=== PATIENT | male | born 1950 | race African-American/Black ===

== ENCOUNTER 2016-11-10 15:39 | Inpatient (IN) | payer SELFPAY ==
[2016-11-10] MEDS ORDERED: CLONIDINE HCL 0.1 MG TABLET PO ONE (16:03)
--- NOTE | 2016-11-10 16:03 | ER Document Report ---
ED Medical Screen (RME) - General Stated Complaint: LEFT SIDE PAIN Mode of Arrival: Ambulatory Information source: Patient Notes: pt c/o upper abd pain that radiates around left lateral side and left flank area. No urinary sx, no cp. Pt was seen here on 11/01 and dx with pancreatitis. Pt has been taking blood pressure medication, but is hypertensive in triage. Pt c/o dizziness Hx: HTN, pancreatitis TRAVEL OUTSIDE OF THE [place] IN LAST 30 DAYS: No - Related Data Allergies/Adverse Reactions: No Known Drug Allergies Allergy (Unknown, Verified 11/03/16 13:05) Raspberries Allergy (Mild, Uncoded 11/03/16 13:05) Hives Past Medical History - Past Medical History Cardiac Medical History: Reports: Hx Congestive Heart Failure, Hx Hypertension Pulmonary Medical History: Denies: Hx Tuberculosis Neurological Medical History: Denies: Hx Seizures GI Medical History: Reports: Hx Gastroesophageal Reflux Disease Past Surgical History: Denies: Hx Pacemaker - Immunizations Immunizations up to date: Yes Hx Diphtheria, Pertussis, Tetanus Vaccination: Yes - unk Physical Exam - Abdominal Tenderness: Tender - left lateral side pain
[2016-11-10 17:06] LABS: ABSOLUTE BASOPHILS # (AUTO) 0.1 10^3/uL (0.0-0.2); ABSOLUTE EOSINOPHILS # (AUTO) 0.4 10^3/uL (0.0-0.6); ABSOLUTE LYMPHOCYTES (AUTO) 2.7 10^3/uL (0.5-4.7); ABSOLUTE MONOCYTES (AUTO) 0.6 10^3/uL (0.1-1.4); ABSOLUTE NEUT (AUTO) 4.3 10^3/uL (1.7-8.2); BASOPHILS % (AUTO) 0.7 % (0-2); EOSINOPHILS % (AUTO) 4.9 % (0-6); HEMOGLOBIN 13.3 g/dL (13.5-17.0); HGB HCT DIFFERENCE -0.1; LYMPHOCYTES % (AUTO) 33.7 % (13-45); MEAN CORPUSCULAR HEMOGLOBIN 30.8 pg (27.0-33.4); MEAN CORPUSCULAR HGB CONC 33.4 g/dL (32.0-36.0); MEAN CORPUSCULAR VOLUME 92 fl (80-97); MONOCYTES % (AUTO) 7.4 % (3-13); RED BLOOD COUNT 4.33 10^6/uL (4.35-5.55); RED CELL DISTRIBUTION WIDTH 14.3 % (11.5-14.0); SEGMENTED NEUTROPHILS % (AUTO) 53.3 % (42-78); WHITE BLOOD COUNT 8.1 10^3/uL (4.0-10.5)
[2016-11-10 17:09] LABS: APPEARANCE,URINE CLEAR; BILIRUBIN,URINE NEGATIVE (NEGATIVE); GLUCOSE, URINE NEGATIVE (NEGATIVE); KETONES,URINE NEGATIVE (NEGATIVE); LEUKOCYTE ESTERASE,URINE NEGATIVE (NEGATIVE); NITRITE,URINE NEGATIVE (NEGATIVE); PROTEIN,URINE 30 mg/dL (NEGATIVE); URINE SPECIFIC GRAVITY 1.021; UROBILINOGEN,URINE NEGATIVE mg/dL (<2.0)
[2016-11-10 17:32] LABS: ALANINE AMINOTRANSFERASE 35 U/L (21-72); ALBUMIN 4.1 g/dL (3.5-5.0); ALKALINE PHOSPHATASE 82 U/L (38-126); ANION GAP 13 (5-19); ASPARTATE AMINO TRANSFERASE 18 U/L (17-59); BILIRUBIN,TOTAL 0.5 mg/dL (0.2-1.3); BLOOD UREA NITROGEN 11 mg/dL (7-20); CALCIUM 10.2 mg/dL (8.4-10.2); CARBON DIOXIDE 27 mmol/L (22-30); CHLORIDE 104 mmol/L (98-107); CREATINE KINASE 62 U/L (55-170); CREATININE RESULT 1.17 mg/dL (0.52-1.25); GLUCOSE 148 mg/dL (75-110); LIPASE 1472.4 U/L (23-300); MAGNESIUM 2.1 mg/dL (1.6-2.3); POTASSIUM 4.5 mmol/L (3.6-5.0); SODIUM 143.5 mmol/L (137-145); TOTAL PROTEIN 7.5 g/dL (6.3-8.2)
[2016-11-10 17:38] LABS: CREATINE KINASE MB 1.08 ng/mL (<4.55)
[2016-11-10 17:44] LABS: TROPONIN I 0.039 ng/mL
--- NOTE | 2016-11-10 17:45 | ER Document Report ---
ED General - General Mode of Arrival: Ambulatory Information source: Patient TRAVEL OUTSIDE OF THE [place] IN LAST 30 DAYS: No - HPI Patient complains to provider of: Left Sided Abdominal Pain Onset: Last week Onset/Duration: Gradual, Persistent Similar symptoms previously: Yes Recently seen / treated by doctor: Yes - 11/03/2016 seen here <MAJO GOODEN - Last Filed: 11/10/16 17:53> <BRENDA CASTREJON - Last Filed: 11/10/16 21:18> - General Chief Complaint: Abdominal Pain Stated Complaint: LEFT SIDE PAIN Notes: Patient is a 66 y/o male presenting to the emergency department concerned of left sided abdominal pain onset approximately 1 week ago. Patient states he was seen here [facility] and diagnosed with Pancreatitis. Patient has a past history of pancreatitis the first being in 2008. Patient has history of hypertension, but does not have a primary care provider to manage his medications. (MAJO GOODEN) This 66-year-old male patient comes in complaining of abdominal pain for over a week. He was seen here on 11/03/[address] scan showing mild pancreatic inflammation, an ultrasound was unremarkable. A lipase was 2,971 on that day. He was discharged with a prescription for Percocet. He states the pain medication is not helping his pain. He is also prescribed metoprolol 50 mg twice a day which she has not been taking. He comes in [facility] with a blood pressure of 228/111. He has had pancreatitis several times over the past few years, previous admissions when he had a primary care provider, indicated it was alcohol related. He states he does not drink alcohol any longer. (BRENDA CASTREJON) - Related Data Allergies/Adverse Reactions: No Known Drug Allergies Allergy (Unknown, Verified 11/10/16 16:03) Raspberries Allergy (Mild, Uncoded 11/10/16 16:03) Hives Past Medical History - General Information source: Patient - Social History Smoking Status: Current Every Day Smoker Cigarette use (# per day): Yes - ~1/2 ppd Frequency of alcohol use: None Family History: Reviewed & Not Pertinent - Past Medical History Cardiac Medical History: Reports: Hx Congestive Heart Failure, Hx Hypertension GI Medical History: Reports: Hx Gastroesophageal Reflux Disease - Immunizations Immunizations up to date: Yes Hx Diphtheria, Pertussis, Tetanus Vaccination: Yes - unk Hx Pneumococcal Vaccination: 11/11/11 <MAJO GOODEN - Last Filed: 11/10/16 17:53> Review of Systems - Review of Systems Constitutional: No symptoms reported EENT: No symptoms reported Cardiovascular: No symptoms reported Respiratory: No symptoms reported Gastrointestinal: See HPI, Abdominal pain - Left Sided Genitourinary: No symptoms reported Male Genitourinary: No symptoms reported Musculoskeletal: No symptoms reported Skin: No symptoms reported Hematologic/Lymphatic: No symptoms reported Neurological/Psychological: No symptoms reported -: Yes All other systems reviewed and negative <MAJO GOODEN - Last Filed: 11/10/16 17:53> Physical Exam - Vital signs Interpretation: Hypertensive - General General appearance: Alert - HEENT Head: Normocephalic, Atraumatic Eyes: Normal Pupils: PERRL Neck: No: Carotid bruit - Respiratory Respiratory status: No respiratory distress Chest status: Nontender Breath sounds: Normal Chest palpation: Normal - Cardiovascular Rhythm: Regular Heart sounds: Normal auscultation Murmur: No - Abdominal Inspection: Obese Distension: No distension Bowel sounds: Normal Tenderness: Tender - Very tender to palpation over epigastric region Organomegaly: No organomegaly - Back Back: Normal, Nontender - Extremities General upper extremity: Normal inspection, Nontender, Normal color, Normal ROM , Normal temperature General lower extremity: Normal inspection, Nontender, Normal color, Normal ROM , Normal temperature, Normal weight bearing - Neurological Neuro grossly intact: Yes Cognition: Normal Orientation: AAOx4 Dariela Coma Scale Eye Opening: Spontaneous Dariela Coma Scale Verbal: Oriented Dariela Coma Scale Motor: Obeys Commands Dariela Coma Scale Total: 15 Speech: Normal - Psychological Associated symptoms: Normal affect, Normal mood - Skin Skin Temperature: Warm Skin Moisture: Dry Skin Color: Normal <MAJO GOODEN - Last Filed: 11/10/16 17:53> Course - Laboratory Result Diagrams: 11/10/16 16:40 11/10/16 16:40 <MAJO GOODEN - Last Filed: 11/10/16 17:53> - Laboratory Result Diagrams: 11/10/16 16:40 11/10/16 16:40 - Diagnostic Test Radiology reviewed: Reports reviewed - Acute abdominal series is unremarkable - EKG Interpretation by Fl EKG shows normal: Sinus rhythm, Vivian, Intervals, QRS Complexes, ST-T Waves Rate: Normal - 75 Rhythm: NSR Voltage: Consistant with LVH P Waves: LAE - Consults Dr. Nelson Time consulted: 21:10 Consulted provider: will come to ER <BRENDA CASTREJON - Last Filed: 11/10/16 21:18> - Vital Signs Vital signs: Temp Pulse Resp BP Pulse Ox 97.9 F 83 20 173/99 H 98 11/10/16 16:02 11/10/16 16:02 11/10/16 20:41 11/10/16 20:41 11/10/16 20:41 (MAJO GOODEN) (BRENDA CASTREJON) - Laboratory Laboratory results interpreted by me: 11/10/16 11/10/16 11/10/16 16:20 16:40 16:40 RBC 4.33 L Hgb 13.3 L RDW 14.3 H Glucose 148 H Lipase 1472.4 H Urine Protein 30 H Urine Ascorbic Acid 20 H (MAJO GOODEN) (BRENDA CASTREJON) Discharge <MAJO GOODEN - Last Filed: 11/10/16 17:53> - Discharge Admitting Provider: Hospitalist Unit Admitted: IMCU <BRENDA CASTREJON - Last Filed: 11/10/16 21:18> - Discharge Clinical Impression: Recurrent acute pancreatitis, Uncontrolled hypertension Condition: Stable Disposition: ADMITTED INPATIENT Scribe Attestation: 11/10/16 21:18 I personally performed the services described in the documentation, reviewed and edited the documentation which was dictated to the scribe in my presence, and it accurately records my words and actions. (BRENDA CASTREJON) Scribe Documentation - Scribe Written by Wes:: Majo Gooden 11/10/2016 17:45 acting as scribe for :: Abe <MAJO GOODEN - Last Filed: 11/10/16 17:53>
[2016-11-10] MEDS ORDERED: HYDRALAZINE HCL INJ/PF 20 MG/1 ML SDV IV ONE ×2 (17:57→21:04)
[2016-11-10] MEDS ORDERED: ONDANSETRON HCL INJ/PF 4 MG/2 ML SDV IV ONE ×2 (17:57→21:04)
[2016-11-10] MEDS ORDERED: MORPHINE SULFATE 10 MG/ML INJ IV ONE ×2 (17:57→21:04)
[2016-11-10 19:53] LABS: URINE BARBITURATES SCREEN NEGATIVE; URINE PHENCYCLIDINE SCREEN NEGATIVE
[2016-11-10 20:00] LABS: URINE METHADONE SCREEN NEGATIVE
[2016-11-10 21:20] LABS: ADD ON TESTING BLD IN LAB ACKNOWLEDGE
[2016-11-10 21:33] LABS: ALCOHOL < 10 mg/dL (NONE DETECTED)
--- NOTE | 2016-11-10 22:40 | EKG REPORT ---
SEVERITY:- ABNORMAL ECG - SINUS RHYTHM PROBABLE LEFT ATRIAL ABNORMALITY PROBABLE LVH WITH SECONDARY REPOL ABNRM : Confirmed by: Jose Isaac MD 10-Nov-2016 22:39:26
[2016-11-10] MEDS ORDERED: MAGNESIUM HYDROXIDE SUSP 30 ML UDCUP PO PRN (23:16)
[2016-11-10] MEDS ORDERED: ACETAMINOPHEN 325 MG TABLET PO PRN (23:16)
[2016-11-10] MEDS ORDERED: PROMETHAZINE HCL INJ 25 MG/1 ML VIAL IV PRN (23:18)
[2016-11-10] MEDS ORDERED: NICOTINE 14 MG/24 HR PATCH.TD24 TD PRN (23:18)
--- NOTE | 2016-11-10 23:47 | PDOC H&P ---
History of Present Illness Admission Date/PCP: 11/10/16 21:51 No PCP; referral to [facility] Patient complains of: abd pain History of Present Illness: SAMPSON MAO is a 66 year old obese male with underlying arthritis and difficult to control blood pressure, and with lack of medical care for least a year due to lack of insurance and finances, along with recurrent pancreatitis, felt to be alcohol related in the past, who presents to the emergency room for the second time in one week for evaluation of above complaint. Patient has been discussed with emergency room physician who evaluated the patient. Describes approximately 10 day history of intermittent episodes of left upper quadrant combination sharp and throbbing abdominal pain. Increases with certain movements, including walking, along with eating. Of note, patient is a fairly poor historian. No nausea vomiting, fever or chills. No diarrhea or dysuria. No chest pain. No bowel movement for the past 3 days. Was seen in the emergency room [facility] for evaluation of similar complaints, that had been ongoing for approximately 3 days at that time. Workup included CT scan of the abdomen and pelvis revealing mild pancreatitis, along with ultrasound revealing slight dilatation of the pancreatic duct. Indeterminate troponins. Was discharged home with when necessary Percocet along with metoprolol. Has been taking both medications as prescribed. States pain has changed little at all with the Percocet he has been taking. Intermittent episodes of pancreatitis since 2008. No specific etiology discovered, although previously felt to be secondary to alcohol use. No alcohol use since 2008.. Blood pressure fairly elevated upon presentation to the emergency room. Has required multiple medications for treatment of same. Laboratory results are listed in [facility] and are reviewed. 01/03/15 01/14/15 04/07/15 18:36 16:50 17:45 Troponin I 0.034 0.020 0.027 11/03/16 11/03/16 11/10/16 15:30 19:42 16:40 Troponin I 0.066 0.073 0.039 X-ray summary results are listed below, with full report(s) reviewed. . EKG reviewed and compared to prior tracing from November 03 of this year. Social history/personal habits: . No children. Unemployed. Half- pack of cigarettes per day. No alcohol use since 2008. No illicit drug use other than marijuana. Should patient become mentally incapacitated, surrogate health care decision maker Brother Umang. Family History : Siblings are diabetic and hypertensive. Father has coronary artery disease. Mother is ; she was hypertensive and diabetic. Allergies/adverse reactions allergic only to raspberries. NKDA. Home medications are reviewed and are to be reconciled by nursing staff in [facility]. Home medications initially autopopulated into [facility] may not accurately reflect patient's true medications, dosages, and/or frequencies. Compliant with medications. He received these 2 medications when seen in the emergency room on [facility]. REVIEW OF SYSTEMS: Constitutional: No fever or chills. Eyes: Wears glasses. ENT: No swallowing problems or complaints. No hearing problems or complaints. Pulmonary: No current complaints. Cardiovascular: No current complaints, including chest pain. Gastrointestinal: See history and present illness. Skin: No current complaints, including rashes. Hematologic: No unusual easy bruising or bleeding. Neurologic: No current complaints, including numbness or tingling. Musculoskeletal: Joint pain from arthritis. Psychiatric: No current complaints, including anxiety or depression. Endocrine: No current complaints, including polyuria. Genitourinary: No current complaints, including dysuria. PHYSICAL EXAMINATION: 6 feet 1 inches tall. 116 kg. BMI 33.7 kg/m. Blood pressure 181/80. Pulse 88 and regular. 99% saturation on room air. Respirations are 17 and unlabored. Temperature 97.9. Obese but also somewhat stocky otherwise well-developed -Martiniquais male who appears perhaps a bit younger than his stated age. Pleasant awake alert and cooperative. Appears slightly fatigued, and perhaps a bit under the weather , so to speak. Otherwise, no obvious distress. Brother Umang, who is his surrogate healthcare decision-maker is present at his side, with patient's approval. Skin is warm and dry. No grossly obvious evidence of rash in areas of skin examined. No subcutaneous nodules palpated. ENT: Hearing grossly normal to normal conversation. Tongue midline on protrusion pink and slightly tacky Eyes: No scleral icterus. Pupils equal and reactive to light at 4 mm. [place] conjunctivae. Neck is supple and nontender to gentle active range of motion and palpation. Midline trachea. No palpable thyroid nodule mass enlargement or tenderness. Lymphatic: No palpable cervical or clavicular nodes. Neck and lymphatic exams limited by patient body habitus. Psychiatric: Fair to reasonable insight into acute and chronic medical issues. Oriented to time location and why here. Lungs: Auscultation reveals clear and equal breath sounds bilaterally. No use of accessory respiratory muscles. Cardiovascular: Heart regular rate and rhythm, without gallop murmur or rub. No carotid or abdominal aortic bruits. No ankle or pedal edema. Faintly palpable dorsalis pedis pulses. Abdomen: soft, slightly obese, perhaps slightly distended nontender other than very mild left upper quadrant discomfort to palpation with positive bowel sounds. Certainly no evidence of guarding or peritoneal signs. Unable to adequately evaluate abdomen for masses or organomegaly due to discomfort, body habitus, and distention. Extremities: Feet are warm and dry. No calf tenderness to compression. No grossly obvious visual evidence of calf swelling. Gentle manipulation of lower extremities fails to reveal any obvious evidence of injury or instability to knees hips or ankles. Neurologic: Moves upper extremities grossly normally. Patellar reflexes absent. Absent Babinski. Light touch is intact at feet. Dorsiflexion and plantarflexion of feet 5 / 5 and symmetric. Past Medical History Cardiac Medical History: Reports: Hypertension Denies: Congestive Heart Failure, DVT, Myocardial Infarction, Hyperlipidema, Pulmonary Embolism Pulmonary Medical History: Denies: Asthma, Chronic Obstructive Pulmonary Disease (COPD), Tuberculosis EENT Medical History: Reports: Eyes - Glasses Denies: Ears, Throat Neurological Medical History: Denies: Hemorrhagic CVA, Ischemic CVA, Seizures Endocrine Medical History: Denies: Diabetes Mellitus Type 1, Diabetes Mellitus Type 2, Hyperthyroidism, Hypothyroidism Renal/ Medical History: Reports: None GI Medical History: Reports: Gastroesophageal Reflux Disease, Other - Recurrent pancreatitis Denies: Cirrhosis, Hepatitis, Peptic Ulcer Disease Musculoskeltal Medical History: Reports: Arthritis Skin Medical History: Reports: None Denies: Eczema, Psoriasis Psychiatric Medical History: Reports: Tobacco Dependency Denies: Alcohol Dependency - History ETOH abuse; none since 2008, per patient., Depression, General Anxiety Disorder, Substance Abuse Hematology: Reports: None Infectious Medical History: Denies: Hepatitis B, Hepatitis C Past Surgical History Past Surgical History: Reports: None Social History Information Source: Patient, Relative, Emergency Med Personnel, [facility] Records Smoking Status: Current Every Day Smoker Frequency of Alcohol Use: None Hx Recreational Drug Use: Yes Drugs: Marijuana Hx Prescription Drug Abuse: No - Advance Directive Resuscitation Status: Full Code Family History Family History: Reviewed & Not Pertinent Parental Family History Reviewed: Yes Children Family History Reviewed: NA Sibling(s) Family History Reviewed.: Yes Medication/Allergy Home Medications: Oxycodone HCl/Acetaminophen [Percocet 5-325 mg Tablet] 1 - 2 tab PO Q4H PRN #20 tablet 03/21/16 RX: Metoprolol Tartrate [Lopressor 50 mg Tablet] 50 mg PO Q12H #30 tablet Lisinopril [Prinivil 40 mg Tablet] 40 mg PO BID #60 tablet 11/16/16 Nifedipine [Procardia XL 60 mg Tablet] 60 mg PO BID #60 tab.er.24 11/16/16 RX: Atorvastatin Calcium [Lipitor 40 mg Tablet] 40 mg PO QHS #30 tablet RX: Grawn-3 Acid Ethyl Esters [Lovaza 1 gm Capsule] 1 gm PO BIDBS #0 capsule 04/27 Allergies/Adverse Reactions: No Known Drug Allergies Allergy (Unknown, Verified 11/10/16 16:03) Raspberries Allergy (Mild, Uncoded 11/10/16 16:03) Hives Physical Exam Vital Signs: Temp Pulse Resp BP Pulse Ox 97.9 F 83 20 170/98 H 99 11/10/16 16:02 11/10/16 16:02 11/10/16 23:01 11/10/16 23:01 11/10/16 23:01 Results Impressions: Acute Abdomen Series 11/10/16 15:58 IMPRESSION: NO RADIOGRAPHIC EVIDENCE FOR ACUTE ABDOMINAL DISEASE. Assessment & Plan - Diagnosis (1) DVT prophylaxis Is this a current diagnosis for this admission?: Yes (2) Elevated troponin Is this a current diagnosis for this admission?: YesPlan: Indeterminate range. Downward trending from the slightly higher indeterminate range on [place] Imelda. Certainly no outward clinical evidence of acute coronary syndrome, but will obtain 2 more troponin levels. (3) Recurrent acute pancreatitis Is this a current diagnosis for this admission?: YesPlan: Standard pancreatitis protocol, including bowel rest. Ice chips only. When necessary medication for control of pain, nausea and vomiting. Strict intake and output. Lipid panel. I have strongly encouraged patient not to get out of bed without notifying staff , to avoid a fall with injury. Knee high SCDs for DVT prophylaxis, along with subcutaneous heparin. Impression and plans were discussed with patient, and brother, both of whom concur. Time spent in evaluation and management of patient: 62 minutes. (4) Uncontrolled hypertension Is this a current diagnosis for this admission?: YesPlan: Gradual blood pressure control. Will increase metoprolol dosage. (5) Marijuana use Is this a current diagnosis for this admission?: Yes (6) Tobacco dependency Is this a current diagnosis for this admission?: YesPlan: When necessary nicotine patch. - Inpatient Certification Based on my medical assessment, after consideration of the patient's comorbidities, presenting symptoms, or acuity I expect that the services needed warrant INPATIENT care.: Yes I certify that my determination is in accordance with my understanding of Medicare's requirements for reasonable and necessary INPATIENT services [42 CFR 412.3e].: Yes Medical Necessity: Failure to Improve With Outpatient Therapy, Need Close Monitoring Due to Risk of Patient Decompensation, Need For IV Fluids, Need For Continuous Telemetry Monitoring, Need for Pain Control, Risk of Complication if Not Cared For in Hospital Post Hospital Care: D/C or Transfer Summary
[2016-11-11] MEDS: NORMAL SALINE 1000 ML 1,000 ML IV PRN ×4 (01:28→22:16)
[2016-11-11] MEDS ORDERED: INFLUENZA ADLT QUAD (36MOS+) 2016-17 VAC 0.5 ML SYR IM PRN (02:10)
[2016-11-11] MEDS: MORPHINE SULFATE 10 MG/ML INJ IV PRN ×4 (02:27→20:40)
[2016-11-11 04:37] LABS: ABSOLUTE EOSINOPHILS # (AUTO) 0.3 10^3/uL (0.0-0.6); ABSOLUTE LYMPHOCYTES (AUTO) 2.3 10^3/uL (0.5-4.7); ABSOLUTE MONOCYTES (AUTO) 0.5 10^3/uL (0.1-1.4); ABSOLUTE NEUT (AUTO) 3.3 10^3/uL (1.7-8.2); BASOPHILS % (AUTO) 0.6 % (0-2); EOSINOPHILS % (AUTO) 4.7 % (0-6); HEMATOCRIT 38.5 % (37.9-51.0); HEMOGLOBIN 12.8 g/dL (13.5-17.0); HGB HCT DIFFERENCE -0.1; LYMPHOCYTES % (AUTO) 36.2 % (13-45); MEAN CORPUSCULAR HEMOGLOBIN 30.5 pg (27.0-33.4); MEAN CORPUSCULAR HGB CONC 33.2 g/dL (32.0-36.0); MEAN CORPUSCULAR VOLUME 92 fl (80-97); MONOCYTES % (AUTO) 7.8 % (3-13); RED BLOOD COUNT 4.19 10^6/uL (4.35-5.55); RED CELL DISTRIBUTION WIDTH 14.1 % (11.5-14.0); SEGMENTED NEUTROPHILS % (AUTO) 50.7 % (42-78); WHITE BLOOD COUNT 6.5 10^3/uL (4.0-10.5)
[2016-11-11 05:04] LABS: ANION GAP 10 (5-19); BLOOD UREA NITROGEN 10 mg/dL (7-20); CALCIUM 9.4 mg/dL (8.4-10.2); CARBON DIOXIDE 25 mmol/L (22-30); CHLORIDE 106 mmol/L (98-107); CHOLESTEROL 218.05 mg/dL (0-200); CREATININE RESULT 1.04 mg/dL (0.52-1.25); Direct HDL 25 mg/dL (>40); GLUCOSE 137 mg/dL (75-110); POTASSIUM 4.3 mmol/L (3.6-5.0); SODIUM 140.8 mmol/L (137-145); TRIGLYCERIDES 247 mg/dL (<150)
[2016-11-11 05:15] LABS: DIRECT LDL 153 mg/dL (<100)
[2016-11-11 05:19] LABS: VLDL CHOLESTEROL 49.4 mg/dL (10-31)
[2016-11-11] MEDS: HEPARIN SOD (PORCINE) 5,000 UNIT/ML 1 ML SYRINGE SUBCUT SCH ×3 (06:30→22:13)
--- NOTE | 2016-11-11 09:02 | EKG REPORT ---
SEVERITY:- ABNORMAL ECG - ATRIAL FIBRILLATION CONSIDER LEFT VENTRICULAR HYPERTROPHY OLD ANTEROSEPTAL CT : Confirmed by: Jose Isaac MD 11-Nov-2016 09:01:26
[2016-11-11] MEDS: DOCUSATE SODIUM 100 MG CAPSULE PO SCH ×2 (10:23→17:06)
[2016-11-11] MEDS: METOPROLOL TARTRATE 50 MG TABLET PO SCH ×2 (10:23→22:12)
[2016-11-11] MEDS ORDERED: ONDANSETRON 4 MG TAB.RAPDIS PO PRN (13:52)
--- NOTE | 2016-11-11 14:22 | PDOC PROGRESS REPORT ---
Subjective Progress Note for:: 11/11/16 Subjective:: The patient was seen earlier today on rounds. Patient admits to nausea and abdominal pain. The patient's family is present the bedside and active in the patient's care. The patient denies any vomiting, diarrhea, shortness of breath , dizziness, chest pain, heart palpitations, fevers, or chills. The patient has remained afebrile. The patient has converted back to sinus rhythm. Blood pressures have been in a good range. When prompted the patient voices no other concerns at this time. Review of systems: The rest of the review of systems is negative. Physical Exam Vital Signs: Temp Pulse Resp BP Pulse Ox 97.9 F 62 19 168/82 H 95 11/11/16 12:06 11/11/16 12:06 11/11/16 12:06 11/11/16 12:06 11/11/16 12:06 Intake & Output 11/09/16 11/10/16 11/11/16 23:59 23:59 23:59 Intake Total 1061 Balance 1061 Weight 114.1 kg General appearance: PRESENT: no acute distress, cooperative, obese, well- developed Head exam: PRESENT: atraumatic, normocephalic Eye exam: PRESENT: conjunctiva pink, EOMI, PERRLA. ABSENT: scleral icterus Ear exam: PRESENT: normal external ear exam Mouth exam: PRESENT: moist, tongue midline Neck exam: ABSENT: carotid bruit, JVD, lymphadenopathy, thyromegaly Respiratory exam: PRESENT: clear to auscultation wyatt. ABSENT: rales, rhonchi, wheezes Cardiovascular exam: PRESENT: RRR. ABSENT: diastolic murmur, rubs, systolic murmur Pulses: PRESENT: normal dorsalis pedis pul Vascular exam: PRESENT: normal capillary refill GI/Abdominal exam: PRESENT: normal bowel sounds, soft. ABSENT: distended, guarding, mass, organolmegaly, rebound, tenderness Rectal exam: PRESENT: deferred Extremities exam: PRESENT: full ROM. ABSENT: calf tenderness, clubbing, pedal edema Neurological exam: PRESENT: alert, awake, oriented to person, oriented to place , oriented to time, oriented to situation, CN II-XII grossly intact. ABSENT: motor sensory deficit Psychiatric exam: PRESENT: appropriate affect, normal mood. ABSENT: homicidal ideation, suicidal ideation Skin exam: PRESENT: dry, intact, warm. ABSENT: cyanosis, rash Results Laboratory Results: 11/11/16 04:20 11/11/16 04:20 11/11/16 11/11/16 11/11/16 04:20 04:20 04:20 WBC 6.5 RBC 4.19 L Hgb 12.8 L Hct 38.5 MCV 92 MCH 30.5 MCHC 33.2 RDW 14.1 H Plt Count 268 Seg Neutrophils % 50.7 Lymphocytes % 36.2 Monocytes % 7.8 Eosinophils % 4.7 Basophils % 0.6 Absolute Neutrophils 3.3 Absolute Lymphocytes 2.3 Absolute Monocytes 0.5 Absolute Eosinophils 0.3 Absolute Basophils 0.0 Sodium 140.8 Potassium 4.3 Chloride 106 Carbon Dioxide 25 Anion Gap 10 BUN 10 Creatinine 1.04 Est GFR ( Amer) > 60 Est GFR (Non-Af Amer) > 60 Glucose 137 H Calcium 9.4 Triglycerides 247 H Cholesterol 218.05 H LDL Cholesterol Direct 153 H VLDL Cholesterol 49.4 H HDL Cholesterol 25 L TSH 2.15 11/10/16 11/11/16 23:28 04:20 Troponin I 0.042 0.045 Impressions: Acute Abdomen Series 11/10/16 15:58 IMPRESSION: NO RADIOGRAPHIC EVIDENCE FOR ACUTE ABDOMINAL DISEASE. Lung Scan-VQ NM 11/11/16 05:34 IMPRESSION: LOW PROBABILITY FOR PULMONARY EMBOLI. Assessment & Plan - Diagnosis (1) Recurrent acute pancreatitis Is this a current diagnosis for this admission?: YesPlan: Will continue to aggressively hydrate. Will maintain nothing by mouth status. Will repeat lipase in the a.m. Advance diet as tolerated. (2) Paroxysmal atrial fibrillation Is this a current diagnosis for this admission?: YesPlan: Uncertain of the onset of this given that the patient remains asymptomatic. Patient has been seen by cardiology and will be set up for outpatient event monitor as well as echo. Do appreciate Dr. Andrews's input with this. (3) Uncontrolled hypertension Is this a current diagnosis for this admission?: YesPlan: Blood pressure still remained significantly elevated will add amlodipine and follow. Will avoid HCTZ given the patient's pancreatitis. (4) Elevated troponin Is this a current diagnosis for this admission?: YesPlan: Secondary to #2 do appreciate cardiology input with this. (5) Marijuana use Is this a current diagnosis for this admission?: Yes (6) Tobacco dependency Is this a current diagnosis for this admission?: YesPlan: Spent 3 minutes discussing smoking cessation education. The patient declines any pharmacological intervention at this time however will add a PRN nicotine patch. (7) DVT prophylaxis Is this a current diagnosis for this admission?: YesPlan: Continue subcutaneous heparin. - Time Time Spent with patient: on this followup including assessment, plan, physical examination, family meeting, and patient education is 35 minutes. Time Spent with patient: 35 or more minutes Medications reviewed and adjusted accordingly: Yes Anticipated discharge: Home Within: within 48 hours Disposition: The patient is a full code. Pending patient's symptomatology and diagnostic findings will reevaluate in the a.m.
[2016-11-11] MEDS ORDERED: AMLODIPINE BESYLATE 5 MG TABLET PO ONE (14:30)
--- NOTE | 2016-11-11 15:04 | EKG REPORT ---
SEVERITY:- ABNORMAL ECG - SINUS RHYTHM FIRST DEGREE AV BLOCK ABNORMAL T, CONSIDER ISCHEMIA, LATERAL LEADS : Confirmed by: Jose Isaac MD 11-Nov-2016 15:03:19
--- NOTE | 2016-11-11 15:43 | CONSULTATION REPORT E ---
Consultation Report NAME: SAMPSON MAO : 1950 AGE: 66Y DATE: 11/11/2016 334 A TO: FRANCOIS DAVE M.D. FROM: MEETA GODWIN M.D. Requesting Physician REASON FOR CONSULTATION: Atrial fibrillation. HISTORY OF PRESENT ILLNESS: The patient is a 66-year-old male with a known history of hypertension and recurrent abdominal pains due to recurrent pancreatitis, tobacco abuse, and arthritis. He came to the emergency room with abdominal pain. He was seen on [facility] for abdominal and a CT scan of the abdomen showed mild pancreatitis and ultrasound showed mildly dilated pancreatic ducts. The patient has a history of EtOH abuse until 2008, and since 2008 he has been having episodes of abdominal pain. The patient in the emergency room had a run of atrial fibrillation which converted to sinus rhythm within a matter of an hour. The patient is asymptomatic with this, feeling no palpitations or chest tightness or discomfort. He has no PND, orthopnea or leg edema or palpitations or syncope. There are no anginal symptoms or any cardiac chest pain. PAST MEDICAL HISTORY: Positive for history of hypertension. Although the patient denies a history of hyperlipidemia this admission, the patient's lipids are elevated. He has no history of diabetes mellitus, no history of thyroid disease. There is no history of coronary artery disease, IA or angina. There is no history of congestive heart failure. The patient denies any chronic kidney problems. There is no history of thyroid disease. There are no TIA or CVA symptoms. There is no anxiety and depression. PAST SURGICAL HISTORY: Negative. REVIEW OF SYSTEMS: CONSTITUTIONAL: Denies any fever or chills but complains of generalized fatigue and weakness. HEAD: Denies any headaches or head injury. HEENT: Eyes: No history of amblyopia or diplopia, no history of amaurosis fugax. Ears: No history of tinnitus, no history of hearing loss. No history of vertigo. Nose: No history of deviated nasal septal, no history of nosebleeds, no history of nasal polyps, no history of hay fever. Mouth: No history of altered taste sensation, no bleeding from the gums, no ulcers in the mouth or tongue. Throat: There is no odynophagia or dysphagia. No history of recurrent sore throats. SKIN: There is no pruritus. There is no yellowish discoloration of the skin. There is no psoriasis or skin cancer. NECK: No history of painful or enlarged neck lymph nodes, no masses of the neck, no goiter. LUNGS: The patient denies any history of asthma or COPD. No history of cough or sputum production or symptoms of URI or pneumonia. The patient does smoke. There is no symptoms suggestive of sleep apnea. No history of pulmonary embolism. No history of hemoptysis, no history of pleuritic chest pain. CARDIAC: History of hypertension. No history of coronary artery disease or IA. No anginal symptoms. No history of congestive heart failure. Denies any palpitations, and per the patient, had a brief run of atrial fibrillation in the emergency room. The patient is asymptomatic from it and, hence, it is not clear as to how long the patient has been having intermittent flash paroxysmal atrial fibrillation. There is no leg edema. GASTROINTESTINAL: History of GERD present. No history of GI bleed. No history of peptic ulcer disease. No history of fatty food intolerance. No history of altered bowel movements. The patient has recurrent mil pancreatitis causing recurrent abdominal pain. MUSCULOSKELETAL: History of arthritis present. No history of collagen vascular disease. RENAL: No history of hematuria, polyuria or dysuria. No history of heat or cold intolerance. No history of chronic kidney disease. History of enlarged prostate, symptoms controlled with Flomax. No history of symptoms of urinary tract infection. NEUROLOGIC: No history of TIA or CVA. No history of sleep apnea, no headaches, migraines or seizures. PSYCHIATRIC: No history of anxiety or depression. No history of suicidal ideation. VASCULAR: No history of calf or buttock claudication. No history of DVT. HEMATOLOGICAL: No history of bleeding diathesis. No history of clotting disorders. SOCIAL HISTORY: The patient does not smoke. There is no history of EtOH abuse. FAMILY HISTORY: Positive for coronary artery disease, history of IA and history of hypertension. ALLERGIES: He has no known drug allergies. He is allergic to RASPBERRIES. MEDICATIONS: 1. Tylenol 650 mg p.o. q.4 h. given 1 dose. 2. Amlodipine 5 mg p.o. q.12 h. 3. Clonidine 0.1 mg given x1. 4. Colace 100 mg p.o. b.i.d. 5. Fluvax 0.5 mL IM on the day of discharge. 6. Heparin 5000 units subcutaneously q.8 h. 7. Hydralazine 30 mg IV push now x2 doses. 8. Normal saline at 200 mL/hr. 9. Metoprolol 100 mg p.o. q.12 h. 10. Magnesium 30 mL at bedtime p.r.n. 11. Morphine sulfate 4 mg IV push q.4 h. p.r.n. 12. Nicoderm 1 transdermally daily at a strength of 14 mg/24 hour. 13. Zofran 4 mg p.o. q.4 h. p.r.n. 14. Zofran 8 mg IV piggyback x1. SOCIAL HISTORY: The patient does smoke. There is no history of EtOH abuse. FAMILY HISTORY: Per brother, there is a history of coronary artery disease and hypertension in the family. His brothers have diabetes mellitus. PHYSICAL EXAMINATION: GENERAL: At present the patient still has some mild abdominal pain and is in mild distress. He has no chest pain or discomfort. He is mildly obese, well groomed and well nourished. VITAL SIGNS: The patient is afebrile with temperature of 97.9 degrees Fahrenheit orally, pulse is 62 beats per minute, blood pressure 168/82, respirations 19 per minute, 02 sats are 94% on room air. HEENT: Head is atraumatic and normocephalic. Eyes: Pupils are equal, round, regular, reactive to light and accommodation. Extraocular movements are normal. There is no conjunctival pallor. There is no scleral icterus. Ears: Tympanic membranes are intact. External auditory canals are clear. Nose: There is no deviated nasal septum. There are no nasal polyps. There is no bleeding from the gums. Throat: There is no redness of the oropharynx. There are no exudates in the throat. Mouth: Mucous membranes of the mouth are moist. Tongue is moist. There are no ulcers. There is no bleeding from the gums. SKIN: There is no skin rash. There is no petechia or ecchymosis. There are no skin lesions. NECK: Supple. There is no JVD. Carotids are equal. There is no bruit. There is no goiter. Trachea is central. LUNGS: Clear to auscultation and percussion. HEART: S1 and S2 are heard. There is no S3 gallop. There is no S4 gallop. S1 is of normal intensity. is systolic murmur in the left sternal border and the apex. There is no rub. ABDOMEN: Soft, nontender. There is no hepatosplenomegaly. Bowel sounds are well heard. EXTREMITIES: Femorals are diminished; they are 1- bilaterally without any bruits. Leg pulses are reduced. There is no cyanosis or clubbing. There is no pedal edema. There is no DVT or cellulitis. CENTRAL NERVOUS SYSTEM: The patient is conscious, awake, alert, oriented x3 with no focal deficits. PSYCHIATRIC: The patient's judgment and insight are intact. his affect is normal. DIAGNOSTIC TEST RESULTS: The patient's lung V/Q scan is negative. The patient's EKG done in the emergency room showed initially sinus rhythm, probable LVH with secondary ST-T changes. There is LVH with strain. The patient's EKG done this morning shows atrial fibrillation with ventricular response of 96, left ventricular hypertrophy, poor R-wave progression in V1 to V4, most likely secondary to lead placement. Doubt anteroseptal IA. The patient's acute abdomen shows no suspicious calcifications. Bowel gas pattern is no dilated loops or fluid levels and nonobstructive pattern. There is no CHF. The patient's white count is 6500, hemoglobin 12.8, hematocrit 38.5, platelet count is 268,000. The patient's sodium is 140.8, potassium 4.3, chloride 106, CO2 is 25, the patient's BUN is 10, creatinine is 1.04, GFR is greater than 60. Glucose is 137, calcium 9.4. The patient's troponin I is negative x3 at 0.039, 0.042, and 0.045. The patient's triglycerides are 247, total cholesterol is 218.05, his LDL cholesterol is high at 153, HDL cholesterol is low at 35. The patient's lipase yesterday was 1472. TSH is 2.15. The patient's urine opiate, methadone, barbiturate, phencyclidine, amphetamines and benzodiazepines and cocaine screen are all negative. His marijuana is unconfirmed positive. His serum alcohol is less than 10. IMPRESSION: 1. Paroxysmal atrial fibrillation converted to sinus rhythm spontaneously. Since the patient is asymptomatic, it is not known how long this has been going on. Note that the patient's correct CHADS 2 VASC score is 1 at least. Continue beta-mp. Continue aspirin. 2. Hypertension. Not very well controlled. 3. Abdominal pain, recurrent, secondary to recurrent [id number] pancreatitis. 4. Past history of EtOH abuse, none since 2008. Note that the patient's symptoms of abdominal pain have been ongoing since 2008 intermittently; hence, he has chronic recurrent pancreatitis. 5. Hyperlipidemia. 6. Obesity. 7. Tobacco abuse disorder. 8. Systolic murmur. RECOMMENDATIONS: Continue the patient's metoprolol 100 mg p.o. q.12 h. Continue amlodipine and once the patient's blood pressure is controlled, would recommend the patient be placed on aspirin. If the patient needs further blood pressure control, would recommend to place the patient on ELVIE inhibitor. Since the patient is asymptomatic from his atrial fibrillation, would recommend a 30-day event monitor. In view of this, would recommend getting an echocardiogram to assess for murmur and atrial fibrillation and also would recommend a Lexiscan Cardiolite stress test to make sure that the patient does not have any underlying coronary artery disease. The patient's coronary artery risk factors are the patient's age, hypertension, family history of coronary artery disease, and the patient smoking. I would recommend starting the patient on a statin. NOTE: Forty-five minutes spent on this patient with more than 50% of the time spent on direct patient care, discussions with the patient and with the patient's brother, Umang. Later as an outpatient he will get a 30-day event monitor to see the frequency of episodes of paroxysmal atrial fibrillation in which he would need better rate control and also need serial enzymes. I would defer the treatment of pancreatitis to his primary care physician in this hospital. Note that this patient is a FULL CODE and his brother is the surrogate healthcare decision maker. Will follow with you. Thanking you. DICTATING PHYSICIAN: FRANCOIS DAVE M.D. [id number] PHY#: [id number] ID: [id number] JOB#: [id number] ACCT: [id number] cc:FRANCOIS DAVE M.D. >
[2016-11-11] MEDS ORDERED: CARBOXYMETHYLCELLULOSE SOD 0.5% 0.4 ML DROPERETTE OU PRN (17:46)
[2016-11-11] MEDS ORDERED: LISINOPRIL 10 MG TABLET PO ONE (18:45)
[2016-11-11] MEDS: AMLODIPINE BESYLATE 5 MG TABLET PO SCH (22:13)
[2016-11-12] MEDS: MORPHINE SULFATE 10 MG/ML INJ IV PRN ×5 (00:06→19:33)
[2016-11-12] MEDS: NORMAL SALINE 1000 ML 1,000 ML IV PRN ×5 (03:29→23:15)
[2016-11-12] MEDS: HEPARIN SOD (PORCINE) 5,000 UNIT/ML 1 ML SYRINGE SUBCUT SCH ×3 (05:41→22:20)
[2016-11-12 06:39] LABS: HEMATOCRIT 35.3 % (37.9-51.0); HEMOGLOBIN 11.4 g/dL (13.5-17.0); HGB HCT DIFFERENCE -1.1; MEAN CORPUSCULAR HEMOGLOBIN 30.4 pg (27.0-33.4); MEAN CORPUSCULAR HGB CONC 32.5 g/dL (32.0-36.0); MEAN CORPUSCULAR VOLUME 94 fl (80-97); RED BLOOD COUNT 3.77 10^6/uL (4.35-5.55); RED CELL DISTRIBUTION WIDTH 14.1 % (11.5-14.0); WHITE BLOOD COUNT 7.3 10^3/uL (4.0-10.5)
[2016-11-12 06:58] LABS: ALANINE AMINOTRANSFERASE 25 U/L (21-72); ALBUMIN 3.5 g/dL (3.5-5.0); ALKALINE PHOSPHATASE 64 U/L (38-126); ANION GAP 11 (5-19); ASPARTATE AMINO TRANSFERASE 17 U/L (17-59); BILIRUBIN,TOTAL 0.5 mg/dL (0.2-1.3); BLOOD UREA NITROGEN 12 mg/dL (7-20); CALCIUM 8.9 mg/dL (8.4-10.2); CARBON DIOXIDE 25 mmol/L (22-30); CHLORIDE 108 mmol/L (98-107); CREATININE RESULT 1.08 mg/dL (0.52-1.25); GLUCOSE 89 mg/dL (75-110); LIPASE 841.2 U/L (23-300); POTASSIUM 5.3 mmol/L (3.6-5.0); SODIUM 143.5 mmol/L (137-145); TOTAL PROTEIN 6.3 g/dL (6.3-8.2)
[2016-11-12] MEDS: AMLODIPINE BESYLATE 5 MG TABLET PO SCH ×2 (09:17→22:17)
[2016-11-12] MEDS: METOPROLOL TARTRATE 50 MG TABLET PO SCH ×2 (09:18→22:19)
[2016-11-12] MEDS: DOCUSATE SODIUM 100 MG CAPSULE PO SCH ×2 (09:18→17:20)
[2016-11-12] MEDS ORDERED: LISINOPRIL 10 MG TABLET PO SCH (10:00)
--- NOTE | 2016-11-12 10:47 | PDOC PROGRESS REPORT ---
Subjective Progress Note for:: 11/12/16 Subjective:: The patient is currently out of bed washing up. The patient's twin brother, Umang, is present at the bedside I given the patient's care The patient did have a bout of abdominal pain overnight which did improve with pain medication. The patient still complains of ongoing dull pain but overall notes improvement in symptoms. The patient denies any nausea, vomiting, diarrhea, shortness of breath, dizziness, chest pain, heart palpitations, fevers, or chills. The patient has remained afebrile. Blood pressures have improved with medication adjustments. The patient voices no other concerns at this time. Review of systems: The rest of the review of systems is negative. Physical Exam Vital Signs: Temp Pulse Resp BP Pulse Ox 97.8 F 58 L 19 170/75 H 98 11/12/16 07:43 11/12/16 07:43 11/12/16 07:43 11/12/16 07:43 11/12/16 07:43 Intake & Output 11/10/16 11/11/16 11/12/16 23:59 23:59 23:59 Intake Total 3461 2210 Output Total 500 Balance 3461 1710 Weight 114.1 kg 114.1 kg General appearance: PRESENT: no acute distress, cooperative, obese, well- developed Head exam: PRESENT: atraumatic, normocephalic Eye exam: PRESENT: conjunctiva pink, EOMI, PERRLA. ABSENT: scleral icterus Ear exam: PRESENT: normal external ear exam Mouth exam: PRESENT: moist, tongue midline Neck exam: ABSENT: carotid bruit, JVD, lymphadenopathy, thyromegaly Respiratory exam: PRESENT: clear to auscultation wyatt. ABSENT: rales, rhonchi, wheezes Cardiovascular exam: PRESENT: RRR. ABSENT: diastolic murmur, rubs, systolic murmur Pulses: PRESENT: normal dorsalis pedis pul Vascular exam: PRESENT: normal capillary refill GI/Abdominal exam: PRESENT: normal bowel sounds, soft. ABSENT: distended, guarding, mass, organolmegaly, rebound, tenderness Rectal exam: PRESENT: deferred Extremities exam: PRESENT: full ROM. ABSENT: calf tenderness, clubbing, pedal edema Neurological exam: PRESENT: alert, awake, oriented to person, oriented to place , oriented to time, oriented to situation, CN II-XII grossly intact. ABSENT: motor sensory deficit Psychiatric exam: PRESENT: appropriate affect, normal mood. ABSENT: homicidal ideation, suicidal ideation Skin exam: PRESENT: dry, intact, warm. ABSENT: cyanosis, rash Results Laboratory Results: 11/12/16 06:20 11/12/16 06:20 11/12/16 11/12/16 06:20 06:20 WBC 7.3 RBC 3.77 L Hgb 11.4 L Hct 35.3 L MCV 94 MCH 30.4 MCHC 32.5 RDW 14.1 H Plt Count 251 Sodium 143.5 Potassium 5.3 H Chloride 108 H Carbon Dioxide 25 Anion Gap 11 BUN 12 Creatinine 1.08 Est GFR ( Amer) > 60 Est GFR (Non-Af Amer) > 60 Glucose 89 Calcium 8.9 Magnesium 2.0 Total Bilirubin 0.5 AST 17 ALT 25 Alkaline Phosphatase 64 Total Protein 6.3 Albumin 3.5 Lipase 841.2 H 11/10/16 11/11/16 23:28 04:20 Troponin I 0.042 0.045 Impressions: Acute Abdomen Series 11/10/16 15:58 IMPRESSION: NO RADIOGRAPHIC EVIDENCE FOR ACUTE ABDOMINAL DISEASE. Lung Scan-VQ NM 11/11/16 05:34 IMPRESSION: LOW PROBABILITY FOR PULMONARY EMBOLI. Assessment & Plan - Diagnosis (1) Recurrent acute pancreatitis Is this a current diagnosis for this admission?: YesPlan: Will continue to aggressively hydrate. Will maintain nothing by mouth status. Will repeat lipase in the a.m. if normal will advance to clear liquids fat free. Will avoid HCTZ and alcohol. 11/11/16 13:52 Ondansetron [Zofran Odt 4 mg Tablet] 4 mg PO Q4HP PRN 11/13/16 06:00 LIPASE [CHEM] IN AM (1) 11/10/16 23:29 Normal Saline 1000 ml [NaCl 0.9% 1000 ml IV Soln] 1,000 ml IV CONTINUOUS (2) Paroxysmal atrial fibrillation Is this a current diagnosis for this admission?: YesPlan: Uncertain of the onset of this given that the patient remains asymptomatic. Patient has been seen by cardiology and will be set up for outpatient event monitor as well as echo. Do appreciate Dr. Andrews's input with this. The patient is currently in sinus rhythm will continue Toprol. Will discuss anticoagulation with cardiology. (3) Uncontrolled hypertension Is this a current diagnosis for this admission?: YesPlan: Blood pressure improved with the addition of amlodipine. I feel some of the spikes may be secondary to his pain associated with pancreatitis. Will avoid HCTZ given the patient's pancreatitis. 11/11/16 10:00 Metoprolol Tartrate [Lopressor 50 mg Tablet] 100 mg PO Q12 11/11/16 22:00 Amlodipine Besylate [Norvasc 5 mg Tablet] 5 mg PO Q12 11/12/16 10:00 Lisinopril [Prinivil 10 mg Tablet] 20 mg PO DAILY (4) Elevated troponin Is this a current diagnosis for this admission?: YesPlan: Secondary to #2 do appreciate cardiology input with this. (5) Marijuana use Is this a current diagnosis for this admission?: Yes (6) Tobacco dependency Is this a current diagnosis for this admission?: YesPlan: Will continue when necessary nicotine patch. 11/10/16 23:18 Nicotine [Nicoderm 14 mg/24 Hr Transdermal Patch] 1 each TD DAILYP PRN (7) DVT prophylaxis Is this a current diagnosis for this admission?: YesPlan: Continue subcutaneous heparin. 11/11/16 06:00 Heparin Sodium,Porcine [Heparin Inj 5,000 Units/ml 1 ml Syringe] 5,000 unit SUBCUT Q8 - Time Time Spent with patient: on this followup including assessment, plan, physical examination, family meeting, specialty collaboration, and patient education is 25 minutes. Time Spent with patient: 25-34 minutes Medications reviewed and adjusted accordingly: Yes Anticipated discharge: Home Within: within 24 hours, within 48 hours Disposition: The patient is a full code. Pending patient's symptomatology and diagnostic findings will reevaluate in the a.m.
--- NOTE | 2016-11-12 18:39 | PROGRESS NOTE E ---
Progress Note NAME: SAMPSON MAO : 1950 AGE: 66Y DATE: 11/12/2016 ROOM: 334 SUBJECTIVE: The patient denies any chest pain or discomfort. There is no shortness of breath and the patient's abdominal pain is improved. The patient does not any PND or orthopnea. There is no palpitations. There are no recurrence of atrial fibrillation on the monitor. The patient has no chest pain. There are no TIA or CVA symptoms. There is no nausea or vomiting, chills, rigors or fever. OBJECTIVE: GENERAL: On examination, the patient is moderately obese at present in no acute distress. VITAL SIGNS: He is afebrile with a temperature of 97.8 degrees Fahrenheit. Pulse is 58 beats per minute, blood pressure is still not well controlled at 170/75, respirations are 19 per minute and O2 saturations are 98% on room air. HEENT: Head is atraumatic, normocephalic. Eyes: Pupils are equal, round, regular and reactive to light and accommodation. Extraocular movements are normal. There is no conjunctival pallor. There is no scleral icterus. ENT is negative. NECK: Supple. There is JVD. Carotids are equal. There is no bruit. There is no lymphadenopathy. There is no goiter. Trachea is central. LUNGS: Clear to auscultation and percussion. HEART: S1 and S2 are heard. There is no S3 gallop. There is no S4 gallop. There is a systolic murmur in the left sternal border and the apex. There is no rub. ABDOMEN: Soft, nontender. There is no hepatosplenomegaly. Bowel sounds are well heard. EXTREMITIES: Femorals are 1+ bilaterally without any bruits. Leg pulses are diminished. There is no cyanosis or clubbing. There is trace pedal edema. There is no DVT or cellulitis. CENTRAL NERVOUS SYSTEM: The patient is conscious, awake, alert and oriented x3 with no focal deficits. PSYCHIATRIC: The patient's judgment and insight are intact. His affect is normal. DIAGNOSTIC TEST RESULTS: The patient's white count is 7300, hemoglobin 11.4, hematocrit 35.3, platelet count is 231,000. The patient's sodium is 143.5, potassium 5.3, chloride 108, CO2 is 25, the patient's BUN is 12, creatinine is 1.08, GFR is greater than 60. Glucose is 89. His calcium is 8.9. His liver function tests are normal. The patient's albumin is 3.5, total protein is 6.3. The patient's lipase has come down to 841.2, which is much less than what it was before. IMPRESSION: 1. PAROXYSMAL ATRIAL FIBRILLATION CONVERTED TO SINUS RHYTHM. No recurrence. Continue the patient on current beta-mp, continue aspirin. 2. HYPERTENSION. Not very well controlled. 3. ABDOMINAL PAIN, RECURRENT, SECONDARY TO RECURRENT [id number] PANCREATITIS. 4. PAST HISTORY OF ETOH ABUSE, NONE SINCE 2008. Note that the patient's symptoms of abdominal pain have been ongoing since 2008 intermittently; hence, he has chronic recurrent pancreatitis. 5. HYPERLIPIDEMIA. 6. OBESITY. 7. TOBACCO ABUSE DISORDER. 8. SYSTOLIC MURMUR. RECOMMENDATIONS: Note that last evening the patient was started on amlodipine 5 mg p.o. q.12 h. and the patient is also on lisinopril 20 mg p.o. daily and will increase the lisinopril to 20 mg p.o. q.12 h. Will follow with you and check an echo in the morning. Later the patient would be recommended to have a 30-day event monitor as an outpatient and also will try to get a IV Lexiscan Cardiolite stress test due to the patient's EKG not being normal. All the above discussed with patient and with his twin brother, Umang. NOTE: The patient is a FULL CODE and his brother, Umang, is his surrogate healthcare decision maker. I discussed with hospitalist. NOTE: Thirty minutes spent on this patient with more than 50% of the time spent on direct patient care and also review of the patient's medications and adjusting the patient's medications and discussions with the hospitalist and the patient and the patient's brother. Will follow with you. Thanking you. DICTATING PHYSICIAN: FRANCOIS DAVE M.D. [id number] PHY#: [id number] ID: [id number] JOB#: [id number] ACCT: [id number] cc: >
[2016-11-12] MEDS: LISINOPRIL 10 MG TABLET PO SCH (22:19)
[2016-11-13] MEDS: MORPHINE SULFATE 10 MG/ML INJ IV PRN ×3 (01:12→13:44)
[2016-11-13] MEDS: HEPARIN SOD (PORCINE) 5,000 UNIT/ML 1 ML SYRINGE SUBCUT SCH ×3 (05:44→21:31)
[2016-11-13 06:06] LABS: HEMATOCRIT 35.5 % (37.9-51.0); HEMOGLOBIN 11.8 g/dL (13.5-17.0); HGB HCT DIFFERENCE -0.1; MEAN CORPUSCULAR HEMOGLOBIN 30.4 pg (27.0-33.4); MEAN CORPUSCULAR HGB CONC 33.4 g/dL (32.0-36.0); MEAN CORPUSCULAR VOLUME 91 fl (80-97); RED CELL DISTRIBUTION WIDTH 14.3 % (11.5-14.0); WHITE BLOOD COUNT 6.1 10^3/uL (4.0-10.5)
[2016-11-13 06:23] LABS: ALANINE AMINOTRANSFERASE 37 U/L (21-72); ALBUMIN 3.4 g/dL (3.5-5.0); ALKALINE PHOSPHATASE 70 U/L (38-126); ANION GAP 13 (5-19); ASPARTATE AMINO TRANSFERASE 26 U/L (17-59); BILIRUBIN,TOTAL 0.6 mg/dL (0.2-1.3); BLOOD UREA NITROGEN 11 mg/dL (7-20); CALCIUM 9.4 mg/dL (8.4-10.2); CARBON DIOXIDE 24 mmol/L (22-30); CHLORIDE 106 mmol/L (98-107); CREATININE RESULT 0.95 mg/dL (0.52-1.25); GLUCOSE 84 mg/dL (75-110); LIPASE 316.2 U/L (23-300); MAGNESIUM 1.8 mg/dL (1.6-2.3); SODIUM 143.1 mmol/L (137-145); TOTAL PROTEIN 6.6 g/dL (6.3-8.2)
[2016-11-13] MEDS: NORMAL SALINE 1000 ML 1,000 ML IV PRN ×2 (06:52→12:23)
[2016-11-13 06:59] LABS: POTASSIUM 4.4 mmol/L (3.6-5.0)
[2016-11-13] MEDS: AMLODIPINE BESYLATE 5 MG TABLET PO SCH ×2 (10:00→21:30)
[2016-11-13] MEDS: METOPROLOL TARTRATE 50 MG TABLET PO SCH ×2 (10:01→21:36)
[2016-11-13] MEDS: LISINOPRIL 10 MG TABLET PO SCH ×2 (10:01→21:29)
[2016-11-13] MEDS: DOCUSATE SODIUM 100 MG CAPSULE PO SCH ×2 (10:01→17:39)
--- NOTE | 2016-11-13 14:20 | PDOC PROGRESS REPORT ---
Subjective Progress Note for:: 11/13/16 Subjective:: Patient still has some mild abdominal pain about 2-3/10 He is hungry; his blood pressure still quite elevated Lipase is finally coming down 300 Physical Exam Vital Signs: Temp Pulse Resp BP Pulse Ox 97.9 F 62 16 218/90 H 98 11/13/16 12:02 11/13/16 12:02 11/13/16 12:02 11/13/16 12:02 11/13/16 12:02 Intake & Output 11/12/16 11/13/16 11/14/16 00:59 00:59 00:59 Intake Total 3461 4285 2156 Output Total 250 2425 1400 Balance 3211 1860 756 Weight 114.1 kg 114.1 kg 115.2 kg General appearance: PRESENT: no acute distress, well-developed, well-nourished Head exam: PRESENT: atraumatic, normocephalic Eye exam: PRESENT: conjunctiva pink, EOMI, PERRLA. ABSENT: scleral icterus Ear exam: PRESENT: normal external ear exam Mouth exam: PRESENT: moist, tongue midline Neck exam: ABSENT: carotid bruit, JVD, lymphadenopathy, thyromegaly Respiratory exam: PRESENT: clear to auscultation wyatt. ABSENT: rales, rhonchi, wheezes Cardiovascular exam: PRESENT: RRR. ABSENT: diastolic murmur, rubs, systolic murmur Pulses: PRESENT: normal dorsalis pedis pul Vascular exam: PRESENT: normal capillary refill GI/Abdominal exam: PRESENT: normal bowel sounds, soft. ABSENT: distended, guarding, mass, organolmegaly, rebound, tenderness Rectal exam: PRESENT: deferred Extremities exam: PRESENT: full ROM. ABSENT: calf tenderness, clubbing, pedal edema Neurological exam: PRESENT: alert, awake, oriented to person, oriented to place , oriented to time, oriented to situation, CN II-XII grossly intact. ABSENT: motor sensory deficit Psychiatric exam: PRESENT: appropriate affect, normal mood. ABSENT: homicidal ideation, suicidal ideation Skin exam: PRESENT: dry, intact, warm. ABSENT: cyanosis, rash Results Laboratory Results: 11/13/16 05:51 11/13/16 05:51 11/13/16 11/13/16 05:51 05:51 WBC 6.1 RBC 3.90 L Hgb 11.8 L Hct 35.5 L MCV 91 MCH 30.4 MCHC 33.4 RDW 14.3 H Plt Count 259 Sodium 143.1 Potassium 4.4 Chloride 106 Carbon Dioxide 24 Anion Gap 13 BUN 11 Creatinine 0.95 Est GFR ( Amer) > 60 Est GFR (Non-Af Amer) > 60 Glucose 84 Calcium 9.4 Magnesium 1.8 Total Bilirubin 0.6 AST 26 ALT 37 Alkaline Phosphatase 70 Total Protein 6.6 Albumin 3.4 L Lipase 316.2 H 11/10/16 11/11/16 23:28 04:20 Troponin I 0.042 0.045 Impressions: Acute Abdomen Series 11/10/16 15:58 IMPRESSION: NO RADIOGRAPHIC EVIDENCE FOR ACUTE ABDOMINAL DISEASE. Lung Scan-VQ NM 11/11/16 05:34 IMPRESSION: LOW PROBABILITY FOR PULMONARY EMBOLI. Assessment & Plan - Diagnosis (1) Accelerated hypertension Is this a current diagnosis for this admission?: YesPlan: We will add hydralazine to patient's present medication Patient may be also somewhat fluid overloaded as he has been on IV fluids for the past 3 days 200 mL/h We will give him 20 mg of IV Lasix (2) DVT prophylaxis Is this a current diagnosis for this admission?: Yes (3) Paroxysmal atrial fibrillation Is this a current diagnosis for this admission?: YesPlan: Patient is now in normal sinus rhythm continue management as per Dr. Johnson (4) Recurrent acute pancreatitis Is this a current diagnosis for this admission?: YesPlan: Clear liquids by mouth patient may have low-fat diet in a.m. (5) Hyperlipidemia Qualifiers: Hyperlipidemia type: unspecified Qualified Code(s): E78.5 - Hyperlipidemia, unspecified Is this a current diagnosis for this admission?: YesPlan: Initiate treatment with Lipitor 20 mg daily at bedtime - Time Time Spent with patient: Patient may be discharged in 24- 48 hrs. if he continues to improve Time Spent with patient: 15-24 minutes
[2016-11-13] MEDS ORDERED: FUROSEMIDE INJ/PF 20 MG/2 ML SDV IV ONE (14:30)
[2016-11-13] MEDS ORDERED: HYDRALAZINE HCL 50 MG TABLET PO ONE (14:30)
--- NOTE | 2016-11-13 17:27 | XCELERA REPORT ---
[address] [address] Transthoracic Echocardiogram Report Name: SAMPSON MAO Age: 66 yrs Gender: Male : 1950 Patient Status: Inpatient Patient Location: 3S\S\334\S\A Study Date: 11/13/2016 11:26 AM Height: 73 in Weight: 251 lb BSA: 2.4 m2 Procedure: A two-dimensional transthoracic echocardiogram with color flow and Doppler was performed. The study was technically difficult with many images being suboptimal in quality. Reason For Study: PAROXYSMAL ATRIAL FIBRILLATION / MURMUR / HYPERTENSION. History: PAROXYSMAL ATRIAL FIBRILLATION / MURMUR / HYPERTENSION. Ordering Physician: OSIRIS DAVE Performed By: Nii Wasserman Interpretation Summary The left ventricle is normal in size. There is moderate concentric left ventricular hypertrophy. LV EF is > than 60% Left ventricular systolic function is normal. Doppler measurements suggest normal left ventricular diastolic function The left ventricular wall motion is normal. There is no thrombus. The right ventricle is normal in size and function. The left atrial size is normal. The interatrial septum is intact with no evidence for an atrial septal defect. There is no evidence of mitral valve prolapse. There is no mitral valve stenosis. There is a mild amount of mitral regurgitation There is no aortic valve stenosis There is no LVOT obstruction. No aortic regurgitation is present. There is no tricuspid stenosis. There is a mild amount of tricuspid regurgitation There is moderate pulmonary hypertension by echo RVSP is 55 mm of Hg , with RA mean of 10. There is no pericardial effusion. MMode/2D Measurements \T\ Calculations RVDd: 2.3 cm LVIDd: 5.5 cm FS: 33.5 % Ao root diam: 2.9 cm IVSd: 1.6 cm LVIDs: 3.6 cm EDV(Teich): 144.8 ml LVPWd: 1.6 cm ESV(Teich): 55.5 ml Ao root area: 6.8 cm2 EF(Teich): 61.7 % LA dimension: 4.0 cm Doppler Measurements \T\ Calculations MV E max merritt: MV P1/2t max merritt: Ao V2 max: LV V1 max P.4 cm/sec 97.1 cm/sec 149.4 cm/sec 3.4 mmHg MV A max merritt: MV P1/2t: 46.2 msec Ao max PG: LV V1 max: 58.7 cm/sec 8.9 mmHg 92.1 cm/sec MV E/A: 1.6 MVA(P1/2t): 4.8 cm2 MV dec slope: 615.9 cm/sec2 MV dec time: 0.18 sec PA V2 max: PI end-d merritt: TR max merritt: RAP systole: 97.6 cm/sec 202.6 cm/sec 325.8 cm/sec 10.0 mmHg PA max PG: TR max P.8 mmHg 42.4 mmHg RVSP(TR): 52.4 mmHg Left Ventricle The left ventricle is normal in size. There is moderate concentric left ventricular hypertrophy. LV EF is > than 60%. Left ventricular systolic function is normal. Doppler measurements suggest normal left ventricular diastolic function. The left ventricular wall motion is normal. There is no thrombus. There is no ventricular septal defect visualized. Right Ventricle The right ventricle is normal in size and function. Atria The right atrium is normal. The left atrial size is normal. The interatrial septum is intact with no evidence for an atrial septal defect. Mitral Valve There is no evidence of mitral valve prolapse. There is no vegetation seen on the mitral valve. There is no mitral valve stenosis. There is a mild amount of mitral regurgitation. Aortic Valve There is no aortic valvular vegetation. There is no aortic valve stenosis. There is no LVOT obstruction. No aortic regurgitation is present. Tricuspid Valve There is no tricuspid stenosis. There is a mild amount of tricuspid regurgitation. There is moderate pulmonary hypertension by echo. RVSP is 55 mm of Hg , with RA mean of 10. Pulmonic Valve There is no pulmonic valvular stenosis. There is a mild amount of pulmonic regurgitation. Great Vessels The aortic root is normal size. Effusions There is no pericardial effusion. : OSIRIS DAVE > Osiris Dave
--- NOTE | 2016-11-13 19:19 | PROGRESS NOTE E ---
Progress Note NAME: SAMPSON DENNISON : 1950 AGE: 66Y DATE: 11/13/2016 ROOM: 334 SUBJECTIVE: The patient states that he still has some abdominal pain, but it is much better. There is nausea or vomiting. His blood pressure is still very high and very difficult to control. He has been started on hydralazine 50 mg p.o. q.12 hours. The patient denies any chest pain or discomfort. There is no PND or orthopnea. There are no recurrence of atrial fibrillation. There are no TIA or CVA symptoms. There is no pedal edema. OBJECTIVE: GENERAL: On examination the patient is moderately obese, at present in no acute distress. VITAL SIGNS: He is afebrile with a temperature of 97.9 degrees Fahrenheit. Pulse is 62 beats per minute, blood pressure is 218/90, his respirations are 16 per minute, O2 saturations are 98% on room air. HEENT: Head is atraumatic, normocephalic. EYES: Pupils are equal, round, regular and reactive to light and accommodation. Extraocular movements are normal. There is no conjunctival pallor. There is no scleral icterus. ENT: Is negative. NECK: Supple. There is JVD. Carotids are equal. There is no bruit. There is no lymphadenopathy. There is no goiter. Trachea is central. LUNGS: Clear to auscultation and percussion. HEART: S1 and S2 is heard. There is no S3 gallop. There is no S4 gallop. There is a systolic murmur in the left sternal border and the apex. There is no rub. ABDOMEN: Soft, nontender. There is no hepatosplenomegaly. Bowel sounds are well heard. There are no tender areas or masses. EXTREMITIES: Femorals are deep, femorals are diminished. There are no femoral bruits. Leg pulses are diminished. There is no pedal edema. There is no DVT or cellulitis. There is no cyanosis or clubbing. There is no calf tenderness. CENTRAL NERVOUS SYSTEM: The patient is conscious, awake, alert and oriented x3 with no focal deficits. PSYCHIATRIC: The patient's judgment and insight are intact. His affect is normal. DIAGNOSTIC STUDIES: The patient's echocardiogram done this morning shows that the patient's has a normal left ventricular chamber size. There is some moderate left ventricular hypertrophy. There is no wall motion abnormality. LV ejection fraction is greater than 60%. Doppler measurements suggest normal left ventricular diastolic function. The left ventricular wall motion is normal. The right ventricle is normal in size and function. The left *------* is normal. The intraatrial septum is intact with no evidence of an AST. There is no evidence of mitral valve prolapse. There is a mild amount of mitral regurgitation. There is no LVOT obstruction. There is no aortic valve stenosis. There is no aortic regurgitation. There is no tricuspid stenosis. There is a mild amount of tricuspid regurgitation. The right ventricular systolic pressure is 55 mmHg which is moderate pulmonary hypertension with an RA mean of 10. There is no pericardial effusion. LABORATORY DATA: The patient's white count is 6100, his hemoglobin is 11.8, hematocrit is 35.5, and his platelet count is 259,000. The patient's sodium is 143.1, potassium is 4.4, chloride 106, CO2 is 24. The patient's BUN is 11, creatinine 0.95, GFR is greater than 65, glucose is 84, calcium is 9.4, his magnesium is 1.8 and his liver function tests are normal. His albumin is low at 3.4. His lipase has come down to 316.2, yesterday it was 841.2. His total protein is 6.6. IMPRESSION: 1. PAROXYSMAL ATRIAL FIBRILLATION, NO RECURRENCE. Continue the patient on current beta mp, continue aspirin. 2. ACCELERATED HYPERTENSION. Still blood pressure is very high. The patient has been started on hydralazine. We will increase the dose as tolerated. 3. ABDOMINAL PAIN, RECURRENT, SECONDARY TO RECURRENT ACUTE ON CHRONIC PANCREATITIS. 4. PAST HISTORY OF ALCOHOL ABUSE, NONE SINCE 2008. 5. HYPERLIPIDEMIA. 6. MODERATE PULMONARY HYPERTENSION. 7. OBESITY. 8. TOBACCO ABUSE DISORDER. RECOMMENDATIONS: 1. Continue the patient on current medication. 2. Would increase the patient's antihypertensive as tolerated. If the patient continues to have difficulty in getting the blood pressure controlled, would change the amlodipine to Procardia and also increase the lisinopril to 5 mg p.o. q.12 hours and increase the hydralazine to 50 mg q.8 hours. TIME SPENT: Note, 30 minutes spent on this patient with more than 50% of the time spent on direct patient care and also discussions with the patient, the patient's *------* Ilia Dennison and also discussions with the attending physician on the case. We will follow with you. DICTATING PHYSICIAN: FRANCOIS DAVE M.D. [id number] PHY#: [id number] ID: [id number] JOB#: [id number] ACCT: [id number] cc: >
[2016-11-13] MEDS: HYDRALAZINE HCL 50 MG TABLET PO SCH (21:30)
[2016-11-14] MEDS: HEPARIN SOD (PORCINE) 5,000 UNIT/ML 1 ML SYRINGE SUBCUT SCH ×3 (05:22→22:35)
[2016-11-14 06:39] LABS: ABSOLUTE EOSINOPHILS # (AUTO) 0.4 10^3/uL (0.0-0.6); ABSOLUTE LYMPHOCYTES (AUTO) 1.7 10^3/uL (0.5-4.7); ABSOLUTE MONOCYTES (AUTO) 0.5 10^3/uL (0.1-1.4); ABSOLUTE NEUT (AUTO) 3.1 10^3/uL (1.7-8.2); BASOPHILS % (AUTO) 0.6 % (0-2); EOSINOPHILS % (AUTO) 7.4 % (0-6); HEMATOCRIT 39.6 % (37.9-51.0); HEMOGLOBIN 13.2 g/dL (13.5-17.0); LYMPHOCYTES % (AUTO) 29.3 % (13-45); MEAN CORPUSCULAR HEMOGLOBIN 30.4 pg (27.0-33.4); MEAN CORPUSCULAR HGB CONC 33.3 g/dL (32.0-36.0); MEAN CORPUSCULAR VOLUME 91 fl (80-97); MONOCYTES % (AUTO) 8.5 % (3-13); RED BLOOD COUNT 4.34 10^6/uL (4.35-5.55); SEGMENTED NEUTROPHILS % (AUTO) 54.2 % (42-78); WHITE BLOOD COUNT 5.7 10^3/uL (4.0-10.5)
[2016-11-14 06:54] LABS: ANION GAP 13 (5-19); BLOOD UREA NITROGEN 10 mg/dL (7-20); CALCIUM 9.8 mg/dL (8.4-10.2); CARBON DIOXIDE 27 mmol/L (22-30); CHLORIDE 102 mmol/L (98-107); CREATININE RESULT 0.96 mg/dL (0.52-1.25); GLUCOSE 127 mg/dL (75-110); LIPASE 301.2 U/L (23-300); POTASSIUM 3.8 mmol/L (3.6-5.0); SODIUM 141.9 mmol/L (137-145)
[2016-11-14] MEDS: AMLODIPINE BESYLATE 5 MG TABLET PO SCH (07:50)
[2016-11-14] MEDS: METOPROLOL TARTRATE 50 MG TABLET PO SCH ×2 (07:51→22:42)
[2016-11-14] MEDS: LISINOPRIL 10 MG TABLET PO SCH ×2 (07:51→22:33)
[2016-11-14] MEDS: HYDRALAZINE HCL 50 MG TABLET PO SCH ×2 (07:52→22:34)
[2016-11-14] MEDS: DOCUSATE SODIUM 100 MG CAPSULE PO SCH ×2 (07:54→18:50)
[2016-11-14] MEDS ORDERED: HYDRALAZINE HCL 50 MG TABLET PO ONE (11:15)
[2016-11-14] MEDS ORDERED: NIFEDIPINE 30 MG TAB.ER.24 PO ONE (11:15)
[2016-11-14] MEDS ORDERED: HYDRALAZINE HCL 50 MG TABLET PO SCH (14:00)
[2016-11-14] MEDS ORDERED: LABETALOL HCL INJ 20 MG/4 ML DISP.SYRIN IV PRN (18:24)
--- NOTE | 2016-11-14 18:28 | PDOC PROGRESS REPORT ---
Subjective Progress Note for:: 11/14/16 Subjective:: Patient is feeling very well ; no nausea or vomiting ;no residual abdominal pain but his blood pressure is extremely elevated He has no chest pain Physical Exam Vital Signs: Temp Pulse Resp BP Pulse Ox 97.9 F 59 L 16 192/82 H 99 11/14/16 15:44 11/14/16 15:44 11/14/16 15:44 11/14/16 15:44 11/14/16 15:44 Intake & Output 11/13/16 11/14/16 11/15/16 00:59 00:59 00:59 Intake Total 4285 5659 16 Output Total 2425 4800 250 Balance 1860 859 -234 Weight 114.1 kg 115.2 kg 110.8 kg General appearance: PRESENT: no acute distress, well-developed, well-nourished Head exam: PRESENT: atraumatic, normocephalic Eye exam: PRESENT: conjunctiva pink, EOMI, PERRLA. ABSENT: scleral icterus Ear exam: PRESENT: normal external ear exam Mouth exam: PRESENT: moist, tongue midline Neck exam: ABSENT: carotid bruit, JVD, lymphadenopathy, thyromegaly Respiratory exam: PRESENT: clear to auscultation wyatt. ABSENT: rales, rhonchi, wheezes Cardiovascular exam: PRESENT: RRR. ABSENT: diastolic murmur, rubs, systolic murmur Pulses: PRESENT: normal dorsalis pedis pul Vascular exam: PRESENT: normal capillary refill GI/Abdominal exam: PRESENT: normal bowel sounds, soft. ABSENT: distended, guarding, mass, organolmegaly, rebound, tenderness Rectal exam: PRESENT: deferred Extremities exam: PRESENT: full ROM. ABSENT: calf tenderness, clubbing, pedal edema Neurological exam: PRESENT: alert, awake, oriented to person, oriented to place , oriented to time, oriented to situation, CN II-XII grossly intact. ABSENT: motor sensory deficit Psychiatric exam: PRESENT: appropriate affect, normal mood. ABSENT: homicidal ideation, suicidal ideation Skin exam: PRESENT: dry, intact, warm. ABSENT: cyanosis, rash Results Laboratory Results: 11/14/16 06:16 11/14/16 06:16 11/14/16 11/14/16 06:16 06:16 WBC 5.7 RBC 4.34 L Hgb 13.2 L Hct 39.6 MCV 91 MCH 30.4 MCHC 33.3 RDW 14.0 Plt Count 257 Seg Neutrophils % 54.2 Lymphocytes % 29.3 Monocytes % 8.5 Eosinophils % 7.4 H Basophils % 0.6 Absolute Neutrophils 3.1 Absolute Lymphocytes 1.7 Absolute Monocytes 0.5 Absolute Eosinophils 0.4 Absolute Basophils 0.0 Sodium 141.9 Potassium 3.8 Chloride 102 Carbon Dioxide 27 Anion Gap 13 BUN 10 Creatinine 0.96 Est GFR ( Amer) > 60 Est GFR (Non-Af Amer) > 60 Glucose 127 H Calcium 9.8 Lipase 301.2 H 11/10/16 11/11/16 23:28 04:20 Troponin I 0.042 0.045 Impressions: Acute Abdomen Series 11/10/16 15:58 IMPRESSION: NO RADIOGRAPHIC EVIDENCE FOR ACUTE ABDOMINAL DISEASE. Lung Scan-VQ NM 11/11/16 05:34 IMPRESSION: LOW PROBABILITY FOR PULMONARY EMBOLI. Assessment & Plan - Diagnosis (1) Accelerated hypertension Is this a current diagnosis for this admission?: YesPlan: We will add hydralazine 100 mg by mouth every 12 Procardia XL 60 mg every 12 And intermittent labetalol when necessary Reevaluate in a.m. We will keep the patient overnight until blood pressure is controlled (2) DVT prophylaxis Is this a current diagnosis for this admission?: Yes (3) Paroxysmal atrial fibrillation Is this a current diagnosis for this admission?: YesPlan: Patient is now in normal sinus rhythm (4) Recurrent acute pancreatitis Is this a current diagnosis for this admission?: YesPlan: Resolved (5) Hyperlipidemia Qualifiers: Hyperlipidemia type: unspecified Qualified Code(s): E78.5 - Hyperlipidemia, unspecified Is this a current diagnosis for this admission?: Yes - Time Time Spent with patient: Reevaluate in a.m. patient may be discharged if blood pressure is controlled Within: within 24 hours
--- NOTE | 2016-11-14 21:08 | PROGRESS NOTE E ---
Progress Note NAME: SAMPSON MAO : 1950 AGE: 66Y DATE: 11/14/2015 ROOM: 334 SUBJECTIVE: The patient states his abdominal pain is intermittent and lasts for a few seconds. It is sharp and across the front of the abdomen in the epigastric area. He denies any chest pain or discomfort. His blood pressure is still very difficult to control. There is no PND, orthopnea. There is no leg edema. The patient remains in sinus rhythm and there is no evidence of atrial fibrillation. There is no TIA, CVA symptoms. OBJECTIVE: GENERAL: On examination, the patient is moderately obese, in no acute distress. VITAL SIGNS: He is afebrile with a temperature of 97.3 degrees Fahrenheit, pulse is 64 beats per minute, blood pressure is 186/93, respirations are 20 per minute, O2 saturations is 100% on room air. HEAD: Atraumatic, normocephalic. EYES: Pupils are equal, round, regular, and reactive to light and accommodation. Extraocular movements are normal. There is no conjunctival pallor. There is no scleral icterus. EARS, NOSE, THROAT: Negative. NECK: Supple. There is no JVD. Carotids are equal. There is no bruit. There is no lymphadenopathy. There is no goiter. Trachea central. LUNGS: Clear to auscultation and percussion. HEART: S1 and S2 are heard. There is no S3 gallop. There is no S4 gallop. A systolic murmur at the left sternal border at the apex. There is no rub. ABDOMEN: Soft, nontender. There is no hepatosplenomegaly. Bowel sounds are well heard. There are no tender areas or masses. EXTREMITIES: Femorals are deep. Femorals are diminished. There is no femoral bruit. Leg pulses are diminished. There is no pedal edema. There is no DVT or cellulitis. There is no cyanosis or clubbing. There is no calf tenderness. CENTRAL NERVOUS SYSTEM: The patient is conscious, awake, alert, oriented x3 with no focal deficit. PSYCHIATRIC: The patient's judgment and insight are intact. His affect is normal. INTAKE/OUTPUT: The patient's 24-hour intake is 3500 mL. Output is 3650 mL. DIAGNOSTICS: The patient's white count is 5700; hemoglobin is 30.2; hematocrit is 39.6; and his platelet count is 257,000. The patient's sodium is 141.9, potassium is 3.8, chloride is 102, CO2 is 27. The patient's BUN is 10, creatinine is 0.96, GFR is greater than 60, his glucose is 127, and his calcium is 9.8. His lipase has come down to 301.2 from yesterday's level of 316.2. IMPRESSION: 1. Paroxysmal atrial fibrillation noted at rest. Continue the patient on current beta mp. Continue aspirin. 2. Accelerated hypertension. Still blood pressure very high. Would increase the patient's hydralazine dosage to 50 mg p.o. q. 8 hours and discontinue the patient's amlodipine and start the patient on Procardia XL 60 mg p.o. q. 12 hours. 3. Abdominal pain, recurrent, secondary to recurrent acute on chronic pancreatitis. 4. History of alcohol abuse. None since 2008. 5. Hyperlipidemia. 6. Moderate pulmonary hypertension. 7. Obesity. 8. Tobacco abuse disorder. 9. Moderate left ventricular hypertrophy by echocardiogram. PLAN: As above, would, as mentioned earlier, increase the patient's hydralazine to 50 mg p.o. q. 8 hours and then if still needed, 50 mg p.o. q. 6 hours. Procardia XL at 120 mg p.o. q. 12 hours. Continue his lisinopril at 20 mg p.o. q. 12 hours. Increase it to 40 mg. Continue metoprolol at 100 mg p.o. q. 12 hours. We will follow with you. TIME SPENT: Note, 30 minutes spent on the patient with more than 50% of the time spent on discussions with the patient and the patient's twin brother, Umang. Also more than 50% of the time spent on direct patient care. Also reviewed the patient's medications and adjusted the patient's medications after discussions with the attending physician on the case. We will follow with you. DICTATING PHYSICIAN: FRANCOIS DAVE M.D. [id number] PHY#: [id number] ID: [id number] JOB#: [id number] ACCT: [id number] cc: >
[2016-11-14] MEDS: NIFEDIPINE 30 MG TAB.ER.24 PO SCH (22:34)
[2016-11-15] MEDS: HEPARIN SOD (PORCINE) 5,000 UNIT/ML 1 ML SYRINGE SUBCUT SCH ×4 (05:15→23:12)
[2016-11-15] MEDS: DOCUSATE SODIUM 100 MG CAPSULE PO SCH ×2 (09:44→17:31)
[2016-11-15] MEDS: HYDRALAZINE HCL 50 MG TABLET PO SCH ×2 (09:44→23:24)
[2016-11-15] MEDS: NIFEDIPINE 30 MG TAB.ER.24 PO SCH ×2 (09:44→23:23)
[2016-11-15] MEDS: LISINOPRIL 10 MG TABLET PO SCH ×2 (09:44→23:16)
[2016-11-15] MEDS: METOPROLOL TARTRATE 100 MG TABLET PO SCH ×2 (10:18→23:28)
--- NOTE | 2016-11-15 13:00 | PDOC PROGRESS REPORT ---
Subjective Progress Note for:: 11/15/16 Subjective:: Patient is asymptomatic now; abdominal pain has resolved completely His blood pressure is still very elevated difficult to control No chest pain no shortness of breath Physical Exam Vital Signs: Temp Pulse Resp BP Pulse Ox 97.8 F 82 18 166/79 H 94 11/15/16 07:33 11/15/16 07:33 11/15/16 07:33 11/15/16 07:33 11/15/16 07:33 Intake & Output 11/14/16 11/15/16 11/16/16 00:59 00:59 00:59 Intake Total 5659 1745 6 Output Total 4800 400 450 Balance 859 1345 -444 Weight 115.2 kg 110.8 kg 106.5 kg General appearance: PRESENT: no acute distress, well-developed, well-nourished Head exam: PRESENT: atraumatic, normocephalic Eye exam: PRESENT: conjunctiva pink, EOMI, PERRLA. ABSENT: scleral icterus Ear exam: PRESENT: normal external ear exam Mouth exam: PRESENT: moist, tongue midline Neck exam: ABSENT: carotid bruit, JVD, lymphadenopathy, thyromegaly Respiratory exam: PRESENT: clear to auscultation wyatt. ABSENT: rales, rhonchi, wheezes Cardiovascular exam: PRESENT: RRR. ABSENT: diastolic murmur, rubs, systolic murmur Pulses: PRESENT: normal dorsalis pedis pul Vascular exam: PRESENT: normal capillary refill GI/Abdominal exam: PRESENT: normal bowel sounds, soft. ABSENT: distended, guarding, mass, organolmegaly, rebound, tenderness Rectal exam: PRESENT: deferred Extremities exam: PRESENT: full ROM. ABSENT: calf tenderness, clubbing, pedal edema Neurological exam: PRESENT: alert, awake, oriented to person, oriented to place , oriented to time, oriented to situation, CN II-XII grossly intact. ABSENT: motor sensory deficit Psychiatric exam: PRESENT: appropriate affect, normal mood. ABSENT: homicidal ideation, suicidal ideation Skin exam: PRESENT: dry, intact, warm. ABSENT: cyanosis, rash Results Laboratory Results: 11/14/16 06:16 11/14/16 06:16 11/10/16 11/11/16 23:28 04:20 Troponin I 0.042 0.045 Impressions: Acute Abdomen Series 11/10/16 15:58 IMPRESSION: NO RADIOGRAPHIC EVIDENCE FOR ACUTE ABDOMINAL DISEASE. Lung Scan-VQ NM 11/11/16 05:34 IMPRESSION: LOW PROBABILITY FOR PULMONARY EMBOLI. Assessment & Plan - Diagnosis (1) Accelerated hypertension Is this a current diagnosis for this admission?: YesPlan: Medications are being corrected evaluated by Dr. Johnson We'll keep the patient for another 24 hours Stress test may be ordered tomorrow as per Dr. Johnson (2) DVT prophylaxis Is this a current diagnosis for this admission?: Yes (3) Paroxysmal atrial fibrillation Is this a current diagnosis for this admission?: YesPlan: Patient is now in sinus rhythm (4) Recurrent acute pancreatitis Is this a current diagnosis for this admission?: YesPlan: Resolved (5) Hyperlipidemia Qualifiers: Hyperlipidemia type: unspecified Qualified Code(s): E78.5 - Hyperlipidemia, unspecified Is this a current diagnosis for this admission?: YesPlan: Initiate Lipitor; omega-3 antiacid - Time Time Spent with patient: We'll keep another 24 hours Discharge in a.m. if blood pressure controlled Doppler ultrasound of the renal arteries will be ordered today to exclude renal artery stenosis Within: within 48 hours
[2016-11-15] MEDS ORDERED: POLYVINYL ALCOHOL 1.4% OPH SOLN 15 ML OU PRN (13:15)
[2016-11-15] MEDS ORDERED: DILTIAZEM HCL INJ 25 MG/5 ML VIAL ONE (17:25)
[2016-11-15] MEDS: OMEGA-3 ACID ETHYL ESTERS 1 GM CAPSULE PO SCH (17:31)
[2016-11-15] MEDS ORDERED: DILTIAZEM HCL INJ 25 MG/5 ML VIAL IV ONE (18:30)
--- NOTE | 2016-11-15 21:33 | PROGRESS NOTE E ---
Progress Note ` NAME: SAMPSON MAO : 1950 AGE: 66Y DATE: 11/15/2016 ROOM: 334 SUBJECTIVE: The patient's stated abdominal pain is much better but occasionally he gets twinges of discomfort. There is no chest pain or discomfort. There is no PND or orthopnea. There is no recurrence of atrial fibrillation. There are no TIA or CVA symptoms. There is no leg edema. There is no ventricular arrhythmia seen on the monitor. There is no recurrence of atrial fibrillation so far. Note that the patient was seen this morning at 11:33 a.m. OBJECTIVE: GENERAL: On examination, the patient is moderately obese, in no acute distress. VITAL SIGNS: He is afebrile with a temperature of 98 degrees Fahrenheit, pulse is 78 beats per minute, blood pressure 164/81, respirations are 18 per minute, O2 saturations are 95% on room air. HEAD: Atraumatic, normocephalic. EYES: Pupils are equal, round, regular, and reactive to light and accommodation. Extraocular movements are normal. There is no conjunctival pallor. There is no scleral icterus. EARS, NOSE, THROAT: Negative. NECK: Supple. There is no JVD. Carotids are equal. There is no bruit. There is no lymphadenopathy. There is no goiter. Trachea central. LUNGS: Clear to auscultation and percussion. HEART: S1 and S2 are heard. There is no S3 gallop. There is no S4 gallop. A systolic murmur left sternal border on the apex. There is no rub. ABDOMEN: Soft, nontender. There is no hepatosplenomegaly. Bowel sounds are well heard. There are no tender areas or masses. EXTREMITIES: Femorals are deep. Femorals are diminished. There is no femoral bruit. Leg pulses are diminished. There is no pedal edema. There is no DVT or cellulitis. There is no cyanosis or clubbing. There is no calf tenderness. CENTRAL NERVOUS SYSTEM: The patient is conscious, awake, alert, oriented x3 with no focal deficit. PSYCHIATRIC: The patient's judgment and insight are intact. His affect is normal. IMPRESSION: 1. Paroxysmal atrial fibrillation, at present no recurrence. Continue beta mp. Continue aspirin. 2. Accelerated hypertension. Blood pressure slightly better but still not well controlled. Note that the patient's hydralazine has been increased to 100 mg p.o. q. 8 hours. The patient is on Procardia XL 60 mg p.o. q. 12 hours. We will increase the patient's lisinopril to 40 mg p.o. q. 12 hours. 3. Abdominal pain, recurrent, secondary to recurrent acute on chronic pancreatitis. 4. History of alcohol abuse. None since 2008. 5. Hyperlipidemia. 6. Moderate pulmonary hypertension. 7. Obesity. 8. Tobacco abuse disorder. 9. Moderate left ventricular hypertrophy by echocardiogram. 10. Multiple risk factors for coronary artery disease in a patient with hypertension and paroxysmal atrial fibrillation. The patient's coronary artery risk factors are patient's age, hypertension, hyperlipidemia, tobacco abuse, and family history of coronary artery disease. We will tentatively reschedule the patient for IV Lexiscan, Cardiolite stress test in the morning if the blood pressure is controlled, which I think will be under control with the current increase in medication. TIME SPENT: Note, 35 minutes spent on this patient, including 50% of the time spent on direct patient care, a review of the patient's medication, adjustment of the patient's medications, and also discussion with the attending physician on the case. Also discussed with the patient and the patient's brother the echo findings again and also discussed with them the procedure and risks of stress testing. We will tentatively schedule the patient for a stress test in the a.m. DICTATING PHYSICIAN: FRANCOIS DAVE M.D. [id number] PHY#: [id number] ID: [id number] JOB#: [id number] ACCT: [id number] cc: >
[2016-11-15] MEDS ORDERED: ATORVASTATIN CALCIUM 40 MG TABLET PO SCH (22:00)
[2016-11-16] MEDS: METOPROLOL TARTRATE 100 MG TABLET PO SCH (11:24)
[2016-11-16] MEDS: OMEGA-3 ACID ETHYL ESTERS 1 GM CAPSULE PO SCH (11:24)
[2016-11-16] MEDS: NIFEDIPINE 30 MG TAB.ER.24 PO SCH (11:24)
[2016-11-16] MEDS: HYDRALAZINE HCL 50 MG TABLET PO SCH (11:25)
[2016-11-16] MEDS: DOCUSATE SODIUM 100 MG CAPSULE PO SCH (11:26)
[2016-11-16] MEDS ORDERED: REGADENOSON INJ 0.4 MG/5 ML DISP.SYRIN IV ONE (11:33)
[2016-11-16 13:26] VITALS: BP 149/89
--- NOTE | 2016-11-16 21:28 | PROGRESS NOTE E ---
Progress Note NAME: SAMPSON MAO : 1950 AGE: 66Y DATE: 11/16/2016 ROOM: 334 SUBJECTIVE: Note that the patient was seen before the stress test and after the stress test. The patient's blood pressure is much improved. His blood pressure after the stress test was 141/79. During the stress test his blood pressure was 168/73. The patient denies any further abdominal pain. There is no nausea or vomiting. There is no chest pain or discomfort. Yesterday he had a transient run of atrial fibrillation which within an hour after 5 mg of Cardizem IV push went back into sinus rhythm. He has not had any further episodes. He denies PND, orthopnea or leg edema. There are no TIA or CVA symptoms. OBJECTIVE: GENERAL: On examination, the patient is moderately obese, in no acute distress. VITAL SIGNS: He is afebrile with a temperature of 97.6 degrees Fahrenheit, pulse of 68 beats per minute, blood pressure 141/79, respirations of 18 per minute, O2 saturations are 99% on room air. HEAD: Atraumatic, normocephalic. EYES: Pupils are equal, round, regular, and reactive to light and accommodation. Extraocular movements are normal. There is no conjunctival pallor. There is no scleral icterus. EARS, NOSE, THROAT: Negative. NECK: Supple. There is no JVD. Carotids are equal. There is no bruit. There is no goiter. Trachea central. LUNGS: Clear to auscultation and percussion. HEART: S1 and S2 are heard. There is no S3 gallop. There is an S4 gallop. There is a systolic murmur left sternal border and the apex. There is no rub. ABDOMEN: Soft, nontender. There is no hepatosplenomegaly. There are no tender areas or masses. Bowel sounds are well heard. EXTREMITIES: Femorals are diminished. There is no femoral bruits. Leg pulses are diminished. There is no pedal edema. There is no DVT or cellulitis. There is no calf tenderness. There is no cyanosis or clubbing. CENTRAL NERVOUS SYSTEM: The patient is conscious, awake, alert, oriented x3 with no focal deficit. PSYCHIATRIC: The patient's judgment and insight are intact. His affect is normal. DIAGNOSTIC DATA: Note that the patient had a Cardiolite stress test which does show no reversible ischemia and no scar/SC. IMPRESSION: 1. PAROXYSMAL ATRIAL FIBRILLATION, AT PRESENT NO RECURRENCE EXCEPT FOR A SHORT EPISODE YESTERDAY. Continue aspirin. 2. ACCELERATED HYPERTENSION. Blood pressure well controlled. 3. ABDOMINAL PAIN, RECURRENT, SECONDARY TO RECURRENT ACUTE ON CHRONIC PANCREATITIS RESOLVED AND NOTE NO FURTHER ABDOMINAL PAIN. 4. PAST HISTORY OF ALCOHOL ABUSE, NONE SINCE 2008. 5. HYPERLIPIDEMIA. 6. MODERATE PULMONARY HYPERTENSION. 7. OBESITY. 8. TOBACCO ABUSE DISORDER. 9. MODERATE LEFT VENTRICULAR HYPERTROPHY BY ECHOCARDIOGRAM. 10. MULTIPLE CAD RISK FACTORS BUT NEGATIVE CARDIOLITE STRESS TEST. The stress test was discussed with the patient, also smoking cessation counseling was given. The patient asked to follow up in the office after discharge. The patient's blood pressure is well controlled. His stress test is negative. His echo EF was normal and hence would recommend discharging the patient on current medications. TIME SPENT: Note, 30 minutes spent on this patient, with more than 50% of the time spent on direct patient care and also discussions with the patient and patient's twin brother about the results of the patient's stress test. Also discussed with the hospitalist. Will sign off and will follow the patient up in the office. The reason the patient is following up with me is that he and his brother desire to follow up with me. Will agree to the patient's wishes. DICTATING PHYSICIAN: FRANCOIS DAVE M.D. [id number]#: [id number] ID: [id number] JOB#: [id number] ACCT: [id number] cc: >
--- NOTE | 2016-11-17 12:58 | DRAGON STRESS TEST REPORT ---
Intravenous Lexiscan Cardiolite stress test using single photon emmision computerized tomography. Date of procedure: 11/16/2016. Ordering Provider: Dr. Ernesto Hi. Indication: Paroxysmal atrial fibrillation, abnormal EKG and accelerated hypertension.. Coronary risk factors: Age, hypertension, dyslipidemia, tobacco abuse disorder, and family history of coronary artery disease. Resting EKG: Sinus rhythm. APC, and LVH with strain pattern Stress EKG: No changes of ischemia. The patient no chest pain or discomfort, and there were no arrhythmias seen. Reason for termination: Protocol. Conclusions: Normal EKG and hemodynamic response to IV Lexiscan. Nuclear data: At rest the patient was given 15.25 millicuries of technetium 99m sestamibi injected intravenously. As per protocol rest non gated SPECT images were obtained. Subsequently the patient was given intravenous Lexiscan at a dose of 0.4 mg in 5 mL intravenously, followed by flush with normal saline. Subsequently the stress dose of 46.4 millicuries of technetium 99m sestamibi was injected intravenously. As per protocol stress gated images were obtained. Nuclear interpretation: Review of images showed that all segments of the myocardium had normal perfusion at rest, and normal perfusion post stress with IV Lexiscan. All segments of the myocardium had normal motion, contraction, and thickening by gated study. T. I D. ratio was read by the computer as ABnormal at 1.31. This is unreliable , and visually the T I D ratio is within normal limits. Computer read rest, and stress left ventricular ejection fraction were 47 %, and 36 %, respectively. Conclusion: 1. There is no scintigraphic evidence of Lexiscan induced myocardial ischemia. 2. There is no scintigraphic evidence of myocardial infarction/scar. 3. ? Cardiomyopathy. Recommendations: 1.Aggressive risk factor modification, and treating the underlying co- morbidities. 2.Check echo for LV ejection fraction correlation. [facility]
== END 2016-11-16 15:16 | disposition home or self-care (01) | DRG 440 ==
LOC: ER 15:39 → EH 21:51 → UNDOADMIN 21:51 → EH 23:17 → 3S 11-11 01:05
PROVIDERS: ADMIT Family Medicine; ATTEND Family Medicine
DX: K85.90 Acute pancreatitis without necrosis or infection, unspecified (principal); I48.0 Paroxysmal atrial fibrillation; I10 Essential (primary) hypertension; E78.5 Hyperlipidemia, unspecified; M19.90 Unspecified osteoarthritis, unspecified site; R01.1 Cardiac murmur, unspecified; Z79.899 Other long term (current) drug therapy; E66.9 Obesity, unspecified; Z68.31 Body mass index [BMI] 31.0-31.9, adult; F17.210 Nicotine dependence, cigarettes, uncomplicated; Z91.018 Allergy to other foods
CPT/HCPCS: 36415; 74022; 78452; 78582; 80048; 80053; 80061; 80301; 81001; 82550; 82553; 83690; 83735; 84443; 84484; 85025; 85027; 85379; 93005; 93010; 93017; 93306; 93976; 94799; 96374; 96375; 99285; A9500; A9540; A9567; G0479; J0360; J1644; J1940; J2270; J2405; J2785; J3490; J7030; Q9969

== ENCOUNTER → 2016-11-29 | Outpatient (CLI) | payer OTHER | LOC: CCC 10:49 | DX: E11.9 Type 2 diabetes mellitus without complications (principal) | CPT/HCPCS: 36415; 83036 ==

== ENCOUNTER → 2016-12-03 | Outpatient (CLI) | payer OTHER ==
[2016-12-03 13:58] LABS: ANION GAP 15 (5-19); BLOOD UREA NITROGEN 22 mg/dL (7-20); CARBON DIOXIDE 25 mmol/L (22-30); CHLORIDE 106 mmol/L (98-107); CREATININE RESULT 1.39 mg/dL (0.52-1.25); GLUCOSE 154 mg/dL (75-110); POTASSIUM 4.7 mmol/L (3.6-5.0); SODIUM 145.7 mmol/L (137-145)
== END ==
LOC: CCC 12:20
DX: I10 Essential (primary) hypertension (principal)
CPT/HCPCS: 36415; 80048

== ENCOUNTER → 2016-12-20 | Outpatient (CLI) | payer OTHER ==
[2016-12-20 12:54] LABS: ANION GAP 13 (5-19); BLOOD UREA NITROGEN 23 mg/dL (7-20); CALCIUM 10.1 mg/dL (8.4-10.2); CARBON DIOXIDE 25 mmol/L (22-30); CHLORIDE 103 mmol/L (98-107); GLUCOSE 129 mg/dL (75-110); POTASSIUM 4.1 mmol/L (3.6-5.0); SODIUM 141.3 mmol/L (137-145)
== END ==
LOC: CCC 11:47
DX: N18.3 Chronic kidney disease, stage 3 (moderate) (principal)
CPT/HCPCS: 36415; 80048; 83036

== ENCOUNTER → 2016-12-20 | Outpatient (CLI) | payer OTHER | LOC: RAD 10:43 | DX: K85.90 Acute pancreatitis without necrosis or infection, unspecified (principal) | CPT/HCPCS: 76700; 93976 ==

== ENCOUNTER 2017-02-17 09:00 | Inpatient (IN) | payer MEDICARE, OTHER ==
[2017-02-17] MEDS ORDERED: HYDROMORPHONE HCL INJ/PF 2 MG/ML AMPULE IV ONE (09:41)
[2017-02-17] MEDS: NORMAL SALINE 1000 ML 1,000 ML IV PRN ×2 (09:50→10:57)
--- NOTE | 2017-02-17 10:11 | ER Document Report ---
ED General - General Chief Complaint: Abdominal Pain >50 Stated Complaint: ABDOMINAL PAIN Mode of Arrival: Ambulatory Information source: Patient, [facility] Records Notes: 67-year-old male history of pink toes presents with complaints of generalized abdominal pain. Family member states that they do not know the cause of patient 's pancreatitis, denies any alcohol use. Patient denies any fevers nausea vomiting or diarrhea TRAVEL OUTSIDE OF THE [place] IN LAST 30 DAYS: No - HPI Onset: Yesterday Onset/Duration: Persistent Quality of pain: Pressure Severity: Moderate Pain Level: 2 Associated symptoms: None Exacerbated by: Denies Relieved by: Denies Similar symptoms previously: No Recently seen / treated by doctor: No - Related Data Allergies/Adverse Reactions: No Known Drug Allergies Allergy (Unknown, Verified 02/17/17 09:12) Raspberries Allergy (Mild, Uncoded 02/17/17 09:12) Hives Home Medications: Current Home Medications Clonidine HCl [Catapres 0.1 mg Tablet] 0.1 mg PO DAILY 02/17/17 [History] Glimepiride [Amaryl 1 mg Tablet] 1 mg PO QAM 02/17/17 [History] Hydrochlorothiazide [Hydrodiuril 25 mg Tablet] 25 mg PO QAM 02/17/17 [History] Lisinopril [Prinivil 40 mg Tablet] 40 mg PO DAILY 02/17/17 [History] Metformin HCl [Metformin HCl ER] 500 mg PO BID 02/17/17 [History] Past Medical History - Social History Smoking Status: Current Some Day Smoker Cigarette use (# per day): Yes Chew tobacco use (# tins/day): No Smoking Education Provided: No Frequency of alcohol use: None Drug Abuse: None Family History: Reviewed & Not Pertinent Patient has suicidal ideation: No Patient has homicidal ideation: No - Past Medical History Cardiac Medical History: Reports: Hx Hypertension Denies: Hx Congestive Heart Failure, Hx DVT, Hx Heart Attack, Hx Hypercholesterolemia, Hx Pulmonary Embolism Pulmonary Medical History: Denies: Hx Asthma, Hx COPD, Hx Tuberculosis Neurological Medical History: Denies: Hx Seizures Endocrine Medical History: Denies: Hx Diabetes Mellitus Type 1, Hx Diabetes Mellitus Type 2, Hx Hyperthyroidism, Hx Hypothyroidism Renal/ Medical History: Denies: Hx Peritoneal Dialysis GI Medical History: Reports: Hx Gastroesophageal Reflux Disease. Denies: Hx Cirrhosis, Hx Hepatitis Musculoskeltal Medical History: Reports Hx Arthritis Skin Medical History: Denies Hx Eczema, Denies Hx Psoriasis Psychiatric Medical History: Denies: Hx Depression Infectious Medical History: Denies: Hx Hepatitis Surgical Hx: Negative Past Surgical History: Denies: Hx Pacemaker - Immunizations Immunizations up to date: Yes Hx Diphtheria, Pertussis, Tetanus Vaccination: Yes - unk Hx Pneumococcal Vaccination: 11/11/11 Review of Systems - Review of Systems Notes: REVIEW OF SYSTEMS: CONSTITUTIONAL : Denies fever, chills, or sweats. Denies recent illness. EENT: Denies eye, ear, throat, or mouth pain or symptoms. Denies nasal or sinus congestion or discharge. Denies throat, tongue, or mouth swelling or difficulty swallowing. CARDIOVASCULAR: Denies chest pain. Denies palpitations or racing or irregular heart beat. Denies ankle edema. RESPIRATORY: Denies cough, cold, or chest congestion. Denies shortness of breath, difficulty breathing, or wheezing. GASTROINTESTINAL: Admits to abdominal pain GENITOURINARY: Denies difficulty urinating, painful urination, burning, frequency, blood in urine, or discharge. MUSCULOSKELETAL: Denies back or neck pain or stiffness. Denies joint pain or swelling. SKIN: Denies rash, lesions or sores. HEMATOLOGIC : Denies easy bruising or bleeding. LYMPHATIC: Denies swollen, enlarged glands. NEUROLOGICAL: Denies confusion or altered mental status. Denies passing out or loss of consciousness. Denies dizziness or lightheadedness. Denies headache. Denies weakness or paralysis or loss of use of either side. Denies problems with gait or speech. Denies sensory loss, numbness, or tingling. Denies seizures. PSYCHIATRIC: Denies anxiety or stress. Denies depression, suicidal ideation, or homicidal ideation. ALL OTHER SYSTEMS REVIEWED AND NEGATIVE. Dictation was performed using [employer] voice recognition software PHYSICAL EXAMINATION: GENERAL: Well-appearing, well-nourished and in no acute distress. HEAD: Atraumatic, normocephalic. EYES: Pupils equal round and reactive to light, extraocular movements intact, sclera anicteric, conjunctiva are normal. ENT: Nares patent, oropharynx clear without exudates. Moist mucous membranes. NECK: Normal range of motion, supple without lymphadenopathy LUNGS: Breath sounds clear to auscultation bilaterally and equal. No wheezes rales or rhonchi. HEART: Regular rate and rhythm without murmurs ABDOMEN: Distended tender all throughout with guarding. Musculoskeletal: Normal range of motion, no pitting or edema. No cyanosis. NEUROLOGICAL: Cranial nerves grossly intact. Normal speech, normal gait. Normal sensory, motor exams PSYCH: Normal mood, normal affect. SKIN: Warm, Dry, normal turgor, no rashes or lesions noted. Physical Exam - Vital signs Vitals: Temp Pulse Resp BP Pulse Ox 98.3 F 61 24 H 180/74 H 100 02/17/17 09:10 02/17/17 09:10 02/17/17 09:10 02/17/17 09:10 02/17/17 09:10 Course - Re-evaluation Re-evalutation: 02/17/17 10:11 Patient has probable pancreatitis again, fluids pain control have been provided. Lab work pending 02/17/17 11:37 Lab work is consistent with pancreatitis, given patient's presentation elevated lactic acid I believe patient requires admission. I did speak with hospital service will admit CT noted uncomplicated pancreatitis - Vital Signs Vital signs: Temp Pulse Resp BP Pulse Ox 98.3 F 61 20 164/93 H 95 02/17/17 09:10 02/17/17 09:10 02/17/17 10:58 02/17/17 10:58 02/17/17 10:58 - Laboratory Result Diagrams: 02/17/17 09:40 02/17/17 09:40 Laboratory results interpreted by me: 02/17/17 02/17/17 02/17/17 09:40 09:40 09:40 WBC 10.9 H RDW 15.3 H Seg Neutrophils % 40.9 L Lymphocytes % 49.2 H Absolute Lymphocytes 5.4 H Glucose 158 H Lactic Acid 2.9 H Lipase 2505.6 H - Diagnostic Test Radiology reviewed: Image reviewed, Reports reviewed Discharge - Discharge Clinical Impression: Recurrent acute pancreatitis, Increased lactic acid level Abdominal pain Qualifiers: Abdominal location: generalized Qualified Code(s): R10.84 - Generalized abdominal pain Condition: Stable Disposition: ADMITTED INPATIENT Admitting Provider: Hospitalist Unit Admitted: Medical Floor
[2017-02-17 10:22] LABS: ALANINE AMINOTRANSFERASE 25 U/L (21-72); ALBUMIN 4.2 g/dL (3.5-5.0); ALKALINE PHOSPHATASE 102 U/L (38-126); ANION GAP 12 (5-19); ASPARTATE AMINO TRANSFERASE 21 U/L (17-59); BILIRUBIN,DIRECT 0.2 mg/dL (0.0-0.4); BILIRUBIN,TOTAL 0.6 mg/dL (0.2-1.3); BLOOD UREA NITROGEN 14 mg/dL (7-20); CALCIUM 9.8 mg/dL (8.4-10.2); CARBON DIOXIDE 27 mmol/L (22-30); CHLORIDE 104 mmol/L (98-107); CREATININE RESULT 1.06 mg/dL (0.52-1.25); GLUCOSE 158 mg/dL (75-110); SODIUM 142.5 mmol/L (137-145); TOTAL PROTEIN 7.6 g/dL (6.3-8.2)
[2017-02-17 10:24] LABS: ABSOLUTE BASOPHILS # (AUTO) 0.1 10^3/uL (0.0-0.2); ABSOLUTE EOSINOPHILS # (AUTO) 0.3 10^3/uL (0.0-0.6); ABSOLUTE LYMPHOCYTES (AUTO) 5.4 10^3/uL (0.5-4.7); ABSOLUTE MONOCYTES (AUTO) 0.7 10^3/uL (0.1-1.4); ABSOLUTE NEUT (AUTO) 4.5 10^3/uL (1.7-8.2); BASOPHILS % (AUTO) 0.6 % (0-2); EOSINOPHILS % (AUTO) 2.5 % (0-6); HEMATOCRIT 41.1 % (37.9-51.0); HEMOGLOBIN 13.8 g/dL (13.5-17.0); HGB HCT DIFFERENCE 0.3; LYMPHOCYTES % (AUTO) 49.2 % (13-45); MEAN CORPUSCULAR HEMOGLOBIN 31.2 pg (27.0-33.4); MEAN CORPUSCULAR HGB CONC 33.6 g/dL (32.0-36.0); MEAN CORPUSCULAR VOLUME 93 fl (80-97); MONOCYTES % (AUTO) 6.8 % (3-13); RED BLOOD COUNT 4.43 10^6/uL (4.35-5.55); RED CELL DISTRIBUTION WIDTH 15.3 % (11.5-14.0); SEGMENTED NEUTROPHILS % (AUTO) 40.9 % (42-78); WHITE BLOOD COUNT 10.9 10^3/uL (4.0-10.5)
[2017-02-17 10:31] LABS: LIPASE 2505.6 U/L (23-300)
[2017-02-17] MEDS ORDERED: NORMAL SALINE 1000 ML 1,000 ML IV PRN ×2 (11:37→13:57)
[2017-02-17] MEDS ORDERED: DEXTROSE 40% GEL 15 GM TUBE PO PRN ×2 (13:57)
[2017-02-17] MEDS ORDERED: GLUCAGON,HUMAN RECOMB 1 MG INJ SUBCUT PRN (13:57)
[2017-02-17] MEDS ORDERED: DEXTROSE 50%-WATER 25 GM/50 ML DISP.SYRIN IV PRN ×2 (13:57)
[2017-02-17] MEDS ORDERED: ACETAMINOPHEN 325 MG TABLET PO PRN (13:57)
[2017-02-17] MEDS ORDERED: ONDANSETRON HCL INJ/PF 4 MG/2 ML SDV IV PRN (14:07)
[2017-02-17] MEDS ORDERED: HYDROMORPHONE HCL INJ/PF 2 MG/ML AMPULE IV PRN (14:10)
[2017-02-17] MEDS ORDERED: INSULIN REG, HUMAN 100 UNIT/ML 3 ML VIAL (PYX) SUBCUT PRN (14:12)
--- NOTE | 2017-02-17 14:52 | PDOC H&P ---
History of Present Illness Admission Date/PCP: 02/17/17 12:29 [facility] Patient complains of: Abdominal pain History of Present Illness: SAMPSON MAO is a 67 year old male, with history of recurrent pancreatitis , alcohol abuse in the past but has quit for the last 7 years started to develop abdominal pain earlier this morning with associated nausea. The pain is located periumbilically and eventually into the epigastric area. He is localized without any radiation. There is no relation to body position nor activity, however pain would sometimes less than on standing and stooping forward. Patient went to the emergency room for evaluation, lipase level was elevated. He was then referred for admission. No chills or fever, no penile discharge, no diarrhea, no discharges or frequency, no hematuria, no melena hematochezia or hematemesis. Patient reports no bowel movement for the past 2 days. Past Medical History Cardiac Medical History: Reports: Atrial Fibrillation - Paroxysmal, Hyperlipidema, Hypertension Denies: Congestive Heart Failure, DVT, Myocardial Infarction, Pulmonary Embolism Pulmonary Medical History: Denies: Asthma, Chronic Obstructive Pulmonary Disease (COPD), Tuberculosis Neurological Medical History: Denies: Seizures Endocrine Medical History: Reports: Diabetes Mellitus Type 2 Denies: Hyperthyroidism, Hypothyroidism GI Medical History: Reports: Gastroesophageal Reflux Disease Denies: Cirrhosis, Hepatitis Musculoskeltal Medical History: Reports: Arthritis Skin Medical History: Denies: Eczema, Psoriasis Psychiatric Medical History: Denies: Depression Past Surgical History Past Surgical History: Reports: None - Reported Recently Denies: Pacemaker Social History Information Source: Patient Smoking Status: Current Some Day Smoker Frequency of Alcohol Use: None Hx Recreational Drug Use: Yes Drugs: Marijuana Hx Prescription Drug Abuse: No Family History Family History: Hypertension Parental Family History Reviewed: Yes Children Family History Reviewed: Yes Sibling(s) Family History Reviewed.: Yes Medication/Allergy Home Medications: Oxycodone HCl/Acetaminophen [Percocet 5-325 mg Tablet] 1 - 2 tab PO Q4H PRN #20 tablet 03/21/16 Metoprolol Tartrate [Lopressor 50 mg Tablet] 50 mg PO Q12H #30 tablet 11/03/16 Atorvastatin Calcium [Lipitor 40 mg Tablet] 40 mg PO QHS #30 tablet 11/16/16 Nifedipine [Procardia XL 60 mg Tablet] 60 mg PO BID #60 tab.er.24 11/16/16 Clonidine HCl [Catapres 0.1 mg Tablet] 0.1 mg PO DAILY 02/17/17 Glimepiride [Amaryl 1 mg Tablet] 1 mg PO QAM 02/17/17 Hydrochlorothiazide [Hydrodiuril 25 mg Tablet] 25 mg PO QAM 02/17/17 Lisinopril [Prinivil 40 mg Tablet] 40 mg PO DAILY 02/17/17 Metformin HCl [Metformin HCl ER] 500 mg PO BID 02/17/17 Allergies/Adverse Reactions: No Known Drug Allergies Allergy (Unknown, Verified 02/17/17 09:12) Raspberries Allergy (Mild, Uncoded 02/17/17 09:12) Hives Review of Systems Constitutional: ABSENT: chills, fever(s), headache(s), weight gain, weight loss Eyes: ABSENT: visual disturbances Ears: ABSENT: hearing changes Nose, Mouth, and Throat: ABSENT: mouth pain, sore throat Cardiovascular: ABSENT: chest pain, dyspnea on exertion, edema, orthropnea, palpitations Respiratory: ABSENT: cough, hemoptysis Gastrointestinal: PRESENT: abdominal pain, constipation, nausea. ABSENT: diarrhea, hematemesis, hematochezia, melena, vomiting Genitourinary: ABSENT: difficulty urinating, dysuria, hematuria Musculoskeletal: ABSENT: joint swelling Integumentary: ABSENT: pruritus, rash, wounds Neurological: ABSENT: abnormal gait, abnormal speech, confusion, dizziness, focal weakness, syncope Psychiatric: ABSENT: anxiety, depression, homidical ideation, suicidal ideation Endocrine: ABSENT: cold intolerance, heat intolerance, polydipsia, polyuria Hematologic/Lymphatic: ABSENT: easy bleeding, easy bruising Physical Exam Vital Signs: Temp Pulse Resp BP Pulse Ox 97.7 F 57 L 18 186/79 H 100 02/17/17 13:30 02/17/17 13:30 02/17/17 13:30 02/17/17 13:30 02/17/17 13:30 Intake & Output 02/16/17 02/17/17 02/18/17 06:59 06:59 06:59 Output Total 700 Balance -700 General appearance: PRESENT: no acute distress, morbidly obese Head exam: PRESENT: atraumatic, normocephalic Eye exam: PRESENT: conjunctiva pink, EOMI, PERRLA. ABSENT: scleral icterus Ear exam: PRESENT: normal external ear exam. ABSENT: drainage Mouth exam: PRESENT: moist, neck supple, tongue midline Neck exam: ABSENT: carotid bruit, JVD, lymphadenopathy, thyromegaly Respiratory exam: PRESENT: clear to auscultation wyatt. ABSENT: rales, rhonchi, wheezes Cardiovascular exam: PRESENT: RRR. ABSENT: diastolic murmur, rubs, systolic murmur Pulses: PRESENT: normal dorsalis pedis pul Vascular exam: PRESENT: normal capillary refill GI/Abdominal exam: PRESENT: hypoactive bowel sounds, soft, tenderness - Epigastric area and periumbilical. ABSENT: distended - Moderate obesity, guarding, mass - Exam limited due to increased abdominal girth, organolmegaly - Exam limited due to increased abdominal girth, rebound Rectal exam: PRESENT: deferred Extremities exam: PRESENT: full ROM. ABSENT: calf tenderness, clubbing, pedal edema Neurological exam: PRESENT: alert, awake, oriented to person, oriented to place , oriented to time, oriented to situation Psychiatric exam: PRESENT: appropriate affect, normal mood. ABSENT: homicidal ideation, suicidal ideation Skin exam: PRESENT: dry, intact, warm. ABSENT: cyanosis, rash Results Laboratory Results: 02/17/17 14:00 Lactic Acid 2.1 Impressions: Abdomen/Pelvis CT 02/17/17 10:21 IMPRESSION: 1. Uncomplicated pancreatitis. No drainable pseudocysts. 2. Generally unremarkable appearance of the bowel. No overt suggestion of mesenteric ischemia. Assessment & Plan - Diagnosis (1) Recurrent acute pancreatitis Is this a current diagnosis for this admission?: Yes (2) Elevated lactic acid level Is this a current diagnosis for this admission?: Yes (4) Hyperlipidemia Qualifiers: Hyperlipidemia type: unspecified Qualified Code(s): E78.5 - Hyperlipidemia, unspecified Is this a current diagnosis for this admission?: Yes (5) Paroxysmal atrial fibrillation Is this a current diagnosis for this admission?: Yes (6) Uncontrolled hypertension Is this a current diagnosis for this admission?: Yes (7) Marijuana use Is this a current diagnosis for this admission?: Yes (8) Diabetes mellitus type 2 in obese Is this a current diagnosis for this admission?: Yes - Time Time Spent: 30 to 50 Minutes - Inpatient Certification Based on my medical assessment, after consideration of the patient's comorbidities, presenting symptoms, or acuity I expect that the services needed warrant INPATIENT care.: Yes I certify that my determination is in accordance with my understanding of Medicare's requirements for reasonable and necessary INPATIENT services [42 CFR 412.3e].: Yes Medical Necessity: Need Close Monitoring Due to Risk of Patient Decompensation, Need For IV Fluids, Need for Pain Control, Risk of Diagnosis Which Will Require Inpatient Eval/Care/Monitoring Post Hospital Care: D/C [employer] Documentation - Plan Summary Plan Summary: Admit the patient to the medical floor. Hydrate the patient with normal saline , keep him nothing by mouth except medications. We will serially monitor WBC, electrolytes, amylase and lipase. Elevated lactic acid probably related to metformin. We will discontinue metformin. Patient's pancreatic ascites may be related to medication as well, we will hold hydrochlorothiazide. I will put the patient on aspirin for her paroxysmal atrial fibrillation. DVT prophylaxis with Lovenox and stress ulcer prophylaxis with Pepcid will be given as well. Further testing depends on the initial evaluation as outlined above.
[2017-02-17] MEDS: NIFEDIPINE 30 MG TAB.ER.24 PO SCH (17:30)
[2017-02-17] MEDS: DOCUSATE SODIUM 100 MG CAPSULE PO SCH (17:30)
[2017-02-17] MEDS ORDERED: (PENDING PHARMACY ID) (Nifedipine [Procardia Xl 60 Mg Tablet] 60 MG) PO SCH (18:00)
[2017-02-17] MEDS: FAMOTIDINE INJ/PF 20 MG/2 ML SDV IV SCH (22:40)
[2017-02-17] MEDS: METOPROLOL TARTRATE 50 MG TABLET PO SCH (22:40)
[2017-02-18] MEDS: NIFEDIPINE 30 MG TAB.ER.24 PO SCH ×2 (05:19→17:46)
[2017-02-18] MEDS: ENOXAPARIN SODIUM INJ 40 MG/0.4 ML DISP.SYRIN SUBCUT SCH (07:36)
[2017-02-18 08:24] LABS: ABSOLUTE BASOPHILS # (AUTO) 0.1 10^3/uL (0.0-0.2); ABSOLUTE EOSINOPHILS # (AUTO) 0.3 10^3/uL (0.0-0.6); ABSOLUTE LYMPHOCYTES (AUTO) 2.5 10^3/uL (0.5-4.7); ABSOLUTE MONOCYTES (AUTO) 0.5 10^3/uL (0.1-1.4); ABSOLUTE NEUT (AUTO) 3.7 10^3/uL (1.7-8.2); EOSINOPHILS % (AUTO) 3.6 % (0-6); HEMATOCRIT 37.8 % (37.9-51.0); HEMOGLOBIN 12.7 g/dL (13.5-17.0); HGB HCT DIFFERENCE 0.3; LYMPHOCYTES % (AUTO) 35.8 % (13-45); MEAN CORPUSCULAR HEMOGLOBIN 31.3 pg (27.0-33.4); MEAN CORPUSCULAR HGB CONC 33.7 g/dL (32.0-36.0); MEAN CORPUSCULAR VOLUME 93 fl (80-97); MONOCYTES % (AUTO) 6.7 % (3-13); RED BLOOD COUNT 4.07 10^6/uL (4.35-5.55); RED CELL DISTRIBUTION WIDTH 15.3 % (11.5-14.0); SEGMENTED NEUTROPHILS % (AUTO) 52.9 % (42-78); WHITE BLOOD COUNT 7.1 10^3/uL (4.0-10.5)
[2017-02-18 08:35] LABS: AMYLASE 114 U/L (30-110); ANION GAP 11 (5-19); BLOOD UREA NITROGEN 10 mg/dL (7-20); CALCIUM 9.5 mg/dL (8.4-10.2); CARBON DIOXIDE 26 mmol/L (22-30); CHLORIDE 107 mmol/L (98-107); CHOLESTEROL 200.67 mg/dL (0-200); CREATININE RESULT 0.95 mg/dL (0.52-1.25); Direct HDL 28 mg/dL (>40); GLUCOSE 120 mg/dL (75-110); LIPASE 824.5 U/L (23-300); MAGNESIUM 1.8 mg/dL (1.6-2.3); PHOSPHORUS 3.5 mg/dL (2.5-4.5); POTASSIUM 4.2 mmol/L (3.6-5.0); SODIUM 144.2 mmol/L (137-145); TRIGLYCERIDES 338 mg/dL (<150)
[2017-02-18 08:46] LABS: DIRECT LDL 99 mg/dL (<100)
[2017-02-18 08:51] LABS: VLDL CHOLESTEROL 67.6 mg/dL (10-31)
[2017-02-18] MEDS: ASPIRIN 81 MG TABLET, CHEWABLE PO SCH (09:27)
[2017-02-18] MEDS: METOPROLOL TARTRATE 50 MG TABLET PO SCH ×2 (09:28→22:35)
[2017-02-18] MEDS: DOCUSATE SODIUM 100 MG CAPSULE PO SCH ×2 (09:28→17:46)
[2017-02-18] MEDS: LISINOPRIL 10 MG TABLET PO SCH (09:28)
[2017-02-18] MEDS: FAMOTIDINE INJ/PF 20 MG/2 ML SDV IV SCH ×2 (09:28→22:35)
[2017-02-18] MEDS: CLONIDINE HCL 0.1 MG TABLET PO SCH (09:28)
--- NOTE | 2017-02-18 11:17 | PDOC PROGRESS REPORT ---
Subjective Progress Note for:: 02/18/17 Subjective:: . Patient complains of insomnia. Abdominal pain is better, no vomiting, still with some nausea. No chills or fever. No chills or fever, no diarrhea. No bowel movement for 3 days. Denies dysuria urgency or frequency. Physical Exam Vital Signs: Temp Pulse Resp BP Pulse Ox 98.7 F 68 18 148/68 H 100 02/18/17 08:43 02/18/17 08:43 02/18/17 08:43 02/18/17 08:43 02/18/17 08:43 Intake & Output 02/17/17 02/18/17 02/19/17 06:59 06:59 06:59 Intake Total 1680 Output Total 3050 1050 Balance -1370 -1050 General appearance: PRESENT: no acute distress, cooperative, obese Head exam: PRESENT: normocephalic Eye exam: PRESENT: EOMI Mouth exam: PRESENT: moist, neck supple Neck exam: ABSENT: JVD Respiratory exam: PRESENT: clear to auscultation wyatt. ABSENT: rhonchi, wheezes Cardiovascular exam: PRESENT: RRR. ABSENT: gallop GI/Abdominal exam: PRESENT: hypoactive bowel sounds, soft - Morbid obesity, tenderness - Minimal discomfort at the epigastric area. ABSENT: distended Extremities exam: PRESENT: pedal edema - Trace pretibial edema Neurological exam: PRESENT: alert, awake, oriented to person, oriented to place , oriented to time, oriented to situation Skin exam: PRESENT: dry, warm. ABSENT: cyanosis Results Laboratory Results: 02/18/17 06:30 02/18/17 06:30 02/17/17 02/18/17 02/18/17 14:00 06:30 06:30 WBC 7.1 RBC 4.07 L Hgb 12.7 L Hct 37.8 L MCV 93 MCH 31.3 MCHC 33.7 RDW 15.3 H Plt Count 265 Seg Neutrophils % 52.9 Lymphocytes % 35.8 Monocytes % 6.7 Eosinophils % 3.6 Basophils % 1.0 Absolute Neutrophils 3.7 Absolute Lymphocytes 2.5 Absolute Monocytes 0.5 Absolute Eosinophils 0.3 Absolute Basophils 0.1 Sodium 144.2 Potassium 4.2 Chloride 107 Carbon Dioxide 26 Anion Gap 11 BUN 10 Creatinine 0.95 Est GFR ( Amer) > 60 Est GFR (Non-Af Amer) > 60 Glucose 120 H Lactic Acid 2.1 Calcium 9.5 Phosphorus 3.5 Magnesium 1.8 Triglycerides 338 H Cholesterol 200.67 H LDL Cholesterol Direct 99 VLDL Cholesterol 67.6 H HDL Cholesterol 28 L Amylase 114 H Lipase 824.5 H Impressions: Abdomen/Pelvis CT 02/17/17 10:21 IMPRESSION: 1. Uncomplicated pancreatitis. No drainable pseudocysts. 2. Generally unremarkable appearance of the bowel. No overt suggestion of mesenteric ischemia. Assessment & Plan - Diagnosis (1) Recurrent acute pancreatitis Is this a current diagnosis for this admission?: Yes (2) Elevated lactic acid level Is this a current diagnosis for this admission?: Yes (4) Hyperlipidemia Qualifiers: Hyperlipidemia type: unspecified Qualified Code(s): E78.5 - Hyperlipidemia, unspecified Is this a current diagnosis for this admission?: Yes (5) Paroxysmal atrial fibrillation Is this a current diagnosis for this admission?: Yes (6) Uncontrolled hypertension Is this a current diagnosis for this admission?: Yes (7) Marijuana use Is this a current diagnosis for this admission?: Yes (8) Diabetes mellitus type 2 in obese Is this a current diagnosis for this admission?: Yes - Time Time Spent with patient: 25-34 minutes - Plan Summary Plan Summary: I will advance the patient's diet today to clear liquid. Continue intravenous fluid. Monitor WBC, creatinine, electrolytes, amylase and lipase, we checked her levels. MiraLAX for constipation. Begin Ambien at bedtime. His lipase is trending down.
[2017-02-18] MEDS ORDERED: ATORVASTATIN CALCIUM 40 MG TABLET PO SCH (22:00)
[2017-02-19] MEDS: ZOLPIDEM TARTRATE 5 MG TABLET PO SCH (00:37)
[2017-02-19] MEDS: NIFEDIPINE 30 MG TAB.ER.24 PO SCH ×2 (05:31→17:06)
[2017-02-19 06:50] LABS: HEMATOCRIT 36.4 % (37.9-51.0); HEMOGLOBIN 12.4 g/dL (13.5-17.0); HGB HCT DIFFERENCE 0.8; MEAN CORPUSCULAR HEMOGLOBIN 31.3 pg (27.0-33.4); MEAN CORPUSCULAR HGB CONC 34.1 g/dL (32.0-36.0); MEAN CORPUSCULAR VOLUME 92 fl (80-97); RED BLOOD COUNT 3.97 10^6/uL (4.35-5.55); RED CELL DISTRIBUTION WIDTH 15.4 % (11.5-14.0); WHITE BLOOD COUNT 6.6 10^3/uL (4.0-10.5)
[2017-02-19 07:04] LABS: AMYLASE 72 U/L (30-110); ANION GAP 12 (5-19); BLOOD UREA NITROGEN 11 mg/dL (7-20); CALCIUM 9.6 mg/dL (8.4-10.2); CARBON DIOXIDE 27 mmol/L (22-30); CHLORIDE 103 mmol/L (98-107); CREATININE RESULT 1.01 mg/dL (0.52-1.25); GLUCOSE 154 mg/dL (75-110); LIPASE 578.8 U/L (23-300); POTASSIUM 3.7 mmol/L (3.6-5.0); SODIUM 141.6 mmol/L (137-145)
[2017-02-19] MEDS ORDERED: OXYCODONE-ACETAMINOPHEN 5-325 MG TABLET PO PRN (09:19)
[2017-02-19] MEDS ORDERED: ATORVASTATIN CALCIUM 40 MG TABLET PO SCH (09:21)
[2017-02-19] MEDS: ENOXAPARIN SODIUM INJ 40 MG/0.4 ML DISP.SYRIN SUBCUT SCH (09:29)
[2017-02-19] MEDS: METOPROLOL TARTRATE 50 MG TABLET PO SCH ×2 (09:30→22:45)
[2017-02-19] MEDS: LISINOPRIL 10 MG TABLET PO SCH (09:30)
[2017-02-19] MEDS: DOCUSATE SODIUM 100 MG CAPSULE PO SCH ×2 (09:31→17:07)
[2017-02-19] MEDS: FAMOTIDINE INJ/PF 20 MG/2 ML SDV IV SCH ×2 (09:31→22:47)
[2017-02-19] MEDS: CLONIDINE HCL 0.1 MG TABLET PO SCH (09:31)
[2017-02-19] MEDS: ASPIRIN 81 MG TABLET, CHEWABLE PO SCH (09:31)
[2017-02-19] MEDS ORDERED: (PENDING PHARMACY ID) (Metformin Hcl [Metformin Hcl Er] 500 MG) PO SCH (10:00)
--- NOTE | 2017-02-19 16:37 | PDOC PROGRESS REPORT ---
Subjective Progress Note for:: 02/19/17 Subjective:: Patient is seen earlier today on morning rounds. Patient is requesting a diet. He has been tolerating clear liquids. Patient denies chest pain, shortness of breath, abdominal pain, nausea, vomiting , fevers, chills, diarrhea, constipation, headache, new onset weakness. Physical Exam Vital Signs: Temp Pulse Resp BP Pulse Ox 97.8 F 62 18 133/74 H 99 02/19/17 11:23 02/19/17 11:23 02/19/17 11:23 02/19/17 11:23 02/19/17 11:23 Intake & Output 02/18/17 02/19/17 02/20/17 06:59 06:59 06:59 Intake Total 1680 680 Output Total 3050 3500 Balance -1370 -2820 Exam: General: Awake alert and oriented x3, no acute respiratory distress HEENT: AT/NC, PERRL, EOMI, oropharynx is moist, pink, no scleral icterus, no conjunctival injection Neck: No JVD, trachea midline Chest: Clear to auscultation bilaterally, no wheezes rhonchi or rales CV: Regular rate and rhythm, normal S1 and S2, no murmur, rub, or gallop Abdomen: Protuberant, Soft, nontender to palpation, nondistended, minimally active bowel sounds; no rebound, rigidity, or guarding Extremities: No cyanosis, clubbing or edema Neuro: Cranial nerves II through XII are grossly intact without focal deficits; awake alert and oriented x3 Psych: Normal mood and affect Results Laboratory Results: 02/19/17 06:40 02/19/17 06:40 02/19/17 02/19/17 06:40 06:40 WBC 6.6 RBC 3.97 L Hgb 12.4 L Hct 36.4 L MCV 92 MCH 31.3 MCHC 34.1 RDW 15.4 H Plt Count 234 Sodium 141.6 Potassium 3.7 Chloride 103 Carbon Dioxide 27 Anion Gap 12 BUN 11 Creatinine 1.01 Est GFR ( Amer) > 60 Est GFR (Non-Af Amer) > 60 Glucose 154 H Calcium 9.6 Amylase 72 Lipase 578.8 H Impressions: Abdomen/Pelvis CT 02/17/17 10:21 IMPRESSION: 1. Uncomplicated pancreatitis. No drainable pseudocysts. 2. Generally unremarkable appearance of the bowel. No overt suggestion of mesenteric ischemia. Assessment & Plan - Diagnosis (1) Recurrent acute pancreatitis Is this a current diagnosis for this admission?: YesPlan: We'll transition patient on oral diet today. Stop IV Dilaudid. Patient has not had a dose of this in over [address] on oral Percocet. If patient is able to tolerate diet and oral therapy today he will be discharged home tomorrow. (2) Hypertension Qualifiers: Hypertension type: essential hypertension Qualified Code(s): I10 - Essential (primary) hypertension Is this a current diagnosis for this admission?: YesPlan: Well-controlled on nifedipine, lisinopril, and once daily clonidine. (3) Diabetes mellitus type 2 in obese Is this a current diagnosis for this admission?: YesPlan: Patient currently on metformin currently well-controlled. (4) Hyperlipidemia Qualifiers: Hyperlipidemia type: unspecified Qualified Code(s): E78.5 - Hyperlipidemia, unspecified Is this a current diagnosis for this admission?: YesPlan: Will increase patient's Lipitor. His total cholesterol was 200 with an LDL of 67. Triglycerides are 338. (5) Tobacco dependency Is this a current diagnosis for this admission?: YesPlan: Encourage cessation. When necessary nicotine patch. (6) Obesity due to excess calories with serious comorbidity Is this a current diagnosis for this admission?: YesPlan: Encourage weight loss - Time Time Spent with patient: 25-34 minutes Medications reviewed and adjusted accordingly: Yes Anticipated discharge: Home Within: within 24 hours
[2017-02-19] MEDS: METFORMIN HCL 500 MG TABLET PO SCH (17:06)
[2017-02-19] MEDS: LANSOPRAZOLE 15 MG TAB.RAP.DR PO SCH (17:07)
[2017-02-19] MEDS ORDERED: ATORVASTATIN CALCIUM 80 MG TABLET PO SCH (22:00)
[2017-02-20] MEDS: ZOLPIDEM TARTRATE 5 MG TABLET PO SCH (05:26)
[2017-02-20] MEDS: NIFEDIPINE 30 MG TAB.ER.24 PO SCH (06:30)
[2017-02-20 06:31] LABS: ANION GAP 10 (5-19); BLOOD UREA NITROGEN 17 mg/dL (7-20); CALCIUM 9.9 mg/dL (8.4-10.2); CARBON DIOXIDE 29 mmol/L (22-30); CHLORIDE 104 mmol/L (98-107); CREATININE RESULT 1.17 mg/dL (0.52-1.25); GLUCOSE 145 mg/dL (75-110); LIPASE 555.3 U/L (23-300); MAGNESIUM 1.7 mg/dL (1.6-2.3); POTASSIUM 4.1 mmol/L (3.6-5.0); SODIUM 143.3 mmol/L (137-145)
[2017-02-20] MEDS: LANSOPRAZOLE 15 MG TAB.RAP.DR PO SCH (06:33)
[2017-02-20] MEDS: ENOXAPARIN SODIUM INJ 40 MG/0.4 ML DISP.SYRIN SUBCUT SCH (08:04)
[2017-02-20] MEDS: METFORMIN HCL 500 MG TABLET PO SCH (08:04)
[2017-02-20 10:04] VITALS: BP 140/50
--- NOTE | 2017-02-20 19:42 | PDOC DISCHARGE SUMMARY ---
General - Admit/Disc Date/PCP Admission Date/Primary Care Provider: 02/17/17 13:52 [facility] Discharge Date: 02/20/17 - Discharge Diagnosis (1) Recurrent acute pancreatitis Is this a current diagnosis for this admission?: Yes (2) Hypertension Is this a current diagnosis for this admission?: Yes (3) Diabetes mellitus type 2 in obese Is this a current diagnosis for this admission?: Yes (4) Hyperlipidemia Is this a current diagnosis for this admission?: Yes (5) Tobacco dependency Is this a current diagnosis for this admission?: Yes (6) Obesity due to excess calories with serious comorbidity Is this a current diagnosis for this admission?: Yes - Additional Information Discharge Diet: Cardiac, Diabetic Discharge Activity: Activity As Tolerated Home Medications: Metoprolol Tartrate [Lopressor 50 mg Tablet] 50 mg PO Q12H #30 tablet 11/03/16 Nifedipine [Procardia XL 60 mg Tablet] 60 mg PO BID #60 tab.er.24 11/16/16 Clonidine HCl [Catapres 0.1 mg Tablet] 0.1 mg PO DAILY 02/17/17 Glimepiride [Amaryl 1 mg Tablet] 1 mg PO QAM 02/17/17 Lisinopril [Prinivil 40 mg Tablet] 40 mg PO DAILY 02/17/17 Metformin HCl [Metformin HCl ER] 500 mg PO BID 02/17/17 Aspirin [Aspirin 81 mg Chewable Tablet] 81 mg PO DAILY tab.chew 02/20/17 Atorvastatin Calcium [Lipitor 80 mg Tablet] 80 mg PO QHS #30 tablet 02/20/17 Omeprazole Magnesium [Prilosec Otc] 20 mg PO DAILY #30 tablet. 02/20/17 Oxycodone HCl/Acetaminophen [Percocet 5-325 mg Tablet] 1 tab PO Q4HP PRN #10 tablet 02/20/17 History of Present Illness History of Present Illness: Please see H&P for full history of present illness Hospital Course Hospital Course: Patient is a 67-year-old male with a previous history of pancreatitis who presents to the emergency department for sudden onset of abdominal pain in the midepigastric region. Patient was found to have on CT acute pancreatitis with an elevation of his lipase. Patient was admitted placed nothing by mouth and started on IV fluids and pain management. Patient quickly resolved and was transitioned to oral pain medication as well as food. He tolerated this well and was discharged home in stable condition today. He is advised to follow-up with his primary care physician for his underlying medical problems. Physical Exam Vital Signs: Temp Pulse Resp BP Pulse Ox 98 F 58 L 16 140/50 H 97 02/20/17 10:00 02/20/17 10:00 02/20/17 10:00 02/20/17 10:00 02/20/17 10:00 Intake & Output 02/19/17 02/20/17 02/21/17 06:59 06:59 06:59 Intake Total 680 1830 Output Total 3500 1200 Balance -2820 630 Exam: General: Awake alert and oriented x3, no acute respiratory distress HEENT: AT/NC, PERRL, EOMI, oropharynx is moist, pink, no scleral icterus, no conjunctival injection Neck: No JVD, trachea midline Chest: Clear to auscultation bilaterally, no wheezes rhonchi or rales CV: Regular rate and rhythm, normal S1 and S2, no murmur, rub, or gallop Abdomen: Protuberant, Soft, nontender to palpation, nondistended, minimally active bowel sounds; no rebound, rigidity, or guarding Extremities: No cyanosis, clubbing or edema Neuro: Cranial nerves II through XII are grossly intact without focal deficits; awake alert and oriented x3 Psych: Normal mood and affect Results Laboratory Results: 02/19/17 06:40 02/20/17 05:53 02/20/17 05:53 Sodium 143.3 Potassium 4.1 Chloride 104 Carbon Dioxide 29 Anion Gap 10 BUN 17 Creatinine 1.17 Est GFR ( Amer) > 60 Est GFR (Non-Af Amer) > 60 Glucose 145 H Calcium 9.9 Magnesium 1.7 Lipase 555.3 H Impressions: Abdomen/Pelvis CT 02/17/17 10:21 IMPRESSION: 1. Uncomplicated pancreatitis. No drainable pseudocysts. 2. Generally unremarkable appearance of the bowel. No overt suggestion of mesenteric ischemia. Qualifiers PATEINT BEING DISCHARGED WITH ANY OF THE FOLLOWING DIAGNOSIS?: No Plan Time Spent: Less than 30 Minutes
== END 2017-02-20 10:15 | disposition home or self-care (01) | DRG 440 ==
LOC: ER 09:00 → EH 12:29 → UNDOADMIN 12:29 → EH 13:32 → 2N 13:32 → 2S 13:52 → 2N 18:20
PROVIDERS: ADMIT Family Medicine; ATTEND Family Medicine
DX: K85.90 Acute pancreatitis without necrosis or infection, unspecified (principal); I10 Essential (primary) hypertension; K21.9 Gastro-esophageal reflux disease without esophagitis; I48.0 Paroxysmal atrial fibrillation; E78.5 Hyperlipidemia, unspecified; E11.9 Type 2 diabetes mellitus without complications; F12.90 Cannabis use, unspecified, uncomplicated; E66.09 Other obesity due to excess calories; F17.210 Nicotine dependence, cigarettes, uncomplicated; Z68.31 Body mass index [BMI] 31.0-31.9, adult; Z79.84 Long term (current) use of oral hypoglycemic drugs
CPT/HCPCS: 36415; 74177; 80048; 80053; 80061; 82150; 82962; 83605; 83690; 83735; 84100; 85025; 85027; 96361; 96374; 99285; J1170; J1650; J3490; J7030; S0028

== ENCOUNTER → 2017-03-06 | Outpatient (CLI) | payer OTHER | LOC: OD 10:24 | DX: M10.9 Gout, unspecified (principal) | CPT/HCPCS: 36415; 84550 ==

== ENCOUNTER 2017-03-07 21:11 | Emergency (ER) | payer OTHER ==
[2017-03-08] MEDS ORDERED: HYDROMORPHONE HCL INJ/PF 2 MG/ML AMPULE IV ONE (02:09)
[2017-03-08] MEDS ORDERED: ONDANSETRON HCL INJ/PF 4 MG/2 ML SDV IV ONE (02:09)
[2017-03-08] MEDS ORDERED: NORMAL SALINE 1000 ML 500 ML IV ONE (02:09)
--- NOTE | 2017-03-08 02:12 | ER Document Report ---
ED General - General Chief Complaint: Abdominal Pain Stated Complaint: ABDOMINAL PAIN Notes: Patient is a 67-year-old male who presents with complaints of epigastric abdominal pain started today. Patient's history recurrent pancreatitis. He says feels very similar. He is unsure exactly what the cause of his pancreatitis is. He was admitted on February 17 with pancreatitis and was discharged after it improved. At that time CT scan showed a uncomplicated pancreatitis. He's had some nausea. No vomiting. No diarrhea. No fevers. No other complaints at this time. No alcohol use. No history of gallbladder disease. TRAVEL OUTSIDE OF THE [place] IN LAST 30 DAYS: No - Related Data Allergies/Adverse Reactions: No Known Drug Allergies Allergy (Unknown, Verified 03/07/17 22:17) Raspberries Allergy (Mild, Uncoded 02/17/17 09:12) Hives Past Medical History - Social History Smoking Status: Unknown if Ever Smoked Frequency of alcohol use: None Drug Abuse: None Family History: Hypertension - Past Medical History Cardiac Medical History: Reports: Hx Atrial Fibrillation - Paroxysmal, Hx Hypercholesterolemia, Hx Hypertension Denies: Hx Congestive Heart Failure, Hx DVT, Hx Heart Attack, Hx Pulmonary Embolism Pulmonary Medical History: Denies: Hx Asthma, Hx COPD, Hx Tuberculosis Neurological Medical History: Denies: Hx Seizures Endocrine Medical History: Reports: Hx Diabetes Mellitus Type 2. Denies: Hx Diabetes Mellitus Type 1, Hx Hyperthyroidism, Hx Hypothyroidism Renal/ Medical History: Denies: Hx Peritoneal Dialysis GI Medical History: Reports: Hx Gastroesophageal Reflux Disease. Denies: Hx Cirrhosis, Hx Hepatitis Musculoskeltal Medical History: Reports Hx Arthritis Skin Medical History: Denies Hx Eczema, Denies Hx Psoriasis Psychiatric Medical History: Denies: Hx Depression Infectious Medical History: Denies: Hx Hepatitis Past Surgical History: Denies: Hx Pacemaker - Immunizations Immunizations up to date: Yes Hx Diphtheria, Pertussis, Tetanus Vaccination: Yes - unk Hx Pneumococcal Vaccination: 11/11/11 Review of Systems - Review of Systems Notes: My Normal Review Basic REVIEW OF SYSTEMS: CONSTITUTIONAL : Denies fever, chills, or sweats. Denies recent illness. CARDIOVASCULAR: Denies chest pain. RESPIRATORY: Denies cough, cold, or chest congestion. Denies shortness of breath, difficulty breathing, or wheezing. GASTROINTESTINAL: Epigastric abdominal pain. Some nausea. No vomiting. Denies constipation. Last BM: MUSCULOSKELETAL: Denies neck or back pain or joint pain or swelling. SKIN: Denies rash or skin lesions. NEUROLOGICAL: Denies altered mental status or loss of consciousness. Denies headache. Denies weakness or paralysis or loss of use of either side. Denies problems with gait or speech. Denies sensory or motor loss. ALL OTHER SYSTEMS REVIEWED AND NEGATIVE. Physical Exam - Vital signs Vitals: Temp Pulse Resp BP Pulse Ox 97.8 F 64 16 186/96 H 98 03/07/17 22:22 03/07/17 22:22 03/07/17 22:22 03/07/17 22:22 03/07/17 22:22 - Notes Notes: General Appearance: Well nourished, alert, cooperative, no acute distress, mild obvious discomfort. Vitals: reviewed, See vital signs table. Head: no swelling or tenderness to the head Eyes: PERRL, EOMI, Conjuctiva clear Mouth: No decreasd moisture Neck: Supple, no neck tenderness, No thyromegaly Lungs: No wheezing, No rales, No rhonci, No accessory muscle use, good air exchange bilaterally. Heart: Normal rate, Regular rythm, No murmur, no rub Abdomen: Normal BS, soft, No rigidity, moderate epigastric abdominal tenderness to palpation, No guarding, no rebound, no abdominal masses, no organomegaly Extremities: strength 5/5 in all extremities, good pulses in all extremities, no swelling or tenderness in the extremities, no edema. Skin: warm, dry, appropriate color, no rash Neuro: speech clear, oriented x 3, normal affect, responds appropriately to questions. Course - Vital Signs Vital signs: Temp Pulse Resp BP Pulse Ox 98.1 F 58 L 18 167/79 H 99 03/08/17 04:42 03/08/17 04:42 03/08/17 04:42 03/08/17 04:42 03/08/17 04:42 - Laboratory Result Diagrams: 03/08/17 02:38 03/08/17 02:38 Laboratory results interpreted by me: 03/08/17 03/08/17 02:38 02:38 RBC 4.17 L Hgb 13.0 L RDW 15.5 H BUN 23 H Creatinine 1.31 H Est GFR (Non-Af Amer) 55 L Glucose 141 H Total Protein 8.4 H Lipase 1025.6 H - Transfer of Care Notes: 03/08/17 06:19 Patient's lipase is little bit elevated at just over 1000. Clinically patient looks very well. He has no vomiting. His nausea is improved. His pain is resolved after the pain medication. He had a CT scan earlier this month which showed no pseudocyst or complications associated with his pancreatitis. He has no fevers. I feel he is stable to be discharged home. I did talk to him about outpatient treatment versus inpatient treatment. Patient is agreeable outpatient treatment and wants to try to treat himself at home with oral pain medication and liquid diet. Patient encouraged to drink only clear liquids for the first 24 hours. After that he can increase her progress his diet to bland foods. Informed him he must avoid all fatty foods, fried foods, spicy foods, or any food does not bland nature. Patient encouraged return to ER immediately if has worsening recurrent pain, fevers, or vomiting. Patient agrees with plan will be discharged home. Dictation of this chart was performed using voice recognition software; therefore, there may be some unintended grammatical errors. Discharge - Discharge Clinical Impression: Recurrent acute pancreatitis Abdominal pain Qualifiers: Abdominal location: generalized Qualified Code(s): R10.84 - Generalized abdominal pain Hypertension Qualifiers: Hypertension type: essential hypertension Qualified Code(s): I10 - Essential ( primary) hypertension Condition: Good Disposition: HOME, SELF-CARE Instructions: Oral Narcotic Medication ([facility]) Additional Instructions: Pancreatitis Pancreatitis is an inflammation of the pancreas, an organ at the back of your abdomen. The pancreas produces insulin and enzymes that digest your food. Pancreatitis can be caused by gallstones in the bile duct, by alcohol or viruses, or by excess fat or calcium in the blood stream. Occasionally, pancreatitis occurs when a stomach ulcer soares through into the pancreas. We try to find the cause of pancreatitis, but some tests can't be done until the pancreas heals. The usual symptoms of pancreatitis are pain in the pit of the stomach that goes straight through to the back, vomiting, and low-grade fever. Severe cases require hospital admission, but many patients with mild pancreatitis do well at home. You will probably need medicine for pain and for vomiting. Sometimes we prescribe medicine to decrease stomach acid secretion and to decrease flow of pancreatic juices. Start with a diet of clear liquids (soda pop, juices). When the pain is decreasing, you can add some simple starches (potato, toast, applesauce). Avoid proteins and fats until you are completely painfree. When you're better, your doctor may suggest treatment to prevent future pancreatitis (such as gallbladder removal). Avoid alcohol forever. Get immediate treatment for any future episodes. Contact your doctor at once or return here if you have increasing pain, shortness of breath, general swelling, increasing size of the abdomen, continued vomiting, muscle spasms, or other new symptoms. Please drink only clear liquids for the next 24 hours. Do not eat any food. After 24 hours she can eat very bland foods. Do not eat anything has butter, grease, fat, or anything of this fried for at least one week. Return to the ER immediately for worsening pain, vomiting, or fevers. Follow up with your doctor in 2-3 days for revaluation. Prescriptions: Ondansetron [Zofran Odt 4 mg Tablet] 1 tab PO Q4HP PRN #10 tab.rapdis PRN Reason: Oxycodone HCl/Acetaminophen [Percocet 5-325 mg Tablet] 1 tab PO Q4H PRN #15 tablet PRN Reason: Forms: Return to Work
[2017-03-08 02:56] LABS: ABSOLUTE BASOPHILS # (AUTO) 0.1 10^3/uL (0.0-0.2); ABSOLUTE EOSINOPHILS # (AUTO) 0.3 10^3/uL (0.0-0.6); ABSOLUTE LYMPHOCYTES (AUTO) 3.9 10^3/uL (0.5-4.7); ABSOLUTE MONOCYTES (AUTO) 0.5 10^3/uL (0.1-1.4); ABSOLUTE NEUT (AUTO) 3.9 10^3/uL (1.7-8.2); BASOPHILS % (AUTO) 0.9 % (0-2); EOSINOPHILS % (AUTO) 3.7 % (0-6); HEMATOCRIT 39.5 % (37.9-51.0); HGB HCT DIFFERENCE -0.5; LYMPHOCYTES % (AUTO) 44.9 % (13-45); MEAN CORPUSCULAR HEMOGLOBIN 31.2 pg (27.0-33.4); MEAN CORPUSCULAR HGB CONC 32.9 g/dL (32.0-36.0); MEAN CORPUSCULAR VOLUME 95 fl (80-97); MONOCYTES % (AUTO) 5.7 % (3-13); RED BLOOD COUNT 4.17 10^6/uL (4.35-5.55); RED CELL DISTRIBUTION WIDTH 15.5 % (11.5-14.0); SEGMENTED NEUTROPHILS % (AUTO) 44.8 % (42-78); WHITE BLOOD COUNT 8.7 10^3/uL (4.0-10.5)
[2017-03-08 03:07] LABS: APPEARANCE,URINE CLEAR; BILIRUBIN,URINE NEGATIVE (NEGATIVE); GLUCOSE, URINE NEGATIVE (NEGATIVE); KETONES,URINE NEGATIVE (NEGATIVE); LEUKOCYTE ESTERASE,URINE NEGATIVE (NEGATIVE); NITRITE,URINE NEGATIVE (NEGATIVE); PROTEIN,URINE NEGATIVE (NEGATIVE); URINE SPECIFIC GRAVITY 1.014; UROBILINOGEN,URINE NEGATIVE mg/dL (<2.0)
[2017-03-08 03:17] LABS: ALANINE AMINOTRANSFERASE 30 U/L (21-72); ALBUMIN 4.4 g/dL (3.5-5.0); ALKALINE PHOSPHATASE 87 U/L (38-126); ANION GAP 12 (5-19); ASPARTATE AMINO TRANSFERASE 33 U/L (17-59); BLOOD UREA NITROGEN 23 mg/dL (7-20); CALCIUM 9.9 mg/dL (8.4-10.2); CARBON DIOXIDE 29 mmol/L (22-30); CHLORIDE 104 mmol/L (98-107); CREATININE RESULT 1.31 mg/dL (0.52-1.25); GLUCOSE 141 mg/dL (75-110); POTASSIUM 4.2 mmol/L (3.6-5.0); SODIUM 144.6 mmol/L (137-145)
[2017-03-08 03:18] LABS: BILIRUBIN,DIRECT 0.3 mg/dL (0.0-0.4); BILIRUBIN,TOTAL 0.7 mg/dL (0.2-1.3); LIPASE 1025.6 U/L (23-300); TOTAL PROTEIN 8.4 g/dL (6.3-8.2)
[2017-03-08] MEDS ORDERED: HYDROCODONE/ACETAMINOPHEN 5-325 MG 6 TAB/DSPK PO PRN (04:29)
[2017-03-08] MEDS ORDERED: METOPROLOL TARTRATE 50 MG TABLET PO ONE (04:31)
[2017-03-08] MEDS ORDERED: CLONIDINE HCL 0.1 MG TABLET PO ONE (04:31)
[2017-03-08 04:51] VITALS: BP 167/79
== END 2017-03-08 04:53 | disposition home or self-care (01) ==
LOC: ER 21:11
DX: K85.90 Acute pancreatitis without necrosis or infection, unspecified (principal); R10.84 Generalized abdominal pain; I10 Essential (primary) hypertension; R10.9 Unspecified abdominal pain; R10.13 Epigastric pain; R11.0 Nausea
CPT/HCPCS: 99284; 96361; 96374; 96375; 36415; 83690; 85025; 80053; 81001; J1170; J2405; J7030

== ENCOUNTER 2017-05-24 11:53 | Emergency (ER) | payer MEDICARE, OTHER ==
--- NOTE | 2017-05-24 12:14 | ER Document Report ---
ED Medical Screen (RME) - General Chief Complaint: Swelling Stated Complaint: LEFT FOOT SWELLING Time Seen by Provider: 05/24/17 12:11 Mode of Arrival: Wheelchair Information source: Patient TRAVEL OUTSIDE OF THE [place] IN LAST 30 DAYS: No - HPI Patient complains to provider of: L foot pain and swelling Onset: Yesterday - pt. with h/o gout with c/o L great toe pain and swelling for the past 2-3 days. Denies h/o trauma - Related Data Allergies/Adverse Reactions: No Known Drug Allergies Allergy (Unknown, Verified 03/07/17 22:17) Raspberries Allergy (Mild, Uncoded 02/17/17 09:12) Hives Past Medical History - Social History Chew tobacco use (# tins/day): No Frequency of alcohol use: None Drug Abuse: None - Past Medical History Cardiac Medical History: Reports: Hx Atrial Fibrillation - Paroxysmal, Hx Hypercholesterolemia, Hx Hypertension Denies: Hx Congestive Heart Failure, Hx DVT, Hx Heart Attack, Hx Pulmonary Embolism Pulmonary Medical History: Denies: Hx Asthma, Hx COPD, Hx Tuberculosis Neurological Medical History: Denies: Hx Seizures Endocrine Medical History: Reports: Hx Diabetes Mellitus Type 2. Denies: Hx Diabetes Mellitus Type 1, Hx Hyperthyroidism, Hx Hypothyroidism Renal/ Medical History: Denies: Hx Peritoneal Dialysis GI Medical History: Reports: Hx Gastroesophageal Reflux Disease. Denies: Hx Cirrhosis, Hx Hepatitis Musculoskeltal Medical History: Reports Hx Arthritis Skin Medical History: Denies Hx Eczema, Denies Hx Psoriasis Psychiatric Medical History: Denies: Hx Depression Infectious Medical History: Denies: Hx Hepatitis Past Surgical History: Denies: Hx Pacemaker - Immunizations Immunizations up to date: Yes Hx Diphtheria, Pertussis, Tetanus Vaccination: Yes - unk Physical Exam - Vital signs Vitals: Temp Pulse Resp BP Pulse Ox 98.1 F 101 H 20 205/106 H 97 05/24/17 11:58 05/24/17 11:58 05/24/17 11:58 05/24/17 11:58 05/24/17 11:58 Course - Vital Signs Vital signs: Temp Pulse Resp BP Pulse Ox 98.1 F 101 H 20 205/106 H 97 05/24/17 11:58 05/24/17 11:58 05/24/17 11:58 05/24/17 11:58 05/24/17 11:58
[2017-05-24 12:46] VITALS: BP 182/102
--- NOTE | 2017-05-24 12:47 | RADIOLOGY REPORT (SQ) ---
EXAM DESCRIPTION: FOOT LEFT COMPLETE COMPLETED DATE/TIME: 05/24/2017 12:34 pm REASON FOR STUDY: L foot pain COMPARISON: None. NUMBER OF VIEWS: Three views. TECHNIQUE: AP, lateral and oblique radiographic images acquired of the left foot. LIMITATIONS: None. FINDINGS: MINERALIZATION: Normal. BONES: No definite acute fracture or dislocation. On the oblique view there is a longitudinal lucenc y in 4th proximal phalanx, but there is no cortical disruption. JOINTS: No effusions. SOFT TISSUES: No soft tissue swelling. No foreign body. OTHER: No other significant finding. IMPRESSION: A nondisplaced longitudinal fracture of the 4th proximal phalanx cannot be excluded. Co rrelate clinically. TECHNICAL DOCUMENTATION: JOB ID: [id number] [employer]- All Rights Reserved
--- NOTE | 2017-05-24 13:24 | ER Document Report ---
ED Extremity Problem, Lower - General Mode of Arrival: Wheelchair Information source: Patient TRAVEL OUTSIDE OF THE [place] IN LAST 30 DAYS: No - HPI Location: Great Toe - left Associated symptoms: denies: Fever Exacerbated by: Walking - General Chief Complaint: Swelling Stated Complaint: LEFT FOOT SWELLING Time Seen by Provider: 05/24/17 12:11 Notes: Patient is a 67 year old male with a history of gout, hypertension and diabetes presents to the ED with complaints of left great toe pain, swelling and redness. The pain is similar to patients episodes of gout in the past, he denies any trauma to the area. Patient states the pain has improved some since last night. Patient states it is painful to ambulate but he is able to do so with out difficulty. Patient denies any fever. No other concerns or complaints at this time. (CORY QUIROZ) - Related Data Allergies/Adverse Reactions: No Known Drug Allergies Allergy (Unknown, Verified 03/07/17 22:17) Raspberries Allergy (Mild, Uncoded 02/17/17 09:12) Hives Past Medical History - General Information source: Patient - Social History Smoking Status: Current Every Day Smoker Chew tobacco use (# tins/day): No Frequency of alcohol use: None Drug Abuse: None Family History: Hypertension - Past Medical History Cardiac Medical History: Reports: Hx Atrial Fibrillation - Paroxysmal, Hx Hypercholesterolemia, Hx Hypertension Denies: Hx Congestive Heart Failure, Hx DVT, Hx Heart Attack, Hx Pulmonary Embolism Pulmonary Medical History: Denies: Hx Asthma, Hx COPD, Hx Tuberculosis Neurological Medical History: Denies: Hx Seizures Endocrine Medical History: Reports: Hx Diabetes Mellitus Type 2. Denies: Hx Diabetes Mellitus Type 1, Hx Hyperthyroidism, Hx Hypothyroidism Renal/ Medical History: Denies: Hx Peritoneal Dialysis GI Medical History: Reports: Hx Gastroesophageal Reflux Disease. Denies: Hx Cirrhosis, Hx Hepatitis Musculoskeltal Medical History: Reports Hx Arthritis Skin Medical History: Denies Hx Eczema, Denies Hx Psoriasis Psychiatric Medical History: Denies: Hx Depression Infectious Medical History: Denies: Hx Hepatitis Past Surgical History: Denies: Hx Pacemaker - Immunizations Immunizations up to date: Yes Hx Diphtheria, Pertussis, Tetanus Vaccination: Yes - unk Hx Pneumococcal Vaccination: 11/11/11 Review of Systems - Review of Systems Constitutional: See HPI. denies: Fever EENT: No symptoms reported Cardiovascular: No symptoms reported Respiratory: No symptoms reported Gastrointestinal: No symptoms reported Genitourinary: No symptoms reported Male Genitourinary: No symptoms reported Musculoskeletal: See HPI, Other - left great toe swelling, redness and pain Skin: No symptoms reported Hematologic/Lymphatic: No symptoms reported Neurological/Psychological: No symptoms reported Physical Exam - Vital signs Vitals: Temp Pulse Resp BP Pulse Ox 98.1 F 101 H 20 205/106 H 97 05/24/17 11:58 05/24/17 11:58 05/24/17 11:58 05/24/17 11:58 05/24/17 11:58 - Notes Notes: GENERAL: Alert, interacts well. No acute distress. HEAD: Normocephalic, atraumatic. EYES: Pupils equal, round, and reactive to light. Extraocular movements intact. NECK: Full range of motion. Supple. Trachea midline. LUNGS: No respiratory distress. EXTREMITIES: Moves all 4 extremities spontaneously. No edema, radial and dorsalis pedis pulses 2/4 bilaterally. No cyanosis. Redness and a small amount of swelling of the 1st MTP joint on left foot, tenderness to light touch, no lymphangitic streaking, no spreading anywhere. Left foot is slightly warmer to palpation than right foot. NEUROLOGICAL: Alert and oriented x3. Normal speech. PSYCH: Normal affect, normal mood. SKIN: Warm, dry, normal turgor. See above. (CORY QUIROZ) Course - Re-evaluation Re-evalutation: 05/24/17 13:30 X-ray does not show any pathology in the area of the pain, there is a possible old fracture of the fourth digit, this is not the cause of his acute pain and it does not cause any disability. No need for splinting at this time. Uric acid is normal although this does not rule out an acute gouty flare. Patient has no history of renal disease. Patient is a diabetic therefore glucocorticoids will not be used. Patient will be given colchicine and discharged to home. Should he develop a fever or pain or swelling or redness worsens in the next several days he should return and we will consider the possibility of cellulitis instead however currently there is no evidence of cellulitis. (HERON PASTRANA) - Vital Signs Vital signs: Temp Pulse Resp BP Pulse Ox 98.7 F 88 16 182/102 H 97 05/24/17 12:42 05/24/17 12:42 05/24/17 12:42 05/24/17 12:42 05/24/17 12:42 Discharge - Discharge Clinical Impression: Acute gout involving toe of left foot Qualifiers: Gout etiology: unspecified cause Qualified Code(s): M10.9 - Gout, unspecified Condition: Stable Disposition: HOME, SELF-CARE Additional Instructions: Gout You have been diagnosed as having gout. Gout is a problem caused by an excess of uric acid, a natural chemical found in the body. The cause of this disease is unknown. Gout arthritis occurs when crystals of uric acid form in the joints. The big toe is the most common joint involved, but any joint can become affected. Persons with gout may also form uric acid kidney stones, resulting in flank pain and blood in the urine. Nodules of uric acid may form under the skin. The first step of treatment is to decrease the inflammation in the joint with antiinflammatory medication. Medication to lower the uric acid level in the blood may then be prescribed. This medication should be taken regularly, as any sudden change in dosage may provoke an attack of gout. Some foods, such as red meat, can provoke an attack in some gout sufferers. Call the doctor if new symptoms arise, or if you do not improve. Gout Diet Changing your diet can decrease the uric acid in your blood. High levels of uric acid cause gouty arthritis and uric acid kidney stones. If you have gout , you should avoid meats that are high in purine. Meat products to avoid include liver, kidneys, and brains. In general, poultry is better than red meats. Seafoods to avoid include anchovies, sardines, richardson, mackerel, and scallops. In addition to limiting purine-rich foods, people with gout should limit protein intake to 10-15% of total calories. Carbohydrate intake should be around 50% of total daily calories. Limit fat intake to 30% of total daily calories. Cholesterol intake should be less than 300 mg/day. Maintain or achieve a healthy body weight. Weight loss should be gradual. Rapid weight loss can actually increase uric acid levels temporarily. Alcohol, especially beer, should be avoided. Get plenty of fluids. This dilutes urinary uric acid, and helps prevent uric acid kidney stones. Drink eight to twelve cups of water daily. If you develop fevers, increasing redness or swelling or worsening pain please return to the emergency department, this may be an infection rather than gout. Currently it appears to be gout. Prescriptions: Colchicine [Colchicine 0.6 mg Tablet] 0.6 mg PO DAILYP PRN #4 tablet PRN Reason: Scribe Attestation: 05/24/17 20:05 I personally performed the services described in the documentation, reviewed and edited the documentation which was dictated to the scribe in my presence, and it accurately records my words and actions. (HERON PASTRANA) Iainibe Documentation - Scribe Written by Denny:: denny Woodward, 05/24/2017, [id number] acting as scribe for :: Carmen
[2017-05-24] MEDS ORDERED: COLCHICINE 0.6 MG TABLET PO ONE (13:29)
== END 2017-05-24 14:19 | disposition home or self-care (01) ==
LOC: ER 11:53
DX: M10.9 Gout, unspecified (principal); M79.89 Other specified soft tissue disorders; I10 Essential (primary) hypertension; E11.9 Type 2 diabetes mellitus without complications; I48.91 Unspecified atrial fibrillation; E78.00 Pure hypercholesterolemia, unspecified; K21.9 Gastro-esophageal reflux disease without esophagitis
CPT/HCPCS: 99283; 36415; 84550; 73630; A9270

== ENCOUNTER 2017-05-26 16:05 | Emergency (ER) | payer MEDICARE, OTHER ==
--- NOTE | 2017-05-26 16:33 | ER Document Report ---
ED Medical Screen (RME) - General Chief Complaint: Cough Stated Complaint: FOOT SWELLING Time Seen by Provider: 05/26/17 16:20 Mode of Arrival: Wheelchair Information source: Patient TRAVEL OUTSIDE OF THE [place] IN LAST 30 DAYS: No - HPI Onset: Last week Onset/Duration: Gradual Quality of pain: Achy, Throbbing Severity: Moderate Associated Symptoms: Cough (productive). denies: Chest pain, Chills Exacerbated by: Movement Relieved by: Denies Similar symptoms previously: Yes Recently seen / treated by doctor: Yes - 2 d AGO, [facility] Shania - Related Data Smoking: Non-smoker Frequency of alcohol use: Rare Drug Abuse: None Allergies/Adverse Reactions: No Known Drug Allergies Allergy (Unknown, Verified 05/26/17 16:13) Raspberries Allergy (Mild, Uncoded 05/26/17 16:13) Hives Past Medical History - General Information source: Patient - Social History Cigarette use (# per day): No Chew tobacco use (# tins/day): No Frequency of alcohol use: Occasional Drug Abuse: None Lives with: Family Family history: Reviewed & Not Pertinent - Past Medical History Cardiac Medical History: Reports: Hx Atrial Fibrillation - Paroxysmal, Hx Hypercholesterolemia, Hx Hypertension Denies: Hx Congestive Heart Failure, Hx DVT, Hx Heart Attack, Hx Pulmonary Embolism Pulmonary Medical History: Denies: Hx Asthma, Hx COPD, Hx Tuberculosis Neurological Medical History: Denies: Hx Seizures Endocrine Medical History: Reports: Hx Diabetes Mellitus Type 2. Denies: Hx Diabetes Mellitus Type 1, Hx Hyperthyroidism, Hx Hypothyroidism Renal/ Medical History: Reports: None. Denies: Hx Peritoneal Dialysis GI Medical History: Reports: Hx Gastroesophageal Reflux Disease. Denies: Hx Cirrhosis, Hx Hepatitis Musculoskeltal Medical History: Reports Hx Arthritis, Reports Hx Gout Skin Medical History: Denies Hx Eczema, Denies Hx Psoriasis Psychiatric Medical History: Denies: Hx Depression Infectious Medical History: Denies: Hx Hepatitis Past Surgical History: Denies: Hx Pacemaker - Immunizations Immunizations up to date: Yes Hx Diphtheria, Pertussis, Tetanus Vaccination: Yes - unk Review of Systems - Review of Systems Constitutional: No symptoms reported EENT: No symptoms reported Cardiovascular: See HPI Respiratory: See HPI Gastrointestinal: Abdominal pain Genitourinary: No symptoms reported Musculoskeletal: See HPI Skin: No symptoms reported Neurological/Psychological: No symptoms reported Physical Exam - Vital signs Interpretation: Hypertensive - General General appearance: Appears well, Alert In distress: None - HEENT Head: Normocephalic Eyes: Normal Conjunctiva: Normal Nasal: Normal Pharynx: Normal - Respiratory Respiratory status: No respiratory distress Breath sounds: Wheezing - FEW, END-EXP. - Cardiovascular Rhythm: Regular Heart sounds: Normal auscultation Murmur: No - Extremities General upper extremity: Normal inspection General lower extremity: No: Normal inspection - L. FOOT EDEMATOUS & TENDER IN AREA OF 1st MTP JOINT.
[2017-05-26 16:56] LABS: ABSOLUTE BASOPHILS # (AUTO) 0.1 10^3/uL (0.0-0.2); ABSOLUTE EOSINOPHILS # (AUTO) 0.3 10^3/uL (0.0-0.6); ABSOLUTE LYMPHOCYTES (AUTO) 3.2 10^3/uL (0.5-4.7); ABSOLUTE MONOCYTES (AUTO) 0.5 10^3/uL (0.1-1.4); ABSOLUTE NEUT (AUTO) 2.9 10^3/uL (1.7-8.2); BASOPHILS % (AUTO) 0.8 % (0-2); EOSINOPHILS % (AUTO) 4.7 % (0-6); HEMATOCRIT 39.8 % (37.9-51.0); HGB HCT DIFFERENCE -0.8; LYMPHOCYTES % (AUTO) 45.9 % (13-45); MEAN CORPUSCULAR HEMOGLOBIN 30.8 pg (27.0-33.4); MEAN CORPUSCULAR HGB CONC 32.6 g/dL (32.0-36.0); MEAN CORPUSCULAR VOLUME 95 fl (80-97); MONOCYTES % (AUTO) 7.2 % (3-13); RED BLOOD COUNT 4.21 10^6/uL (4.35-5.55); RED CELL DISTRIBUTION WIDTH 14.3 % (11.5-14.0); SEGMENTED NEUTROPHILS % (AUTO) 41.4 % (42-78)
--- NOTE | 2017-05-26 17:20 | RADIOLOGY REPORT (SQ) ---
EXAM DESCRIPTION: CHEST PA/LAT COMPLETED DATE/TIME: 05/26/2017 5:05 pm REASON FOR STUDY: DYSPNEA, COUGH COMPARISON: 2014 TECHNIQUE: Frontal and lateral radiographic views of the chest acquired. NUMBER OF VIEWS: Two view. LIMITATIONS: None. FINDINGS: LUNGS AND PLEURA: No opacities, masses or pneumothorax. No pleural effusion. MEDIASTINUM AND HILAR STRUCTURES: No masses or contour abnormalities. HEART AND VASCULAR STRUCTURES: Heart normal size. No evidence for failure. BONES: No acute findings. HARDWARE: None in the chest. OTHER: No other significant finding. IMPRESSION: NO SIGNIFICANT RADIOGRAPHIC FINDING IN THE CHEST. TECHNICAL DOCUMENTATION: JOB ID: [id number] [employer]- All Rights Reserved
[2017-05-26 17:21] LABS: ALANINE AMINOTRANSFERASE 30 U/L (21-72); ALBUMIN 3.8 g/dL (3.5-5.0); ALKALINE PHOSPHATASE 83 U/L (38-126); ANION GAP 10 (5-19); ASPARTATE AMINO TRANSFERASE 22 U/L (17-59); BILIRUBIN,DIRECT 0.4 mg/dL (0.0-0.4); BILIRUBIN,TOTAL 0.4 mg/dL (0.2-1.3); BLOOD UREA NITROGEN 23 mg/dL (7-20); CALCIUM 9.3 mg/dL (8.4-10.2); CARBON DIOXIDE 28 mmol/L (22-30); CHLORIDE 106 mmol/L (98-107); GLUCOSE 175 mg/dL (75-110); SODIUM 143.9 mmol/L (137-145); TOTAL PROTEIN 7.8 g/dL (6.3-8.2); URIC ACID 9.4 mg/dL (3.5-8.5)
--- NOTE | 2017-05-26 17:44 | ER Document Report ---
ED Extremity Problem, Lower - General Mode of Arrival: Wheelchair Information source: Patient TRAVEL OUTSIDE OF THE [place] IN LAST 30 DAYS: No <CARMELO MENDEZ - Last Filed: 05/26/17 22:43> <HERON PASTRANA - Last Filed: 05/26/17 22:55> - General Chief Complaint: Cough Stated Complaint: FOOT SWELLING Time Seen by Provider: 05/26/17 16:20 Notes: Patient is a 67-year-old male who presents to the emergency department today with complaints of left foot pain. Patient was seen in this emergency department 2 days ago for left foot pain. Patient was diagnosed with gout at that time and prescribed colchicine. Patient states he did not pickling operator his medication because "the [facility] pharmacy did not get the prescription". Patient states he has had this pain for 4 days now. Patient states he thinks his foot and ankle are more swollen today than they were when he was seen two days ago. Patient denies any recent dietary changes except for frozen fish. Patient also hads that he has had a cough for approximately 1 month. Patient states he feels like he has mucus in his lungs that he cannot cough up. Patient denies any trauma to his left foot or ankle, fevers, or chest pain. ( CARMELO MENDEZ) - Related Data Allergies/Adverse Reactions: No Known Drug Allergies Allergy (Unknown, Verified 05/26/17 16:13) Raspberries Allergy (Mild, Uncoded 05/26/17 16:13) Hives Past Medical History - General Information source: Patient - Social History Smoking Status: Current Every Day Smoker Cigarette use (# per day): Yes Chew tobacco use (# tins/day): No Frequency of alcohol use: Occasional Drug Abuse: None Lives with: Family Family History: Reviewed & Not Pertinent, Hypertension - Past Medical History Cardiac Medical History: Reports: Hx Atrial Fibrillation - Paroxysmal, Hx Hypercholesterolemia, Hx Hypertension Endocrine Medical History: Reports: Hx Diabetes Mellitus Type 2 GI Medical History: Reports: Hx Gastroesophageal Reflux Disease Musculoskeltal Medical History: Reports Hx Arthritis, Reports Hx Gout Surgical Hx: Negative - Immunizations Immunizations up to date: Yes Hx Diphtheria, Pertussis, Tetanus Vaccination: Yes - unk Hx Pneumococcal Vaccination: 11/11/11 <CARMELO MENDEZ - Last Filed: 05/26/17 22:43> Review of Systems - Review of Systems Constitutional: denies: Fever EENT: No symptoms reported Cardiovascular: denies: Chest pain Respiratory: See HPI, Cough Gastrointestinal: No symptoms reported Genitourinary: No symptoms reported Male Genitourinary: No symptoms reported Musculoskeletal: See HPI, Gout - left foot/ankle, Leg swelling - bilaterally Skin: No symptoms reported Hematologic/Lymphatic: No symptoms reported Neurological/Psychological: No symptoms reported -: Yes All other systems reviewed and negative <CARMELO MENDEZ - Last Filed: 05/26/17 22:43> Physical Exam <CARMELO MENDEZ - Last Filed: 05/26/17 22:43> <HERON PASTRANA - Last Filed: 05/26/17 22:55> - Vital signs Vitals: Temp Pulse Resp BP Pulse Ox 98.2 F 90 18 208/101 H 96 05/26/17 16:14 05/26/17 16:14 05/26/17 16:14 05/26/17 16:14 05/26/17 16:14 - Notes Notes: PHYSICAL EXAM GENERAL: Alert, interacts well. No acute distress. HEAD: Normocephalic, atraumatic. EYES: Pupils equal, round, and reactive to light. Extraocular movements intact. ENT: Oral mucosa moist, tongue midline. NECK: Full range of motion. Supple. Trachea midline. LUNGS: Diffuse rhonchi bilaterally which clears with wet cough. No respiratory distress. HEART: Regular rate and rhythm. No murmurs, gallops, or rubs. ABDOMEN: Soft, non-tender. Non-distended. Bowel sounds present in all 4 quadrants. EXTREMITIES: Moves all 4 extremities spontaneously. No edema, radial and dorsalis pedis pulses 2/4 bilaterally. No cyanosis. Tenderness with light tough of left 1st MTP joint along with 1st and 2nd metatarsals on the left foot. Slight erythema, minimal swelling, and slightly warm to the touch. NEUROLOGICAL: Alert and oriented x3. Normal speech. PSYCH: Normal affect, normal mood. SKIN: see extremity exam (CARMELO MENDEZ) Course - Laboratory Result Diagrams: 05/26/17 16:30 05/26/17 16:30 <CARMELO MENDEZ - Last Filed: 05/26/17 22:43> - Laboratory Result Diagrams: 05/26/17 16:30 05/26/17 16:30 <HERON PASTRANA - Last Filed: 05/26/17 22:55> - Re-evaluation Re-evalutation: 05/26/17 19:26 CBC shows slight anemia with hemoglobin 13, no leukocytosis, CMP grossly unremarkable although uric acid is quite elevated today at 9.4 previously it was normal. Chest x-ray for the chronic cough shows no acute process. I continue to suspect that the redness and pain in the left foot is gout, there has not been any worsening of the redness and swelling since I last saw him on Saturday. There is no evidence of worsening infection or infection whatsoever. Discussed with patient the importance of taking the medication as prescribed rather than not filling it. Patient initially stated that the pharmacy had not received the prescription then he stated that he could not afford the prescription, no he is asking for medication to take away his pain until he gets paid on Saturday. I discussed with the patient and his family members that were in the room that it was more appropriate to prescribe colchicine and prednisone which will help get rid of his condition that is causing his pain rather than to prescribe long-term narcotics which will simply cover up the pain rather than undoing the underlying process. Patient and family members understand the importance of filling the colchicine and the prednisone. Patient will be given a [employer] dispense pack to take home until he can fill the medications tomorrow. (HERON PASTRANA) - Vital Signs Vital signs: Temp Pulse Resp BP Pulse Ox 97.9 F 80 18 194/92 H 96 05/26/17 20:37 05/26/17 20:37 05/26/17 16:14 05/26/17 20:37 05/26/17 20:37 - Laboratory Laboratory results interpreted by me: 05/26/17 05/26/17 16:30 16:30 RBC 4.21 L Hgb 13.0 L RDW 14.3 H Seg Neutrophils % 41.4 L Lymphocytes % 45.9 H BUN 23 H Glucose 175 H Uric Acid 9.4 H Discharge <CARMELO MENDEZ - Last Filed: 05/26/17 22:43> <HERON PASTRANA - Last Filed: 05/26/17 22:55> - Discharge Clinical Impression: Chronic cough Acute gout of left foot Qualifiers: Gout etiology: unspecified cause Qualified Code(s): M10.9 - Gout, unspecified Hypertension Qualifiers: Hypertension type: essential hypertension Qualified Code(s): I10 - Essential ( primary) hypertension Condition: Stable Disposition: HOME, SELF-CARE Additional Instructions: It is very important that you fill the colchicine in the prednisone. These are both medications that will help to get rid of your pain from your gout. I have also prescribed allopurinol, do not start taking this medication until the pain from the gout is gone. This is a preventative medication that will help to stop your gout from coming back. For your chronic cough you need to follow-up with your primary care physician. Today we did not find any sign of pneumonia or cancer on your chest x-ray. You also have high blood pressure. Please continue taking your blood pressure medications. Today it was quite elevated, it may be a good idea to follow-up with your primary care physician to see about increasing your blood pressure medication dosage. Painful conditions can increase her blood pressure so it is not a good idea for me to increase her blood pressure medication today as her blood pressure may only be elevated due to your pain. Prescriptions: Allopurinol [Zyloprim 100 mg Tablet] 100 mg PO DAILY #30 tablet Colchicine [Colchicine 0.6 mg Tablet] 0.6 mg PO DAILYP PRN #7 tablet PRN Reason: Prednisone 40 mg PO DAILY #10 tablet Referrals: [facility] [Primary Care Provider] - Follow up in 1 week Iainibe Attestation: 05/26/17 22:55 I personally performed the services described in the documentation, reviewed and edited the documentation which was dictated to the scribe in my presence, and it accurately records my words and actions. (HERON PASTRANA) Iainibe Documentation - Scribe Written by Wes:: Wes Atkins, 05/26/20172031 acting as scribe for :: Carmen <CARMELO MENDEZ - Last Filed: 05/26/17 22:43>
[2017-05-26] MEDS ORDERED: PREDNISONE 20 MG TABLET PO ONE (18:42)
[2017-05-26] MEDS ORDERED: HYDROCODONE/ACETAMINOPHEN 5-325 MG 6 TAB/DSPK PO PRN (20:09)
[2017-05-26] MEDS ORDERED: COLCHICINE 0.6 MG TABLET PO ONE (20:09)
[2017-05-26 20:42] VITALS: BP 194/92
--- NOTE | 2017-05-26 21:57 | EKG REPORT ---
SEVERITY:- ABNORMAL ECG - SINUS RHYTHM PROBABLE LEFT ATRIAL ABNORMALITY LVH WITH SECONDARY REPOLARIZATION ABNORMALITY : Confirmed by: Jose Isaac MD 26-May-2017 21:56:07
== END 2017-05-26 20:49 | disposition home or self-care (01) ==
LOC: ER 16:05
DX: M10.9 Gout, unspecified (principal); R05 Cough; I10 Essential (primary) hypertension; M79.89 Other specified soft tissue disorders; M79.672 Pain in left foot; F17.210 Nicotine dependence, cigarettes, uncomplicated
CPT/HCPCS: 93005; 99284; 36415; 84550; 85025; 80053; 71020; 93010; A9270 ×3; J7512

== ENCOUNTER 2017-07-04 10:53 | Emergency (ER) | payer MEDICARE, OTHER ==
[2017-07-04 11:03] VITALS: BP 188/109
[2017-07-04] MEDS ORDERED: LIDOCAINE 1% INJ-PF (10 MG/ML) 30 ML SDV INJ ONE ×2 (11:13→11:17)
--- NOTE | 2017-07-04 11:16 | ER Document Report ---
ED Medical Screen (RME) - General Chief Complaint: Abdominal Pain Stated Complaint: ABDOMINAL PAIN Time Seen by Provider: 07/04/17 11:05 Mode of Arrival: Ambulatory Information source: Patient Notes: 67-year-old male presents with concerns for hernia of the right groin, notes the pain is worsening that there is blood and pus draining from it I have greeted and performed a rapid initial assessment of this patient. A comprehensive ED assessment and evaluation of the patient, analysis of test results and completion of the medical decision making process will be conducted by additional ED providers. PHYSICAL EXAMINATION: GENERAL: Well-appearing, well-nourished and in no acute distress. HEAD: Atraumatic, normocephalic. EYES: Pupils equal round extraocular movements intact, conjunctiva are normal. ENT: Nares patent NECK: Normal range of motion LUNGS: No respiratory distress Musculoskeletal: Normal range of motion NEUROLOGICAL: Normal speech, normal gait. PSYCH: Normal mood, normal affect. SKIN: 2 x 2 centimeter abscess of the right groin no hernias noted TRAVEL OUTSIDE OF THE [place] IN LAST 30 DAYS: No - Related Data Allergies/Adverse Reactions: No Known Drug Allergies Allergy (Unknown, Verified 05/26/17 16:13) Raspberries Allergy (Mild, Uncoded 05/26/17 16:13) Hives Past Medical History - Social History Chew tobacco use (# tins/day): No Drug Abuse: None Family history: Reviewed & Not Pertinent - Past Medical History Cardiac Medical History: Reports: Hx Atrial Fibrillation - Paroxysmal, Hx Hypercholesterolemia, Hx Hypertension Denies: Hx Congestive Heart Failure, Hx DVT, Hx Heart Attack, Hx Pulmonary Embolism Pulmonary Medical History: Denies: Hx Asthma, Hx COPD, Hx Tuberculosis Neurological Medical History: Denies: Hx Seizures Endocrine Medical History: Reports: Hx Diabetes Mellitus Type 2. Denies: Hx Diabetes Mellitus Type 1, Hx Hyperthyroidism, Hx Hypothyroidism Renal/ Medical History: Denies: Hx Peritoneal Dialysis GI Medical History: Reports: Hx Gastroesophageal Reflux Disease. Denies: Hx Cirrhosis, Hx Hepatitis Musculoskeltal Medical History: Reports Hx Arthritis, Reports Hx Gout Skin Medical History: Denies Hx Eczema, Denies Hx Psoriasis Psychiatric Medical History: Denies: Hx Depression Infectious Medical History: Denies: Hx Hepatitis Past Surgical History: Denies: Hx Pacemaker - Immunizations Immunizations up to date: Yes Hx Diphtheria, Pertussis, Tetanus Vaccination: Yes - unk Physical Exam - Vital signs Vitals: Temp Pulse Resp BP Pulse Ox 98.4 F 90 18 188/109 H 97 07/04/17 10:59 07/04/17 10:59 07/04/17 10:59 07/04/17 10:59 07/04/17 10:59 Course - Vital Signs Vital signs: Temp Pulse Resp BP Pulse Ox 98.4 F 90 18 188/109 H 97 07/04/17 10:59 07/04/17 10:59 07/04/17 10:59 07/04/17 10:59 07/04/17 10:59
--- NOTE | 2017-07-04 11:52 | ER Document Report ---
HPI - HPI Pain Level: 5 Notes: Patient is a 67-year-old male who presents the ED complaining of an abscess/ pain to his right groin 3 days. Patient states that he is noticed swelling, pain, and discharge. Patient has a past medical history significant for diabetes and hypertension. He denies any drug allergies. Denies any history of MRSA. Pain does not radiate. Pain is described as sharp. Patient states that he has been trying home remedies with minimal relief. Denies any headache , fever, chest pain, palpitations, syncope, cough, shortness of breath, wheeze, dyspnea, abdominal pain, nausea/vomiting/diarrhea, dysuria, hematuria. Denies any drug use. - ROS Notes: REVIEW OF SYSTEMS: CONSTITUTIONAL : Denies fever, chills, or sweats. Denies recent illness. EENT: Denies eye, ear, throat, or mouth pain or symptoms. Denies nasal or sinus congestion or discharge. Denies throat, tongue, or mouth swelling or difficulty swallowing. CARDIOVASCULAR: Denies chest pain. Denies palpitations or racing or irregular heart beat. Denies ankle edema. RESPIRATORY: Denies cough, cold, or chest congestion. Denies shortness of breath, difficulty breathing, or wheezing. GASTROINTESTINAL: Denies abdominal pain or distention. Denies nausea, vomiting , or diarrhea. Denies blood in vomitus, stools, or per rectum. Denies black, tarry stools. Denies constipation. GENITOURINARY: Denies difficulty urinating, painful urination, burning, frequency, blood in urine, or discharge. MUSCULOSKELETAL: Denies back or neck pain or stiffness. Denies joint pain or swelling. SKIN: see hpi NEUROLOGICAL: Denies confusion or altered mental status. Denies passing out or loss of consciousness. Denies dizziness or lightheadedness. Denies headache. Denies weakness or paralysis or loss of use of either side. Denies problems with gait or speech. Denies sensory loss, numbness, or tingling. ALL OTHER SYSTEMS REVIEWED AND NEGATIVE. Dictation was performed using [employer] voice recognition software - REPRODUCTIVE Reproductive: DENIES: : - DERM Skin Color: Normal Past Medical History - General Information source: Patient - Social History Smoking Status: Current Every Day Smoker Chew tobacco use (# tins/day): No Drug Abuse: None Family History: Reviewed & Not Pertinent, Hypertension Patient has suicidal ideation: No Patient has homicidal ideation: No - Past Medical History Cardiac Medical History: Reports: Hx Atrial Fibrillation - Paroxysmal, Hx Hypercholesterolemia, Hx Hypertension Denies: Hx Congestive Heart Failure, Hx DVT, Hx Heart Attack, Hx Pulmonary Embolism Pulmonary Medical History: Denies: Hx Asthma, Hx COPD, Hx Tuberculosis Neurological Medical History: Denies: Hx Seizures Endocrine Medical History: Reports: Hx Diabetes Mellitus Type 2. Denies: Hx Diabetes Mellitus Type 1, Hx Hyperthyroidism, Hx Hypothyroidism Renal/ Medical History: Denies: Hx Peritoneal Dialysis GI Medical History: Reports: Hx Gastroesophageal Reflux Disease. Denies: Hx Cirrhosis, Hx Hepatitis Musculoskeltal Medical History: Reports Hx Arthritis, Reports Hx Gout Skin Medical History: Denies Hx Eczema, Denies Hx Psoriasis Psychiatric Medical History: Denies: Hx Depression Infectious Medical History: Denies: Hx Hepatitis Past Surgical History: Denies: Hx Pacemaker - Immunizations Immunizations up to date: Yes Hx Diphtheria, Pertussis, Tetanus Vaccination: Yes - unk Hx Pneumococcal Vaccination: 11/11/11 Vertical Provider Document - CONSTITUTIONAL Agree With Documented VS: Yes Notes: PHYSICAL EXAMINATION: GENERAL: Well-appearing, well-nourished and in no acute distress. LUNGS: Breath sounds clear to auscultation bilaterally and equal. No wheezes rales or rhonchi. HEART: Regular rate and rhythm without murmurs, rubs, gallops. ABDOMEN: Soft, nontender, nondistended abdomen. No guarding, no rebound. No masses appreciated. Normal bowel sounds present. No CVA tenderness bilaterally. Musculoskeletal: FROM to passive/active. Strength 5+/5. Extremities: No cyanosis, clubbing, or edema b/l. Peripheral pulses 2+. Capillary refill less than 3 seconds. NEUROLOGICAL: Normal speech, normal gait w. SPC. Normal sensory, motor exams PSYCH: Normal mood, normal affect. SKIN: 3.5cm x2cm abscess noted. + erythema, fluid pocket, induration, and purulent discharge. + tenderness. - INFECTION CONTROL TRAVEL OUTSIDE OF THE [place] IN LAST 30 DAYS: No - RESPIRATORY O2 Sat by Pulse Oximetry: 97 Course - Re-evaluation Re-evalutation: 07/04/17 11:56 Patient is an afebrile, well-hydrated, 67-year-old male who presents the ED with a right groin abscess. Vitals are stable. PE otherwise unremarkable at this time. I&D was performed successfully without any complications and packing was placed. Wound culture obtained. I will send the patient home with Bactrim and Keflex to take as directed. I will also send the patient home with a [place] dispense pack that he can use as needed for any pain. Wound instructions reviewed and sterile wound dressing was placed. Recheck with a PCM /80 in 2-3 days for a wound check. Return precautions reviewed. Return to the ED with any worsening/concerning symptoms otherwise as reviewed discharge. Patient is in agreement. - Vital Signs Vital signs: Temp Pulse Resp BP Pulse Ox 98.4 F 90 18 188/109 H 97 07/04/17 10:59 07/04/17 10:59 07/04/17 10:59 07/04/17 10:59 07/04/17 10:59 Procedures - Incision and Drainage Right Groin Time completed: 11:40 Type: Simple Anesthetic type: 1% Lidocaine mL's of anesthetic: 10 Blade size: 11 I&D procedure: Shurclens applied, Iodoform packing placed, Sterile dressing applied Incision Method: Incision made by scalpel Amount/type of drainage: copious purulent/bloody Notes: 07/04/17 11:58 Incision and drainage procedure, risks, benefits reviewed with the patient. Verbal and written consent obtained. Sterile technique utilized. The area was extensively cleansed utilizing shurclens and saline. A 21-gauge needle was utilized to anesthetize the area using 10 mL's of 1% lidocaine without epinephrine. Once adequate anesthesia was provided, a #11 scalpel was utilized to make a 2- 2.5 cm elliptical incision at the site of the abscess. Moderate-copious amounts of purulent material was expressed. Wound culture obtained. Hemostats were then utilized to break up any remaining muscular pockets within the abscess. The wound was then lightly packed using 1/4" iodoform. Wound dressing and triple antibiotic placed. Minimal blood loss (approximately 5 cc's). Patient tolerated procedure well. No complications. Discharge - Discharge Clinical Impression: Abscess Condition: Stable Disposition: HOME, SELF-CARE Instructions: Abscess ([facility]), Cephalexin ([facility]), Post Incision and Drainage, Trimethoprim-Sulfa ([facility]) Additional Instructions: Do not shower or bathe for 24 hours. After 24 hours you may shower but no submersion of the wound under water. Keep the original dressing on the wound for 24 hours unless the drainage stops through. Change the dressing daily thereafter and use a small amount of triple antibiotic ointment over the open wound. Return to the ED and/or your PCM in 2-3 days for recheck and continue direction for wound packing. Monitor for any signs of worsening pain or redness , streaks, and/or fever and seek medical attention if so. Return to the ED if noticing any of the above symptoms or as needed. Take medications as directed. Prescriptions: Cephalexin Monohydrate [Keflex 500 mg Capsule] 500 mg PO BID #20 capsule Sulfamethoxazole/Trimethoprim [Bactrim Ds Tablet] 1 each PO BID #20 tablet Forms: Elevated Blood Pressure Referrals: [facility] [Provider Group] - Follow up as needed [facility] [Provider Group] - Follow up as needed LEV ORDAZ MD [ACTIVE STAFF] - Follow up as needed
[2017-07-04] MEDS ORDERED: HYDROCODONE/ACETAMINOPHEN 5-325 MG 6 TAB/DSPK PO PRN (11:53)
== END 2017-07-04 12:03 | disposition home or self-care (01) ==
LOC: ER 10:53
PROC: 0H9HXZZ Drainage of Right Upper Leg Skin, External Approach (ICD-10-PCS; principal; 2017-07-04)
DX: R10.30 Lower abdominal pain, unspecified (principal); F17.200 Nicotine dependence, unspecified, uncomplicated; L02.214 Cutaneous abscess of groin
CPT/HCPCS: 99283; 87070; 87205; 87075; 87077; 87186; 10060; A6266; J3490; A9270

== ENCOUNTER 2017-07-07 07:25 | Emergency (ER) | payer MEDICARE, OTHER ==
--- NOTE | 2017-07-07 07:53 | ER Document Report ---
ED Skin Rash/Insect Bite/Abscs - General Mode of Arrival: Ambulatory Information source: Patient TRAVEL OUTSIDE OF THE [place] IN LAST 30 DAYS: No - HPI Patient complains to provider of: Other - abscess recheck - General Chief Complaint: Abscess Stated Complaint: POSSIBLE ABSCESS/RECHECK Time Seen by Provider: 07/07/17 07:48 Notes: Patient is a 67 year old male who presents to the ED to have his abscess rechecked. Patient was seen in the ED on 07/04/2017 and had his abscess incised and drained and packed. He was placed on antibiotics and was instructed to come back for a recheck. Patient complaints of some mild pain but no other complaints. (CORY QUIROZ) - Related Data Allergies/Adverse Reactions: No Known Drug Allergies Allergy (Unknown, Verified 07/07/17 07:36) Raspberries Allergy (Mild, Uncoded 07/07/17 07:36) Hives Past Medical History - General Information source: Patient - Social History Smoking Status: Unknown if Ever Smoked Family History: Reviewed & Not Pertinent, Hypertension Patient has suicidal ideation: No Patient has homicidal ideation: No - Past Medical History Cardiac Medical History: Reports: Hx Atrial Fibrillation - Paroxysmal, Hx Hypercholesterolemia, Hx Hypertension Denies: Hx Congestive Heart Failure, Hx DVT, Hx Heart Attack, Hx Pulmonary Embolism Pulmonary Medical History: Denies: Hx Asthma, Hx COPD, Hx Tuberculosis Neurological Medical History: Denies: Hx Seizures Endocrine Medical History: Reports: Hx Diabetes Mellitus Type 2. Denies: Hx Diabetes Mellitus Type 1, Hx Hyperthyroidism, Hx Hypothyroidism Renal/ Medical History: Denies: Hx Peritoneal Dialysis GI Medical History: Reports: Hx Gastroesophageal Reflux Disease. Denies: Hx Cirrhosis, Hx Hepatitis Musculoskeltal Medical History: Reports Hx Arthritis, Reports Hx Gout Skin Medical History: Denies Hx Eczema, Denies Hx Psoriasis Psychiatric Medical History: Denies: Hx Depression Infectious Medical History: Denies: Hx Hepatitis Past Surgical History: Denies: Hx Pacemaker - Immunizations Immunizations up to date: Yes Hx Diphtheria, Pertussis, Tetanus Vaccination: Yes - unk Hx Pneumococcal Vaccination: 11/11/11 Review of Systems - Review of Systems Constitutional: No symptoms reported EENT: No symptoms reported Cardiovascular: No symptoms reported Respiratory: No symptoms reported Gastrointestinal: No symptoms reported Genitourinary: No symptoms reported Male Genitourinary: No symptoms reported Musculoskeletal: No symptoms reported Skin: See HPI, Other - abscess Hematologic/Lymphatic: No symptoms reported Neurological/Psychological: No symptoms reported Physical Exam - General General appearance: Appears well, Alert In distress: None - HEENT Head: Normocephalic, Atraumatic Eyes: Normal Extraocular movements intact: Yes Pupils: PERRL - Respiratory Respiratory status: No respiratory distress - Cardiovascular Rhythm: Regular - Abdominal Inspection: Normal - Back Back: Normal - Extremities General upper extremity: Normal inspection, Normal ROM General lower extremity: Normal inspection, Normal ROM - Neurological Neuro grossly intact: Yes - Psychological Associated symptoms: Normal affect, Normal mood - Skin Skin Temperature: Warm Skin Moisture: Dry Skin Color: Normal Skin irregularity: other - abscess draining well, no active cellulitis, iodoform removed - Vital signs Vitals: Temp Pulse Resp BP Pulse Ox 98.2 F 82 24 H 199/94 H 98 07/07/17 07:36 07/07/17 07:36 07/07/17 07:36 07/07/17 07:36 07/07/17 07:36 - Re-evaluation Re-evalutation: 07/07/17 08:28 Patient with elevated blood pressure asymptomatic no signs of endorgan damage stroke chest pain or kidney failure by history. Patient states that the ER fills his blood pressure medication we explained to the patient that he needs to go to the clinic I given him information on the clinic he must go there to have primary care management. (JOSEPH AVILES) - Vital Signs Vital signs: Temp Pulse Resp BP Pulse Ox 98.1 F 82 20 196/101 H 96 07/07/17 08:32 07/07/17 08:32 07/07/17 08:32 07/07/17 08:32 07/07/17 08:32 Discharge - Discharge Clinical Impression: Wound check, abscess Hypertension Qualifiers: Hypertension type: unspecified Qualified Code(s): I10 - Essential (primary) hypertension Condition: Stable Disposition: HOME, SELF-CARE Instructions: Abscess ([facility]) Referrals: [facility] [Provider Group] - Follow up in 3-5 days (Return to the emergency department sooner for increased worsening or new symptoms) Scribe Attestation: 07/07/17 08:08 I personally performed the services described in the documentation reviewed the documentation recorded by my scribe in my presence and it accurately and completely records my words and actions (JOSEPH AVILES) Scribe Documentation - Scribe Written by Denny:: denny Woodward, 07/07/2017, 1232 acting as scribe for :: Moo
[2017-07-07 08:32] VITALS: BP 196/101
--- NOTE | 2017-07-07 13:55 | ER Document Report ---
Doctor's Note Notes: 07/07/17 13:54 Patient seen and evaluated for wound recheck abscess I&D in the right groin. He is taking his Bactrim and Keflex packing is in place. I removed it without any difficulty no residual abscess or pus drainage no cellulitis crepitus necrosis genital swelling or lesions stable for discharge continue medications and given doctor for follow-up
== END 2017-07-07 08:32 | disposition home or self-care (01) ==
LOC: ER 07:25
DX: Z48.01 Encounter for change or removal of surgical wound dressing (principal)
CPT/HCPCS: 99282

== ENCOUNTER 2017-08-08 15:39 | Emergency (ER) | payer MEDICARE, OTHER ==
--- NOTE | 2017-08-08 16:12 | ER Document Report ---
ED Medical Screen (RME) - General Chief Complaint: High Blood Sugar Stated Complaint: BLOOD PRESSURE ISSUES Time Seen by Provider: 08/08/17 16:10 Notes: Patient states he is a cee-zwhxmrl-lxxgolsuc diabetic who is on metformin and Amaryl. He states he does not check his sugars regularly. He states he has been feeling very weak and tired lately. He states he was watching TV and saw that high blood sugar can be very bad for you so he came to the emergency department. In triage his blood sugar was 542. TRAVEL OUTSIDE OF THE [place] IN LAST 30 DAYS: No - Related Data Allergies/Adverse Reactions: No Known Drug Allergies Allergy (Unknown, Verified 08/08/17 15:53) Raspberries Allergy (Mild, Uncoded 08/08/17 15:53) Hives Past Medical History - Social History Family history: Reviewed & Not Pertinent - Past Medical History Cardiac Medical History: Reports: Hx Atrial Fibrillation - Paroxysmal, Hx Hypercholesterolemia, Hx Hypertension Denies: Hx Congestive Heart Failure, Hx DVT, Hx Heart Attack, Hx Pulmonary Embolism Pulmonary Medical History: Denies: Hx Asthma, Hx COPD, Hx Tuberculosis Neurological Medical History: Denies: Hx Seizures Endocrine Medical History: Reports: Hx Diabetes Mellitus Type 2. Denies: Hx Diabetes Mellitus Type 1, Hx Hyperthyroidism, Hx Hypothyroidism Renal/ Medical History: Denies: Hx Peritoneal Dialysis GI Medical History: Reports: Hx Gastroesophageal Reflux Disease. Denies: Hx Cirrhosis, Hx Hepatitis Musculoskeltal Medical History: Reports Hx Arthritis, Reports Hx Gout Skin Medical History: Denies Hx Eczema, Denies Hx Psoriasis Psychiatric Medical History: Denies: Hx Depression Infectious Medical History: Denies: Hx Hepatitis Past Surgical History: Denies: Hx Pacemaker - Immunizations Immunizations up to date: Yes Hx Diphtheria, Pertussis, Tetanus Vaccination: Yes - unk Physical Exam - Vital signs Vitals: Temp Pulse Resp BP Pulse Ox 98.5 F 79 18 211/106 H 99 08/08/17 15:53 08/08/17 15:53 08/08/17 15:53 08/08/17 15:53 08/08/17 15:53 Course - Vital Signs Vital signs: Temp Pulse Resp BP Pulse Ox 98.5 F 79 18 211/106 H 99 08/08/17 15:53 08/08/17 15:53 08/08/17 15:53 08/08/17 15:53 08/08/17 15:53
[2017-08-08] MEDS: NORMAL SALINE 1000 ML 1,000 ML IV PRN ×2 (17:01→17:52)
[2017-08-08 17:07] LABS: VENOUS BLOOD BASE EXCESS 0.1 mmol/L; VENOUS BLOOD HCO3 25.5 mmol/L (20-32); VENOUS BLOOD PCO2 44.1 mmHg (35-63); VENOUS BLOOD PH 7.38 (7.30-7.42)
[2017-08-08 17:08] LABS: ABSOLUTE BASOPHILS # (AUTO) 0.1 10^3/uL (0.0-0.2); ABSOLUTE EOSINOPHILS # (AUTO) 0.4 10^3/uL (0.0-0.6); ABSOLUTE LYMPHOCYTES (AUTO) 3.1 10^3/uL (0.5-4.7); ABSOLUTE MONOCYTES (AUTO) 0.5 10^3/uL (0.1-1.4); ABSOLUTE NEUT (AUTO) 3.4 10^3/uL (1.7-8.2); BASOPHILS % (AUTO) 1.3 % (0-2); EOSINOPHILS % (AUTO) 4.9 % (0-6); HEMATOCRIT 41.5 % (37.9-51.0); HEMOGLOBIN 14.5 g/dL (13.5-17.0); LYMPHOCYTES % (AUTO) 41.9 % (13-45); MEAN CORPUSCULAR HEMOGLOBIN 32.2 pg (27.0-33.4); MEAN CORPUSCULAR HGB CONC 34.9 g/dL (32.0-36.0); MEAN CORPUSCULAR VOLUME 92 fl (80-97); MONOCYTES % (AUTO) 6.3 % (3-13); RED BLOOD COUNT 4.49 10^6/uL (4.35-5.55); RED CELL DISTRIBUTION WIDTH 13.6 % (11.5-14.0); SEGMENTED NEUTROPHILS % (AUTO) 45.6 % (42-78); WHITE BLOOD COUNT 7.4 10^3/uL (4.0-10.5)
[2017-08-08 17:24] LABS: ALANINE AMINOTRANSFERASE 32 U/L (21-72); ALBUMIN 3.9 g/dL (3.5-5.0); ALKALINE PHOSPHATASE 92 U/L (38-126); ANION GAP 11 (5-19); ASPARTATE AMINO TRANSFERASE 17 U/L (17-59); BILIRUBIN,DIRECT 0.3 mg/dL (0.0-0.4); BILIRUBIN,TOTAL 0.4 mg/dL (0.2-1.3); BLOOD UREA NITROGEN 15 mg/dL (7-20); CALCIUM 9.8 mg/dL (8.4-10.2); CARBON DIOXIDE 23 mmol/L (22-30); CHLORIDE 99 mmol/L (98-107); CREATININE RESULT 1.04 mg/dL (0.52-1.25); POTASSIUM 4.3 mmol/L (3.6-5.0); SODIUM 133.4 mmol/L (137-145); TOTAL PROTEIN 6.8 g/dL (6.3-8.2)
[2017-08-08 17:35] LABS: GLUCOSE 556 mg/dL (75-110)
[2017-08-08] MEDS ORDERED: NORMAL SALINE 1000 ML 1,000 ML IV PRN (17:39)
[2017-08-08] MEDS ORDERED: INSULIN REG, HUMAN 100 UNIT/ML 3 ML VIAL (PYX) SUBCUT ONE (17:39)
[2017-08-08 18:09] LABS: APPEARANCE,URINE CLEAR; BILIRUBIN,URINE NEGATIVE (NEGATIVE); GLUCOSE, URINE >=500 mg/dL (NEGATIVE); KETONES,URINE 20 mg/dL (NEGATIVE); LEUKOCYTE ESTERASE,URINE NEGATIVE (NEGATIVE); NITRITE,URINE NEGATIVE (NEGATIVE); PROTEIN,URINE NEGATIVE (NEGATIVE); URINE SPECIFIC GRAVITY 1.032; UROBILINOGEN,URINE NEGATIVE mg/dL (<2.0)
--- NOTE | 2017-08-08 18:28 | ER Document Report ---
ED Blood Sugar Problem - General Chief Complaint: High Blood Sugar Stated Complaint: BLOOD PRESSURE ISSUES Time Seen by Provider: 08/08/17 16:10 Mode of Arrival: Ambulatory Information source: Patient TRAVEL OUTSIDE OF THE [place] IN LAST 30 DAYS: No - HPI Patient complains to provider of: Elevated blood sugar Onset: Just prior to arrival Quality of pain: No pain Associated symptoms: Frequent urination Notes: Patient is a 67-year-old male with a history of diabetes, hypertension and gout , who presents to the emergency room today complaining of elevated blood sugar with urinary frequency, symptoms started earlier today, he denies any nausea or vomiting, no shortness of breath, no fever or chills, he denies medication noncompliance, currently taking Amaryl and metformin - Related Data Allergies/Adverse Reactions: No Known Drug Allergies Allergy (Unknown, Verified 08/08/17 15:53) Raspberries Allergy (Mild, Uncoded 08/08/17 15:53) Hives Past Medical History - General Information source: Patient - Social History Smoking Status: Never Smoker Chew tobacco use (# tins/day): No Frequency of alcohol use: None Drug Abuse: None Family History: Reviewed & Not Pertinent, Hypertension - Past Medical History Cardiac Medical History: Reports: Hx Atrial Fibrillation - Paroxysmal, Hx Hypercholesterolemia, Hx Hypertension Denies: Hx Congestive Heart Failure, Hx DVT, Hx Heart Attack, Hx Pulmonary Embolism Pulmonary Medical History: Denies: Hx Asthma, Hx COPD, Hx Tuberculosis Neurological Medical History: Denies: Hx Seizures Endocrine Medical History: Reports: Hx Diabetes Mellitus Type 2. Denies: Hx Diabetes Mellitus Type 1, Hx Hyperthyroidism, Hx Hypothyroidism Renal/ Medical History: Denies: Hx Peritoneal Dialysis GI Medical History: Reports: Hx Gastroesophageal Reflux Disease. Denies: Hx Cirrhosis, Hx Hepatitis Musculoskeltal Medical History: Reports Hx Arthritis, Reports Hx Gout Skin Medical History: Denies Hx Eczema, Denies Hx Psoriasis Psychiatric Medical History: Denies: Hx Depression Infectious Medical History: Denies: Hx Hepatitis Past Surgical History: Denies: Hx Pacemaker - Immunizations Immunizations up to date: Yes Hx Diphtheria, Pertussis, Tetanus Vaccination: Yes - unk Hx Pneumococcal Vaccination: 11/11/11 Review of Systems - Review of Systems Constitutional: No symptoms reported EENT: No symptoms reported Cardiovascular: No symptoms reported Respiratory: No symptoms reported Gastrointestinal: No symptoms reported Genitourinary: Frequency Male Genitourinary: No symptoms reported Musculoskeletal: No symptoms reported Skin: No symptoms reported Hematologic/Lymphatic: No symptoms reported Neurological/Psychological: No symptoms reported -: Yes All other systems reviewed and negative Physical Exam - Vital signs Vitals: Temp Pulse Resp BP Pulse Ox 98.5 F 79 18 211/106 H 99 08/08/17 15:53 08/08/17 15:53 08/08/17 15:53 08/08/17 15:53 08/08/17 15:53 Interpretation: Hypertensive - General General appearance: Appears well, Alert - HEENT Head: Normocephalic, Atraumatic Eyes: Normal Pupils: PERRL - Respiratory Respiratory status: No respiratory distress Chest status: Nontender Breath sounds: Normal Chest palpation: Normal - Cardiovascular Rhythm: Regular Heart sounds: Normal auscultation Murmur: No - Abdominal Inspection: Normal Distension: No distension Bowel sounds: Normal Tenderness: Nontender Organomegaly: No organomegaly - Back Back: Normal, Nontender - Extremities General upper extremity: Normal inspection, Nontender, Normal color, Normal ROM , Normal temperature General lower extremity: Normal inspection, Nontender, Normal color, Normal ROM , Normal temperature, Normal weight bearing. No: Efrain's sign - Neurological Neuro grossly intact: Yes Cognition: Normal Orientation: AAOx4 [place] Coma Scale Eye Opening: Spontaneous [place] Coma Scale Verbal: Oriented Dariela Coma Scale Motor: Obeys Commands Dariela Coma Scale Total: 15 Speech: Normal Motor strength normal: LUE, RUE, LLE, RLE Sensory: Normal - Psychological Associated symptoms: Normal affect, Normal mood - Skin Skin Temperature: Warm Skin Moisture: Dry Skin Color: Normal Course - Re-evaluation Re-evalutation: 08/08/17 19:01 Patient had his bag of medications with him, the metformin that he has is dated from December 2015 and is full, he does admit that he takes them "once in a while", he also has hydrochlorothiazide that is dated from December as well, with several pills in them, some of them being cut in half, when I questioned why some were cut in half he stated that he was only taking half of them sometimes, however once again the bottle was filled in December 2016 and has several pills remaining in it, so he also admits to noncompliance with his blood pressure medicine, labs results were discussed with patient at bedside, he was advised to take his medications as prescribed, make dietary changes in an effort to keep his blood sugars regulated, follow up with a primary care provider or return if symptoms worsen, patient and several family members at bedside acknowledge understanding and agreement with this plan - Vital Signs Vital signs: Temp Pulse Resp BP Pulse Ox 98.5 F 62 16 208/86 H 100 08/08/17 15:53 08/08/17 18:38 08/08/17 18:38 08/08/17 18:38 08/08/17 18:38 - Laboratory Result Diagrams: 08/08/17 16:55 08/08/17 16:55 Laboratory results interpreted by me: 08/08/17 08/08/17 08/08/17 15:57 16:55 16:55 Sodium 133.4 L Glucose 556 H* POC Glucose > 550 H* Serum Osmolality 305 H Urine Glucose (UA) Urine Ketones 08/08/17 08/08/17 17:45 18:36 Sodium Glucose POC Glucose 424 H* Serum Osmolality Urine Glucose (UA) >=500 H Urine Ketones 20 H Discharge - Discharge Clinical Impression: Uncontrolled hypertension, Diabetes mellitus type 2 in obese Condition: Stable Disposition: HOME, SELF-CARE Instructions: Diabetes ([facility]), High Blood Pressure, Requiring Treatment ([facility]) Additional Instructions: Take your medications as prescribed. Follow up with your primary care provider in one to 2 days. Return to the emergency room immediately if symptoms worsen or any additional concerns. Prescriptions: Hydrochlorothiazide 25 mg PO DAILY #30 tablet Forms: Smoking Cessation Education
[2017-08-08 18:42] VITALS: BP 208/86
[2017-08-08] MEDS ORDERED: HYDROCHLOROTHIAZIDE 25 MG TABLET PO ONE (18:47)
== END 2017-08-08 18:53 | disposition home or self-care (01) ==
LOC: ER 15:39
DX: I10 Essential (primary) hypertension (principal); E11.65 Type 2 diabetes mellitus with hyperglycemia; R35.0 Frequency of micturition
CPT/HCPCS: 99283; 96360; 96361; 36415; 82962; 83930; 85025; 80053; 81001; 82803; A9270; J7030; J1815

== ENCOUNTER 2017-09-29 09:53 | Emergency (ER) | payer MEDICARE, OTHER ==
--- NOTE | 2017-09-29 11:02 | RADIOLOGY REPORT (SQ) ---
EXAM DESCRIPTION: HIP BILATERAL; PELVIS AP COMPLETED DATE/TIME: 09/29/2017 10:46 am REASON FOR STUDY: pain COMPARISON: None. NUMBER OF VIEWS: Two views TECHNIQUE: AP pelvis and additional frog-leg view of both hips. LIMITATIONS: None. FINDINGS: MINERALIZATION: Normal. HIPS: No acute fracture or dislocation. No worrisome bone lesions. PELVIS AND SACRUM: No acute fracture or dislocation. No worrisome bone lesions. PUBIS AND ISCHIUM: No acute fracture. LOWER LUMBAR SPINE: No significant findings as visualized. SOFT TISSUES: No findings. OTHER: No other significant finding. IMPRESSION: NEGATIVE STUDY OF THE PELVIS AND HIPS. TECHNICAL DOCUMENTATION: JOB ID: [id number] [employer]- All Rights Reserved
--- NOTE | 2017-09-29 11:02 | RADIOLOGY REPORT (SQ) ---
EXAM DESCRIPTION: HIP BILATERAL; PELVIS AP COMPLETED DATE/TIME: 09/29/2017 10:46 am REASON FOR STUDY: pain COMPARISON: None. NUMBER OF VIEWS: Two views TECHNIQUE: AP pelvis and additional frog-leg view of both hips. LIMITATIONS: None. FINDINGS: MINERALIZATION: Normal. HIPS: No acute fracture or dislocation. No worrisome bone lesions. PELVIS AND SACRUM: No acute fracture or dislocation. No worrisome bone lesions. PUBIS AND ISCHIUM: No acute fracture. LOWER LUMBAR SPINE: No significant findings as visualized. SOFT TISSUES: No findings. OTHER: No other significant finding. IMPRESSION: NEGATIVE STUDY OF THE PELVIS AND HIPS. TECHNICAL DOCUMENTATION: JOB ID: [id number] [employer] All Rights Reserved
[2017-09-29] MEDS ORDERED: NORMAL SALINE 1000 ML 1,000 ML IV ONE (11:34)
[2017-09-29] MEDS ORDERED: KETOROLAC TROMETHAMINE INJ/PF 30 MG/1 ML SDV IV ONE (11:36)
[2017-09-29] MEDS ORDERED: INSULIN REG, HUMAN 100 UNIT/ML 3 ML VIAL (PYX) IV ONE (11:36)
[2017-09-29 12:11] LABS: ABSOLUTE BASOPHILS # (AUTO) 0.1 10^3/uL (0.0-0.2); ABSOLUTE EOSINOPHILS # (AUTO) 0.4 10^3/uL (0.0-0.6); ABSOLUTE MONOCYTES (AUTO) 0.6 10^3/uL (0.1-1.4); ABSOLUTE NEUT (AUTO) 6.1 10^3/uL (1.7-8.2); EOSINOPHILS % (AUTO) 3.6 % (0-6); HEMOGLOBIN 14.2 g/dL (13.5-17.0); HGB HCT DIFFERENCE 0.6; LYMPHOCYTES % (AUTO) 29.8 % (13-45); MEAN CORPUSCULAR HGB CONC 33.8 g/dL (32.0-36.0); MEAN CORPUSCULAR VOLUME 92 fl (80-97); MONOCYTES % (AUTO) 5.5 % (3-13); RED BLOOD COUNT 4.57 10^6/uL (4.35-5.55); RED CELL DISTRIBUTION WIDTH 13.4 % (11.5-14.0); SEGMENTED NEUTROPHILS % (AUTO) 60.1 % (42-78); WHITE BLOOD COUNT 10.1 10^3/uL (4.0-10.5)
[2017-09-29 12:30] LABS: APPEARANCE,URINE CLEAR; BILIRUBIN,URINE NEGATIVE (NEGATIVE); GLUCOSE, URINE >=500 mg/dL (NEGATIVE); KETONES,URINE 80 mg/dL (NEGATIVE); LEUKOCYTE ESTERASE,URINE NEGATIVE (NEGATIVE); NITRITE,URINE NEGATIVE (NEGATIVE); PROTEIN,URINE NEGATIVE (NEGATIVE); UROBILINOGEN,URINE NEGATIVE mg/dL (<2.0)
[2017-09-29 15:07] LABS: VENOUS BLOOD BASE EXCESS -0.9 mmol/L; VENOUS BLOOD HCO3 24.1 mmol/L (20-32); VENOUS BLOOD PH 7.39 (7.30-7.42)
[2017-09-29 15:14] LABS: ALANINE AMINOTRANSFERASE 38 U/L (21-72); ALBUMIN 3.3 g/dL (3.5-5.0); ALKALINE PHOSPHATASE 78 U/L (38-126); ANION GAP 10 (5-19); ASPARTATE AMINO TRANSFERASE 15 U/L (17-59); BILIRUBIN,DIRECT 0.3 mg/dL (0.0-0.4); BILIRUBIN,TOTAL 0.3 mg/dL (0.2-1.3); BLOOD UREA NITROGEN 20 mg/dL (7-20); CALCIUM 9.3 mg/dL (8.4-10.2); CARBON DIOXIDE 24 mmol/L (22-30); CHLORIDE 106 mmol/L (98-107); GLUCOSE 270 mg/dL (75-110); LIPASE 327.7 U/L (23-300); SODIUM 139.8 mmol/L (137-145); TOTAL PROTEIN 6.1 g/dL (6.3-8.2)
--- NOTE | 2017-09-29 15:29 | ER Document Report ---
ED General - General Chief Complaint: Hip Pain Stated Complaint: HIP PAIN Time Seen by Provider: 09/29/17 10:08 Mode of Arrival: Ambulatory Information source: Patient, Relative Notes: Patient is a 67-year-old morbidly obese black male comes to emergency room complaining of multiple complaints. Primarily his complaint coming in was bilateral hip pain with radiation down both legs as well as some lower back pain. When asked the patient has had this checked by anyone in the past he states that he does not have a doctor and so he comes to ER. Patient also has a history of hypertension diabetes which he does have medications for but refuses to take them. Patient states that he just wants to know why he hurts so bad all the time and that it gets better when he gets active. TRAVEL OUTSIDE OF THE [place] IN LAST 30 DAYS: No - HPI Patient complains to provider of: Generalized aches and pains Onset: Other - 5 years or more worse the last week or 2 Onset/Duration: Persistent Quality of pain: Cramping, Sharp, Stabbing, Throbbing Pain Level: 2 Associated symptoms: Weakness Exacerbated by: Walking Relieved by: Other - Activity helps Similar symptoms previously: Yes Recently seen / treated by doctor: No - Related Data Allergies/Adverse Reactions: No Known Drug Allergies Allergy (Unknown, Verified 09/29/17 10:00) Raspberries Allergy (Mild, Uncoded 09/29/17 10:00) Hives Past Medical History - General Information source: Patient - Social History Smoking Status: Former Smoker Cigarette use (# per day): No Chew tobacco use (# tins/day): No Smoking Education Provided: No Frequency of alcohol use: None Drug Abuse: None Lives with: Family Family History: Reviewed & Not Pertinent, Hypertension Patient has suicidal ideation: No Patient has homicidal ideation: No - Past Medical History Cardiac Medical History: Reports: Hx Atrial Fibrillation - Paroxysmal, Hx Hypercholesterolemia, Hx Hypertension - no medications Denies: Hx Congestive Heart Failure, Hx DVT, Hx Heart Attack, Hx Pulmonary Embolism Pulmonary Medical History: Denies: Hx Asthma, Hx COPD, Hx Tuberculosis Neurological Medical History: Denies: Hx Seizures Endocrine Medical History: Reports: Hx Diabetes Mellitus Type 2 - no medications. Denies: Hx Diabetes Mellitus Type 1, Hx Hyperthyroidism, Hx Hypothyroidism Renal/ Medical History: Denies: Hx Peritoneal Dialysis GI Medical History: Reports: Hx Gastroesophageal Reflux Disease, Hx Pancreatitis. Denies: Hx Cirrhosis, Hx Hepatitis Musculoskeltal Medical History: Reports Hx Arthritis, Reports Hx Gout Skin Medical History: Denies Hx Eczema, Denies Hx Psoriasis Psychiatric Medical History: Denies: Hx Depression Infectious Medical History: Denies: Hx Hepatitis Past Surgical History: Denies: Hx Pacemaker - Immunizations Immunizations up to date: Yes Hx Diphtheria, Pertussis, Tetanus Vaccination: Yes - unk Hx Pneumococcal Vaccination: 11/11/11 Review of Systems - Review of Systems Constitutional: No symptoms reported EENT: No symptoms reported Cardiovascular: No symptoms reported Respiratory: No symptoms reported Gastrointestinal: No symptoms reported Genitourinary: No symptoms reported Male Genitourinary: No symptoms reported Musculoskeletal: See HPI, Back pain, Joint pain, Joint swelling, Muscle pain Skin: No symptoms reported Hematologic/Lymphatic: No symptoms reported Neurological/Psychological: No symptoms reported -: Yes All other systems reviewed and negative Physical Exam - Vital signs Vitals: Temp Pulse Resp BP Pulse Ox 98.8 F 95 20 193/98 H 95 09/29/17 10:01 09/29/17 10:01 09/29/17 10:01 09/29/17 10:01 09/29/17 10:01 Interpretation: Hypertensive - General General appearance: Appears well - Respiratory Respiratory status: No respiratory distress Chest status: Nontender Breath sounds: Normal Chest palpation: Normal - Cardiovascular Heart sounds: Normal auscultation Murmur: No - Abdominal Inspection: Normal Distension: No distension Bowel sounds: Normal Tenderness: Nontender Organomegaly: No organomegaly - Genitourinary Inspection: Normal Tenderness: Nontender Cremasteric reflex: Normal Scrotum: Normal - Extremities General upper extremity: Normal inspection General lower extremity: Normal inspection Shoulder: Normal Arm: Normal Elbow: Normal Hip: Tender, Pain with ROM Thigh: Normal, Nontender Knee: Tender. No: Normal, Nontender, Abrasion, Deformity, Drawer's test instability, Dislocation, Ecchymosis, Joint effusion, Instability, Laxity with valgus stress, Laxity with varus stress, Laceration, Pain with ROM, Patellar tendon intact, Popliteal fossa tender, Tender joint line, Unable to bear weight , Other - Neurological Neuro grossly intact: Yes Cognition: Normal Orientation: AAOx4 Forbes Coma Scale Eye Opening: Spontaneous Forbes Coma Scale Verbal: Oriented Forbes Coma Scale Motor: Obeys Commands Forbes Coma Scale Total: 15 Speech: Normal - Skin Skin Temperature: Warm Skin Moisture: Moist Course - Vital Signs Vital signs: Temp Pulse Resp BP Pulse Ox 98.2 F 95 20 193/98 H 95 09/29/17 12:13 09/29/17 10:01 09/29/17 10:01 09/29/17 10:01 09/29/17 10:01 - Laboratory Result Diagrams: 09/29/17 11:50 09/29/17 14:45 Laboratory results interpreted by me: 09/29/17 09/29/17 09/29/17 10:37 11:50 14:45 Glucose 270 H POC Glucose 342 H AST 15 L Total Protein 6.1 L Albumin 3.3 L Lipase 327.7 H Urine Glucose (UA) >=500 H Urine Ketones 80 H 09/29/17 14:46 Glucose POC Glucose 276 H AST Total Protein Albumin Lipase Urine Glucose (UA) Urine Ketones - Diagnostic Test Radiology reviewed: Reports reviewed - No acute findings on x-rays. - Transfer of Care Notes: 09/29/17 15:33 Patient is been here in extensive amount of time primarily because lab was unable to get patients blood in for the fact that he hemolyzed 3 times after they did draw. Finally the labs came back patient is relatively okay blood sugars are around 270. Physical exam on the patient was pretty benign primarily I think you are looking at with this patient is he does not want to be treated. He is refusing to take his insulin and his hypertension medications he has normal type of sciatic pain down both legs secondary to his obesity and does not want to see that that is part of the cross. He is admitted openly not to taking his diabetic hypertension meds because he "does not need it". So patient is basically treating himself. At this time I will discharge patient home with a reminder to do his hypertension and diabetic meds I have tried to explain to him about losing his kidney functions losing the leg or 2. Patient acknowledges the fact that he could but basically states he does not care. He will follow up with hopefully his primary care provider is listed on his card and does not want referral anywhere from us. Discharge - Discharge Clinical Impression: Hypertension Qualifiers: Hypertension type: essential hypertension Qualified Code(s): I10 - Essential ( primary) hypertension Diabetes Qualifiers: Diabetes mellitus type: type 2 Diabetes mellitus complication status: with oral complications Sciatica Qualifiers: Laterality: bilateral Qualified Code(s): M54.31 - Sciatica, right side; M54.32 - Sciatica, left side; M54.32 - Sciatica, left side Condition: Good Disposition: HOME, SELF-CARE Instructions: Sciatica ([facility]), Diabetes ([facility]), High Blood Pressure, Requiring Treatment ([facility]) Additional Instructions: As we discussed we can help you in the shoe help herself. You need to establish with a primary physician and discussed these problems with him or her. Choosing not to know which her blood pressure is her which her diabetic numbers are does not mean it is not bad. You need to maintain an accurate count of what is going on in your medical history you need a primary care provider to guide you through all of these stages. The deficits that you have the diabetes and hypertension sciatica all are treatable medical problems if you correct him quickly if he let them go they will take leg foot and arm hand because of neglect. At this time I want to try you on some Mobic for the discomfort and pain in the hips and you can continue all your other medications as prescribed. Should you have any concerns or problems return back to ER for recheck but I highly recommend establishing with a physician and letting them guide you through this process. Prescriptions: Meloxicam [Mobic] 7.5 mg PO BID #20 tablet Tramadol HCl 50 mg PO TID PRN #20 tablet PRN Reason: Forms: Return to School
[2017-09-29 16:00] VITALS: BP 187/97
== END 2017-09-29 15:57 | disposition home or self-care (01) ==
LOC: ER 09:53
DX: M54.32 Sciatica, left side (principal); M54.31 Sciatica, right side; I10 Essential (primary) hypertension; E11.9 Type 2 diabetes mellitus without complications; M25.551 Pain in right hip; M25.552 Pain in left hip; M54.5 Low back pain; M79.1 Myalgia; R53.1 Weakness; Z87.891 Personal history of nicotine dependence
CPT/HCPCS: 99284; 96374; 36415; 82962; 83690; 85025; 80053; 81001; 82803; 73522; 72170; J1885; A9270; J7030; J1815

== ENCOUNTER 2017-12-05 15:41 | Emergency (ER) | payer MEDICARE, OTHER ==
--- NOTE | 2017-12-05 17:30 | ER Document Report ---
ED Medical Screen (RME) - General Chief Complaint: Syncope Stated Complaint: PASSED OUT Time Seen by Provider: 12/05/17 17:26 Mode of Arrival: Ambulatory Information source: Patient, Relative TRAVEL OUTSIDE OF THE [place] IN LAST 30 DAYS: No - HPI Patient complains to provider of: syncope Notes: 12/05/17 17:29 Patient arrives with family at the bedside with complaints of syncope. Patient states that he has been feeling dizzy for the past several weeks. He has a difficult time describing his dizziness but it sounds more like near syncope and for vertiginous type dizziness. States that today he started feeling dizzy and he had a syncopal episode. He denies any injury when this occurred. He denies any chest pain or shortness of breath at this time. Although he does report intermittent episodes of getting diaphoretic and "feeling like his stomach is getting hot ". Patient is nontoxic appearing at this time. He has a nonfocal neurological exam in triage. CT head, blood work, EKG, chest x-ray been ordered at this time. Patient was evaluated in triage and was medically screened. Any pertinent orders based on the patient's complaints were ordered at this time. Patient will require further evaluation and will be taken to a room for further evaluation by another provider. This was explained to the patient and/or family at this time. - Related Data Allergies/Adverse Reactions: No Known Drug Allergies Allergy (Unknown, Verified 09/29/17 10:00) Raspberries Allergy (Mild, Uncoded 09/29/17 10:00) Hives Past Medical History - Social History Family history: Reviewed & Not Pertinent - Past Medical History Cardiac Medical History: Reports: Hx Atrial Fibrillation - Paroxysmal, Hx Hypercholesterolemia, Hx Hypertension - no medications Denies: Hx Congestive Heart Failure, Hx DVT, Hx Heart Attack, Hx Pulmonary Embolism Pulmonary Medical History: Denies: Hx Asthma, Hx COPD, Hx Tuberculosis Neurological Medical History: Denies: Hx Seizures Endocrine Medical History: Reports: Hx Diabetes Mellitus Type 2 - no medications. Denies: Hx Diabetes Mellitus Type 1, Hx Hyperthyroidism, Hx Hypothyroidism Renal/ Medical History: Denies: Hx Peritoneal Dialysis GI Medical History: Reports: Hx Gastroesophageal Reflux Disease, Hx Pancreatitis. Denies: Hx Cirrhosis, Hx Hepatitis Musculoskeltal Medical History: Reports Hx Arthritis, Reports Hx Gout Skin Medical History: Denies Hx Eczema, Denies Hx Psoriasis Psychiatric Medical History: Denies: Hx Depression Infectious Medical History: Denies: Hx Hepatitis Past Surgical History: Denies: Hx Pacemaker - Immunizations Immunizations up to date: Yes Hx Diphtheria, Pertussis, Tetanus Vaccination: Yes - unk Physical Exam - Vital signs Vitals: Temp Pulse Resp BP Pulse Ox 97.8 F 93 16 119/70 98 12/05/17 16:16 12/05/17 16:16 12/05/17 16:16 12/05/17 16:16 12/05/17 16:16 Course - Vital Signs Vital signs: Temp Pulse Resp BP Pulse Ox 97.8 F 93 16 119/70 98 12/05/17 16:16 12/05/17 16:16 12/05/17 16:16 12/05/17 16:16 12/05/17 16:16
--- NOTE | 2017-12-05 17:52 | RADIOLOGY REPORT (SQ) ---
EXAM DESCRIPTION: CHEST PA/LAT COMPLETED DATE/TIME: 12/05/2017 5:41 pm REASON FOR STUDY: syncope COMPARISON: May 2017 EXAM PARAMETERS: NUMBER OF VIEWS: two views TECHNIQUE: Digital Frontal and Lateral radiographic views of the chest acquired. RADIATION DOSE: NA LIMITATIONS: none FINDINGS: LUNGS AND PLEURA: No opacities, masses or pneumothorax. No pleural effusion. MEDIASTINUM AND HILAR STRUCTURES: No masses or contour abnormalities. HEART AND VASCULAR STRUCTURES: Heart normal size. No evidence for failure. BONES: No acute findings. HARDWARE: None in the chest. OTHER: No other significant finding. IMPRESSION: NO SIGNIFICANT RADIOGRAPHIC FINDING IN THE CHEST. TECHNICAL DOCUMENTATION: JOB ID: [id number] [employer]- All Rights Reserved
--- NOTE | 2017-12-05 17:58 | RADIOLOGY REPORT (SQ) ---
EXAM DESCRIPTION: CT HEAD WITHOUT COMPLETED DATE/TIME: 12/05/2017 5:46 pm REASON FOR STUDY: syncope COMPARISON: December 2015 TECHNIQUE: Axial images acquired through the brain without intravenous contrast. Images reviewed wi th bone, brain and subdural windows. Images stored on PACS. All CT scanners at this facility use dose modulation, iterative reconstruction, and/or weight based d osing when appropriate to reduce radiation dose to as low as reasonably achievable (ALARA). [facility]: Dose Right [facility]: CareDose [facility]: Dose Right [facility]: Teradose 4D [facility]: Slacker RADIATION DOSE: CT Rad equipment meets quality standard of care and radiation dose reduction techniq ues were employed. CTDIvol: 64.6 mGy. DLP: 1163 mGy-cm. mGy. LIMITATIONS: None. FINDINGS: VENTRICLES: Normal size and contour. CEREBRUM: No masses. No hemorrhage. No midline shift. No evidence for acute infarction. Normal gra y/white matter differentiation. No areas of low density in the white matter. CEREBELLUM: No masses. No hemorrhage. No alteration of density. No evidence for acute infarction. EXTRAAXIAL SPACES: No fluid collections. No masses. ORBITS AND GLOBE: No intra- or extraconal masses. Normal contour of globe without masses. CALVARIUM: No fracture. PARANASAL SINUSES: No fluid or mucosal thickening. SOFT TISSUES: No mass or hematoma. OTHER: No other significant finding. IMPRESSION: NORMAL BRAIN CT WITHOUT CONTRAST. EVIDENCE OF ACUTE STROKE: NO. COMMENT: Quality ID # [id number]: Final reports with documentation of one or more dose reduction techniques (e.g., Automated exposure control, adjustment of the mA and/or kV according to patient size, use of iterative reconstruction technique) TECHNICAL DOCUMENTATION: JOB ID: [id number]- All Rights Reserved
[2017-12-05 18:34] LABS: ABSOLUTE EOSINOPHILS # (AUTO) 0.1 10^3/uL (0.0-0.6); ABSOLUTE LYMPHOCYTES (AUTO) 2.5 10^3/uL (0.5-4.7); ABSOLUTE MONOCYTES (AUTO) 0.5 10^3/uL (0.1-1.4); ABSOLUTE NEUT (AUTO) 4.9 10^3/uL (1.7-8.2); BASOPHILS % (AUTO) 0.6 % (0-2); EOSINOPHILS % (AUTO) 1.2 % (0-6); HEMATOCRIT 45.3 % (37.9-51.0); HEMOGLOBIN 14.9 g/dL (13.5-17.0); LYMPHOCYTES % (AUTO) 31.1 % (13-45); MEAN CORPUSCULAR HEMOGLOBIN 30.5 pg (27.0-33.4); MEAN CORPUSCULAR HGB CONC 32.8 g/dL (32.0-36.0); MEAN CORPUSCULAR VOLUME 93 fl (80-97); MONOCYTES % (AUTO) 6.5 % (3-13); PLATELET COUNT 295 10^3/uL (150-450); RED BLOOD COUNT 4.88 10^6/uL (4.35-5.55); RED CELL DISTRIBUTION WIDTH 13.3 % (11.5-14.0); SEGMENTED NEUTROPHILS % (AUTO) 60.6 % (42-78); TOTAL CELLS COUNTED % (AUTO) 100 %; WHITE BLOOD COUNT 8.1 10^3/uL (4.0-10.5)
[2017-12-05 18:49] LABS: ALANINE AMINOTRANSFERASE 30 U/L (21-72); ALBUMIN 4.2 g/dL (3.5-5.0); ALKALINE PHOSPHATASE 81 U/L (38-126); ANION GAP 15 (5-19); ASPARTATE AMINO TRANSFERASE 18 U/L (17-59); BILIRUBIN,DIRECT 0.2 mg/dL (0.0-0.4); BILIRUBIN,TOTAL 0.7 mg/dL (0.2-1.3); BLOOD UREA NITROGEN 32 mg/dL (7-20); CALCIUM 10.4 mg/dL (8.4-10.2); CARBON DIOXIDE 24 mmol/L (22-30); CHLORIDE 93 mmol/L (98-107); MAGNESIUM 1.6 mg/dL (1.6-2.3); POTASSIUM 3.9 mmol/L (3.6-5.0); TOTAL PROTEIN 7.1 g/dL (6.3-8.2)
[2017-12-05 19:03] LABS: GLUCOSE 599 mg/dL (75-110)
[2017-12-05] MEDS ORDERED: NORMAL SALINE 1000 ML 1,000 ML IV ONE (21:57)
[2017-12-05] MEDS ORDERED: INSULIN REG, HUMAN 100 UNIT/ML 3 ML VIAL (PYX) SUBCUT ONE (22:09)
[2017-12-05 22:11] LABS: APPEARANCE,URINE SLIGHTLY-CLOUDY; BILIRUBIN,URINE NEGATIVE (NEGATIVE); COLOR,URINE YELLOW; GLUCOSE, URINE >=500 mg/dL (NEGATIVE); KETONES,URINE NEGATIVE (NEGATIVE); LEUKOCYTE ESTERASE,URINE NEGATIVE (NEGATIVE); NITRITE,URINE NEGATIVE (NEGATIVE); PROTEIN,URINE NEGATIVE (NEGATIVE); URINE SPECIFIC GRAVITY 1.022; UROBILINOGEN,URINE NEGATIVE mg/dL (<2.0)
--- NOTE | 2017-12-05 22:23 | ER Document Report ---
ED Syncope and Near Syncope - General Mode of Arrival: Ambulatory Information source: Patient TRAVEL OUTSIDE OF THE [place] IN LAST 30 DAYS: No - HPI Patient complains to provider of: Fainting Symptoms prior to episode: Other - see notes above Context: Other - see notes above <WHITLEY RONDON - Last Filed: 12/06/17 00:26> <MARYHERON ADKINS - Last Filed: 12/06/17 04:31> - General Chief Complaint: Syncope Stated Complaint: PASSED OUT Time Seen by Provider: 12/05/17 17:26 Notes: 67 year old male with history of diabetes and hypertension presents to the ED complaining of having a syncopal episode earlier this afternoon when going from an upright seated position to standing. Patient reports that he lost consciousness for 5-10 seconds and woke up feeling dizzy and drowsy. Patient saw his primary care provider and was told to come to the ED. Patient additionally complains of abdominal pain and a loss of 30 lbs in the last month , but denies vomiting, nausea, diarrhea, chest pain, shortness of breath, headache, or blurry vision. Patient's Metformin dosing has recently been increased. (WHITLEY RONDON) - Related Data Allergies/Adverse Reactions: No Known Drug Allergies Allergy (Unknown, Verified 09/29/17 10:00) Raspberries Allergy (Mild, Uncoded 09/29/17 10:00) Hives Past Medical History - General Information source: Patient, Relative - Social History Smoking Status: Current Every Day Smoker Chew tobacco use (# tins/day): No Frequency of alcohol use: None Drug Abuse: None Family History: Reviewed & Not Pertinent, Hypertension Patient has suicidal ideation: No Patient has homicidal ideation: No - Past Medical History Cardiac Medical History: Reports: Hx Atrial Fibrillation - Paroxysmal, Hx Hypercholesterolemia, Hx Hypertension - no medications Denies: Hx Congestive Heart Failure, Hx DVT, Hx Heart Attack, Hx Pulmonary Embolism Pulmonary Medical History: Denies: Hx Asthma, Hx COPD, Hx Tuberculosis Neurological Medical History: Denies: Hx Seizures Endocrine Medical History: Reports: Hx Diabetes Mellitus Type 2 - no medications. Denies: Hx Diabetes Mellitus Type 1, Hx Hyperthyroidism, Hx Hypothyroidism Renal/ Medical History: Denies: Hx Peritoneal Dialysis GI Medical History: Reports: Hx Gastroesophageal Reflux Disease, Hx Pancreatitis. Denies: Hx Cirrhosis, Hx Hepatitis Musculoskeltal Medical History: Reports Hx Arthritis, Reports Hx Gout Skin Medical History: Denies Hx Eczema, Denies Hx Psoriasis Psychiatric Medical History: Denies: Hx Depression Infectious Medical History: Denies: Hx Hepatitis Past Surgical History: Denies: Hx Pacemaker - Immunizations Immunizations up to date: Yes Hx Diphtheria, Pertussis, Tetanus Vaccination: Yes - unk Hx Pneumococcal Vaccination: 11/11/11 <ALCONWHITLEY - Last Filed: 12/06/17 00:26> Review of Systems - Review of Systems Constitutional: See HPI, Weight loss - 30 lbs in 1 month EENT: No symptoms reported. denies: Blurred vision Cardiovascular: See HPI, Syncope. denies: Chest pain Respiratory: No symptoms reported. denies: Short of breath Gastrointestinal: See HPI, Abdominal pain. denies: Diarrhea, Nausea, Vomiting Genitourinary: No symptoms reported Male Genitourinary: No symptoms reported Musculoskeletal: No symptoms reported Skin: No symptoms reported Hematologic/Lymphatic: No symptoms reported Neurological/Psychological: No symptoms reported. denies: Headaches -: Yes All other systems reviewed and negative <WHITLEY RONDON - Last Filed: 12/06/17 00:26> Physical Exam <WHITLEY RONDON - Last Filed: 12/06/17 00:26> <HERON PASTRANA - Last Filed: 12/06/17 04:31> - Vital signs Vitals: Temp Pulse Resp BP Pulse Ox 97.8 F 93 16 119/70 98 12/05/17 16:16 12/05/17 16:16 12/05/17 16:16 12/05/17 16:16 12/05/17 16:16 - Notes Notes: GENERAL: Alert, interacts well. No acute distress. HEAD: Normocephalic, atraumatic. EYES: Pupils equal, round, and reactive to light. Extraocular movements intact. ENT: Oral mucosa moist, tongue midline. NECK: Full range of motion. Supple. Trachea midline. LUNGS: Clear to auscultation bilaterally, no wheezes, rales, or rhonchi. No respiratory distress. HEART: Regular rate and rhythm. No murmurs or rubs. Gallop present. ABDOMEN: Soft, non-tender. Non-distended. EXTREMITIES: Moves all 4 extremities spontaneously. No edema, radial and dorsalis pedis pulses 2/4 bilaterally. No cyanosis. NEUROLOGICAL: Alert and oriented x3. Normal speech. PSYCH: Normal affect, normal mood. SKIN: Warm, dry, normal turgor. No rashes or lesions noted. (WHITLEY RONDON) Course - Laboratory Result Diagrams: 12/05/17 17:55 12/05/17 17:55 <WHITLEY RONDON - Last Filed: 12/06/17 00:26> - Laboratory Result Diagrams: 12/05/17 17:55 12/05/17 17:55 <HERON PASTRANA - Last Filed: 12/06/17 04:31> - Re-evaluation Re-evalutation: 12/06/17 00:28 CBC unremarkable, CMP shows mild acute renal failure with a BUN of 32 and creatinine 1.67, GFR of 50, pseudohyponatremia with a sodium of 132, glucose elevated at 599, this came down to 500 and 10 units of insulin and a liter of normal saline, troponin indeterminate 0.051, after approximately 5 hours repeat troponin not significantly change at 0.056, EKG is nonischemic, patient never had any shortness of breath or chest pain. Urinalysis shows greater than 500 glucose but no ketones and no other signs of dehydration. EKG unremarkable, CAT scan of the head unremarkable. After liter normal saline when he sits up he no longer feels weak or dizzy. Patient's brother brings up the fact that he thinks the patient has lost approximately 30 pounds over the past 3 months. I actually doubt that the patient only weighs 93.6 kg. Discussed with patient and brother that it is important that they see their primary care physician for unexplained weight loss. At present no further workup is indicated in the emergency department however if after seeing the primary care physician in controlling his blood sugar and checking his thyroid studies and everything continues to be normal but he continues to lose weight they may need further workup for possible occult malignancy. Brother and patient understand this. At present the plan is to give the patient another dose of insulin and then discharged to home, keep a close eye on his blood sugar and if it stays above 300 sees primary care physician on Saturday but if it is goes above 500 again return to the emergency department. Patient will be discharged to home. (HERON PASTRANA) - Vital Signs Vital signs: Temp Pulse Resp BP Pulse Ox 98 F 81 18 148/89 H 97 12/06/17 01:19 12/06/17 01:19 12/06/17 01:19 12/06/17 01:19 12/06/17 01:19 - Laboratory Laboratory results interpreted by me: 12/05/17 12/05/17 12/05/17 17:55 20:15 23:51 Sodium 132.0 L Chloride 93 L BUN 32 H Creatinine 1.67 H Est GFR ( Amer) 50 L Est GFR (Non-Af Amer) 41 L Glucose 599 H* POC Glucose 503 H* Calcium 10.4 H Urine Glucose (UA) >=500 H - EKG Interpretation by Me Additional EKG results interpreted by me: 12/06/17 00:31 EKG shows sinus rhythm at a rate of 93, interventricular conduction delay, left axis deviation, normal R-wave progression, no ST segment elevations or depressions, isolated T-wave inversions in aVL which are nonspecific per my interpretation. (HERON PASTRANA) Discharge <WHITLEY RONDON - Last Filed: 12/06/17 00:26> <HERON PASTRANA - Last Filed: 12/06/17 04:31> - Discharge Clinical Impression: Unexplained weight loss, Orthostatic syncope Hypertension Qualifiers: Hypertension type: essential hypertension Qualified Code(s): I10 - Essential ( primary) hypertension Diabetes mellitus with hyperglycemia Qualifiers: Diabetes mellitus type: type 2 Diabetes mellitus terminal gauger insulin use: without terminal gauger use Qualified Code(s): E11.65 - Type 2 diabetes mellitus with hyperglycemia Condition: Stable Disposition: HOME, SELF-CARE Additional Instructions: Orthostatic Hypotension You have orthostatic hypotension. Your blood pressure goes down when you stand up. Symptoms can include dizziness, transient loss of vision, ringing in the ears, nausea, and fainting. At this time, there's no evidence of a serious problem requiring hospitalization. Orthostatic hypotension can be caused by dehydration, poor nutrition, over- exercise, or medication. For some people, orthostatic hypotension is an ongoing problem, and no cause can be found. We usually treat orthostatic hypotension with fluids. We look for a treatable cause. If no cause was found, you should get enough rest, exercise moderately, and get plenty of fluids. When you feel the first symptoms suggesting you might faint, sit or squat down as quickly as you can. If symptoms don't go away quickly, lie down. Call the doctor or return if you are worsening or if new symptoms develop. Today your blood sugar was elevated. Please check your blood sugar twice a day , if he continues to be over 300 please see your primary care physician on Saturday. If he goes back to being above 500 please return to the emergency department. Please avoid candy, sodas, foods with lots of carbohydrates such as bread and pasta and rice. Take your medications as directed to drink plenty of fluids. Referrals: FAVIO CARABALLO MD [Primary Care Provider] - Follow up in 3-5 days Scribe Attestation: 12/06/17 04:31 I personally performed the services described in the documentation, reviewed and edited the documentation which was dictated to the scribe in my presence, and it accurately records my words and actions. (HERON PASTRANA) Scribe Documentation - Scribe Written by Wes:: Wes Plata, 12/05/2017 2229 acting as scribe for :: Carmen <WHITLEY RONDON - Last Filed: 12/06/17 00:26>
[2017-12-06] MEDS ORDERED: INSULIN REG, HUMAN 100 UNIT/ML 3 ML VIAL (PYX) SUBCUT ONE (00:26)
[2017-12-06 01:20] VITALS: BP 148/89
--- NOTE | 2017-12-06 07:39 | EKG REPORT ---
SEVERITY:- ABNORMAL ECG - SINUS RHYTHM PROBABLE LEFT ATRIAL ABNORMALITY LVH WITH SECONDARY REPOLARIZATION ABNORMALITY ANTERIOR Q WAVES, POSSIBLY DUE TO LVH BORDERLINE PROLONGED QT INTERVAL : Confirmed by: Osiris Andrews MD 06-Dec-2017 07:38:28
== END 2017-12-06 01:25 | disposition home or self-care (01) ==
LOC: ER 15:41
DX: I95.1 Orthostatic hypotension (principal); E11.65 Type 2 diabetes mellitus with hyperglycemia; R10.9 Unspecified abdominal pain; R42 Dizziness and giddiness; F17.200 Nicotine dependence, unspecified, uncomplicated
CPT/HCPCS: 93005; 99285; 96360; 36415; 82962; 83735; 85025; 80053; 81001; 84484; 71046; 70450; 93010; A9270 ×2; J7030; J1815

== ENCOUNTER 2018-02-08 13:51 | Emergency (ER) | payer MEDICARE, MEDICAID ==
[2018-02-08 14:01] VITALS: BP 142/86
[2018-02-08] MEDS ORDERED: PREDNISONE 20 MG TABLET PO ONE (14:13)
[2018-02-08] MEDS ORDERED: DIAZEPAM 5 MG TABLET PO ONE (14:13)
--- NOTE | 2018-02-08 14:21 | ER Document Report ---
ED General - General Chief Complaint: Arm Pain Stated Complaint: ARM PAIN Time Seen by Provider: 02/08/18 14:13 Mode of Arrival: Ambulatory Information source: Patient Notes: 68-year-old male presents with complaints of pain radiating from his neck down to his right arm causing numbness and weakness. Patient notes symptoms have been ongoing since Saturday, he denies any trauma, patient denies any fevers or chills, denies any headache TRAVEL OUTSIDE OF THE [place] IN LAST 30 DAYS: No - HPI Onset: Last week Onset/Duration: Persistent Quality of pain: Sharp Severity: Mild Pain Level: 1 Associated symptoms: Other Exacerbated by: Movement Relieved by: Denies Similar symptoms previously: No Recently seen / treated by doctor: No - Related Data Allergies/Adverse Reactions: No Known Drug Allergies Allergy (Unknown, Verified 02/08/18 13:58) Raspberries Allergy (Mild, Uncoded 02/08/18 13:58) Hives Past Medical History - Social History Smoking Status: Never Smoker Cigarette use (# per day): No Chew tobacco use (# tins/day): No Smoking Education Provided: No Family History: Reviewed & Not Pertinent, Hypertension - Past Medical History Cardiac Medical History: Reports: Hx Atrial Fibrillation - Paroxysmal, Hx Hypercholesterolemia, Hx Hypertension - no medications Denies: Hx Congestive Heart Failure, Hx DVT, Hx Heart Attack, Hx Pulmonary Embolism Pulmonary Medical History: Denies: Hx Asthma, Hx COPD, Hx Tuberculosis Neurological Medical History: Denies: Hx Seizures Endocrine Medical History: Reports: Hx Diabetes Mellitus Type 2 - no medications. Denies: Hx Diabetes Mellitus Type 1, Hx Hyperthyroidism, Hx Hypothyroidism Renal/ Medical History: Denies: Hx Peritoneal Dialysis GI Medical History: Reports: Hx Gastroesophageal Reflux Disease, Hx Pancreatitis. Denies: Hx Cirrhosis, Hx Hepatitis Musculoskeltal Medical History: Reports Hx Arthritis, Reports Hx Gout Skin Medical History: Denies Hx Eczema, Denies Hx Psoriasis Psychiatric Medical History: Denies: Hx Depression Infectious Medical History: Denies: Hx Hepatitis Past Surgical History: Denies: Hx Pacemaker - Immunizations Immunizations up to date: Yes Hx Diphtheria, Pertussis, Tetanus Vaccination: Yes - unk Hx Pneumococcal Vaccination: 11/11/11 Review of Systems - Review of Systems Notes: REVIEW OF SYSTEMS: CONSTITUTIONAL : Denies fever, chills, or sweats. Denies recent illness. EENT: Denies eye, ear, throat, or mouth pain or symptoms. Denies nasal or sinus congestion or discharge. Denies throat, tongue, or mouth swelling or difficulty swallowing. CARDIOVASCULAR: Denies chest pain. Denies palpitations or racing or irregular heart beat. Denies ankle edema. RESPIRATORY: Denies cough, cold, or chest congestion. Denies shortness of breath, difficulty breathing, or wheezing. GASTROINTESTINAL: Denies abdominal pain or distention. Denies nausea, vomiting , or diarrhea. Denies blood in vomitus, stools, or per rectum. Denies black, tarry stools. Denies constipation. GENITOURINARY: Denies difficulty urinating, painful urination, burning, frequency, blood in urine, or discharge. MUSCULOSKELETAL: Denies back or neck pain or stiffness. Denies joint pain or swelling. SKIN: Denies rash, lesions or sores. HEMATOLOGIC : Denies easy bruising or bleeding. LYMPHATIC: Denies swollen, enlarged glands. NEUROLOGICAL: admits to neck pain radiating ot the right hand, numbness PSYCHIATRIC: Denies anxiety or stress. Denies depression, suicidal ideation, or homicidal ideation. ALL OTHER SYSTEMS REVIEWED AND NEGATIVE. Dictation was performed using [employer] voice recognition software PHYSICAL EXAMINATION: GENERAL: Well-appearing, well-nourished and in no acute distress. HEAD: Atraumatic, normocephalic. EYES: Pupils equal round and reactive to light, extraocular movements intact, sclera anicteric, conjunctiva are normal. ENT: Nares patent, oropharynx clear without exudates. Moist mucous membranes. NECK: Normal range of motion, supple without lymphadenopathy. pain with movement ot the left rotation LUNGS: Breath sounds clear to auscultation bilaterally and equal. No wheezes rales or rhonchi. HEART: Regular rate and rhythm without murmurs ABDOMEN: Soft, nontender, nondistended abdomen. No guarding, no rebound. No masses appreciated. Musculoskeletal: Normal range of motion, no pitting or edema. No cyanosis. NEUROLOGICAL: Cranial nerves grossly intact. Normal speech, normal gait. normal strength, subjective paresthesia PSYCH: Normal mood, normal affect. SKIN: Warm, Dry, normal turgor, no rashes or lesions noted. Physical Exam - Vital signs Vitals: Temp Pulse Resp BP Pulse Ox 98.2 F 81 22 H 142/86 H 97 02/08/18 13:57 03/31/18 13:57 02/08/18 13:57 02/08/18 13:57 02/08/18 13:57 Course - Vital Signs Vital signs: Temp Pulse Resp BP Pulse Ox 98.2 F 81 22 H 142/86 H 97 02/08/18 13:57 02/08/18 13:57 02/08/18 13:57 02/08/18 13:57 02/08/18 13:57 Discharge - Discharge Clinical Impression: Neck pain, Cervical nerve root impingement Condition: Stable Disposition: HOME, SELF-CARE Additional Instructions: Neuralgia Neuralgia is nerve pain. Usually, the pains are sudden and sharp. They' re brief, but come repeatedly. The pains can occur spontaneously, or can be triggered by motion or touching. Sometimes the pain is constant. Neuralgia can occur with injury, infection, poor blood flow to the nerves, or chemical changes (such as hyperventilation). It's common in diseases that affect blood vessels, such as diabetes or high blood pressure. Anything that irritates or disturbs the nerves can cause neuralgia. The usual treatment is antiinflammatory medicine (such as ibuprofen, or prednisone for severe cases). Avoid rubbing or irritating the areas near the pain. Both adequate rest and regular aerobic exercise help reduce the frequency of the pains. A good mental attitude helps, too -- antidepressant medicine is often helpful for resistant cases of neuralgia. Call the doctor if there are new symptoms, such as numbness, loss of strength, discoloration of the skin, or continuous pain. Prescriptions: Diazepam [Valium 5 mg Tablet] 5 mg PO QIDP PRN #15 tablet PRN Reason: Prednisone [Deltasone 20 mg Tablet] 3 tab PO DAILY 4 Days tablet Referrals: GALLO SCHAFER MD [NO LOCAL MD] - Follow up tomorrow
== END 2018-02-08 14:31 | disposition home or self-care (01) ==
LOC: ER 13:51
DX: G54.2 Cervical root disorders, not elsewhere classified (principal); M54.2 Cervicalgia; R20.0 Anesthesia of skin; R53.1 Weakness; Z91.018 Allergy to other foods; I10 Essential (primary) hypertension
CPT/HCPCS: 99283; A9270 ×2; J7512

== ENCOUNTER 2018-02-14 19:27 | Emergency (ER) | payer MEDICARE, MEDICAID ==
[2018-02-14 19:40] VITALS: BP 157/84
--- NOTE | 2018-02-14 19:50 | ER Document Report ---
ED Medical Screen (RME) - General Chief Complaint: Numbness of Arm Stated Complaint: RIGHT ARM NUMBNESS Time Seen by Provider: 02/14/18 19:41 Notes: RME DISCLOSURE I have seen this patient as part of a Rapid Medical Evaluation and, if applicable, placed any initially appropriate orders. The patient will be seen and fully evaluated, including a full history and physical exam, by a provider ( in Main ED or Fast Track) when a room becomes available. 68-year-old male here with complaints of right-sided neck pain and right upper extremity numbness and weakness that started over the past week here with continued numbness. He states he was seen here on a prior visit and was prescribed steroids which did help some however the symptoms have returned over the past day or 2. He denies any headache vision change slurred speech dizziness. TRAVEL OUTSIDE OF THE [place] IN LAST 30 DAYS: No - Related Data Allergies/Adverse Reactions: No Known Drug Allergies Allergy (Unknown, Verified 02/08/18 13:58) Raspberries Allergy (Mild, Uncoded 02/08/18 13:58) Hives Past Medical History - Social History Family history: Reviewed & Not Pertinent - Past Medical History Cardiac Medical History: Reports: Hx Atrial Fibrillation - Paroxysmal, Hx Hypercholesterolemia, Hx Hypertension - no medications Denies: Hx Congestive Heart Failure, Hx DVT, Hx Heart Attack, Hx Pulmonary Embolism Pulmonary Medical History: Denies: Hx Asthma, Hx COPD, Hx Tuberculosis Neurological Medical History: Denies: Hx Seizures Endocrine Medical History: Reports: Hx Diabetes Mellitus Type 2 - no medications. Denies: Hx Diabetes Mellitus Type 1, Hx Hyperthyroidism, Hx Hypothyroidism Renal/ Medical History: Denies: Hx Peritoneal Dialysis GI Medical History: Reports: Hx Gastroesophageal Reflux Disease, Hx Pancreatitis. Denies: Hx Cirrhosis, Hx Hepatitis Musculoskeltal Medical History: Reports Hx Arthritis, Reports Hx Gout Skin Medical History: Denies Hx Eczema, Denies Hx Psoriasis Psychiatric Medical History: Denies: Hx Depression Infectious Medical History: Denies: Hx Hepatitis Past Surgical History: Denies: Hx Pacemaker - Immunizations Immunizations up to date: Yes Hx Diphtheria, Pertussis, Tetanus Vaccination: Yes - unk Physical Exam - Vital signs Vitals: Temp Pulse Resp BP Pulse Ox 98.0 F 95 20 157/84 H 97 02/14/18 19:38 02/14/18 19:38 02/14/18 19:38 02/14/18 19:38 02/14/18 19:38 Course - Vital Signs Vital signs: Temp Pulse Resp BP Pulse Ox 98.0 F 95 20 157/84 H 97 02/14/18 19:38 02/14/18 19:38 02/14/18 19:38 02/14/18 19:38 02/14/18 19:38
--- NOTE | 2018-02-14 20:35 | ER Document Report ---
ED General - General Chief Complaint: Numbness of Arm Stated Complaint: RIGHT ARM NUMBNESS Time Seen by Provider: 02/14/18 19:41 Mode of Arrival: Ambulatory Information source: Patient Notes: Patient is a 68-year-old male who presents with complaint of numbness and tingling to his right hand. With pain that radiates up through his arm into his right lateral neck. Patient states this started approximately 10 days ago. Patient reports being seen here in this ED on February 08 and was diagnosed with neuralgia. Patient states he was given steroids and that they did help some but his symptoms have persisted. Patient now reports that he is having a tremor in his right hand that occurs approximately once every 2 days lasting about 10 seconds. Patient denies any other symptoms, denies any headache. Patient reports past medical history of hypertension and diabetes type 2. Patient denies any surgical history patient reports that he smokes approximately one third pack cigarettes per day. Patient denies any alcohol use and states that he quit drinking in 2008. TRAVEL OUTSIDE OF THE [place] IN LAST 30 DAYS: No - Related Data Allergies/Adverse Reactions: No Known Drug Allergies Allergy (Unknown, Verified 02/08/18 13:58) Raspberries Allergy (Mild, Uncoded 02/08/18 13:58) Hives Past Medical History - General Information source: Patient - Social History Smoking Status: Current Every Day Smoker Chew tobacco use (# tins/day): No Frequency of alcohol use: None Drug Abuse: None Family History: Reviewed & Not Pertinent, Hypertension Patient has suicidal ideation: No Patient has homicidal ideation: No - Past Medical History Cardiac Medical History: Reports: Hx Atrial Fibrillation - Paroxysmal, Hx Hypercholesterolemia, Hx Hypertension - no medications Denies: Hx Congestive Heart Failure, Hx DVT, Hx Heart Attack, Hx Pulmonary Embolism Pulmonary Medical History: Denies: Hx Asthma, Hx COPD, Hx Tuberculosis Neurological Medical History: Denies: Hx Seizures Endocrine Medical History: Reports: Hx Diabetes Mellitus Type 2 - no medications. Denies: Hx Diabetes Mellitus Type 1, Hx Hyperthyroidism, Hx Hypothyroidism Renal/ Medical History: Denies: Hx Peritoneal Dialysis GI Medical History: Reports: Hx Gastroesophageal Reflux Disease, Hx Pancreatitis. Denies: Hx Cirrhosis, Hx Hepatitis Musculoskeltal Medical History: Reports Hx Arthritis, Reports Hx Gout Skin Medical History: Denies Hx Eczema, Denies Hx Psoriasis Psychiatric Medical History: Denies: Hx Depression Infectious Medical History: Denies: Hx Hepatitis Past Surgical History: Denies: Hx Pacemaker - Immunizations Immunizations up to date: Yes Hx Diphtheria, Pertussis, Tetanus Vaccination: Yes - unk Hx Pneumococcal Vaccination: 11/11/11 Review of Systems - Review of Systems Constitutional: See HPI EENT: No symptoms reported Cardiovascular: No symptoms reported Respiratory: No symptoms reported Gastrointestinal: No symptoms reported Genitourinary: No symptoms reported Male Genitourinary: No symptoms reported Musculoskeletal: See HPI Skin: No symptoms reported Hematologic/Lymphatic: No symptoms reported Neurological/Psychological: See HPI Physical Exam - Vital signs Vitals: Temp Pulse Resp BP Pulse Ox 98.0 F 95 20 157/84 H 97 02/14/18 19:38 02/14/18 19:38 02/14/18 19:38 02/14/18 19:38 02/14/18 19:38 - Notes Notes: PHYSICAL EXAMINATION: GENERAL: Well-appearing, well-nourished and in no acute distress. HEAD: Atraumatic, normocephalic. EYES: Pupils equal round and reactive to light, extraocular movements intact, conjunctiva are normal. ENT: Nares patent, oropharynx clear without exudates. Moist mucous membranes. NECK: Normal range of motion, supple without lymphadenopathy LUNGS: Breath sounds clear to auscultation bilaterally and equal. No wheezes rales or rhonchi. HEART: Regular rate and rhythm without murmurs ABDOMEN: Soft, nontender, nondistended abdomen. No guarding, no rebound. No masses appreciated. Musculoskeletal: Normal range of motion, no pitting or edema, numbness from fingers to shoulder on right upper extremity, normal strength, no swelling or erythema noted. No cyanosis. NEUROLOGICAL: Cranial nerves grossly intact. Normal speech, normal gait. Abnormal sensation to right upper extremity, motor exams normal. PSYCH: Normal mood, normal affect. SKIN: Warm, Dry, normal turgor, no rashes or lesions noted. Course - Re-evaluation Re-evalutation: CT head negative for stroke and CT C-spine with no acute findings. CT does show some chronic degenerative changes including disc space narrowing. Patient' s imaging and physical exam are consistent with a likely nerve impingement. There is no erythema or swelling to the right upper extremity therefore low suspicion of clot or infection. Will have patient follow-up with primary care physician for referral to Ortho. Will provide copies of radiology reports and discs. - Vital Signs Vital signs: Temp Pulse Resp BP Pulse Ox 98.0 F 95 20 157/84 H 97 02/14/18 19:38 02/14/18 19:38 02/14/18 19:38 02/14/18 19:38 02/14/18 19:38 - Laboratory Result Diagrams: 02/14/18 21:03 Laboratory results interpreted by me: 02/14/18 21:03 BUN 29 H Glucose 150 H - Diagnostic Test Radiology reviewed: Reports reviewed Discharge - Discharge Clinical Impression: Right upper extremity numbness Condition: Stable Disposition: HOME, SELF-CARE Additional Instructions: The pain and numbness you are experiencing is most likely due to a nerve impingement. Please call your primary care physician on Saturday. You will likely need to be seen by a orthopaedic surgeon. Return to emergency department for increased pain, redness, swelling or any other symptoms that concern you. Referrals: FAVIO CARABALLO MD [Primary Care Provider] - Follow up as needed
--- NOTE | 2018-02-14 20:59 | RADIOLOGY REPORT (SQ) ---
EXAM DESCRIPTION: CT HEAD WITHOUT COMPLETED DATE/TIME: 02/14/2018 8:07 pm REASON FOR STUDY: R arm numb weak w neck pain COMPARISON: 12/05/2017 TECHNIQUE: Axial images acquired through the brain without intravenous contrast. Images reviewed wi th bone, brain and subdural windows. Images stored on PACS. All CT scanners at this facility use dose modulation, iterative reconstruction, and/or weight based d osing when appropriate to reduce radiation dose to as low as reasonably achievable (ALARA). [facility]: Dose Right [facility]: CareDose [facility]: Dose Right [facility]: Teradose 4D [facility]: Beetle Beats RADIATION DOSE: CT Rad equipment meets quality standard of care and radiation dose reduction techniq ues were employed. CTDIvol: 53.2 mGy. DLP: 1097 mGy-cm. mGy. LIMITATIONS: None. FINDINGS: VENTRICLES: Normal. CEREBRUM: No masses. No hemorrhage. No midline shift. Areas of low density in the white matter mos t likely due to chronic micro-vascular ischemic change. No evidence for acute infarction. CEREBELLUM: No masses. No hemorrhage. No alteration of density. No evidence for acute infarction. EXTRAAXIAL SPACES: Mild age-related involutional change. No fluid collections. No masses. ORBITS AND GLOBE: No intra- or extraconal masses. Normal contour of globe without masses. CALVARIUM: No fracture. PARANASAL SINUSES: No fluid or mucosal thickening. SOFT TISSUES: No mass or hematoma. OTHER: No other significant finding. IMPRESSION: No acute intracranial findings. EVIDENCE OF ACUTE STROKE: No TECHNICAL DOCUMENTATION: JOB ID: [id number] [place]-72 Quality ID # 436: Final reports with documentation of one or more dose reduction techniques (e.g., Au tomated exposure control, adjustment of the mA and/or kV according to patient size, use of iterative reconstruction technique) 2010 [employer]- All Rights Reserved Reading location - IP/workstation name: [email or web address]
--- NOTE | 2018-02-14 21:18 | RADIOLOGY REPORT (SQ) ---
EXAM DESCRIPTION: CT CERVICAL SPINE WITHOUT COMPLETED DATE/TIME: 02/14/2018 8:07 pm REASON FOR STUDY: R arm numb weak w neck pain COMPARISON: None. TECHNIQUE: Axial images acquired through the cervical spine without intravenous contrast. Images re viewed with lung, soft tissue and bone windows. Reconstructed coronal and sagittal MPR images review ed. Images stored on PACS. All CT scanners at this facility use dose modulation, iterative reconstruction, and/or weight based d osing when appropriate to reduce radiation dose to as low as reasonably achievable (ALARA). [facility]: Dose Right [facility]: CareDose [facility]: Dose Right [facility]: Teradose 4D [facility]: Smart ActiveReplay RADIATION DOSE: CT Rad equipment meets quality standard of care and radiation dose reduction techniq ues were employed. CTDIvol: 20.1 mGy. DLP: 481 mGy-cm. mGy. LIMITATIONS: None. FINDINGS: ALIGNMENT: Anatomic. MINERALIZATION: Normal. VERTEBRAL BODIES: No fractures or dislocation. DISCS: Multilevel disc space narrowing with osteophytes. FACETS, LATERAL MASSES, POSTERIOR ELEMENTS: Facet arthropathy. No fractures. No dislocation. No ac [place] findings. HARDWARE: None in the spine. VISUALIZED RIBS: No fractures. LUNG APICES AND SOFT TISSUES: No significant or acute findings. OTHER: No other significant finding. IMPRESSION: CHRONIC DEGENERATIVE CHANGES. NO ACUTE FINDINGS. TECHNICAL DOCUMENTATION: JOB ID: [id number] [place]-72 Quality ID # [id number]: Final reports with documentation of one or more dose reduction techniques (e.g., Au tomated exposure control, adjustment of the mA and/or kV according to patient size, use of iterative reconstruction technique) 2010 [employer]- All Rights Reserved Reading location - IP/workstation name: [employer]
[2018-02-14 21:25] LABS: ANION GAP 5 (5-19); BLOOD UREA NITROGEN 29 mg/dL (7-20); CALCIUM 9.5 mg/dL (8.4-10.2); CARBON DIOXIDE 29 mmol/L (22-30); CHLORIDE 106 mmol/L (98-107); GLUCOSE 150 mg/dL (75-110); POTASSIUM 4.2 mmol/L (3.6-5.0); SODIUM 140.2 mmol/L (137-145)
== END 2018-02-14 22:45 | disposition home or self-care (01) ==
LOC: ER 19:27
DX: R20.0 Anesthesia of skin (principal); R20.2 Paresthesia of skin; F17.200 Nicotine dependence, unspecified, uncomplicated
CPT/HCPCS: 36415; 70450; 72125; 80048; 99284

== ENCOUNTER 2018-04-28 19:25 | Emergency (ER) | payer MEDICARE, MEDICAID ==
[2018-04-28 19:43] VITALS: BP 120/71
== END 2018-04-28 20:50 | disposition left against medical advice (07) ==
LOC: ER 19:25
DX: Z53.21 Procedure and treatment not carried out due to patient leaving prior to being seen by health care provider (principal)
CPT/HCPCS: 82962

== ENCOUNTER 2018-06-04 22:56 | Observation (INO) | payer MEDICARE, MEDICAID ==
--- NOTE | 2018-06-04 23:15 | ER Document Report ---
ED General - General Mode of Arrival: Medic Information source: Patient TRAVEL OUTSIDE OF THE U.[place]. IN LAST 30 DAYS: No <PETRA ESTRADA - Last Filed: 06/04/18 23:32> <BRENDA CASTREJON - Last Filed: 06/05/18 02:21> - General Stated Complaint: CHEST PAIN Time Seen by Provider: 06/04/18 23:02 Notes: Patient is a 68 year old male with paroxysmal afib and a history of CVA (February 2018) presents to the emergency department complaining of chest pain onset around 2100 today. Patient states he was laying down watching TV when he began to have left sided anterior chest pain which radiated into his left shoulder and left neck. Patient states he has had left shoulder and neck pain since his CVA resulting in a left carotid endarterctomy secondary to left carotid stenosis. He states he is normally able to relive his pain when sitting up however sitting up did not alleviate his symptoms tonight. Prior to arrival to the emergency department, patient received nitroglycerin from EMS which he states minimally alleviated his chest pain. (PETRA ESTRADA) Twelve-lead EKG done by EMS showed T-wave inversions in the inferior and lateral leads. This was prior to sublingual nitroglycerin. Copies of the tracings from EMS do not show a change in this T-wave inversion after nitroglycerin. The patient arrived in the emergency room that T-wave inversion was gone. Review of all records shows similar T-wave inversions on 02/16/2018 that were not present on 02/15/2018. (BRENDA CASTREJON) - Related Data Allergies/Adverse Reactions: No Known Drug Allergies Allergy (Unknown, Verified 02/08/18 13:58) Raspberries Allergy (Mild, Uncoded 02/08/18 13:58) Hives Past Medical History - General Information source: Patient - Social History Smoking Status: Never Smoker Cigarette use (# per day): No Chew tobacco use (# tins/day): No Smoking Education Provided: No Frequency of alcohol use: None Family History: CAD, DM, Hypertension, Malignancy - Past Medical History Cardiac Medical History: Reports: Hx Atrial Fibrillation - Paroxysmal, Hx Hypercholesterolemia, Hx Hypertension - no medications Endocrine Medical History: Reports: Hx Diabetes Mellitus Type 2 - no medications GI Medical History: Reports: Hx Gastroesophageal Reflux Disease, Hx Pancreatitis Musculoskeletal Medical History: Reports Hx Arthritis, Reports Hx Gout Psychiatric Medical History: Reports: Hx Depression Infectious Medical History: Denies: Hx Hepatitis Past Surgical History: Reports: Hx Carotid Endarterectomy - left- secondary to left carotid stenosis - Immunizations Immunizations up to date: Yes Hx Diphtheria, Pertussis, Tetanus Vaccination: Yes - unk Hx Pneumococcal Vaccination: 11/11/11 <NATALIEJONYLILIANA - Last Filed: 06/04/18 23:32> Review of Systems - Review of Systems Constitutional: No symptoms reported EENT: No symptoms reported Cardiovascular: See HPI, Chest pain Respiratory: No symptoms reported Gastrointestinal: No symptoms reported Genitourinary: No symptoms reported Male Genitourinary: No symptoms reported Musculoskeletal: See HPI, Neck pain Skin: No symptoms reported Hematologic/Lymphatic: No symptoms reported Neurological/Psychological: No symptoms reported <PETRA ESTRADA - Last Filed: 06/04/18 23:32> Physical Exam <PETRA ESTRADA - Last Filed: 06/04/18 23:32> <BRENDA CASTREJON - Last Filed: 06/05/18 02:21> - Vital signs Vitals: Pulse Ox 100 06/04/18 23:08 - Notes Notes: GENERAL: Alert, interacts well. No acute distress. HEAD: Normocephalic, atraumatic. EYES: Pupils equal, round, and reactive to light. Extraocular movements intact. ENT: Oral mucosa moist, tongue midline. NECK: Full range of motion. Supple. Trachea midline. Left trapezius tender to palpation. Left and right posterior cervical muscles tender to palpation, L>R. LUNGS: Clear to auscultation bilaterally, no wheezes, rales, or rhonchi. No respiratory distress. Left anterior chest wall tender to palpation. HEART: Regular rate and rhythm. No murmurs, gallops, or rubs. ABDOMEN: Soft, non-tender. Non-distended. Bowel sounds present in all 4 quadrants. EXTREMITIES: Moves all 4 extremities spontaneously. No edema, radial and dorsalis pedis pulses 2/4 bilaterally. No cyanosis. NEUROLOGICAL: Alert and oriented x3. Normal speech. PSYCH: Normal affect, normal mood. SKIN: Warm, dry, normal turgor. No rashes or lesions noted. (PETRA ESTRADA) Course - Laboratory Result Diagrams: 06/04/18 22:39 06/04/18 22:39 - Diagnostic Test Radiology reviewed: Image reviewed, Reports reviewed - Atherosclerotic calcifications of a tortuous thoracic aorta. No acute changes. - EKG Interpretation by Me EKG shows normal: Sinus rhythm, [place], Intervals, QRS Complexes, ST-T Waves Rate: Normal - 77 Rhythm: NSR When compared to previous EKG there are: Changes noted - Consults Dr. Caraballo Time consulted: 02:15 Consulted provider: will see as inpatient <BRENDA CASTREJON - Last Filed: 06/05/18 02:21> - Vital Signs Vital signs: Temp Pulse Resp BP Pulse Ox 98.0 F 21 H 166/83 H 98 06/04/18 23:23 06/05/18 01:01 06/05/18 01:01 06/05/18 01:01 - Laboratory Laboratory results interpreted by me: 06/04/18 06/04/18 06/04/18 22:39 22:39 22:39 RBC 3.83 L Hgb 12.5 L Hct 37.0 L RDW 14.4 H Sodium 145.6 H Chloride 108 H Glucose 212 H Hemoglobin A1c % 6.5 H AST 15 L Urine Urobilinogen 06/05/18 00:44 RBC Hgb Hct RDW Sodium Chloride Glucose Hemoglobin A1c % AST Urine Urobilinogen 2.0 H Discharge <PETRA ESTRADA - Last Filed: 06/04/18 23:32> - Discharge Admitting Provider: [facility] Admitted: Telemetry <BRENDA CASTREJON - Last Filed: 06/05/18 02:21> - Discharge Clinical Impression: Strain of cervical portion of left trapezius muscle, Elevated blood pressure reading Chest pain Qualifiers: Chest pain type: unspecified Qualified Code(s): R07.9 - Chest pain, unspecified Condition: Stable Disposition: ADMITTED INPATIENT Referrals: FAVIO CARABALLO MD [Primary Care Provider] - Follow up as needed Scribe Attestation: 06/04/18 23:37 I personally performed the services described in the documentation, reviewed and edited the documentation which was dictated to the scribe in my presence, and it accurately records my words and actions. (BRENDA CASTREJON) Scribe Documentation - Scribe Written by Scribe:: Wes Jaimes, 06/04/2018 23:30 acting as scribe for :: Abe <PETRA ESTRADA - Last Filed: 06/04/18 23:32>
[2018-06-04 23:50] LABS: ABSOLUTE EOSINOPHILS # (AUTO) 0.2 10^3/uL (0.0-0.6); ABSOLUTE LYMPHOCYTES (AUTO) 3.7 10^3/uL (0.5-4.7); ABSOLUTE MONOCYTES (AUTO) 0.6 10^3/uL (0.1-1.4); ABSOLUTE NEUT (AUTO) 4.6 10^3/uL (1.7-8.2); BASOPHILS % (AUTO) 0.4 % (0-2); EOSINOPHILS % (AUTO) 2.3 % (0-6); HEMOGLOBIN 12.5 g/dL (13.5-17.0); LYMPHOCYTES % (AUTO) 40.7 % (13-45); MEAN CORPUSCULAR HEMOGLOBIN 32.5 pg (27.0-33.4); MEAN CORPUSCULAR HGB CONC 33.6 g/dL (32.0-36.0); MEAN CORPUSCULAR VOLUME 97 fl (80-97); MONOCYTES % (AUTO) 6.6 % (3-13); PLATELET COUNT 300 10^3/uL (150-450); RED BLOOD COUNT 3.83 10^6/uL (4.35-5.55); RED CELL DISTRIBUTION WIDTH 14.4 % (11.5-14.0); TOTAL CELLS COUNTED % (AUTO) 100 %; WHITE BLOOD COUNT 9.1 10^3/uL (4.0-10.5)
[2018-06-05 00:01] LABS: ALANINE AMINOTRANSFERASE 26 U/L (21-72); ALBUMIN 3.8 g/dL (3.5-5.0); ALKALINE PHOSPHATASE 74 U/L (38-126); ANION GAP 12 (5-19); ASPARTATE AMINO TRANSFERASE 15 U/L (17-59); BILIRUBIN,DIRECT 0.2 mg/dL (0.0-0.4); BILIRUBIN,TOTAL 0.3 mg/dL (0.2-1.3); BLOOD UREA NITROGEN 17 mg/dL (7-20); CALCIUM 9.5 mg/dL (8.4-10.2); CARBON DIOXIDE 26 mmol/L (22-30); CHLORIDE 108 mmol/L (98-107); CREATINE KINASE 64 U/L (55-170); GLUCOSE 212 mg/dL (75-110); POTASSIUM 4.3 mmol/L (3.6-5.0); SODIUM 145.6 mmol/L (137-145); TOTAL PROTEIN 6.9 g/dL (6.3-8.2)
--- NOTE | 2018-06-05 00:09 | RADIOLOGY REPORT (SQ) ---
EXAM DESCRIPTION: XR CHEST 1 VIEW COMPLETED DATE/TME: 06/04/2018 23:40 CLINICAL HISTORY: chest pain COMPARISON: 02/15/2018 FINDINGS: Single frontal view of the chest. Atherosclerotic calcification and tortuosity of the thoracic aorta. Heart is not enlarged. Leads overlie the chest. Low lung volumes. No consolidation, pneumothorax, or pleural effusion. No displaced rib fractures identified. Upper abdominal soft tissues are unremarkable. IMPRESSION: 1. No acute pulmonary process identified.
[2018-06-05 01:03] LABS: APPEARANCE,URINE CLEAR; BILIRUBIN,URINE NEGATIVE (NEGATIVE); COLOR,URINE YELLOW; GLUCOSE, URINE NEGATIVE (NEGATIVE); KETONES,URINE NEGATIVE (NEGATIVE); LEUKOCYTE ESTERASE,URINE NEGATIVE (NEGATIVE); NITRITE,URINE NEGATIVE (NEGATIVE); PROTEIN,URINE NEGATIVE (NEGATIVE); URINE SPECIFIC GRAVITY 1.018
[2018-06-05] MEDS ORDERED: MORPHINE SULFATE 10 MG/ML INJ IV PRN ×2 (02:54→03:55)
[2018-06-05] MEDS ORDERED: NITROGLYCERIN 0.4 MG/TAB 25 TAB/BOTTLE SL PRN ×2 (02:56→03:54)
[2018-06-05] MEDS ORDERED: ACETAMINOPHEN 325 MG TABLET PO PRN (03:56)
[2018-06-05] MEDS ORDERED: ONDANSETRON HCL INJ/PF 4 MG/2 ML SDV IV PRN (03:56)
[2018-06-05] MEDS ORDERED: DOCUSATE SODIUM 100 MG CAPSULE PO PRN (03:57)
[2018-06-05] MEDS ORDERED: ZOLPIDEM TARTRATE 5 MG TABLET PO PRN (03:58)
[2018-06-05] MEDS ORDERED: NICOTINE 21 MG/24 HR PATCH.TD24 TD ONE (04:00)
[2018-06-05 05:39] LABS: HEMATOCRIT 33.6 % (37.9-51.0); HEMOGLOBIN 11.4 g/dL (13.5-17.0); MEAN CORPUSCULAR HEMOGLOBIN 32.5 pg (27.0-33.4); MEAN CORPUSCULAR HGB CONC 33.9 g/dL (32.0-36.0); MEAN CORPUSCULAR VOLUME 96 fl (80-97); PLATELET COUNT 267 10^3/uL (150-450); RED BLOOD COUNT 3.51 10^6/uL (4.35-5.55); RED CELL DISTRIBUTION WIDTH 14.2 % (11.5-14.0); WHITE BLOOD COUNT 8.9 10^3/uL (4.0-10.5)
[2018-06-05 05:59] LABS: ALANINE AMINOTRANSFERASE 24 U/L (21-72); ALBUMIN 3.4 g/dL (3.5-5.0); ALKALINE PHOSPHATASE 70 U/L (38-126); ANION GAP 9 (5-19); ASPARTATE AMINO TRANSFERASE 14 U/L (17-59); BILIRUBIN,DIRECT 0.2 mg/dL (0.0-0.4); BILIRUBIN,TOTAL 0.3 mg/dL (0.2-1.3); BLOOD UREA NITROGEN 16 mg/dL (7-20); CALCIUM 9.2 mg/dL (8.4-10.2); CARBON DIOXIDE 25 mmol/L (22-30); CHLORIDE 111 mmol/L (98-107); CHOLESTEROL 110.85 mg/dL (0-200); CREATINE KINASE 54 U/L (55-170); GLUCOSE 160 mg/dL (75-110); POTASSIUM 4.2 mmol/L (3.6-5.0); SODIUM 145.2 mmol/L (137-145); TOTAL PROTEIN 6.3 g/dL (6.3-8.2); TRIGLYCERIDES 95 mg/dL (<150)
[2018-06-05 06:10] LABS: CREATINE KINASE MB 0.61 ng/mL (<4.55)
[2018-06-05 06:11] LABS: DIRECT LDL 50 mg/dL (<100)
[2018-06-05 06:21] LABS: TROPONIN I < 0.012 ng/mL
--- NOTE | 2018-06-05 07:52 | EKG REPORT ---
SEVERITY:- NORMAL ECG - SINUS RHYTHM : Confirmed by: Osiris Andrews MD 05-Jun-2018 07:51:59
--- NOTE | 2018-06-05 07:52 | EKG REPORT ---
SEVERITY:- ABNORMAL ECG - SINUS RHYTHM FIRST DEGREE AV BLOCK CONSIDER ANTEROSEPTAL INFARCT : Confirmed by: Osiris Andrews MD 05-Jun-2018 07:51:48
--- NOTE | 2018-06-05 07:52 | EKG REPORT ---
SEVERITY:- ABNORMAL ECG - SINUS RHYTHM ABNRM R PROG, CONSIDER ASMI OR LEAD PLACEMENT BORDERLINE T ABNORMALITIES, INFERIOR LEADS : Confirmed by: Osiris Andrews MD 05-Jun-2018 07:51:54
--- NOTE | 2018-06-05 09:31 | PDOC H&P ---
History of Present Illness Admission Date/PCP: 06/05/18 03:12 FAVIO CARABALLO Patient complains of: Left sided chest pain at rest. History of Present Illness: SAMPSON MAO is a 68 year old male with hx of DM/HTN/Hyperlipidemia/CVD s.p CVA/ Paroxysmal A-fib/Left carotid stenosis s.p left CEA/PAD/Gout/Anxiety disorder/Vitamin D def/Chronic smoker, who was in his baseline, then started having left sided chest pain while lying down watching TV at around 9.00 pm on day of presentation; the chest pain was pressure-like, 6/10, radiating to left neck and shoulder; denied diaphoresis, dyspnea, nausea/vomiting. He called EMS and he was given NTG S/L and chest pain relieved a bit, but on account of persistent of symptoms, he was brought to ER for evaluation and mgt. Past Medical History Cardiac Medical History: Reports: Atrial Fibrillation - Paroxysmal, Hyperlipidema, Hypertension - no medications Denies: Congestive Heart Failure, DVT, Myocardial Infarction, Pulmonary Embolism Pulmonary Medical History: Denies: Asthma, Chronic Obstructive Pulmonary Disease (COPD), Tuberculosis Neurological Medical History: Denies: Seizures Endocrine Medical History: Reports: Diabetes Mellitus Type 2 - no medications Denies: Diabetes Mellitus Type 1, Hyperthyroidism, Hypothyroidism GI Medical History: Reports: Gastroesophageal Reflux Disease Denies: Cirrhosis, Hepatitis Musculoskeltal Medical History: Reports: Arthritis, Gout Skin Medical History: Denies: Eczema, Psoriasis Psychiatric Medical History: Reports: Depression Past Surgical History Past Surgical History: Reports: Carotid Endarterectomy - left- secondary to left carotid stenosis, Vascular Surgery - clot removal in neck March 2018 Denies: Pacemaker Social History Smoking Status: Never Smoker Frequency of Alcohol Use: None Hx Recreational Drug Use: No Drugs: Marijuana Hx Prescription Drug Abuse: No Family History Family History: CAD, DM, Hypertension, Malignancy Parental Family History Reviewed: Yes Children Family History Reviewed: Yes Sibling(s) Family History Reviewed.: Yes Medication/Allergy Allergies/Adverse Reactions: No Known Drug Allergies Allergy (Unknown, Verified 02/08/18 13:58) Raspberries Allergy (Mild, Uncoded 02/08/18 13:58) Hives Review of Systems All systems: as per PMH Constitutional: PRESENT: as per HPI Eyes: PRESENT: as per HPI Ears: PRESENT: as per HPI Nose, Mouth, and Throat: PRESENT: as per HPI Breasts: PRESENT: as per HPI Cardiovascular: PRESENT: chest pain Respiratory: PRESENT: as per HPI Gastrointestinal: PRESENT: as per HPI Genitourinary: PRESENT: as per HPI Musculoskeletal: PRESENT: as per HPI Integumentary: PRESENT: as per HPI Neurological: PRESENT: as per HPI Psychiatric: PRESENT: anxiety Endocrine: PRESENT: as per HPI Hematologic/Lymphatic: PRESENT: as per HPI Physical Exam Vital Signs: Temp Pulse Resp BP Pulse Ox 97.6 F 17 180/82 H 99 06/05/18 06:13 06/05/18 09:01 06/05/18 09:01 06/05/18 09:01 General appearance: PRESENT: no acute distress, cooperative, well-developed, well-nourished Head exam: PRESENT: atraumatic, normocephalic Eye exam: PRESENT: EOMI, PERRLA Ear exam: PRESENT: normal external ear exam, TM's normal bilaterally Mouth exam: PRESENT: moist, neck supple, tongue midline Neck exam: PRESENT: full ROM Respiratory exam: PRESENT: clear to auscultation wyatt, symmetrical Cardiovascular exam: PRESENT: irregular rhythm, +S1, +S2 Pulses: PRESENT: +1 pedal pulses bilateral GI/Abdominal exam: PRESENT: normal bowel sounds, soft Rectal exam: PRESENT: deferred Extremities exam: PRESENT: full ROM Musculoskeletal exam: PRESENT: full ROM Neurological exam: PRESENT: alert, awake, oriented to person, oriented to place , oriented to time Psychiatric exam: PRESENT: normal mood Results Laboratory Results: 06/05/18 05:10 06/05/18 05:10 06/05/18 06/05/18 06/05/18 05:10 05:10 05:10 WBC 8.9 RBC 3.51 L Hgb 11.4 L Hct 33.6 L MCV 96 MCH 32.5 MCHC 33.9 RDW 14.2 H Plt Count 267 Sodium 145.2 H Potassium 4.2 Chloride 111 H Carbon Dioxide 25 Anion Gap 9 BUN 16 Creatinine 0.89 Est GFR ( Amer) > 60 Est GFR (Non-Af Amer) > 60 Glucose 160 H Calcium 9.2 Total Bilirubin 0.3 AST 14 L ALT 24 Alkaline Phosphatase 70 Total Protein 6.3 Albumin 3.4 L Triglycerides 95 Cholesterol 110.85 LDL Cholesterol Direct 50 VLDL Cholesterol 19.0 HDL Cholesterol 36 L TSH 0.69 06/05/18 06/05/18 05:10 05:10 Creatine Kinase 54 L CK-MB (CK-2) 0.61 Troponin I < 0.012 Impressions: Chest X-Ray 06/04/18 23:40 IMPRESSION: 1. No acute pulmonary process identified. Assessment & Plan - Diagnosis (1) Chest pain Qualifiers: Chest pain type: unspecified Qualified Code(s): R07.9 - Chest pain, unspecified Is this a current diagnosis for this admission?: Yes Plan: For 23 hour observation at telemetry floor; NTG 0.4mg S/L q5 minutes prn x3; Morphine 2 mg q4h IV prn; Zofran 4 mg q6h IV prn; Serial EKG and cardiac enzymes to rule out PA. For Cradiolyte stress test on outpatient after PA is ruled out. (2) Diabetes mellitus type 2 in nonobese Is this a current diagnosis for this admission?: Yes Plan: Ct with Metformin 1000mg BID po; Glipizide 10 mg BID po;Accucheck QAC, QHS with slidding scale with humalog insulin asper [facility] protocol. 1800 calorie ADA diet ; HBA1C. (3) Hypertension Qualifiers: Hypertension type: essential hypertension Qualified Code(s): I10 - Essential (primary) hypertension Is this a current diagnosis for this admission?: Yes Plan: Ct with Losartan/HCTZ 100/25 1 qd po; Coreg 12.5 mg BID PO; Amlodipine 10 mg qd po; 2 g sodium diet. (4) Hyperlipidemia Qualifiers: Hyperlipidemia type: mixed hyperlipidemia Qualified Code(s): E78.2 - Mixed hyperlipidemia Is this a current diagnosis for this admission?: Yes Plan: Ct with Atorvastatin 80 mg qhs po; 200 mg cholesterol diet. 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 (6) Gout Qualifiers: Chronicity: unspecified Is this a current diagnosis for this admission?: Yes Plan: Ct with Allopurinol 100 mg qd po. (7) PAD (peripheral artery disease) Is this a current diagnosis for this admission?: Yes Plan: Ct with Aspirin 325 mg qd po; smoking cessation counseling. (8) Anxiety disorder Is this a current diagnosis for this admission?: Yes Plan: Ct with Citalopram 20 mg qd po. (9) Tobacco dependency Is this a current diagnosis for this admission?: Yes Plan: Smoking cessation counseling; Nicotine patch 21 mg qd. (10) Paroxysmal atrial fibrillation Is this a current diagnosis for this admission?: Yes Plan: Ct with Coreg 12.5 mg BID po. (11) DVT prophylaxis Is this a current diagnosis for this admission?: Yes Plan: Ct with Lovenox 40 mg qd subcut; SCD. - Time Time Spent: 30 to 50 Minutes Smoking Cessation Education: 3 to 10 minutes Medications reviewed and adjusted accordingly: Yes Anticipated discharge: Home Within: within 24 hours
[2018-06-05] MEDS ORDERED: NICOTINE 21 MG/24 HR PATCH.TD24 TD SCH (10:00)
[2018-06-05] MEDS ORDERED: ENOXAPARIN SODIUM INJ 40 MG/0.4 ML DISP.SYRIN SUBCUT SCH (10:00)
[2018-06-05 12:45] LABS: HEMATOCRIT 35.9 % (37.9-51.0); MEAN CORPUSCULAR HEMOGLOBIN 32.1 pg (27.0-33.4); MEAN CORPUSCULAR HGB CONC 33.4 g/dL (32.0-36.0); MEAN CORPUSCULAR VOLUME 96 fl (80-97); PLATELET COUNT 232 10^3/uL (150-450); RED BLOOD COUNT 3.73 10^6/uL (4.35-5.55); RED CELL DISTRIBUTION WIDTH 14.6 % (11.5-14.0); WHITE BLOOD COUNT 9.2 10^3/uL (4.0-10.5)
[2018-06-05 13:11] LABS: CREATINE KINASE MB 0.79 ng/mL (<4.55); TROPONIN I 0.013 ng/mL
[2018-06-05] MEDS ORDERED: HYDROCHLOROTHIAZIDE 25 MG TABLET PO SCH (14:00)
--- NOTE | 2018-06-05 16:51 | PDOC DISCHARGE SUMMARY ---
General - Admit/Disc Date/PCP Admission Date/Primary Care Provider: 06/05/18 03:12 FAVIO CARABALLO Discharge Date: 06/05/18 - Discharge Diagnosis (1) Chest pain Is this a current diagnosis for this admission?: Yes (2) Diabetes mellitus type 2 in nonobese Is this a current diagnosis for this admission?: Yes (3) Hypertension Is this a current diagnosis for this admission?: Yes (4) Hyperlipidemia Is this a current diagnosis for this admission?: Yes (5) CVA (cerebral vascular accident) Is this a current diagnosis for this admission?: Yes (6) Gout Is this a current diagnosis for this admission?: Yes (7) PAD (peripheral artery disease) Is this a current diagnosis for this admission?: Yes (8) Anxiety disorder Is this a current diagnosis for this admission?: Yes (9) Tobacco dependency Is this a current diagnosis for this admission?: Yes (10) Paroxysmal atrial fibrillation Is this a current diagnosis for this admission?: Yes (11) DVT prophylaxis Is this a current diagnosis for this admission?: Yes - Additional Information Home Medications: Allopurinol [Zyloprim 100 mg Tablet] 100 mg PO DAILY 06/05/18 Amlodipine Besylate [Norvasc 10 mg Tablet] 10 mg PO DAILY 06/05/18 Atorvastatin Calcium [Lipitor 80 mg Tablet] 80 mg PO DAILY 06/05/18 Carvedilol [Coreg 12.5 mg Tablet] 12.5 mg PO Q12 06/05/18 Citalopram Hydrobromide [Celexa 20 mg Tablet] 20 mg PO DAILY 06/05/18 Ergocalciferol (Vitamin D2) [Drisdol 50,000 Unit (1.25MG) Capsule] 50,000 unit PO WE@1000 06/05/18 Glipizide [Glucotrol] 10 mg PO DAILY 06/05/18 Losartan/Hydrochlorothiazide [Losartan-Hctz 100-25 mg Tab] 1 each PO DAILY 06/05 Metformin HCl [Glucophage] 1,000 mg PO BIDACBS 06/05/18 History of Present Illness History of Present Illness: SAMPSON MAO is a 68 year old male with hx of DM/HTN/Hyperlipidemia/CVD s.p CVA/ Paroxysmal A-fib/Left carotid stenosis s.p left CEA/PAD/Gout/Anxiety disorder/Vitamin D def/Chronic smoker, who was in his baseline, then started having left sided chest pain while lying down watching TV at around 9.00 pm on day of presentation; the chest pain was pressure-like, 6/10, radiating to left neck and shoulder; denied diaphoresis, dyspnea, nausea/vomiting. He called EMS and he was given NTG S/L and chest pain relieved a bit, but on account of persistent of symptoms, he was brought to ER for evaluation and mgt. Hospital Course Hospital Course: 68 year old man who was admitted to telemetry floor for 23 hour observation, however he was ER due to bed issues. He was put on NTG 0.4 i1rampwk prn S/L; morphine 2 mg q4h IV prn; Zofran 4mg q6h IV prn. He had serial EKG and cardiac enzymes and [place] was ruled out. He will discharged home today to follow up with me within 1 week to get cardiology consult for outpatient cardiolyte stress test for risk stratification. Physical Exam Vital Signs: Temp Pulse Resp BP Pulse Ox 97.8 F 17 173/71 H 99 06/05/18 14:42 06/05/18 15:01 06/05/18 15:01 06/05/18 15:01 General appearance: PRESENT: no acute distress, cooperative, well-developed, well-nourished Head exam: PRESENT: atraumatic, normocephalic Eye exam: PRESENT: EOMI, PERRLA Ear exam: PRESENT: normal external ear exam, TM's normal bilaterally Mouth exam: PRESENT: moist, neck supple, tongue midline Respiratory exam: PRESENT: clear to auscultation wyatt, symmetrical Cardiovascular exam: PRESENT: irregular rhythm, +S1, +S2 Pulses: PRESENT: +2 pedal pulses bilateral GI/Abdominal exam: PRESENT: normal bowel sounds, soft Musculoskeletal exam: PRESENT: full ROM Neurological exam: PRESENT: alert, awake, oriented to person, oriented to place , oriented to time Psychiatric exam: PRESENT: normal mood Results Laboratory Results: 06/05/18 12:23 06/05/18 05:10 06/05/18 06/05/18 06/05/18 05:10 05:10 05:10 WBC 8.9 RBC 3.51 L Hgb 11.4 L Hct 33.6 L MCV 96 MCH 32.5 MCHC 33.9 RDW 14.2 H Plt Count 267 Sodium 145.2 H Potassium 4.2 Chloride 111 H Carbon Dioxide 25 Anion Gap 9 BUN 16 Creatinine 0.89 Est GFR ( Amer) > 60 Est GFR (Non-Af Amer) > 60 Glucose 160 H Calcium 9.2 Total Bilirubin 0.3 AST 14 L ALT 24 Alkaline Phosphatase 70 Total Protein 6.3 Albumin 3.4 L Triglycerides 95 Cholesterol 110.85 LDL Cholesterol Direct 50 VLDL Cholesterol 19.0 HDL Cholesterol 36 L TSH 0.69 06/05/18 12:23 WBC 9.2 RBC 3.73 L Hgb 12.0 L Hct 35.9 L MCV 96 MCH 32.1 MCHC 33.4 RDW 14.6 H Plt Count 232 Sodium Potassium Chloride Carbon Dioxide Anion Gap BUN Creatinine Est GFR ( Amer) Est GFR (Non-Af Amer) Glucose Calcium Total Bilirubin AST ALT Alkaline Phosphatase Total Protein Albumin Triglycerides Cholesterol LDL Cholesterol Direct VLDL Cholesterol HDL Cholesterol TSH 06/05/18 06/05/18 06/05/18 05:10 05:10 12:00 Creatine Kinase 54 L CK-MB (CK-2) 0.61 0.79 Troponin I < 0.012 0.013 06/05/18 12:23 Creatine Kinase 50 L CK-MB (CK-2) Troponin I Impressions: Chest X-Ray 06/04/18 23:40 IMPRESSION: 1. No acute pulmonary process identified. Qualifiers - * PATIENT BEING DISCHARGED WITH ANY OF THE FOLLOWING DIAGNOSIS: No
[2018-06-05] MEDS ORDERED: METFORMIN HCL 500 MG TABLET PO SCH (17:00)
[2018-06-05 17:41] VITALS: BP 167/86
[2018-06-05] MEDS ORDERED: CARVEDILOL 12.5 MG TABLET PO SCH (22:00)
--- NOTE | 2018-06-06 | EKG REPORT ---
SEVERITY:- ABNORMAL ECG - SINUS RHYTHM FIRST DEGREE AV BLOCK LVH BY VOLTAGE ABNORMAL T, CONSIDER ISCHEMIA, INFERIOR LEADS : Confirmed by: Osiris Andrews MD 05-Jun-2018 23:58:09
[2018-06-06] MEDS ORDERED: NICOTINE 21 MG/24 HR PATCH.TD24 TD SCH (06:00)
[2018-06-06] MEDS ORDERED: GLIPIZIDE 10 MG TABLET PO SCH (08:00)
[2018-06-06] MEDS ORDERED: ALLOPURINOL 100 MG TABLET PO SCH (10:00)
[2018-06-06] MEDS ORDERED: AMLODIPINE BESYLATE 10 MG TABLET PO SCH (10:00)
[2018-06-06] MEDS ORDERED: (PENDING PHARMACY ID) (Losartan/Hydrochlorothiazide [Losartan-Hctz 100-25 Mg Tab] 1 EACH) PO SCH (10:00)
[2018-06-06] MEDS ORDERED: CITALOPRAM HYDROBROMIDE 20 MG TABLET PO SCH (10:00)
[2018-06-06] MEDS ORDERED: LOSARTAN POTASSIUM 50 MG TABLET PO SCH (14:00)
[2018-06-06] MEDS ORDERED: ATORVASTATIN CALCIUM 80 MG TABLET PO SCH (22:00)
[2018-06-11] MEDS ORDERED: ERGOCALCIFEROL (VITAMIN D2) 50000 UNIT (1.25 MG) CAPSULE PO SCH (10:00)
== END 2018-06-05 18:00 | disposition home or self-care (01) ==
LOC: ER 22:56 → EH 06-05 03:12 → INTOOBSV 06-05 03:12
PROVIDERS: ADMIT Internal Medicine; ATTEND Internal Medicine
PROC: HZ31ZZZ Individual Counseling for Substance Abuse Treatment, Behavioral (ICD-10-PCS; principal; 2018-06-05)
DX: R07.9 Chest pain, unspecified (principal); E11.51 Type 2 diabetes mellitus with diabetic peripheral angiopathy without gangrene; I10 Essential (primary) hypertension; E78.2 Mixed hyperlipidemia; M10.9 Gout, unspecified; F41.9 Anxiety disorder, unspecified; F17.200 Nicotine dependence, unspecified, uncomplicated; I48.0 Paroxysmal atrial fibrillation; E55.9 Vitamin D deficiency, unspecified; I69.398 Other sequelae of cerebral infarction; M54.2 Cervicalgia; M25.512 Pain in left shoulder; Z79.899 Other long term (current) drug therapy; Z79.84 Long term (current) use of oral hypoglycemic drugs; Z98.890 Other specified postprocedural states; Z82.49 Family history of ischemic heart disease and other diseases of the circulatory system
CPT/HCPCS: 93005 ×2; 99285; 96374; 36415 ×2; 82553; 82962; 82550 ×2; 83735; 84443; 85025; 85027; 80053 ×2; 81001; 84484 ×2; 83036 ×2; 80061; 71045; 93010 ×2; 99406; G0378; J2270; J1650; A9270

== ENCOUNTER 2018-06-11 08:50 | Emergency (ER) | payer MEDICARE, MEDICAID ==
[2018-06-11] MEDS ORDERED: ASPIRIN 81 MG TABLET, CHEWABLE PO ONE (09:26)
[2018-06-11] MEDS ORDERED: FENTANYL CITRATE INJ/PF 100 MCG/2 ML AMPUL IV ONE (09:27)
--- NOTE | 2018-06-11 09:32 | ER Document Report ---
ED Medical Screen (RME) <JENI LI - Last Filed: 06/11/18 11:28> - General Mode of Arrival: Ambulatory Information source: Patient, Relative TRAVEL OUTSIDE OF THE [place] IN LAST 30 DAYS: No - HPI Patient complains to provider of: Pain along the left side of the neck in the chest Onset: Yesterday Onset/Duration: Constant Severity: Moderate Recently seen / treated by doctor: Yes - Was in surgeon's office today for carotid endarterectomy follow-up <RAJENDRA RADFORD F - Last Filed: 06/11/18 12:18> - General Chief Complaint: Chest Pain Stated Complaint: CHEST/ARM PAIN Time Seen by Provider: 06/11/18 09:26 - Related Data Allergies/Adverse Reactions: No Known Drug Allergies Allergy (Unknown, Verified 06/11/18 09:49) Raspberries Allergy (Mild, Uncoded 06/11/18 09:49) Hives Past Medical History <JENI LI - Last Filed: 06/11/18 11:28> - Social History Cigarette use (# per day): Yes Family history: Reviewed & Not Pertinent - Past Medical History Cardiac Medical History: Reports: Hx Atrial Fibrillation - Paroxysmal, Hx Hypercholesterolemia, Hx Hypertension - no medications Denies: Hx Congestive Heart Failure, Hx DVT, Hx Heart Attack, Hx Pulmonary Embolism Pulmonary Medical History: Denies: Hx Asthma, Hx COPD, Hx Tuberculosis Neurological Medical History: Denies: Hx Seizures Endocrine Medical History: Reports: Hx Diabetes Mellitus Type 2 - no medications. Denies: Hx Diabetes Mellitus Type 1, Hx Hyperthyroidism, Hx Hypothyroidism Renal/ Medical History: Denies: Hx Peritoneal Dialysis GI Medical History: Reports: Hx Gastroesophageal Reflux Disease, Hx Pancreatitis. Denies: Hx Cirrhosis, Hx Hepatitis Musculoskeltal Medical History: Reports Hx Arthritis, Reports Hx Gout Skin Medical History: Denies Hx Eczema, Denies Hx Psoriasis Psychiatric Medical History: Reports: Hx Depression Infectious Medical History: Denies: Hx Hepatitis Past Surgical History: Reports: Hx Carotid Endarterectomy - left- secondary to left carotid stenosis, Hx Vascular Surgery - clot removal in neck March 2018. Denies: Hx Pacemaker - Immunizations Immunizations up to date: Yes Hx Diphtheria, Pertussis, Tetanus Vaccination: Yes - unk <RAJENDRA RADFORD - Last Filed: 06/11/18 12:18> - Medical History Notes: Hyperlipidemia hypertension history of CVA status post carotid endarterectomy ( RAJENDRA RADFORD) - Vital signs Vitals: Temp Pulse Resp BP Pulse Ox 97.9 F 68 18 176/89 H 99 06/11/18 08:53 06/11/18 08:53 06/11/18 08:53 06/11/18 08:53 06/11/18 08:53 Course - Laboratory Result Diagrams: 06/11/18 09:40 06/11/18 09:40 - EKG Interpretation by Co EKG shows normal: Sinus rhythm Rate: Normal - 65 Voltage: Consistant with LVH <JENI LI - Last Filed: 06/11/18 11:28> - Laboratory Result Diagrams: 06/11/18 09:40 06/11/18 09:40 <RAJENDRA RADFORD - Last Filed: 06/11/18 12:18> - Re-evaluation Re-evalutation: 06/11/18 12:17 This 68-year-old man with multiple medical comorbidities concerning for possible cardiac etiology does have known cardiovascular disease. We will plan to initiate workup for patient in regards to possible chest pain cause. Patient does also have a history of a carotid endarterectomy may benefit from further evaluation of vasculature in the neck at this time seems less likely to be the underlying cause of his pain. We will plan for patient to move from [facility] to [place] [facility] (RAJENDRA RADFORD) - Vital Signs Vital signs: Temp Pulse Resp BP Pulse Ox 97.9 F 68 19 190/88 H 99 06/11/18 08:53 06/11/18 08:53 06/11/18 11:02 06/11/18 11:02 06/11/18 11:02 - Laboratory Laboratory results interpreted by ia: 06/11/18 06/11/18 09:40 09:40 RBC 4.04 L Hgb 12.7 L RDW 14.3 H Sodium 145.3 H Glucose 148 H Doctor's Discharge <JENI LI - Last Filed: 06/11/18 11:28> <RAJENDRA RADFORD - Last Filed: 06/11/18 12:18> - Discharge Referrals: FAVIO CARABALLO MD [Primary Care Provider] - Follow up as needed
[2018-06-11 09:58] LABS: ABSOLUTE BASOPHILS # (AUTO) 0.1 10^3/uL (0.0-0.2); ABSOLUTE EOSINOPHILS # (AUTO) 0.3 10^3/uL (0.0-0.6); ABSOLUTE LYMPHOCYTES (AUTO) 3.1 10^3/uL (0.5-4.7); ABSOLUTE MONOCYTES (AUTO) 0.4 10^3/uL (0.1-1.4); ABSOLUTE NEUT (AUTO) 3.7 10^3/uL (1.7-8.2); BASOPHILS % (AUTO) 0.8 % (0-2); EOSINOPHILS % (AUTO) 4.5 % (0-6); HEMATOCRIT 38.7 % (37.9-51.0); HEMOGLOBIN 12.7 g/dL (13.5-17.0); LYMPHOCYTES % (AUTO) 40.4 % (13-45); MEAN CORPUSCULAR HEMOGLOBIN 31.5 pg (27.0-33.4); MEAN CORPUSCULAR HGB CONC 32.9 g/dL (32.0-36.0); MEAN CORPUSCULAR VOLUME 96 fl (80-97); MONOCYTES % (AUTO) 5.9 % (3-13); PLATELET COUNT 315 10^3/uL (150-450); RED BLOOD COUNT 4.04 10^6/uL (4.35-5.55); RED CELL DISTRIBUTION WIDTH 14.3 % (11.5-14.0); SEGMENTED NEUTROPHILS % (AUTO) 48.4 % (42-78); TOTAL CELLS COUNTED % (AUTO) 100 %; WHITE BLOOD COUNT 7.6 10^3/uL (4.0-10.5)
[2018-06-11 10:28] LABS: CREATINE KINASE MB 0.84 ng/mL (<4.55); TROPONIN I 0.02 ng/mL
[2018-06-11 10:38] LABS: ALANINE AMINOTRANSFERASE 30 U/L (21-72); ALBUMIN 4.2 g/dL (3.5-5.0); ALKALINE PHOSPHATASE 69 U/L (38-126); ANION GAP 11 (5-19); ASPARTATE AMINO TRANSFERASE 30 U/L (17-59); BILIRUBIN,DIRECT 0.3 mg/dL (0.0-0.4); BILIRUBIN,TOTAL 0.5 mg/dL (0.2-1.3); BLOOD UREA NITROGEN 11 mg/dL (7-20); CALCIUM 9.3 mg/dL (8.4-10.2); CARBON DIOXIDE 27 mmol/L (22-30); CHLORIDE 107 mmol/L (98-107); CREATINE KINASE 67 U/L (55-170); GLUCOSE 148 mg/dL (75-110); POTASSIUM 4.5 mmol/L (3.6-5.0); SODIUM 145.3 mmol/L (137-145); TOTAL PROTEIN 7.8 g/dL (6.3-8.2)
--- NOTE | 2018-06-11 10:48 | RADIOLOGY REPORT (SQ) ---
EXAM DESCRIPTION: CHEST SINGLE VIEW COMPLETED DATE/TIME: 06/11/2018 10:18 am REASON FOR STUDY: chest pain COMPARISON: 06/04/2018. NUMBER OF VIEWS: One view. TECHNIQUE: Single frontal radiographic view of the chest acquired. LIMITATIONS: None. FINDINGS: LUNGS AND PLEURA: No opacities, masses or pneumothorax. No pleural effusion. MEDIASTINUM AND HILAR STRUCTURES: No masses. Contour normal. HEART AND VASCULAR STRUCTURES: Heart normal in size. Normal vasculature. BONES: No acute findings. HARDWARE: None in the chest. OTHER: No other significant finding. IMPRESSION: NO SIGNIFICANT RADIOGRAPHIC FINDING IN THE CHEST. TECHNICAL DOCUMENTATION: JOB ID: [id number] [email or web address]- All Rights Reserved Reading location - IP/workstation name: [email or web address]
--- NOTE | 2018-06-11 12:56 | ER Document Report ---
ED Cardiac - General Chief Complaint: Chest Pain Stated Complaint: CHEST/ARM PAIN Time Seen by Provider: 06/11/18 09:26 Mode of Arrival: Ambulatory TRAVEL OUTSIDE OF THE [place] IN LAST 30 DAYS: No - HPI Notes: 68-year-old male with history of hypertension hyperlipidemia presents to the ER complaining of chest discomfort. Claims of pain in his chest that radiates to his left shoulder and neck. He was here several days ago with the same and was admitted. Had a rule out. Patient is getting an outpatient stress test with his doctor. Patient started having discomfort this morning came in for evaluation. Denies fever chills cough sore throat. Denies shortness of breath denies nausea denies diaphoresis. - Related Data Allergies/Adverse Reactions: No Known Drug Allergies Allergy (Unknown, Verified 06/11/18 09:49) Raspberries Allergy (Mild, Uncoded 06/11/18 09:49) Hives Past Medical History - General Information source: Patient, Relative - Social History Smoking Status: Current Every Day Smoker Cigarette use (# per day): Yes Family History: CAD, DM, Hypertension, Malignancy Patient has suicidal ideation: No Patient has homicidal ideation: No - Past Medical History Cardiac Medical History: Reports: Hx Atrial Fibrillation - Paroxysmal, Hx Hypercholesterolemia, Hx Hypertension - no medications Denies: Hx Congestive Heart Failure, Hx DVT, Hx Heart Attack, Hx Pulmonary Embolism Pulmonary Medical History: Denies: Hx Asthma, Hx COPD, Hx Tuberculosis Neurological Medical History: Denies: Hx Seizures Endocrine Medical History: Reports: Hx Diabetes Mellitus Type 2 - no medications. Denies: Hx Diabetes Mellitus Type 1, Hx Hyperthyroidism, Hx Hypothyroidism Renal/ Medical History: Denies: Hx Peritoneal Dialysis GI Medical History: Reports: Hx Gastroesophageal Reflux Disease, Hx Pancreatitis. Denies: Hx Cirrhosis, Hx Hepatitis Musculoskeletal Medical History: Reports Hx Arthritis, Reports Hx Gout Skin Medical History: Denies Hx Eczema, Denies Hx Psoriasis Psychiatric Medical History: Reports: Hx Depression Infectious Medical History: Denies: Hx Hepatitis Past Surgical History: Reports: Hx Carotid Endarterectomy - left- secondary to left carotid stenosis, Hx Vascular Surgery - clot removal in neck March 2018. Denies: Hx Pacemaker - Immunizations Immunizations up to date: Yes Hx Diphtheria, Pertussis, Tetanus Vaccination: Yes - unk Hx Pneumococcal Vaccination: 11/11/11 Review of Systems - Review of Systems Cardiovascular: Chest pain. denies: Dyspnea, Edema Respiratory: denies: Cough, Short of breath -: Yes All other systems reviewed and negative Physical Exam - Vital signs Vitals: Temp Pulse Resp BP Pulse Ox 97.9 F 68 18 176/89 H 99 06/11/18 08:53 06/11/18 08:53 06/11/18 08:53 06/11/18 08:53 06/11/18 08:53 - Notes Notes: GENERAL_APPEARANCE: well_nourished, alert, cooperative, no_acute_distress, no_ obvious_discomfort. VITALS: reviewed, see vital signs table. HEAD: no_swelling\tenderness on the head. EYES: conjunctiva_clear. NOSE: no_nasal_discharge. MOUTH: (-)decreased moisture. THROAT: no_tonsilar_inflammation, no_airway_obstruction. no_lymphadenopathy NECK: supple, no_neck_tenderness, (-)thyromegaly. BACK: no_back_tenderness. CHEST_WALL: no_chest_tenderness. LUNGS: no_wheezing, no_rales, no_rhonchi, (-)accessory muscle use, good air exchange bilateral. HEART: normal_rate, normal_rhythm, normal_S1, normal_S2, (-)S3, (-)S4, no_ murmur, no_rub. ABDOMEN: soft, no_abd_tenderness, (-)guarding, (-)rebound, no_organomegaly, no _abd_masses. EXTREMITIES: strength 5/5 in all_extremities, good pulses in all_extremities, no_swelling\tenderness in the extremities, plus_edema. SKIN: warm, dry, good_color, no_rash. MENTAL_STATUS: speech_clear, oriented_X_3, normal_affect, responds_ appropriately to questions. Course - Re-evaluation Re-evalutation: 06/11/18 12:52 68-year-old male with history of hypertension hyperlipidemia. Patient with just recently had a rule out was in the hospital. Troponin is still negative. I called his family doctor who would set up an outpatient stress test for him tomorrow. I spoke with Dr. Caraballo. Patient is feeling better at this time we will prescribe the patient some medication and he will see Dr. Caraballo tomorrow and they will get an outpatient stress test. Patient is okay with the plan. - Vital Signs Vital signs: Temp Pulse Resp BP Pulse Ox 97.9 F 68 18 188/88 H 98 06/11/18 08:53 06/11/18 08:53 06/11/18 12:02 06/11/18 12:02 06/11/18 12:02 - Laboratory Result Diagrams: 06/11/18 09:40 06/11/18 09:40 Laboratory results interpreted by me: 06/11/18 06/11/18 09:40 09:40 RBC 4.04 L Hgb 12.7 L RDW 14.3 H Sodium 145.3 H Glucose 148 H - Diagnostic Test Radiology reviewed: Pending, Image reviewed Radiology results interpreted by me: 06/11/18 12:54 Chest X-Ray 06/11/18 09:26 IMPRESSION: NO SIGNIFICANT RADIOGRAPHIC FINDING IN THE CHEST. - EKG Interpretation by Me EKG shows normal: Sinus rhythm Rate: Normal Rhythm: NSR Voltage: Consistant with LVH Discharge - Discharge Clinical Impression: Accelerated hypertension Chest pain Qualifiers: Chest pain type: unspecified Qualified Code(s): R07.9 - Chest pain, unspecified Condition: Good Disposition: HOME, SELF-CARE Instructions: Chest Pain of Unclear Cause ([facility]) Additional Instructions: Please see Dr. Caraballo tomorrow he will get you set up for stress test. If you begin having significant pain or problems return to the ER Prescriptions: Nitroglycerin [Nitrostat 0.4 mg (1/150 Gr) Tabs 25/Bottle] 1 tab SL Q5MP PRN # 25 tab.subl PRN Reason: chest pain Referrals: FAVIO CARABALLO MD [Primary Care Provider] - Follow up as needed
[2018-06-11 13:46] VITALS: BP 185/88
--- NOTE | 2018-06-11 21:50 | EKG REPORT ---
SEVERITY:- ABNORMAL ECG - SINUS RHYTHM FIRST DEGREE AV BLOCK LVH WITH SECONDARY REPOLARIZATION ABNORMALITY : Confirmed by: Morro Scott 11-Jun-2018 21:50:00
== END 2018-06-11 13:53 | disposition home or self-care (01) ==
LOC: ER 08:50
DX: R07.9 Chest pain, unspecified (principal); I10 Essential (primary) hypertension; E11.9 Type 2 diabetes mellitus without complications; F17.210 Nicotine dependence, cigarettes, uncomplicated; Z91.018 Allergy to other foods; Z86.79 Personal history of other diseases of the circulatory system; Z82.49 Family history of ischemic heart disease and other diseases of the circulatory system
CPT/HCPCS: 93005; 99285; 96374; 36415; 82553; 82550; 85025; 80053; 84484; 71045; 93010; A9270; J3010

== ENCOUNTER 2018-06-15 15:01 | Inpatient (IN) | payer MEDICARE, MEDICAID ==
[2018-06-15] MEDS ORDERED: NITROGLYCERIN 0.4 MG/TAB 25 TAB/BOTTLE SL PRN ×2 (15:26→23:10)
[2018-06-15] MEDS ORDERED: ASPIRIN 81 MG TABLET, CHEWABLE PO ONE (15:26)
--- NOTE | 2018-06-15 15:43 | ER Document Report ---
ED Medical Screen (RME) - General Mode of Arrival: Ambulatory Information source: Patient TRAVEL OUTSIDE OF THE U.S. IN LAST 30 DAYS: No <PETRA ESTRADA - Last Filed: 06/15/18 15:58> <HERON PASTRANA - Last Filed: 06/15/18 16:15> - General Chief Complaint: Chest Pain Stated Complaint: CHEST PAIN Time Seen by Provider: 06/15/18 15:17 Notes: Patient is a 68 year old male with a history of a stroke presents to the emergency department complaining of radiating chest pain. Patient states the pain radiates into his left arm and up into the left side of his neck further stating his pain is occasionally exacerbated with movement. Patient states he recently had a left carotid endarterectomy due to a 90% blockage and states he has had pain intermittently since then. He mentions taking nitro every 5 minutes to help relieve his pain although he feels it works minimally. Patient denies having a stress test performed. GENERAL: Alert, interacts well. No acute distress. HEAD: Normocephalic, Atraumatic. NECK: Full range of motion. Supple. Trachea midline. LUNGS: Clear to auscultation bilaterally, no wheezes, rales, or rhonchi. No respiratory distress. HEART: Regular rate and rhythm. No murmurs, gallops, or rubs. ABDOMEN: Soft, non-tender. Non-distended. Bowel sounds present in all 4 quadrants. EXTREMITIES: Moves all four extremities spontaneously. PSYCH: Normal affect, normal mood. I have greeted and performed a rapid initial assessment of this patient. A comprehensive ED assessment and evaluation of the patient, analysis of test results and completion of the medical decision making process will be conducted by additional ED providers. (PETRA ESTRADA) - Related Data Allergies/Adverse Reactions: No Known Drug Allergies Allergy (Unknown, Verified 06/11/18 09:49) Raspberries Allergy (Mild, Uncoded 06/11/18 09:49) Hives Past Medical History - Social History Family history: Reviewed & Not Pertinent - Past Medical History Cardiac Medical History: Reports: Hx Atrial Fibrillation - Paroxysmal, Hx Hypercholesterolemia, Hx Hypertension - no medications Denies: Hx Congestive Heart Failure, Hx DVT, Hx Heart Attack, Hx Pulmonary Embolism Pulmonary Medical History: Denies: Hx Asthma, Hx COPD, Hx Tuberculosis Neurological Medical History: Denies: Hx Seizures Endocrine Medical History: Reports: Hx Diabetes Mellitus Type 2 - no medications. Denies: Hx Diabetes Mellitus Type 1, Hx Hyperthyroidism, Hx Hypothyroidism Renal/ Medical History: Denies: Hx Peritoneal Dialysis GI Medical History: Reports: Hx Gastroesophageal Reflux Disease, Hx Pancreatitis. Denies: Hx Cirrhosis, Hx Hepatitis Musculoskeltal Medical History: Reports Hx Arthritis, Reports Hx Gout Skin Medical History: Denies Hx Eczema, Denies Hx Psoriasis Psychiatric Medical History: Reports: Hx Depression Infectious Medical History: Denies: Hx Hepatitis Past Surgical History: Reports: Hx Carotid Endarterectomy - left- secondary to left carotid stenosis, Hx Vascular Surgery - clot removal in neck March 2018. Denies: Hx Pacemaker - Immunizations Immunizations up to date: Yes Hx Diphtheria, Pertussis, Tetanus Vaccination: Yes - unk <PETRA ESTRADA - Last Filed: 06/15/18 15:58> - Vital signs Vitals: Temp Pulse Resp BP Pulse Ox 98.4 F 86 20 136/77 H 97 06/15/18 15:15 06/15/18 15:15 06/15/18 15:15 06/15/18 15:15 06/15/18 15:15 Course - Laboratory Result Diagrams: 06/15/18 15:38 06/15/18 15:38 <PTERA ESTRADA - Last Filed: 06/15/18 15:58> - Laboratory Result Diagrams: 06/15/18 15:38 06/15/18 15:38 <HERON PASTRANA - Last Filed: 06/15/18 16:15> - Vital Signs Vital signs: Temp Pulse Resp BP Pulse Ox 98.4 F 86 19 144/89 H 99 06/15/18 15:15 06/15/18 15:15 06/15/18 16:00 06/15/18 16:00 06/15/18 16:00 - Laboratory Laboratory results interpreted by me: 06/15/18 15:38 RBC 3.99 L Hgb 13.0 L RDW 14.3 H Doctor's Discharge <PETRA ESTRADA - Last Filed: 06/15/18 15:58> <HERON PASTRANA - Last Filed: 06/15/18 16:15> - Discharge Referrals: FAVIO CARABALLO MD [Primary Care Provider] - Follow up as needed
[2018-06-15 16:09] LABS: ABSOLUTE EOSINOPHILS # (AUTO) 0.2 10^3/uL (0.0-0.6); ABSOLUTE LYMPHOCYTES (AUTO) 3.5 10^3/uL (0.5-4.7); ABSOLUTE MONOCYTES (AUTO) 0.4 10^3/uL (0.1-1.4); ABSOLUTE NEUT (AUTO) 4.4 10^3/uL (1.7-8.2); BASOPHILS % (AUTO) 0.6 % (0-2); EOSINOPHILS % (AUTO) 2.6 % (0-6); HEMATOCRIT 38.1 % (37.9-51.0); LYMPHOCYTES % (AUTO) 41.1 % (13-45); MEAN CORPUSCULAR HEMOGLOBIN 32.5 pg (27.0-33.4); MEAN CORPUSCULAR VOLUME 95 fl (80-97); MONOCYTES % (AUTO) 5.1 % (3-13); PLATELET COUNT 309 10^3/uL (150-450); RED BLOOD COUNT 3.99 10^6/uL (4.35-5.55); RED CELL DISTRIBUTION WIDTH 14.3 % (11.5-14.0); SEGMENTED NEUTROPHILS % (AUTO) 50.6 % (42-78); TOTAL CELLS COUNTED % (AUTO) 100 %; WHITE BLOOD COUNT 8.6 10^3/uL (4.0-10.5)
[2018-06-15] MEDS ORDERED: ONDANSETRON HCL INJ/PF 4 MG/2 ML SDV IV ONE (16:15)
[2018-06-15] MEDS ORDERED: MORPHINE SULFATE 10 MG/ML INJ IV ONE ×3 (16:15→21:23)
[2018-06-15] MEDS ORDERED: NITROGLYCERIN 2% OINTMENT 1 GM PACKET TP ONE (16:16)
[2018-06-15 16:17] LABS: INTERNATIONAL RATION (INR) 0.97; PROTHROMBIN TIME 13.3 SEC (11.4-15.4)
--- NOTE | 2018-06-15 16:21 | ER Document Report ---
ED General - General Chief Complaint: Chest Pain Stated Complaint: CHEST PAIN Time Seen by Provider: 06/15/18 15:17 Mode of Arrival: Ambulatory Information source: Patient Notes: This is a 68-year-old man with a history of hypertension, dyslipidemia, diabetes , CVA and a left carotid endarterectomy (march, [facility] Dr. Rod). The patient does present with left-sided chest pain radiating down the left arm. In addition. The patient states he has had left neck pain since the carotid endarterectomy associated with skin numbness since the surgery in March. He has been evaluated in [place] by Dr. Rod's office and has had an ultrasound and was told it was fine. The patient presents with continued pain to that area. TRAVEL OUTSIDE OF THE [place] IN LAST 30 DAYS: No - HPI Onset: Just prior to arrival Onset/Duration: Gradual Quality of pain: Dull Severity: Moderate Pain Level: 2 Associated symptoms: Chest pain, Other - Neck pain. denies: Shortness of breath Exacerbated by: Denies, Other Relieved by: Denies Similar symptoms previously: Yes Recently seen / treated by doctor: Yes - Related Data Allergies/Adverse Reactions: No Known Drug Allergies Allergy (Unknown, Verified 06/15/18 20:31) Raspberries Allergy (Mild, Uncoded 06/15/18 20:31) Hives Past Medical History - General Information source: Patient - Social History Smoking Status: Current Every Day Smoker Cigarette use (# per day): Yes - Half pack per day smoker Chew tobacco use (# tins/day): No Smoking Education Provided: No Frequency of alcohol use: None Drug Abuse: None Lives with: Family Family History: CAD, DM, Hypertension, Malignancy Patient has suicidal ideation: No Patient has homicidal ideation: No - Past Medical History Cardiac Medical History: Reports: Hx Atrial Fibrillation - Paroxysmal, Hx Hypercholesterolemia, Hx Hypertension - no medications Denies: Hx Congestive Heart Failure, Hx DVT, Hx Heart Attack, Hx Pulmonary Embolism Pulmonary Medical History: Denies: Hx Asthma, Hx COPD, Hx Tuberculosis Neurological Medical History: Denies: Hx Seizures Endocrine Medical History: Reports: Hx Diabetes Mellitus Type 2 - no medications. Denies: Hx Diabetes Mellitus Type 1, Hx Hyperthyroidism, Hx Hypothyroidism Renal/ Medical History: Denies: Hx Peritoneal Dialysis GI Medical History: Reports: Hx Gastroesophageal Reflux Disease, Hx Pancreatitis. Denies: Hx Cirrhosis, Hx Hepatitis Musculoskeletal Medical History: Reports Hx Arthritis, Reports Hx Gout Skin Medical History: Denies Hx Eczema, Denies Hx Psoriasis Psychiatric Medical History: Reports: Hx Depression Infectious Medical History: Denies: Hx Hepatitis Past Surgical History: Reports: Hx Carotid Endarterectomy - left- secondary to left carotid stenosis, Hx Vascular Surgery - clot removal in neck March 2018. Denies: Hx Pacemaker - Immunizations Immunizations up to date: Yes Hx Diphtheria, Pertussis, Tetanus Vaccination: Yes - unk Hx Pneumococcal Vaccination: 11/11/11 Review of Systems - Review of Systems Constitutional: denies: Chills, Fever EENT: No symptoms reported Cardiovascular: See HPI Respiratory: No symptoms reported Gastrointestinal: No symptoms reported Genitourinary: No symptoms reported Male Genitourinary: No symptoms reported Musculoskeletal: No symptoms reported Skin: No symptoms reported Hematologic/Lymphatic: No symptoms reported Neurological/Psychological: No symptoms reported Physical Exam - Vital signs Vitals: Temp Pulse Resp BP Pulse Ox 98.4 F 86 20 136/77 H 97 06/15/18 15:15 06/15/18 15:15 06/15/18 15:15 06/15/18 15:15 06/15/18 15:15 Notes: Physical exam: GENERAL: 68-year-old man, alert and oriented 3, no acute distress HEAD: Atraumatic, normocephalic. EYES: Pupils equal round and reactive to light, extraocular movements intact, sclera anicteric, conjunctiva are normal. ENT: TMs normal, nares patent, oropharynx clear without exudates. Moist mucous membranes. NECK: Normal range of motion, supple without obvious mass. The patient has sensitivity over the left side of the neck surrounding the area over the surgical scar. There is no pulsatile masses. There is no obvious swelling. There is no erythema to the skin. LUNGS: Breath sounds clear to auscultation bilaterally and equal. No wheezes rales or rhonchi. HEART: Regular rate and rhythm without murmurs, rubs or gallops. ABDOMEN: Soft, normoactive bowel sounds. No tenderness to palpation. No guarding, no rebound. No masses appreciated. EXTREMITIES: Normal range of motion, no pitting or edema. No clubbing or cyanosis. NEUROLOGICAL: Cranial nerves II through XII grossly intact. Normal speech, moving all extremities. PSYCH: Normal mood, normal affect. SKIN: Warm, Dry, normal turgor, no rashes or lesions noted. Course - Re-evaluation Re-evalutation: 06/15/18 21:14 Note: The patient appears to have 2 separate areas of discomfort. Since the carotid endarterectomy this past March, he has had chronic pain over the surgical area with numbness. He has had this evaluated in [place] by Dr. Rod' s office and is been told it was been fine. The second issue is the patient's chest discomfort. He was admitted in May for the chest pain under Dr. Winters. The note states that the plan was for follow-up within a week with a sustainability analyst. Patient states he never did get to see the sustainability analyst. He did present again with chest pain on June 11 was evaluated in the emergency room and discharged at that time. Again he presents with chest pain tonight. He did take nitro at home with minimal relief and he seems to get most relief from IV morphine in the ER. However, on close inspection of the EKG, he does have subtle T-wave changes in lead I and L. Given this and his recent symptoms as well as risk factors for heart disease, I am concerned that he may be at risk of coronary ischemia. His troponins are slightly elevated but still technically in the normal range. I discussed case with Dr. Johnson of cardiology was reviewed EKGs. He recommended Lovenox. If the patient becomes pain-free, we will admit the patient here. If he has ongoing pain, we will consider transfer. 06/15/18 22:37 Patient is chest pain-free. Discussed case with Dr. Warner regarding admit for further workup. 06/16/18 00:06 06/16/18 00:10 - Vital Signs Vital signs: Temp Pulse Resp BP Pulse Ox 98.2 F 86 16 120/74 95 06/15/18 20:03 06/15/18 15:15 06/15/18 23:00 06/15/18 23:00 06/15/18 23:00 - Laboratory Result Diagrams: 06/15/18 15:38 06/15/18 16:45 Laboratory results interpreted by me: 06/15/18 06/15/18 15:38 16:45 RBC 3.99 L Hgb 13.0 L RDW 14.3 H Sodium 146.3 H BUN 21 H Glucose 121 H - Diagnostic Test Radiology reviewed: Image reviewed, Reports reviewed - Chest x-ray shows no infiltrates or effusions - EKG Interpretation by Me Rate: Normal Rhythm: NSR - EKG shows normal sinus rhythm with a ventricular rate of 81, there is no significant changes from an EKG compared to June 11, 2018 Critical Care Note - Critical Care Note Total time excluding time spent on procedures (mins): 60 Discharge - Discharge Clinical Impression: Chest pain Condition: Stable Disposition: ADMITTED INPATIENT Admitting Provider: Hospitalist - Dr Long Unit Admitted: Telemetry
[2018-06-15] MEDS ORDERED: NITROGLYCERIN 2% OINTMENT 1 GM PACKET ONE (16:25)
[2018-06-15 16:40] LABS: CREATINE KINASE MB 0.87 ng/mL (<4.55)
--- NOTE | 2018-06-15 16:40 | RADIOLOGY REPORT (SQ) ---
EXAM DESCRIPTION: CHEST SINGLE VIEW COMPLETED DATE/TIME: 06/15/2018 4:17 pm REASON FOR STUDY: chest pain COMPARISON: 06/11/2018 EXAM PARAMETERS: NUMBER OF VIEWS: One view. TECHNIQUE: Single frontal radiographic view of the chest acquired. RADIATION DOSE: NA LIMITATIONS: None. FINDINGS: LUNGS AND PLEURA: No acute opacities, masses or pneumothorax. No pleural effusion. MEDIASTINUM AND HILAR STRUCTURES: No masses. Contour normal. HEART AND VASCULAR STRUCTURES: Heart normal in size. Normal vasculature. BONES: No acute findings. HARDWARE: None in the chest. OTHER: No other significant finding. IMPRESSION: NO ACUTE RADIOGRAPHIC FINDING IN THE CHEST. TECHNICAL DOCUMENTATION: JOB ID: [id number] [id number] 2010 [employer]- All Rights Reserved Reading location - IP/workstation name: [email or web address]
[2018-06-15 16:45] LABS: TROPONIN I 0.051 ng/mL
[2018-06-15 17:25] LABS: ALANINE AMINOTRANSFERASE 26 U/L (21-72); ALBUMIN 3.8 g/dL (3.5-5.0); ALKALINE PHOSPHATASE 69 U/L (38-126); ANION GAP 13 (5-19); ASPARTATE AMINO TRANSFERASE 19 U/L (17-59); BILIRUBIN,DIRECT 0.2 mg/dL (0.0-0.4); BILIRUBIN,TOTAL 0.3 mg/dL (0.2-1.3); BLOOD UREA NITROGEN 21 mg/dL (7-20); CALCIUM 10.1 mg/dL (8.4-10.2); CARBON DIOXIDE 27 mmol/L (22-30); CHLORIDE 106 mmol/L (98-107); CREATINE KINASE 63 U/L (55-170); GLUCOSE 121 mg/dL (75-110); POTASSIUM 4.3 mmol/L (3.6-5.0); SODIUM 146.3 mmol/L (137-145)
[2018-06-15] MEDS ORDERED: ENOXAPARIN SODIUM INJ 100 MG/1 ML DISP.SYRIN SUBCUT ONE (21:13)
[2018-06-15] MEDS ORDERED: MAGNESIUM HYDROXIDE SUSP 30 ML UDCUP PO PRN (23:02)
[2018-06-15] MEDS ORDERED: DEXTROSE 40% GEL 15 GM TUBE PO PRN ×4 (23:02→23:15)
[2018-06-15] MEDS ORDERED: ONDANSETRON 4 MG TAB.RAPDIS PO PRN (23:02)
[2018-06-15] MEDS ORDERED: GLUCAGON,HUMAN RECOMB 1 MG INJ SUBCUT PRN (23:02)
[2018-06-15] MEDS ORDERED: MAG HYDROX/AL HYDROX/SIMETH SUSP 30 ML UDCUP PO PRN (23:02)
[2018-06-15] MEDS ORDERED: DEXTROSE 50%-WATER 25 GM/50 ML DISP.SYRIN IV PRN ×4 (23:02→23:15)
[2018-06-15] MEDS ORDERED: ONDANSETRON HCL INJ/PF 4 MG/2 ML SDV IV PRN (23:02)
[2018-06-15] MEDS ORDERED: ACETAMINOPHEN 325 MG TABLET PO PRN (23:02)
[2018-06-15] MEDS ORDERED: GLUCAGON,HUMAN RECOMB 1 MG INJ IM PRN (23:15)
--- NOTE | 2018-06-15 23:45 | EKG REPORT ---
SEVERITY:- ABNORMAL ECG - SINUS RHYTHM ABNORMAL T, CONSIDER ISCHEMIA, LATERAL LEADS : Confirmed by: Morro Scott 15-Jun-2018 23:44:30
--- NOTE | 2018-06-15 23:46 | EKG REPORT ---
SEVERITY:- ABNORMAL ECG - SINUS RHYTHM PROBABLE LVH WITH SECONDARY REPOL ABNRM : Confirmed by: Morro Scott 15-Jun-2018 23:44:41
--- NOTE | 2018-06-15 23:49 | PDOC H&P ---
History of Present Illness Admission Date/PCP: 06/15/18 22:50 PCP: Giovanni Winters MD Patient complains of: Chest pain History of Present Illness: SAMPSON MAO is a 68 year old -[place] male with history of multiple medical problems that would be mentioned below presented to the emergency room with acute onset of upper midsternal chest pain felt as pressure and graded 10/10 severity with radiation to his left arm and shoulder. He admitted to occasional periumbilical abdominal pain. He denies any nausea vomiting or diaphoresis dyspnea or palpitations with this pain. Denies any lower extremity edema or recent pain in his legs or recent travels or surgeries. He took 2 sublingual nitroglycerin at home and one in the emergency room followed by IV morphine sulfate before he had relief of his pain. He had an inch of Nitropaste placed. He was also given aspirin and Lovenox and a therapeutic dose. He denies any fever or chills, cough or wheezing or hemoptysis. No bleeding diathesis. When he came to the emergency room, vital signs were within normal. EKG showed normal sinus rhythm with a rate of 81 with probable LVH and early repolarization with minimally peaked T waves in V2 and T-wave inversion laterally. His labs were remarkable for mild hypernatremia and a BUN of 21. Initial set of cardiac enzymes come back with a troponin I of 0.051 and later 0.094 and 0.111. The patient will be admitted to an observation telemetry bed for further evaluation and management Past Medical History Cardiac Medical History: Reports: Atrial Fibrillation - Paroxysmal, Hyperlipidema, Hypertension - no medications Denies: Congestive Heart Failure, DVT, Myocardial Infarction, Pulmonary Embolism Pulmonary Medical History: Denies: Asthma, Chronic Obstructive Pulmonary Disease (COPD), Tuberculosis Neurological Medical History: Denies: Seizures Endocrine Medical History: Reports: Diabetes Mellitus Type 2 - no medications Denies: Diabetes Mellitus Type 1, Hyperthyroidism, Hypothyroidism GI Medical History: Reports: Gastroesophageal Reflux Disease Denies: Cirrhosis, Hepatitis Musculoskeltal Medical History: Reports: Arthritis, Gout Skin Medical History: Denies: Eczema, Psoriasis Psychiatric Medical History: Reports: Depression Past Surgical History Past Surgical History: Reports: Carotid Endarterectomy - left- secondary to left carotid stenosis, Vascular Surgery - clot removal in neck March 2018 Denies: Pacemaker Social History Smoking Status: Current Every Day Smoker Frequency of Alcohol Use: None Hx Recreational Drug Use: No Drugs: Marijuana Hx Prescription Drug Abuse: No - Advance Directive Resuscitation Status: Full Code Family History Family History: CAD, DM, Hypertension, Malignancy Parental Family History Reviewed: Yes Children Family History Reviewed: Yes Sibling(s) Family History Reviewed.: Yes Medication/Allergy Home Medications: Allopurinol [Zyloprim 100 mg Tablet] 100 mg PO DAILY 06/05/18 Amlodipine Besylate [Norvasc 10 mg Tablet] 10 mg PO DAILY 06/05/18 Atorvastatin Calcium [Lipitor 80 mg Tablet] 80 mg PO DAILY 06/05/18 Carvedilol [Coreg 12.5 mg Tablet] 12.5 mg PO Q12 06/05/18 Citalopram Hydrobromide [Celexa 20 mg Tablet] 20 mg PO DAILY 06/05/18 Ergocalciferol (Vitamin D2) [Drisdol 50,000 unit (1.25MG) Capsule] 50,000 unit PO WE@1000 06/05/18 Glipizide [Glucotrol] 10 mg PO DAILY 06/05/18 Losartan/Hydrochlorothiazide [Losartan-Hctz 100-25 mg Tab] 1 each PO DAILY 06/05 Metformin HCl [Glucophage] 1,000 mg PO BIDACBS 06/05/18 Nitroglycerin [Nitrostat 0.4 mg (1/150 Gr) Tabs 25/Bottle] 1 tab SL Q5MP PRN # 25 tab.subl 06/11/18 Allergies/Adverse Reactions: No Known Drug Allergies Allergy (Unknown, Verified 06/15/18 20:31) Raspberries Allergy (Mild, Uncoded 06/15/18 20:31) Hives Review of Systems Review of Systems: As per history of present illness. All pertinent systems were reviewed above. Constitutional, HEENT, cardiovascular, respiratory, GI, , musculoskeletal, neuro, psychiatric, endocrine, integumentary and hematologic systems were reviewed and are otherwise negative/unremarkable except for positive findings mentioned above in the HPI. Physical Exam Vital Signs: Temp Pulse Resp BP Pulse Ox 98.2 F 86 16 120/74 95 06/15/18 20:03 06/15/18 15:15 06/15/18 23:00 06/15/18 23:00 06/15/18 23:00 Exam: Generally: Pleasant elderly gentleman in no acute distress Vital signs-as listed Head - atraumatic, normocephalic. Pupils - equal, round and reactive to light and accommodation. Extraocular movements are intact. No scleral icterus. Oropharynx - moist mucous membranes and tongue. No pharyngeal erythema or exudate. Neck - supple. No JVD. Carotid pulses 2+ bilaterally. No carotid bruits. No palpable thyromegaly or lymphadenopathy. Cardiovascular - regular rate and rhythm. Normal S1 and S2. No murmurs, gallops or rubs. Lungs - clear to auscultation bilaterally. Abdomen - soft and nontender. Positive bowel sounds. No palpable organomegaly or masses. Extremities - no pitting edema, clubbing or cyanosis. Neuro - grossly non-focal. Skin - no rashes. and rectal exam - deferred. Results Laboratory Results: CBC showed WBC of 8.6, hemoglobin of 13 hematocrit 38.1 and platelets of 309. INR is 0.97 and PT 15.3. CMP showed sodium 146.3 with a potassium 4.3, chloride 106, CO2 27, anion gap 13 and BUN 21, creatinine 1.16 GFR more than 60 , glucose 121 calcium 10.1, LFTs within normal. EKG Comments: Normal sinus rhythm with a rate of 71 with T-wave inversion laterally Impressions: Chest X-Ray 06/15/18 15:26 IMPRESSION: NO ACUTE RADIOGRAPHIC FINDING IN THE CHEST. Assessment & Plan - Diagnosis (1) Chest pain Qualifiers: Chest pain type: unspecified Qualified Code(s): R07.9 - Chest pain, unspecified Plan: Chest pain, rule out acute coronary syndrome. The patient will be admitted to an observation telemetry bed. Will follow serial cardiac enzymes and EKGs. We will obtain a cardiology consult in a.m. for further cardiac risk stratification. The patient will be placed on aspirin as well as p.r.n. sublingual nitroglycerin and morphine sulfate for pain. (2) Hypertension Qualifiers: Hypertension type: essential hypertension Qualified Code(s): I10 - Essential (primary) hypertension Is this a current diagnosis for this admission?: Yes Plan: Continue Cozaar and Coreg as well as amlodipine (3) Type 2 diabetes mellitus Qualifiers: Diabetes mellitus complication status: without complication Is this a current diagnosis for this admission?: Yes Plan: We will hold glipizide since the patient is n.p.o. as well as metformin and place the patient on supplemental coverage with Humalog (4) Gout Is this a current diagnosis for this admission?: Yes Plan: We will continue allopurinol (5) Anxiety and depression Is this a current diagnosis for this admission?: Yes Plan: We will continue Celexa (6) DVT prophylaxis Plan: Subcutaneous Lovenox and GI prophylaxis with p.o. Prevacid for the possibility of GI etiology for chest pain. - Plan Summary Plan Summary: The plan of care was discussed in details with the patient. I answered all questions. The patient agreed to proceed with the above-mentioned plan. The patient is presumably full code. This note was created by [employer] software and may contain typo errors that may have not been proofread.
[2018-06-16 00:05] LABS: CREATINE KINASE MB 1.19 ng/mL (<4.55); TROPONIN I 0.111 ng/mL
[2018-06-16] MEDS: 1/2 NORMAL SALINE 1,000 ML IV PRN ×2 (00:23→08:49)
[2018-06-16 05:36] LABS: ABSOLUTE BASOPHILS # (AUTO) 0.1 10^3/uL (0.0-0.2); ABSOLUTE EOSINOPHILS # (AUTO) 0.2 10^3/uL (0.0-0.6); ABSOLUTE LYMPHOCYTES (AUTO) 4.3 10^3/uL (0.5-4.7); ABSOLUTE MONOCYTES (AUTO) 0.7 10^3/uL (0.1-1.4); ABSOLUTE NEUT (AUTO) 3.8 10^3/uL (1.7-8.2); BASOPHILS % (AUTO) 0.6 % (0-2); EOSINOPHILS % (AUTO) 2.7 % (0-6); HEMOGLOBIN 11.2 g/dL (13.5-17.0); LYMPHOCYTES % (AUTO) 47.6 % (13-45); MEAN CORPUSCULAR HEMOGLOBIN 32.5 pg (27.0-33.4); MEAN CORPUSCULAR VOLUME 96 fl (80-97); MONOCYTES % (AUTO) 7.5 % (3-13); PLATELET COUNT 232 10^3/uL (150-450); RED BLOOD COUNT 3.45 10^6/uL (4.35-5.55); RED CELL DISTRIBUTION WIDTH 14.1 % (11.5-14.0); SEGMENTED NEUTROPHILS % (AUTO) 41.6 % (42-78); TOTAL CELLS COUNTED % (AUTO) 100 %
[2018-06-16] MEDS ORDERED: LANSOPRAZOLE 30 MG TAB.RAP.DR PO SCH (06:00)
[2018-06-16 06:19] LABS: BLOOD UREA NITROGEN 23 mg/dL (7-20); CALCIUM 9.3 mg/dL (8.4-10.2); CARBON DIOXIDE 29 mmol/L (22-30); CHLORIDE 109 mmol/L (98-107); GLUCOSE 101 mg/dL (75-110); POTASSIUM 4.6 mmol/L (3.6-5.0); SODIUM 146.2 mmol/L (137-145)
[2018-06-16 06:20] LABS: ANION GAP 8 (5-19); CHOLESTEROL 105.26 mg/dL (0-200); CREATINE KINASE 45 U/L (55-170); TRIGLYCERIDES 156 mg/dL (<150)
[2018-06-16 06:25] LABS: CREATINE KINASE MB 1.27 ng/mL (<4.55); TROPONIN I 0.114 ng/mL
[2018-06-16 06:30] LABS: DIRECT LDL 41 mg/dL (<100)
[2018-06-16 06:33] LABS: VLDL CHOLESTEROL 31.2 mg/dL (10-31)
--- NOTE | 2018-06-16 06:52 | EKG REPORT ---
SEVERITY:- ABNORMAL ECG - SINUS RHYTHM FIRST DEGREE AV BLOCK LVH : Confirmed by: Morro Scott 16-Jun-2018 06:51:13
[2018-06-16] MEDS: MORPHINE SULFATE 10 MG/ML INJ IV PRN ×2 (08:48→12:01)
[2018-06-16] MEDS ORDERED: ONDANSETRON 4 MG TAB.RAPDIS PO PRN (09:00)
[2018-06-16] MEDS ORDERED: ONDANSETRON HCL INJ/PF 4 MG/2 ML SDV IV PRN (09:00)
[2018-06-16] MEDS ORDERED: NITROGLYCERIN 2% OINTMENT 1 GM PACKET TP ONE (09:11)
[2018-06-16] MEDS ORDERED: NITROGLYCERIN 2% OINTMENT 1 GM PACKET ONE (09:32)
[2018-06-16] MEDS: CITALOPRAM HYDROBROMIDE 20 MG TABLET PO SCH (09:36)
[2018-06-16] MEDS: AMLODIPINE BESYLATE 10 MG TABLET PO SCH (09:36)
[2018-06-16] MEDS: ALLOPURINOL 100 MG TABLET PO SCH (09:36)
[2018-06-16] MEDS: ASPIRIN 325 MG TABLET, ENT COATED PO SCH (09:36)
[2018-06-16] MEDS: ENOXAPARIN SODIUM INJ 100 MG/1 ML DISP.SYRIN SUBCUT SCH ×2 (09:36→22:18)
[2018-06-16] MEDS: CARVEDILOL 12.5 MG TABLET PO SCH ×2 (09:42→22:17)
[2018-06-16] MEDS ORDERED: ENOXAPARIN SODIUM INJ 40 MG/0.4 ML DISP.SYRIN SUBCUT SCH (10:00)
[2018-06-16] MEDS ORDERED: LOSARTAN POTASSIUM 50 MG TABLET PO SCH (10:00)
[2018-06-16] MEDS ORDERED: (PENDING PHARMACY ID) (Losartan/Hydrochlorothiazide [Losartan-Hctz 100-25 Mg Tab] 1 EACH) PO SCH (10:00)
[2018-06-16] MEDS ORDERED: HYDROCHLOROTHIAZIDE 25 MG TABLET PO SCH (10:00)
[2018-06-16] MEDS ORDERED: CLOPIDOGREL BISULFATE 300 MG TABLET PO ONE (12:00)
[2018-06-16] MEDS: PANTOPRAZOLE SODIUM 40 MG VIAL IV SCH ×2 (12:00→22:18)
[2018-06-16 12:47] LABS: CREATINE KINASE MB 1.26 ng/mL (<4.55); TROPONIN I 0.111 ng/mL
[2018-06-16] MEDS: RANOLAZINE 500 MG TAB.SR.12H PO SCH (18:36)
[2018-06-16] MEDS: INSULIN LISPRO 100 UNIT/ML 3 ML VIAL SUBCUT PRN ×2 (18:36→22:18)
--- NOTE | 2018-06-16 18:37 | PDOC PROGRESS REPORT ---
Subjective Progress Note for:: 06/16/18 Subjective:: The patient is a 68-year-old male with a past medical history of PAF, hyperlipidemia, hypertension, DM 2, GERD, arthritis, gout, and depression who was admitted on 06/15/18 for chest pain. The patient is seen on morning rounds with his family present. He is noted to be sitting upright on bed on room air. He reports continued intermittent left chest wall pain radiating to his left shoulder and neck. He denies alleviating or exacerbating factors. He endorses slight dyspnea and nausea during chest pain episodes. He has no other questions or concerns. No concerns per nursing. Reason For Visit: CHEST PAIN Physical Exam Vital Signs: Temp Pulse Resp BP Pulse Ox 97.9 F 64 18 136/49 H 98 06/16/18 15:11 06/16/18 15:11 06/16/18 15:11 06/16/18 15:11 06/16/18 15:11 Intake & Output 06/15/18 06/16/18 06/17/18 06:59 06:59 06:59 Intake Total 1109 Output Total 975 Balance 134 Weight 105.6 kg General appearance: PRESENT: no acute distress, cooperative - Pleasant, obese, well-developed, well-nourished Head exam: PRESENT: atraumatic, normocephalic Eye exam: PRESENT: conjunctiva pink, EOMI, PERRLA. ABSENT: scleral icterus Ear exam: PRESENT: normal external ear exam Mouth exam: PRESENT: moist, tongue midline Neck exam: ABSENT: carotid bruit, JVD, lymphadenopathy, thyromegaly Respiratory exam: PRESENT: clear to auscultation wyatt, symmetrical, unlabored. ABSENT: rales, rhonchi, wheezes Cardiovascular exam: PRESENT: RRR, +S1, +S2. ABSENT: diastolic murmur, rubs, systolic murmur Pulses: PRESENT: normal dorsalis pedis pul Vascular exam: PRESENT: normal capillary refill GI/Abdominal exam: PRESENT: normal bowel sounds, soft. ABSENT: distended, guarding, mass, organolmegaly, rebound, tenderness Rectal exam: PRESENT: deferred Extremities exam: PRESENT: full ROM. ABSENT: calf tenderness, clubbing, pedal edema Neurological exam: PRESENT: alert, awake, oriented to person, oriented to place , oriented to time, oriented to situation, CN II-XII grossly intact. ABSENT: motor sensory deficit Psychiatric exam: PRESENT: appropriate affect, normal mood. ABSENT: homicidal ideation, suicidal ideation Skin exam: PRESENT: dry, intact, warm. ABSENT: cyanosis, rash Results Laboratory Results: 06/16/18 05:28 06/16/18 05:28 06/16/18 06/16/18 05:28 05:28 WBC 9.0 RBC 3.45 L Hgb 11.2 L Hct 33.0 L MCV 96 MCH 32.5 MCHC 34.0 RDW 14.1 H Plt Count 232 Seg Neutrophils % 41.6 L Lymphocytes % 47.6 H Monocytes % 7.5 Eosinophils % 2.7 Basophils % 0.6 Absolute Neutrophils 3.8 Absolute Lymphocytes 4.3 Absolute Monocytes 0.7 Absolute Eosinophils 0.2 Absolute Basophils 0.1 Sodium 146.2 H Potassium 4.6 Chloride 109 H Carbon Dioxide 29 Anion Gap 8 BUN 23 H Creatinine 1.22 Est GFR ( Amer) > 60 Est GFR (Non-Af Amer) 59 L Glucose 101 Calcium 9.3 Triglycerides 156 H Cholesterol 105.26 LDL Cholesterol Direct 41 VLDL Cholesterol 31.2 H HDL Cholesterol 32 L 06/15/18 06/15/18 06/16/18 23:24 23:24 05:28 Creatine Kinase 51 L 45 L CK-MB (CK-2) 1.19 Troponin I 0.111 06/16/18 06/16/18 06/16/18 05:28 11:35 11:35 Creatine Kinase 47 L CK-MB (CK-2) 1.27 1.26 Troponin I 0.114 0.111 Impressions: Chest X-Ray 06/15/18 15:26 IMPRESSION: NO ACUTE RADIOGRAPHIC FINDING IN THE CHEST. Assessment & Plan - Diagnosis (1) Chest pain Qualifiers: Chest pain type: unspecified Qualified Code(s): R07.9 - Chest pain, unspecified Is this a current diagnosis for this admission?: Yes Plan: The patient was admitted with chest pain, rule out ACS. EKG demonstrated a first-degree block, no ST segment elevation or depression. Chest x-ray is benign. Troponins elevated; 0.051--> 0.094--> 0.111--> 0.114-> 0.111 He is admitted to the medical floor on continuous cardiac telemetry. He is placed on Plavix, full dose aspirin, and full dose Lovenox. Continue high-dose statin. Cardiology has been consulted; appreciate their evaluation recommendations. As needed nitroglycerin tabs and IV morphine as necessary for chest pain. (2) Hypertension Qualifiers: Hypertension type: essential hypertension Qualified Code(s): I10 - Essential (primary) hypertension Is this a current diagnosis for this admission?: Yes Plan: The patient's home medications amlodipine, carvedilol, losartan, and hydrochlorothiazide are continued. IV hydralazine as needed for blood pressure control. Cardiology has been consulted; appreciate their assistance. (3) Type 2 diabetes mellitus Qualifiers: Diabetes mellitus complication status: without complication Is this a current diagnosis for this admission?: Yes Plan: The patient is placed on a consistent carb diet. Accu-Cheks before meals and at bedtime with Humalog for sliding scale coverage. Hypoglycemia protocols are in place. Holding patient's metformin while inpatient. (4) Anxiety and depression Is this a current diagnosis for this admission?: Yes Plan: The patient's home dose Celexa is continued. (5) Gout Is this a current diagnosis for this admission?: No Plan: The patient's home dose of allopurinol is continued.
--- NOTE | 2018-06-16 18:58 | XCELERA REPORT ---
[address] [address] Transthoracic Echocardiogram Report Name: SAMPSON MAO Age: 68 yrs Gender: Male : 1950 Patient Status: Inpatient Patient Location: [address] [place] [address] Study Date: 06/16/2018 02:26 PM Procedure: A complete two-dimensional transthoracic echocardiogram was performed (2D, M-mode, spectral and color flow Doppler). The study was technically adequate with some images being suboptimal in quality. Reason For Study: chest pain and abnormal enzymes Ordering Physician: MORRO ADHIKARI Performed By: Kiesha Johnston Interpretation Summary The left ventricular ejection fraction is normal. Doppler measurements suggest pseudonormalized left ventricular relaxation, which is associated with grade II/IV or mild to moderate diastolic dysfunction There is mild to moderate concentric left ventricular hypertrophy. The left ventricle is grossly normal size. Wall motion cannot be accurately commented on, but no definite regional wall motion abnormalities noted. The right ventricular systolic function is normal. The right atrium is normal. The left atrial size is normal. There is a trace amount of mitral regurgitation There is no mitral valve stenosis. No aortic regurgitation is present. There is no aortic valve stenosis There is no tricuspid stenosis. No tricuspid regurgitation. The aortic root is not well visualized but is probably normal size. The inferior vena cava was not well visualized There is no pericardial effusion. MMode/2D Measurements & Calculations RVDd: 3.0 cm LVIDd: 5.2 cmFS: 38.8 % Ao root diam: 2.9 cm IVSd: 1.0 cm LVIDs: 3.2 cmEDV(Teich): 131.5 ml Ao root area: 6.7 cm2 LVPWd: 1.1 cmESV(Teich): 41.1 ml EF(Teich): 68.7 % LVOT diam: 1.6 cm LVOT area: 2.0 cm2 Doppler Measurements & Calculations MV E max merritt: MV dec slope: Ao V2 max: LV V1 max P.4 cm/sec 136.8 cm/sec 2.7 mmHg MV A max merritt: 277.1 cm/sec2 Ao max PG: LV V1 max: 73.4 cm/sec MV dec time: 7.5 mmHg 81.8 cm/sec MV E/A: 0.95 0.25 sec SUSANNA(V,D): 1.2 cm2 PA V2 max: 128.9 cm/sec PA max P.6 mmHg Left Ventricle The left ventricle is grossly normal size. There is mild to moderate concentric left ventricular hypertrophy. The left ventricular ejection fraction is normal. Doppler measurements suggest pseudonormalized left ventricular relaxation, which is associated with grade II/IV or mild to moderate diastolic dysfunction. Wall motion cannot be accurately commented on, but no definite regional wall motion abnormalities noted. Right Ventricle The right ventricle is grossly normal size. There is normal right ventricular wall thickness. The right ventricular systolic function is normal. Atria The right atrium is normal. The left atrial size is normal. Interarterial septum not well visualized and not well dopplered. Cannot comment on ASD/PFO presence. Mitral Valve The mitral valve is grossly normal. There is no mitral valve stenosis. There is a trace amount of mitral regurgitation. Aortic Valve The aortic valve is grossly normal. There is no aortic valve stenosis. No aortic regurgitation is present. Tricuspid Valve The tricuspid valve is not well visualized, but is grossly normal. There is no tricuspid stenosis. No tricuspid regurgitation. Pulmonic Valve The pulmonic valve is not well visualized. Great Vessels The aortic root is not well visualized but is probably normal size. The inferior vena cava was not well visualized. Effusions There is no pericardial effusion. : MORRO ADHIKARI > Morro Adhikari
--- NOTE | 2018-06-16 19:52 | PDOC CONSULTATION ---
Consultation Consult Date: 06/16/18 Attending physician:: GABBY SCHULTE Consult reason:: Chest pain and abnormal troponin I History of Present Illness Admission Date/PCP: 06/15/18 22:50 GABBY SCHULTE MD Patient complains of: Chest pain History of Present Illness: SAMPSON MAO is a 68 year old -[place] male with history of multiple medical problems that would be mentioned below presented to the emergency room with acute onset of upper midsternal chest pain felt as pressure and graded 10/10 severity with radiation to his left arm and shoulder. He admitted to occasional periumbilical abdominal pain. He denies any nausea vomiting or diaphoresis dyspnea or palpitations with this pain. Denies any lower extremity edema or recent pain in his legs or recent travels or surgeries. He took 2 sublingual nitroglycerin at home and one in the emergency room followed by IV morphine sulfate before he had relief of his pain. He had an inch of Nitropaste placed. He was also given aspirin and Lovenox and a therapeutic dose. He denies any fever or chills, cough or wheezing or hemoptysis. No bleeding diathesis. When he came to the emergency room, vital signs were within normal. EKG showed normal sinus rhythm with a rate of 81 with probable LVH and early repolarization with minimally peaked T waves in V2 and T-wave inversion laterally. His labs were remarkable for mild hypernatremia and a BUN of 21. Initial set of cardiac enzymes come back with a troponin I of 0.051 and later 0.094 and 0.111. The patient will be admitted to an observation telemetry bed for further evaluation and management. This history obtained by the hospitalist was reviewed and confirmed. Patient denied any prior history of myocardial infarction, angina or congestive heart failure. Patient does however have significant cardiac risk factors. Patient denied any prior history of strokes or mini strokes. Patient does give history of snoring and waking up with snoring. Past Medical History Cardiac Medical History: Reports: Atrial Fibrillation - Paroxysmal, Hyperlipidema, Hypertension - no medications Denies: Congestive Heart Failure, DVT, Myocardial Infarction, Pulmonary Embolism Pulmonary Medical History: Denies: Asthma, Chronic Obstructive Pulmonary Disease (COPD), Tuberculosis Neurological Medical History: Denies: Seizures Endocrine Medical History: Reports: Diabetes Mellitus Type 2 - no medications Denies: Diabetes Mellitus Type 1, Hyperthyroidism, Hypothyroidism GI Medical History: Reports: Gastroesophageal Reflux Disease Denies: Cirrhosis, Hepatitis Musculoskeltal Medical History: Reports: Arthritis, Gout Skin Medical History: Denies: Eczema, Psoriasis Psychiatric Medical History: Reports: Depression Past Surgical History Past Surgical History: Reports: Carotid Endarterectomy - left- secondary to left carotid stenosis, Vascular Surgery - clot removal in neck March 2018 Denies: Pacemaker Social History Information Source: Patient Lives with: Family Smoking Status: Current Every Day Smoker Frequency of Alcohol Use: None Hx Recreational Drug Use: No Drugs: Marijuana Hx Prescription Drug Abuse: No - Advance Directive Resuscitation Status: Full Code Surrogate healthcare decision maker:: Patient's brother is the surrogate decision-maker Family History Family History: CAD, DM, Hypertension, Malignancy Parental Family History Reviewed: Yes Children Family History Reviewed: Yes Sibling(s) Family History Reviewed.: Yes Medication/Allergy Home Medications: Allopurinol [Zyloprim 100 mg Tablet] 100 mg PO DAILY 06/16/18 Amlodipine Besylate [Norvasc 10 mg Tablet] 10 mg PO DAILY 06/16/18 Aspirin [Aspirin 81 mg Chewable Tablet] 81 mg PO DAILY 06/16/18 Atorvastatin Calcium [Lipitor 80 mg Tablet] 80 mg PO QHS 06/16/18 Carvedilol [Coreg 12.5 mg Tablet] 12.5 mg PO Q12 06/16/18 Citalopram Hydrobromide [Celexa 20 mg Tablet] 20 mg PO DAILY 06/16/18 Ergocalciferol (Vitamin D2) [Vitamin D2] 50,000 unit PO MO@1000 06/16/18 Glipizide [Glucotrol 10 mg Tablet] 10 mg PO QAM 06/16/18 Losartan/Hydrochlorothiazide [Losartan-Hctz 100-25 mg Tab] 1 each PO DAILY 06/16 Metformin HCl [Glucophage] 1,000 mg PO BIDBS 06/16/18 Nitroglycerin [Nitrostat 0.4 mg (1/150 Gr) Tabs 25/Bottle] 1 tab SL Q5MP PRN 04/28 Aspirin 81 mg PO DAILY #30 tab.chew 06/20/18 Clopidogrel Bisulfate [Plavix 75 mg Tablet] 75 mg PO DAILY #30 tablet 06/20/18 Insulin Admin. Supplies [Inpen (For Humalog)] 1 each SQ ACHS #1 insuln.pen 08/10 /18 Isosorbide Mononitrate [Imdur 60 mg Tablet.er] 60 mg PO DAILY #30 tab.er.24h 08/28 Metoprolol Succinate [Toprol Xl 25 mg Tab.sr] 25 mg PO Q12 #60 tab.sr.24h Ranolazine [Ranexa 500 mg Tab.sr] 500 mg PO BID #60 tab.sr.12h 06/20/18 Allergies/Adverse Reactions: No Known Drug Allergies Allergy (Unknown, Verified 06/15/18 20:31) Raspberries Allergy (Mild, Uncoded 06/16/18 09:28) Hives Review of Systems Review of Systems: Please see history of present illness and past medical history as wall. Constitutional: No fever or chills reported. Head : No recent chronic headaches, recent head injury. Eyes: No recent eye pain, diplopia, redness, discharge, acute visual changes. Ears: No recent chronic ear pain, acute hearing loss, ear discharge. Oral cavity: No recent ulcerations, bleeding, oral cavity discomfort. Describes intermittent left-sided jaw pain. Neck: No recent acute neck pain reported. Hematologic: No recent easy bruising or bleeding. Lymphatic: No recent lymph node enlargement reported. Cardiovascular system review: See history of present illness. Respiratory system review: No hemoptysis or blood clots in the lungs reported. Mild Shortness of breath on exertion Gastrointestinal system review: Negative for any recent acute hematemesis, melena. Genitourinary system review: No recent acute or chronic hematuria, flank pain, UTI etc. reported. Skin system review: Negative for any recent abnormal bruising, no rash, no pruritus reported. Neurologic: No prior history of strokes, mini strokes, seizure disorder. History of carotid endarterectomy Psychologic: No history of major psychosis or major depression reported. Musculoskeletal: Minor aches and pains reported. No acute joint swelling reported. Endocrine: No recent polyuria, polydipsia, recent heat or cold intolerance. Physical Exam Vital Signs: Temp Pulse Resp BP Pulse Ox 97.9 F 65 18 136/49 H 98 06/16/18 15:11 06/16/18 19:00 06/16/18 15:11 06/16/18 15:11 06/16/18 15:11 Intake & Output 06/15/18 06/16/18 06/17/18 06:59 06:59 06:59 Intake Total 2109 Output Total 975 Balance 1134 Weight 105.6 kg Exam: GENERAL: well-nourished and in no acute distress. Alert and oriented x3 HEAD: Atraumatic, normocephalic. EYES: Pupils equal round and reactive to light, extraocular movements intact, sclera anicteric, conjunctiva are normal. ENT: TMs normal, nares patent, oropharynx clear without exudates. Moist mucous membranes. No oral ulcerations or bleeding gums noted NECK: supple without lymphadenopathy. Trachea is central. No cervical or axillary lymphadenopathy noted. Carotids are 2+, JVD WNL LUNGS: Respiration seems nonlabored, no significant accessory muscle action noted. Breath sounds clear to auscultation bilaterally and equal noted. No wheezes rales or rhonchi noted. No significant dullness noted on percussion. CHEST: Palpation of the chest wall left upper chest wall significant tenderness. 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 ABDOMEN: Soft, no significant tenderness appreciated, normoactive bowel sounds. No guarding, no rebound. No rigidity noted . No masses appreciated. EXTREMITIES: Pedal pulses are 1-2+, no calf tenderness noted. No clubbing or cyanosis. negative pedal edema noted NEUROLOGICAL: Focused neurological exam showed no significant neurologic deficit. Normal speech, no focal weakness appreciated. PSYCH: Normal mood, normal affect. Judgment and insight within normal limits. SKIN: No significant ecchymosis, skin is noted to be warm. MUSCULOSKELETAL EXAM: No significant acute joint swelling noted. Results Laboratory Results: 06/16/18 05:28 06/16/18 05:28 06/16/18 06/16/18 05:28 05:28 WBC 9.0 RBC 3.45 L Hgb 11.2 L Hct 33.0 L MCV 96 MCH 32.5 MCHC 34.0 RDW 14.1 H Plt Count 232 Seg Neutrophils % 41.6 L Lymphocytes % 47.6 H Monocytes % 7.5 Eosinophils % 2.7 Basophils % 0.6 Absolute Neutrophils 3.8 Absolute Lymphocytes 4.3 Absolute Monocytes 0.7 Absolute Eosinophils 0.2 Absolute Basophils 0.1 Sodium 146.2 H Potassium 4.6 Chloride 109 H Carbon Dioxide 29 Anion Gap 8 BUN 23 H Creatinine 1.22 Est GFR ( Amer) > 60 Est GFR (Non-Af Amer) 59 L Glucose 101 Calcium 9.3 Triglycerides 156 H Cholesterol 105.26 LDL Cholesterol Direct 41 VLDL Cholesterol 31.2 H HDL Cholesterol 32 L 06/15/18 06/15/18 06/16/18 23:24 23:24 05:28 Creatine Kinase 51 L 45 L CK-MB (CK-2) 1.19 Troponin I 0.111 06/16/18 06/16/18 06/16/18 05:28 11:35 11:35 Creatine Kinase 47 L CK-MB (CK-2) 1.27 1.26 Troponin I 0.114 0.111 EKG Comments: Sinus rhythm, LVH with secondary ST-T wave changes Impressions: Chest X-Ray 06/15/18 15:26 IMPRESSION: NO ACUTE RADIOGRAPHIC FINDING IN THE CHEST. Assessment & Plan - Diagnosis (1) Elevated troponin Is this a current diagnosis for this admission?: Yes (2) Acute coronary syndrome Is this a current diagnosis for this admission?: Yes (3) Carotid artery stenosis Qualifiers: Laterality: unspecified laterality Qualified Code(s): I65.29 - Occlusion and stenosis of unspecified carotid artery Is this a current diagnosis for this admission?: Yes (4) Hypertension Qualifiers: Hypertension type: essential hypertension Qualified Code(s): I10 - Essential (primary) hypertension Is this a current diagnosis for this admission?: Yes (5) Chest pain Qualifiers: Chest pain type: unspecified Qualified Code(s): R07.9 - Chest pain, unspecified Is this a current diagnosis for this admission?: Yes (6) Diabetes mellitus type 2 in nonobese Is this a current diagnosis for this admission?: Yes (7) Tobacco dependency Is this a current diagnosis for this admission?: Yes - Notes Notes: Medical management of presumed underlying CAD is being optimized. Ischemia evaluation is in order when patient becomes more stable. 2D echo obtained shows LVH, mild to moderate, normal LVEF. In the meantime patient will be treated as acute coronary syndrome. Elevated troponin I: Most likely related to acute coronary syndrome and cardiac ischemia. Treat aggressively with aspirin, Plavix, Lovenox, beta-blockers, ELVIE inhibitors. If troponin I trend towards non-STEMI, will consider transfer to tertiary care for heart catheterization. Acute coronary syndrome: Patient to be treated as discussed above. History of carotid artery stenosis: Continue antiplatelet and ask statin therapy. Patient advised risk factor modification. Hypertension: Blood pressure goal should be 135/85 or less in this gentleman. Diabetes: Recommend good control of blood sugar but avoid any hypo-or hyperglycemia. Tobacco dependency: Patient had been advised to quit smoking. 2D echocardiogram has been ordered for risk stratification. - Time Time Spent: 30 to 50 Minutes - CODE STATUS was discussed, patient remains full code. Surrogate decision-maker unchanged. Multiple medical problems were addressed. More than 50% of the time spent coordinating care, discussing management plans with involved caregivers. Management plans discussed with involved personnels. Medical decision making was of moderate to high complexity , patient's has multiple comorbidities. Medications reviewed and adjusted accordingly: Yes
[2018-06-16] MEDS: ATORVASTATIN CALCIUM 80 MG TABLET PO SCH (22:17)
[2018-06-17] MEDS ORDERED: LANSOPRAZOLE 30 MG TAB.RAP.DR PO SCH (06:00)
[2018-06-17] MEDS: MORPHINE SULFATE 10 MG/ML INJ IV PRN (07:14)
[2018-06-17] MEDS: ENOXAPARIN SODIUM INJ 100 MG/1 ML DISP.SYRIN SUBCUT SCH ×2 (10:18→21:49)
[2018-06-17] MEDS: ASPIRIN 325 MG TABLET, ENT COATED PO SCH (10:19)
[2018-06-17] MEDS: CARVEDILOL 12.5 MG TABLET PO SCH ×2 (10:19→21:44)
[2018-06-17] MEDS: AMLODIPINE BESYLATE 10 MG TABLET PO SCH (10:19)
[2018-06-17] MEDS: ALLOPURINOL 100 MG TABLET PO SCH (10:19)
[2018-06-17] MEDS: CITALOPRAM HYDROBROMIDE 20 MG TABLET PO SCH (10:20)
[2018-06-17] MEDS: CLOPIDOGREL BISULFATE 75 MG TABLET PO SCH (10:20)
[2018-06-17] MEDS: RANOLAZINE 500 MG TAB.SR.12H PO SCH ×2 (10:41→18:58)
[2018-06-17] MEDS: PANTOPRAZOLE SODIUM 40 MG VIAL IV SCH ×2 (10:42→21:51)
--- NOTE | 2018-06-17 12:03 | Physician Advisory Note ---
Physician Advisor ProgressNote .: Pursuant to the plan for Hailey Ramírez, I have reviewed the medical record for this patient. Physician Advisor Statement: Please consider documenting, if you agree: 1. Type of ACS - NSTEMI? Which coronary artery most likely? - Please clarify ACS - avoid stating "rule out ACS", since that leads payers to assume the ACS has been "ruled out" & deny the pt had this dx. 2. "Hypernatremia, likely due to " (state if acute or chronic, likely cause - HCTZ? ...) 3. "anemia" - acute or chronic, likely cause (chronic bld loss? nutritional __ _ defic?) Status: approp'ly brought in as Obs w/CP. Medicare pt, still having CP/SOB/N sx on PM after coming in, despite tx -> cashier manager put on Plavix & then added Ranexa in PM, planning further eval "when pt becomes more stable". Not yet considered safe for d/c, so 2nd MN needed in hospital. Appropriate for change to Inpatient status as of 06/16 PM. Thanks! CK
[2018-06-17] MEDS: INSULIN LISPRO 100 UNIT/ML 3 ML VIAL SUBCUT PRN ×2 (14:18→23:07)
[2018-06-17] MEDS: ATORVASTATIN CALCIUM 80 MG TABLET PO SCH (21:44)
--- NOTE | 2018-06-17 21:47 | PDOC PROGRESS REPORT ---
Subjective Progress Note for:: 06/17/18 Subjective:: The patient is a 68-year-old male with a past medical history of PAF, hyperlipidemia, hypertension, DM 2, GERD, arthritis, gout, and depression who was admitted on 06/15/18 for chest pain. The patient is seen on morning rounds with his family present. He is noted to be sitting upright on bed on room air. He reports continued intermittent left chest wall pain radiating to his left shoulder and neck - occurring when ambulating in his room. The patient states his pain is relieved with rest. ECHOcardiogram completed, demonstrates normal LVEF, no other outstanding findings. Patient is currently waiting for stress test. Reason For Visit: CHEST PAIN Physical Exam Vital Signs: Temp Pulse Resp BP Pulse Ox 98.1 F 56 L 17 141/56 H 97 06/17/18 15:17 06/17/18 15:17 06/17/18 15:17 06/17/18 15:17 06/17/18 15:17 Intake & Output 06/16/18 06/17/18 06/18/18 06:59 06:59 06:59 Intake Total 620 Output Total 1050 Balance -430 General appearance: PRESENT: no acute distress, well-developed Eye exam: PRESENT: conjunctiva pink, PERRLA Mouth exam: PRESENT: moist Teeth exam: PRESENT: poor dentation Neck exam: PRESENT: full ROM Respiratory exam: PRESENT: chest wall tenderness, symmetrical, unlabored Cardiovascular exam: PRESENT: +S1, +S2 Pulses: PRESENT: normal radial pulses, normal dorsalis pedis pul Vascular exam: PRESENT: normal capillary refill GI/Abdominal exam: PRESENT: normal bowel sounds, soft. ABSENT: tenderness Rectal exam: PRESENT: deferred Extremities exam: PRESENT: full ROM. ABSENT: pedal edema Musculoskeletal exam: PRESENT: ambulatory, full ROM Neurological exam: PRESENT: alert, awake, oriented to person, oriented to place , oriented to time, oriented to situation Psychiatric exam: PRESENT: appropriate affect Skin exam: PRESENT: dry, intact, normal color Results Impressions: Chest X-Ray 06/15/18 15:26 IMPRESSION: NO ACUTE RADIOGRAPHIC FINDING IN THE CHEST. Status: Imported from PACS Assessment & Plan - Diagnosis (1) Chest pain Qualifiers: Chest pain type: unspecified Qualified Code(s): R07.9 - Chest pain, unspecified Is this a current diagnosis for this admission?: Yes Plan: The patient was admitted with chest pain EKG demonstrated a first-degree block, no ST segment elevation or depression. Chest x-ray is benign. Troponins elevated; 0.051--> 0.094--> 0.111--> 0.114-> 0.111 No longer trending He is admitted to the medical floor on continuous cardiac telemetry. He is placed on Plavix, full dose aspirin, and full dose Lovenox. Continue high-dose statin. Cardiology has been consulted; recommend preforming a stress test As needed nitroglycerin tabs and IV morphine as necessary for chest pain. (2) Hypertension Qualifiers: Hypertension type: essential hypertension Qualified Code(s): I10 - Essential (primary) hypertension Is this a current diagnosis for this admission?: Yes Plan: The patient is placed on a consistent carb diet. Accu-Cheks before meals and at bedtime with Humalog for sliding scale coverage. Hypoglycemia protocols are in place. Holding patient's metformin while inpatient. (3) Anxiety and depression Is this a current diagnosis for this admission?: Yes Plan: The patient's home dose Celexa is continued. (4) Gout Is this a current diagnosis for this admission?: Yes Plan: The patient's home dose of allopurinol is continued. (5) Diabetes mellitus type 2 in nonobese Is this a current diagnosis for this admission?: Yes Plan: The patient is placed on a consistent carb diet. Accu-Cheks before meals and at bedtime with Humalog for sliding scale coverage. Hypoglycemia protocols are in place. Holding patient's metformin while inpatient. - Time Time Spent with patient: 15-24 minutes Medications reviewed and adjusted accordingly: Yes Anticipated discharge: Home Within: within 24 hours - Inpatient Certification Based on my medical assessment, after consideration of the patient's comorbidities, presenting symptoms, or acuity I expect that the services needed warrant INPATIENT care.: Yes I certify that my determination is in accordance with my understanding of Medicare's requirements for reasonable and necessary INPATIENT services [42 CFR 412.3e].: Yes Medical Necessity: Risk of Complication if Not Cared For in Hospital - Plan Summary Plan Summary: stress test tomorrow
--- NOTE | 2018-06-17 22:48 | PDOC PROGRESS REPORT ---
Subjective Progress Note for:: 06/17/18 Subjective:: chest pain improved. Patient seems to be doing better with gradual improvement. Pt is denying any chest arm or neck discomfort. Patient denying any PND, orthopnea. Patient denied any sustained palpitations, dizziness, syncope, near syncope. Patient denying any fever chills. Patient denying any other significant discomfort. Patient is maintaining sinus rhythm. Review of systems: Rest review of systems negative. Medications: Medications have been reviewed. Reason For Visit: CHEST PAIN Physical Exam Vital Signs: Temp Pulse Resp BP Pulse Ox 98.1 F 56 L 17 141/56 H 97 06/17/18 15:17 06/17/18 15:17 06/17/18 15:17 06/17/18 15:17 06/17/18 15:17 Intake & Output 06/16/18 06/17/18 06/18/18 06:59 06:59 06:59 Intake Total 620 Output Total 1050 Balance -430 Exam: GENERAL: well-nourished and in no acute distress. Alert and oriented x3 HEAD: Atraumatic, normocephalic. EYES: Pupils equal round and reactive to light, extraocular movements intact, sclera anicteric, conjunctiva are normal. ENT: TMs normal, nares patent, oropharynx clear without exudates. Moist mucous membranes. No oral ulcerations or bleeding gums noted NECK: supple without lymphadenopathy. Trachea is central. No cervical or axillary lymphadenopathy noted. Carotids are 2+, JVD WNL LUNGS: Respiration seems nonlabored, no significant accessory muscle action noted. Breath sounds clear to auscultation bilaterally and equal noted. No wheezes rales or rhonchi noted. No significant dullness noted on percussion. CHEST: Palpation of the chest wall shows left upper chest significant chest wall tenderness. 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 ABDOMEN: Soft, no significant tenderness appreciated, normoactive bowel sounds. No guarding, no rebound. No rigidity noted . No masses appreciated. EXTREMITIES: Pedal pulses are 1-2+, no calf tenderness noted. No clubbing or cyanosis. negative pedal edema noted NEUROLOGICAL: Focused neurological exam showed no significant neurologic deficit. Normal speech, no focal weakness appreciated. PSYCH: Normal mood, normal affect. Judgment and insight within normal limits. SKIN: No significant ecchymosis, skin is noted to be warm. MUSCULOSKELETAL EXAM: No significant acute joint swelling noted. Results EKG Comments: Telemetry strips shows sinus rhythm without any sustained tachycardia or bradycardia. Impressions: Chest X-Ray 06/15/18 15:26 IMPRESSION: NO ACUTE RADIOGRAPHIC FINDING IN THE CHEST. Assessment & Plan - Diagnosis (1) Elevated troponin Is this a current diagnosis for this admission?: Yes (2) Acute coronary syndrome Is this a current diagnosis for this admission?: Yes (3) Carotid artery stenosis Qualifiers: Laterality: unspecified laterality Qualified Code(s): I65.29 - Occlusion and stenosis of unspecified carotid artery Is this a current diagnosis for this admission?: Yes (4) Hypertension Qualifiers: Hypertension type: essential hypertension Qualified Code(s): I10 - Essential (primary) hypertension Is this a current diagnosis for this admission?: Yes (5) Chest pain Qualifiers: Chest pain type: unspecified Qualified Code(s): R07.9 - Chest pain, unspecified Is this a current diagnosis for this admission?: Yes (6) Diabetes mellitus type 2 in nonobese Is this a current diagnosis for this admission?: Yes (7) Tobacco dependency Is this a current diagnosis for this admission?: Yes - Notes Notes: NST in am. LVEF wnl Elevated troponin I: Most likely related to acute coronary syndrome and cardiac ischemia. Treat aggressively with aspirin, Plavix, Lovenox, beta-blockers, ELVIE inhibitors. If troponin I trend towards non-STEMI, will consider transfer to tertiary care for heart catheterization, with a view to perform coronary revascularization. However patient has improved. We will therefore schedule patient for a nuclear stress test. 2D echo results were discussed. It shows normal LVEF, mild LVH, no definite wall motion of mellitus noted. Acute coronary syndrome: Patient to be treated as discussed above. History of carotid artery stenosis: Continue antiplatelet and ask statin therapy. Patient advised risk factor modification. Hypertension: Blood pressure goal should be 135/85 or less in this gentleman. Diabetes: Recommend good control of blood sugar but avoid any hypo-or hyperglycemia. Tobacco dependency: Patient had been advised to quit smoking. 2D echocardiogram results reviewed with the patient in detail.. - Time Time with patient: Greater than 35 minutes - Nuclear stress test, risk benefits were discussed. Management plans of presumed unstable angina, acute coronary syndrome discussed. Patient understands the risk benefits of various approach. More than 50% of the time spent coordinating care, discussing management plans with involved caregivers. Management plans discussed with involved personnels. Medical decision making was of moderate to high complexity, patient's has multiple comorbidities. Medications reviewed and adjusted accordingly: Yes
[2018-06-18] MEDS: CITALOPRAM HYDROBROMIDE 20 MG TABLET PO SCH (09:44)
[2018-06-18] MEDS: CLOPIDOGREL BISULFATE 75 MG TABLET PO SCH (09:45)
[2018-06-18] MEDS: ENOXAPARIN SODIUM INJ 100 MG/1 ML DISP.SYRIN SUBCUT SCH ×2 (09:45→21:54)
[2018-06-18] MEDS: ASPIRIN 325 MG TABLET, ENT COATED PO SCH (09:45)
[2018-06-18] MEDS: RANOLAZINE 500 MG TAB.SR.12H PO SCH ×2 (09:46→18:21)
[2018-06-18] MEDS: ALLOPURINOL 100 MG TABLET PO SCH (09:47)
[2018-06-18] MEDS: CARVEDILOL 12.5 MG TABLET PO SCH ×2 (09:47→21:49)
[2018-06-18] MEDS: AMLODIPINE BESYLATE 10 MG TABLET PO SCH (09:47)
[2018-06-18] MEDS: PANTOPRAZOLE SODIUM 40 MG VIAL IV SCH ×2 (09:54→21:51)
[2018-06-18] MEDS ORDERED: ERGOCALCIFEROL (VITAMIN D2) 50000 UNIT (1.25 MG) CAPSULE PO SCH (10:00)
[2018-06-18] MEDS: ISOSORBIDE MONONITRATE 60 MG TAB.ER.24H PO SCH (15:27)
--- NOTE | 2018-06-18 16:16 | PDOC PROGRESS REPORT ---
Subjective Progress Note for:: 06/18/18 Subjective:: The patient is a 68-year-old male with a past medical history of PAF, hyperlipidemia, hypertension, DM 2, GERD, arthritis, gout, and depression who was admitted on 06/15/18 for chest pain. The patient is seen on morning rounds with his family present. He is noted to be sitting upright on bed on room air. He reports continued intermittent left chest wall pain radiating to his left shoulder and neck. The patient states he experiences this pain during physical exertion, his pain is relieved with rest. Stress test was planned for this morning but was put on hold due to continued chest pain. Consulted with Dr. Scott this morning, patient was started on PO Imdur. Patient is currently waiting for stress test. Reason For Visit: CHEST PAIN Physical Exam Vital Signs: Temp Pulse Resp BP Pulse Ox 98.0 F 59 L 15 177/70 H 98 06/18/18 10:58 06/18/18 10:58 06/18/18 10:58 06/18/18 10:58 06/18/18 10:58 Intake & Output 06/17/18 06/18/18 06/19/18 06:59 06:59 06:59 Intake Total 620 Output Total 1051 Balance -431 Weight 108.1 kg General appearance: PRESENT: no acute distress, well-developed, well-nourished Head exam: PRESENT: atraumatic, normocephalic Eye exam: PRESENT: conjunctiva pink, EOMI, PERRLA. ABSENT: scleral icterus Ear exam: PRESENT: normal external ear exam Mouth exam: PRESENT: moist, tongue midline Neck exam: ABSENT: carotid bruit, JVD, lymphadenopathy, thyromegaly Respiratory exam: PRESENT: clear to auscultation wyatt. ABSENT: rales, rhonchi, wheezes Cardiovascular exam: PRESENT: RRR. ABSENT: diastolic murmur, rubs, systolic murmur Pulses: PRESENT: normal dorsalis pedis pul Vascular exam: PRESENT: normal capillary refill GI/Abdominal exam: PRESENT: normal bowel sounds, soft. ABSENT: distended, guarding, mass, organolmegaly, rebound, tenderness Rectal exam: PRESENT: deferred Extremities exam: PRESENT: full ROM. ABSENT: calf tenderness, clubbing, pedal edema Neurological exam: PRESENT: alert, awake, oriented to person, oriented to place , oriented to time, oriented to situation Psychiatric exam: PRESENT: appropriate affect, normal mood Skin exam: PRESENT: dry, intact, warm. ABSENT: cyanosis, rash Results Impressions: Chest X-Ray 06/15/18 15:26 IMPRESSION: NO ACUTE RADIOGRAPHIC FINDING IN THE CHEST. Status: Imported from PACS Assessment & Plan - Diagnosis (1) Chest pain Qualifiers: Chest pain type: unspecified Qualified Code(s): R07.9 - Chest pain, unspecified Is this a current diagnosis for this admission?: Yes Plan: The patient was admitted with chest pain EKG demonstrated a first-degree block, no ST segment elevation or depression. Chest x-ray is benign. Troponins elevated; 0.051--> 0.094--> 0.111--> 0.114-> 0.111 No longer trending He is admitted to the medical floor on continuous cardiac telemetry. He is placed on Plavix, full dose aspirin, and full dose Lovenox. Continue high-dose statin Cardiology has been consulted; patient is currently waiting for a stress test Initiated Imdur PO today for continued chest pain As needed nitroglycerin tabs and IV morphine as necessary for chest pain. (2) Hypertension Qualifiers: Hypertension type: essential hypertension Qualified Code(s): I10 - Essential (primary) hypertension Is this a current diagnosis for this admission?: Yes Plan: The patient's home medications amlodipine, carvedilol, losartan, and hydrochlorothiazide are continued. IV hydralazine as needed for blood pressure control. Cardiology has been consulted; appreciate their assistance. (3) Anxiety and depression Is this a current diagnosis for this admission?: Yes Plan: The patient's home dose Celexa is continued. (4) Gout Is this a current diagnosis for this admission?: Yes Plan: The patient's home dose of allopurinol is continued. (5) Diabetes mellitus type 2 in nonobese Is this a current diagnosis for this admission?: Yes Plan: Consistent carb diet. Accu-Cheks before meals and at bedtime with Humalog for sliding scale coverage. Hypoglycemia protocols are in place. Holding patient's metformin while inpatient. - Time Time Spent with patient: 15-24 minutes Medications reviewed and adjusted accordingly: Yes Anticipated discharge: Home - Inpatient Certification Based on my medical assessment, after consideration of the patient's comorbidities, presenting symptoms, or acuity I expect that the services needed warrant INPATIENT care.: Yes I certify that my determination is in accordance with my understanding of Medicare's requirements for reasonable and necessary INPATIENT services [42 CFR 412.3e].: Yes Medical Necessity: Risk of Complication if Not Cared For in Hospital - Plan Summary Plan Summary: INITIATE IMDUR FOR BETTER CONTROL OF CHEST PAIN SYMPTOMS. PLAN FOR STRESS TEST TOMORROW.
[2018-06-18] MEDS: ATORVASTATIN CALCIUM 80 MG TABLET PO SCH (21:50)
[2018-06-18] MEDS: INSULIN LISPRO 100 UNIT/ML 3 ML VIAL SUBCUT PRN (22:47)
[2018-06-19] MEDS: INSULIN LISPRO 100 UNIT/ML 3 ML VIAL SUBCUT PRN ×3 (10:34→18:09)
[2018-06-19] MEDS: CITALOPRAM HYDROBROMIDE 20 MG TABLET PO SCH (10:34)
[2018-06-19] MEDS: CARVEDILOL 12.5 MG TABLET PO SCH (10:34)
[2018-06-19] MEDS: CLOPIDOGREL BISULFATE 75 MG TABLET PO SCH (10:35)
[2018-06-19] MEDS: ASPIRIN 325 MG TABLET, ENT COATED PO SCH (10:35)
[2018-06-19] MEDS: RANOLAZINE 500 MG TAB.SR.12H PO SCH ×2 (10:35→18:05)
[2018-06-19] MEDS: PANTOPRAZOLE SODIUM 40 MG VIAL IV SCH (10:35)
[2018-06-19] MEDS: ENOXAPARIN SODIUM INJ 100 MG/1 ML DISP.SYRIN SUBCUT SCH ×2 (10:35→21:56)
[2018-06-19] MEDS: AMLODIPINE BESYLATE 10 MG TABLET PO SCH (10:35)
[2018-06-19] MEDS: ISOSORBIDE MONONITRATE 60 MG TAB.ER.24H PO SCH (10:35)
[2018-06-19] MEDS: ALLOPURINOL 100 MG TABLET PO SCH (10:35)
[2018-06-19] MEDS: NITROGLYCERIN 0.4 MG/TAB 25 TAB/BOTTLE SL PRN ×2 (11:04→11:13)
[2018-06-19] MEDS ORDERED: REGADENOSON INJ 0.4 MG/5 ML DISP.SYRIN IV ONE (13:48)
[2018-06-19] MEDS ORDERED: CAFFEINE CITRATED INJ/PF 60 MG/3 ML SDV ONE (13:48)
--- NOTE | 2018-06-19 16:43 | PDOC PROGRESS REPORT ---
Subjective Progress Note for:: 06/19/18 Subjective:: The patient is a 68-year-old male with a past medical history of PAF, hyperlipidemia, hypertension, DM 2, GERD, arthritis, gout, and depression who was admitted on 06/15/18 for chest pain. The patient is seen on afternoon rounds following completion of his stress test. He is noted to be sitting upright in bedside recliner on room air. This morning, he reported an episode of left chest wall pain radiating to his left shoulder and neck. The patient was treated with 2 SL Nitro tabs and his chest pain was relieved. Results of his stress test demonstrate mild ischemia to the inferior wall, a relatively 'low risk stress test' per Dr. Scott. Plan to discontinue patient's Coreg and initiate Metoprolol Succinate 25mg PO daily. If patient is able to remain chest pain free, will discharge home tomorrow. Reason For Visit: CHEST PAIN Physical Exam Vital Signs: Temp Pulse Resp BP Pulse Ox 98.5 F 68 16 142/72 H 100 06/19/18 15:13 06/19/18 15:13 06/19/18 15:13 06/19/18 15:13 06/19/18 15:13 Intake & Output 06/18/18 06/19/18 06/20/18 06:59 06:59 06:59 Intake Total 620 819 720 Output Total 1051 Balance -431 819 720 Weight 108.1 kg 107.4 kg General appearance: PRESENT: no acute distress, well-developed, well-nourished Head exam: PRESENT: atraumatic, normocephalic Eye exam: PRESENT: conjunctiva pink, EOMI, PERRLA. ABSENT: scleral icterus Ear exam: PRESENT: normal external ear exam Mouth exam: PRESENT: moist, tongue midline Neck exam: ABSENT: carotid bruit, JVD, lymphadenopathy, thyromegaly Respiratory exam: PRESENT: clear to auscultation wyatt. ABSENT: rales, rhonchi, wheezes Cardiovascular exam: PRESENT: RRR, +S1, +S2. ABSENT: diastolic murmur, rubs, systolic murmur Pulses: PRESENT: normal radial pulses, normal dorsalis pedis pul Vascular exam: PRESENT: normal capillary refill GI/Abdominal exam: PRESENT: normal bowel sounds, soft. ABSENT: distended, guarding, mass, organolmegaly, rebound, tenderness Rectal exam: PRESENT: deferred Extremities exam: PRESENT: full ROM. ABSENT: calf tenderness, clubbing, pedal edema Musculoskeletal exam: PRESENT: ambulatory, full ROM Neurological exam: PRESENT: alert, awake, oriented to person, oriented to place , oriented to time, oriented to situation Psychiatric exam: PRESENT: appropriate affect, normal mood Skin exam: PRESENT: dry, intact, warm. ABSENT: cyanosis, rash Results Impressions: Chest X-Ray 06/15/18 15:26 IMPRESSION: NO ACUTE RADIOGRAPHIC FINDING IN THE CHEST. Status: Imported from PACS Assessment & Plan - Diagnosis (1) Chest pain Qualifiers: Chest pain type: unspecified Qualified Code(s): R07.9 - Chest pain, unspecified Is this a current diagnosis for this admission?: Yes Plan: The patient was admitted with chest pain EKG demonstrated a first-degree block, no ST segment elevation or depression. Chest x-ray is benign. Troponins elevated; 0.051--> 0.094--> 0.111--> 0.114-> 0.111 No longer trending He is admitted to the medical floor on continuous cardiac telemetry. He is placed on Plavix, full dose aspirin, and full dose Lovenox. Continue high-dose statin Cardiology has been consulted Stress test today indicative of mild ischemia to inferior wall Continue PO imdur As needed nitroglycerin tabs and IV morphine as necessary for chest pain Per cardiology recommendations, will discontinue Coreg and initiate metoprolol succinate (2) Hypertension Qualifiers: Hypertension type: essential hypertension Qualified Code(s): I10 - Essential (primary) hypertension Is this a current diagnosis for this admission?: Yes Plan: The patient's home medications amlodipine, carvedilol, losartan, and hydrochlorothiazide are continued. IV hydralazine as needed for blood pressure control. Cardiology has been consulted; appreciate their assistance. (3) Anxiety and depression Is this a current diagnosis for this admission?: Yes Plan: The patient's home dose Celexa is continued. (4) Gout Is this a current diagnosis for this admission?: Yes Plan: The patient's home dose of allopurinol is continued. (5) Diabetes mellitus type 2 in nonobese Is this a current diagnosis for this admission?: Yes Plan: Consistent carb diet. Accu-Cheks before meals and at bedtime with Humalog for sliding scale coverage. Hypoglycemia protocols are in place. Holding patient's metformin while inpatient. - Time Time Spent with patient: 15-24 minutes Medications reviewed and adjusted accordingly: Yes Anticipated discharge: Home - Inpatient Certification Based on my medical assessment, after consideration of the patient's comorbidities, presenting symptoms, or acuity I expect that the services needed warrant INPATIENT care.: Yes I certify that my determination is in accordance with my understanding of Medicare's requirements for reasonable and necessary INPATIENT services [42 CFR 412.3e].: Yes Medical Necessity: Risk of Complication if Not Cared For in Hospital - Plan Summary Plan Summary: see above
[2018-06-19] MEDS ORDERED: METOPROLOL SUCCINATE 25 MG TAB.SR.24H PO ONE (17:45)
--- NOTE | 2018-06-19 19:55 | DRAGON STRESS TEST REPORT ---
INTRAVENOUS LEXISCAN CARDIOLITE STRESS TEST USING SINGLE PHOTON EMMISION COMPUTERIZED TOMOGRAPHIC. DATE OF PROCEDURE: June 19, 2018, INDICATION : Chest pain CARDIAC RISK FACTORS: Diabetes, hypertension, dyslipidemia RESTING EKG: Sinus rhythm, LVH with secondary ST-T wave changes. STRESS EKG: No significant ST segment changes noted with LexiScan bolus REASON FOR TERMINATION: Protocol. PROCEDURE REPORT: Baseline heart rate 63 beats per minute with blood pressure of 156/74. Patient had no significant complaints. Patient was bolused with Lexiscan 0.4 mg intravenously followed by saline bolus. Heart rate at 2 minutes post bolus 88 with a blood pressure of 154/65. 3 minutes post bolus heart rate 83 with blood pressure of 160/65. No significant EKG changes were noted. Patient had no significant complaints during the procedure or postprocedure. CONCLUSIONS: Normal EKG and hemodynamic response to IV LexiScan. NUCLEAR DATA: At rest the patient was given 15.39 millicuries of technetium 99 sestamibi injected intravenously. As per protocol rest gated SPECT images were obtained. On day of stress test, the patient was given intravenous LexiScan at a dose of 0.4 mg in 5 mL intravenously, followed by flush with normal saline. Subsequently the stress dose of 45.7 millicuries of technetium 99 sestamibi was injected intravenously. As per protocol stress gated images were obtained. NUCLEAR INTERPRETATION: Both raw and processed data were used for interpretation. Visual, qualitative, computer-generated quantitative data was used. There was good myocardial uptake of technetium compound. Motion artifact and soft tissue attenuations were noted. Increased visceral uptake was noted. Mild transient perfusion defect noted in the inferior wall, consistent with mild ischemia. SDS score of 3. No definitive areas of fixed perfusion defect or scars noted. EKG gated imaging showed LV EF at 42 %, rest and stress gated EF similar visually. T. I D. ratio was 0.83. Lung heart ratio noted to be within normal limits 0.24. No significant extracardiac and abnormal radiotracer activities were noted. RV free wall uptake was noted to be WNL. IMPRESSION: Also refer to comments under nuclear interpretation. Also test results needs to be interpreted in the context of pretest probability. 1. Mild transient perfusion defect noted in the inferior wall, consistent with mild ischemia. SDS score of 3. 2. There is no definitive scintigraphic evidence of myocardial infarction/scar. 3. EKG gated imaging shows left ventricular ejection fraction of approx. 42 %. 4. Clinical correlation requested as occasionally worse disease or balanced ischemia could be missed. In approximately 10% of the cases Lexiscan may not cause adequate vasodilatory stress. RECOMMENDATIONS: Aggressive risk factor modification and medical management. Further evaluation may be needed if continued symptoms or other high risk indicators are noted on clinical evaluation. Close cardiology follow-up is also recommended. Clinical correlation with echocardiogram derived ejection fraction. Inability to exercise by itself can lead to increased cardiovascular event risks. Consider cardiology consultation and or follow-up if clinically indicated. I am available for cardiology evaluation and consultation if requested by the cartridge filler, unless patient already has a volumetric weigher. Dr. Josy Scott. MRCP Board certified in cardiology and sleep medicine. Board certified in nuclear cardiology, adult echocardiography. MEMO
[2018-06-19] MEDS: ATORVASTATIN CALCIUM 80 MG TABLET PO SCH (21:52)
[2018-06-19] MEDS: METOPROLOL SUCCINATE 25 MG TAB.SR.24H PO SCH (21:54)
--- NOTE | 2018-06-19 23:06 | PDOC PROGRESS REPORT ---
Subjective Progress Note for:: 06/19/18 Subjective:: Patient seems to be doing better with gradual improvement. Patient still having some intermittent left upper chest pain which tends to radiate to the left arm. Patient denying any PND, orthopnea. Patient denied any sustained palpitations, dizziness, syncope, near syncope. Patient denying any fever chills. Patient denying any other significant discomfort. Patient is maintaining sinus rhythm. Review of systems: Rest review of systems negative. Medications: Medications have been reviewed. Patient was seen multiple times. In the morning nuclear stress test risk benefits were discussed. Informed consent was obtained. Patient underwent nuclear stress test without any complications. Patient was seen after the stress test results were reviewed. These results were discussed with the patient. Probable mild inferior wall ischemia was noted. Reason For Visit: CHEST PAIN Physical Exam Vital Signs: Temp Pulse Resp BP Pulse Ox 98.6 F 71 15 143/63 H 100 06/19/18 19:36 06/19/18 19:36 06/19/18 19:36 06/19/18 19:36 06/19/18 19:36 Intake & Output 06/18/18 06/19/18 06/20/18 06:59 06:59 06:59 Intake Total 620 819 720 Output Total 1051 Balance -431 819 720 Weight 108.1 kg 107.4 kg Exam: GENERAL: well-nourished and in no acute distress. Alert and oriented x3 HEAD: Atraumatic, normocephalic. EYES: Pupils equal round and reactive to light, extraocular movements intact, sclera anicteric, conjunctiva are normal. ENT: TMs normal, nares patent, oropharynx clear without exudates. Moist mucous membranes. No oral ulcerations or bleeding gums noted NECK: supple without lymphadenopathy. Trachea is central. No cervical or axillary lymphadenopathy noted. Carotids are 2+, JVD WNL LUNGS: Respiration seems nonlabored, no significant accessory muscle action noted. Breath sounds clear to auscultation bilaterally and equal noted. No wheezes rales or rhonchi noted. No significant dullness noted on percussion. CHEST: Palpation of the chest wall shows left upper chest significant chest wall tenderness. HEART: [place] [employer], No PSH, 1/6 ZEN aortic area, 1/6 motley systolic murmur mitral area, no rubs, no gallops. ABDOMEN: Soft, no significant tenderness appreciated, normoactive bowel sounds. No guarding, no rebound. No rigidity noted . No masses appreciated. EXTREMITIES: Pedal pulses are 1-2+, no calf tenderness noted. No clubbing or cyanosis. negative pedal edema noted NEUROLOGICAL: Focused neurological exam showed no significant neurologic deficit. Normal speech, no focal weakness appreciated. PSYCH: Normal mood, normal affect. Judgment and insight within normal limits. SKIN: No significant ecchymosis, skin is noted to be warm. MUSCULOSKELETAL EXAM: No significant acute joint swelling noted. Results EKG Comments: Telemetry shows sinus rhythm without any sustained tachycardia or bradycardia. Impressions: Chest X-Ray 06/15/18 15:26 IMPRESSION: NO ACUTE RADIOGRAPHIC FINDING IN THE CHEST. Assessment & Plan - Diagnosis (1) Elevated troponin Is this a current diagnosis for this admission?: Yes (2) Acute coronary syndrome Is this a current diagnosis for this admission?: Yes (3) Carotid artery stenosis Qualifiers: Laterality: unspecified laterality Qualified Code(s): I65.29 - Occlusion and stenosis of unspecified carotid artery Is this a current diagnosis for this admission?: Yes (4) Hypertension Qualifiers: Hypertension type: essential hypertension Qualified Code(s): I10 - Essential (primary) hypertension Is this a current diagnosis for this admission?: Yes (5) Chest pain Qualifiers: Chest pain type: unspecified Qualified Code(s): R07.9 - Chest pain, unspecified Is this a current diagnosis for this admission?: Yes (6) Diabetes mellitus type 2 in nonobese Is this a current diagnosis for this admission?: Yes (7) Tobacco dependency Is this a current diagnosis for this admission?: Yes - Notes Notes: NST Discussed. Ordered CTA Chest for chest pain evaluation. Chest pain: Discussed various etiologies of chest pain with the patient. In this regard, discussed that it could still be underlying CAD, but some of the chest pain could well be coming from chest wall tenderness which he has, left- sided jaw pain on chewing is most likely coming from caries tooth. In addition he also has history of acid reflux and hiatal hernia and some of the chest discomfort could well be coming from there. Patient being placed on increased dose of metoprolol succinate. Elevated troponin I: Most likely related to acute coronary syndrome and cardiac ischemia. Currently seems a stabilized on medical management. Nuclear stress test shows low risk overall but informed that if he cannot control his symptoms satisfactorily Acute coronary syndrome: Patient to be treated as discussed above. History of carotid artery stenosis: Continue antiplatelet and ask statin therapy. Patient advised risk factor modification. Hypertension: Blood pressure goal should be 135/85 or less in this gentleman. Diabetes: Recommend good control of blood sugar but avoid any hypo-or hyperglycemia. Tobacco dependency: Patient had been advised to quit smoking. - Time Time with patient: 15-25 minutes - CODE STATUS was discussed, patient remains full code. Surrogate decision-maker unchanged. Multiple medical problems were addressed. More than 50% of the time spent coordinating care, discussing management plans with involved caregivers. Management plans discussed with involved personnels. Medical decision making was of moderate to high complexity , patient's has multiple comorbidities. Medications reviewed and adjusted accordingly: Yes
[2018-06-20] MEDS ORDERED: METOPROLOL SUCCINATE 25 MG TAB.SR.24H PO SCH (10:00)
[2018-06-20] MEDS: CITALOPRAM HYDROBROMIDE 20 MG TABLET PO SCH (10:13)
[2018-06-20] MEDS: ALLOPURINOL 100 MG TABLET PO SCH (10:13)
[2018-06-20] MEDS: AMLODIPINE BESYLATE 10 MG TABLET PO SCH (10:13)
[2018-06-20] MEDS: ISOSORBIDE MONONITRATE 60 MG TAB.ER.24H PO SCH (10:13)
[2018-06-20] MEDS: ASPIRIN 325 MG TABLET, ENT COATED PO SCH (10:13)
[2018-06-20] MEDS: RANOLAZINE 500 MG TAB.SR.12H PO SCH (10:13)
[2018-06-20] MEDS: CLOPIDOGREL BISULFATE 75 MG TABLET PO SCH (10:13)
[2018-06-20] MEDS: ENOXAPARIN SODIUM INJ 100 MG/1 ML DISP.SYRIN SUBCUT SCH (10:19)
--- NOTE | 2018-06-20 10:32 | RADIOLOGY REPORT (SQ) ---
EXAM DESCRIPTION: CTA CHEST COMPLETED DATE/TIME: 06/20/2018 9:33 am REASON FOR STUDY: CP R07.9 CHEST PAIN, UNSPECIFIED COMPARISON: Chest x-ray 06/15/2018 TECHNIQUE: CT scan of the chest performed using helical scanning technique with dynamic intravenous contrast injection. Images reviewed with lung, soft tissue and bone windows. Reconstructed coronal and sagittal MPR images reviewed. Additional 3 dimensional post-processing performed to develop Maximal Intensity Projection images (MN P). All images stored on PACS. All CT scanners at this facility use dose modulation, iterative reconstruction, and/or weight based d osing when appropriate to reduce radiation dose to as low as reasonably achievable (ALARA). [facility]: Dose Right [facility]: CareDose [facility]: Dose Right [facility]: Teradose 4D [facility]: [employer] CONTRAST TYPE AND DOSE: Dose and type of contrast not recorded here. Contrast bolus optimized for the pulmonary arteries. Not diagnostic for the aorta. RENAL FUNCTION: BUN 13 creatinine 1.22 RADIATION DOSE: CT Rad equipment meets quality standard of care and radiation dose reduction techniq ues were employed. CTDIvol: 13.2 - 14.4 mGy. DLP: 555 mGy-cm. . LIMITATIONS: None. FINDINGS: LUNGS AND PLEURA: No masses, infiltrates, or pneumothorax. No pleural effusions or pleura l calcifications. AORTA AND GREAT VESSELS: No aneurysm. Contrast bolus not optimized for the aorta. HEART: No pericardial effusion. No significant coronary artery calcifications. PULMONARY ARTERIES: No emboli visualized in the main pulmonary arteries or the segmental branches. HILAR AND MEDIASTINAL STRUCTURES: No identified masses or abnormal nodes. HARDWARE: None in the chest. UPPER ABDOMEN: No significant findings. Limited exam. THYROID AND OTHER SOFT TISSUES: No masses. No adenopathy. BONES: No acute or significant finding. 3D MIPS: Confirm above findings. OTHER: No other significant finding. IMPRESSION: NORMAL CTA OF THE CHEST. NO PULMONARY EMBOLI. COMMENT: Quality ID # [id number]: Final reports with documentation of one or more dose reduction techniques (e.g., Automated exposure control, adjustment of the mA and/or kV according to patient size, use of iterative reconstruction technique) TECHNICAL DOCUMENTATION: JOB ID: [id number] [employer]- All Rights Reserved Reading location - IP/workstation name: [email or web address]
[2018-06-20] MEDS: METOPROLOL SUCCINATE 25 MG TAB.SR.24H PO SCH (11:41)
[2018-06-20 12:28] VITALS: BP 123/83
[2018-06-20] MEDS: INSULIN LISPRO 100 UNIT/ML 3 ML VIAL SUBCUT PRN (12:53)
--- NOTE | 2018-06-21 11:21 | PDOC PROGRESS REPORT ---
Subjective Progress Note for:: 06/18/18 Subjective:: Chest pain improved. Patient seems to be doing better with gradual improvement. Pt is denying any chest arm or neck discomfort. Patient denying any PND, orthopnea. Patient denied any sustained palpitations, dizziness, syncope, near syncope. Patient denying any fever chills. Patient denying any other significant discomfort. Patient is maintaining sinus rhythm. Review of systems: Rest review of systems negative. Medications: Medications have been reviewed. Reason For Visit: CHEST PAIN Physical Exam Vital Signs: Temp Pulse Resp BP Pulse Ox 98.0 F 65 15 166/79 H 100 06/18/18 15:54 06/18/18 15:54 06/18/18 15:54 06/18/18 15:54 06/18/18 15:54 Intake & Output 06/17/18 06/18/18 06/19/18 06:59 06:59 06:59 Intake Total 620 503 Output Total 1051 Balance -431 503 Weight 108.1 kg Exam: GENERAL: well-nourished and in no acute distress. Alert and oriented x3 HEAD: Atraumatic, normocephalic. EYES: Pupils equal round and reactive to light, extraocular movements intact, sclera anicteric, conjunctiva are normal. ENT: TMs normal, nares patent, oropharynx clear without exudates. Moist mucous membranes. No oral ulcerations or bleeding gums noted NECK: supple without lymphadenopathy. Trachea is central. No cervical or axillary lymphadenopathy noted. Carotids are 2+, JVD WNL LUNGS: Respiration seems nonlabored, no significant accessory muscle action noted. Breath sounds clear to auscultation bilaterally and equal noted. No wheezes rales or rhonchi noted. No significant dullness noted on percussion. CHEST: Palpation of the chest wall left upper chest significant chest wall tenderness. 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 ABDOMEN: Soft, no significant tenderness appreciated, normoactive bowel sounds. No guarding, no rebound. No rigidity noted . No masses appreciated. EXTREMITIES: Pedal pulses are 1-2+, no calf tenderness noted. No clubbing or cyanosis. negative pedal edema noted NEUROLOGICAL: Focused neurological exam showed no significant neurologic deficit. Normal speech, no focal weakness appreciated. PSYCH: Normal mood, normal affect. Judgment and insight within normal limits. SKIN: No significant ecchymosis, skin is noted to be warm. MUSCULOSKELETAL EXAM: No significant acute joint swelling noted. Results EKG Comments: Shows sinus rhythm, no sustained tachycardia or bradycardia arrhythmia noted Impressions: Chest X-Ray 06/15/18 15:26 IMPRESSION: NO ACUTE RADIOGRAPHIC FINDING IN THE CHEST. Assessment & Plan - Diagnosis (1) Elevated troponin Is this a current diagnosis for this admission?: Yes (2) Acute coronary syndrome Is this a current diagnosis for this admission?: Yes (3) Carotid artery stenosis Qualifiers: Laterality: unspecified laterality Qualified Code(s): I65.29 - Occlusion and stenosis of unspecified carotid artery Is this a current diagnosis for this admission?: Yes (4) Hypertension Qualifiers: Hypertension type: essential hypertension Qualified Code(s): I10 - Essential (primary) hypertension Is this a current diagnosis for this admission?: Yes (5) Chest pain Qualifiers: Chest pain type: unspecified Qualified Code(s): R07.9 - Chest pain, unspecified Is this a current diagnosis for this admission?: Yes (6) Diabetes mellitus type 2 in nonobese Is this a current diagnosis for this admission?: Yes (7) Tobacco dependency Is this a current diagnosis for this admission?: Yes - Notes Notes: Started Imdur yesterday, nuclear stress test to be rescheduled for tomorrow. Patient was supposed to be on nuclear stress test list but for some reason got missed. Patient remains comfortable without any significant discomfort although has some intermittent chest pain which are felt to be probably musculoskeletal. Elevated troponin I: Most likely related to acute coronary syndrome and cardiac ischemia. Treat aggressively with aspirin, Plavix, Lovenox, beta-blockers, ELVIE inhibitors. If troponin I trend towards non-STEMI, will consider transfer to tertiary care for heart catheterization. So far, patient has done reasonably well on medical management. Stress test has been rescheduled for tomorrow. 2D echo results were again reviewed. Acute coronary syndrome: Patient to be treated as discussed above. History of carotid artery stenosis: Continue antiplatelet and ask statin therapy. Patient advised risk factor modification. Hypertension: Blood pressure goal should be 135/85 or less in this gentleman. Diabetes: Recommend good control of blood sugar but avoid any hypo-or hyperglycemia. Tobacco dependency: Patient had been advised to quit smoking. - Time Time with patient: 15-25 minutes - CODE STATUS was discussed, patient remains full code. Surrogate decision-maker unchanged. Multiple medical problems were addressed. More than 50% of the time spent coordinating care, discussing management plans with involved caregivers. Management plans discussed with involved personnels. Medical decision making was of moderate to high complexity , patient's has multiple comorbidities. Medications reviewed and adjusted accordingly: Yes
--- NOTE | 2018-06-21 11:39 | PDOC PROGRESS REPORT ---
Subjective Progress Note for:: 06/20/18 Subjective:: Patient was seen on morning rounds when we again discussed results of the nuclear stress test, results of 2D echo. The CTA of the chest was reviewed by me and patient was informed that he just had minimal calcification which in fact was a good news. Patient describes jaw pain when he chews food. His oral cavity was examined and he was noted to have dental caries. Patient also was noted to be significantly tender left second costochondral junction. Patient was informed that he has single-vessel disease and that if his symptoms can be controlled with medication, that is an equally good approach as compared to performing cardiac catheterization. Nevertheless I discussed cardiac catheterization procedure, risk benefits of the procedure etc. Hearing all this , he declined to pursue that option. Patient claims that he is well enough to be discharged. This was related to hospitalist Rica Etienne. Patient medical management has been gradually optimized. Patient has been advised to quit smoking. He was also advised to quit marijuana use or any other substance use. Reason For Visit: CHEST PAIN Physical Exam Vital Signs: Temp Pulse Resp BP Pulse Ox 98.4 F 59 L 16 123/83 100 06/20/18 12:20 06/20/18 12:20 06/20/18 12:20 06/20/18 12:20 06/20/18 12:20 Intake & Output 06/20/18 06/21/18 06/22/18 06:59 06:59 06:59 Intake Total 1521 Balance 1521 Weight 107.9 kg Exam: GENERAL: well-nourished and in no acute distress. Alert and oriented x3 HEAD: Atraumatic, normocephalic. EYES: Pupils equal round and reactive to light, extraocular movements intact, sclera anicteric, conjunctiva are normal. ENT: TMs normal, nares patent, oropharynx clear without exudates. Moist mucous membranes. No oral ulcerations or bleeding gums noted. Oral cavity exam does show dental caries left side. NECK: supple without lymphadenopathy. Trachea is central. No cervical or axillary lymphadenopathy noted. Carotids are 2+, JVD WNL LUNGS: Respiration seems nonlabored, no significant accessory muscle action noted. Breath sounds clear to auscultation bilaterally and equal noted. No wheezes rales or rhonchi noted. No significant dullness noted on percussion. CHEST: Palpation of the chest wall left second costochondral junction significant chest wall tenderness. 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 ABDOMEN: Soft, no significant tenderness appreciated, normoactive bowel sounds. No guarding, no rebound. No rigidity noted . No masses appreciated. EXTREMITIES: Pedal pulses are 1-2+, no calf tenderness noted. No clubbing or cyanosis. negative pedal edema noted NEUROLOGICAL: Focused neurological exam showed no significant neurologic deficit. Normal speech, no focal weakness appreciated. PSYCH: Normal mood, normal affect. Judgment and insight within normal limits. SKIN: No significant ecchymosis, skin is noted to be warm. MUSCULOSKELETAL EXAM: No significant acute joint swelling noted. Results EKG Comments: Telemetry shows sinus rhythm without any sustained tachycardia or bradycardia arrhythmias Impressions: Chest X-Ray 06/15/18 15:26 IMPRESSION: NO ACUTE RADIOGRAPHIC FINDING IN THE CHEST. Chest/Abdomen CTA 06/20/18 08:00 IMPRESSION: NORMAL CTA OF THE CHEST. NO PULMONARY EMBOLI. Assessment & Plan - Diagnosis (1) Elevated troponin Is this a current diagnosis for this admission?: Yes (2) Acute coronary syndrome Is this a current diagnosis for this admission?: Yes (3) Carotid artery stenosis Qualifiers: Laterality: unspecified laterality Qualified Code(s): I65.29 - Occlusion and stenosis of unspecified carotid artery Is this a current diagnosis for this admission?: Yes (4) Hypertension Qualifiers: Hypertension type: essential hypertension Qualified Code(s): I10 - Essential (primary) hypertension Is this a current diagnosis for this admission?: Yes (5) Chest pain Qualifiers: Chest pain type: unspecified Qualified Code(s): R07.9 - Chest pain, unspecified Is this a current diagnosis for this admission?: Yes (6) Diabetes mellitus type 2 in nonobese Is this a current diagnosis for this admission?: Yes (7) Tobacco dependency Is this a current diagnosis for this admission?: Yes - Notes Notes: Had a long discussion with the patient in the morning. Discussed various therapeutic options. As noted we discussed pursuing heart catheterization including risk benefits. Average risk of any major complications was quoted at around 1 in 1000, with heart catheterization and any subsequent revascularization. Benefits also were discussed. Patient declined to pursue a heart catheterization. He wants to try out medical management and claims that he does want to be discharged home. Patient was advised close cardiology follow -up. He is agreeable to that. Patient informed to show up in my office on Saturday. In the meantime, patient could be discharged on current medication he is on at this time. Patient's brother in the room when above discussion was entered. Elevated troponin I: Most likely related to acute coronary syndrome and cardiac ischemia. Treat aggressively with aspirin, Plavix, Lovenox, beta-blockers, ELVIE inhibitors. After long discussion, patient prefers to continue on medical management. Acute coronary syndrome: Patient to be treated as discussed above. History of carotid artery stenosis: Continue antiplatelet and ask statin therapy. Patient advised risk factor modification. Hypertension: Blood pressure goal should be 135/85 or less in this gentleman. Diabetes: Recommend good control of blood sugar but avoid any hypo-or hyperglycemia. Tobacco dependency: Patient had been advised to quit smoking. Patient can follow-up with me. - Time Time with patient: Greater than 35 minutes - CODE STATUS was discussed, patient remains full code. Surrogate decision-maker unchanged. Multiple medical problems were addressed. More than 50% of the time spent coordinating care, discussing management plans with involved caregivers. Management plans discussed with involved personnels. Medical decision making was of moderate to high complexity, patient's has multiple comorbidities. Medications reviewed and adjusted accordingly: Yes
--- NOTE | 2018-06-30 13:18 | PDOC DISCHARGE SUMMARY ---
General - Admit/Disc Date/PCP Admission Date/Primary Care Provider: 06/17/18 12:32 GABBY SCHULTE MD Discharge Date: 06/20/18 - Discharge Diagnosis (1) Chest pain Is this a current diagnosis for this admission?: Yes (2) Hypertension Is this a current diagnosis for this admission?: Yes (3) Anxiety and depression Is this a current diagnosis for this admission?: Yes (4) Gout Is this a current diagnosis for this admission?: Yes (5) Diabetes mellitus type 2 in nonobese Is this a current diagnosis for this admission?: Yes - Additional Information Resuscitation Status: Full Code Discharge Diet: As Tolerated Discharge Activity: Activity As Tolerated Prescriptions: Aspirin 81 mg PO DAILY #30 tab.chew Clopidogrel Bisulfate [Plavix 75 mg Tablet] 75 mg PO DAILY #30 tablet Insulin Admin. Supplies [Inpen (For Humalog)] 1 each SQ ACHS #1 insuln.pen Isosorbide Mononitrate [Imdur 60 mg Tablet.er] 60 mg PO DAILY #30 tab.er.24h Metoprolol Succinate [Toprol Xl 25 mg Tab.sr] 25 mg PO Q12 #60 tab.sr.24h Ranolazine [Ranexa 500 mg Tab.sr] 500 mg PO BID #60 tab.sr.12h Home Medications: Allopurinol [Zyloprim 100 mg Tablet] 100 mg PO DAILY 06/16/18 Amlodipine Besylate [Norvasc 10 mg Tablet] 10 mg PO DAILY 06/16/18 Aspirin [Aspirin 81 mg Chewable Tablet] 81 mg PO DAILY 06/16/18 Atorvastatin Calcium [Lipitor 80 mg Tablet] 80 mg PO QHS 06/16/18 Carvedilol [Coreg 12.5 mg Tablet] 12.5 mg PO Q12 06/16/18 Citalopram Hydrobromide [Celexa 20 mg Tablet] 20 mg PO DAILY 06/16/18 Ergocalciferol (Vitamin D2) [Vitamin D2] 50,000 unit PO MO@1000 06/16/18 Glipizide [Glucotrol 10 mg Tablet] 10 mg PO QAM 06/16/18 Losartan/Hydrochlorothiazide [Losartan-Hctz 100-25 mg Tab] 1 each PO DAILY 06/16 Metformin HCl [Glucophage] 1,000 mg PO BIDBS 06/16/18 Nitroglycerin [Nitrostat 0.4 mg (1/150 Gr) Tabs 25/Bottle] 1 tab SL Q5MP PRN 04/28 Aspirin 81 mg PO DAILY #30 tab.chew 06/20/18 Clopidogrel Bisulfate [Plavix 75 mg Tablet] 75 mg PO DAILY #30 tablet 06/20/18 Insulin Admin. Supplies [Inpen (For Humalog)] 1 each SQ ACHS #1 insuln.pen 06/20 Isosorbide Mononitrate [Imdur 60 mg Tablet.er] 60 mg PO DAILY #30 tab.er.24h 08/28 Metoprolol Succinate [Toprol Xl 25 mg Tab.sr] 25 mg PO Q12 #60 tab.sr.24h Ranolazine [Ranexa 500 mg Tab.sr] 500 mg PO BID #60 tab.sr.12h 06/20/18 Hydrocodone/Acetaminophen [Hydrocodon-Acetaminophen 5-325] 1 each PO TID #10 tablet 06/27/18 History of Present Illness History of Present Illness: SAMPSON MAO is a 68 year old -[place] male with history of multiple medical problems that would be mentioned below presented to the emergency room with acute onset of upper midsternal chest pain felt as pressure and graded 10/10 severity with radiation to his left arm and shoulder. He admitted to occasional periumbilical abdominal pain. He denies any nausea vomiting or diaphoresis dyspnea or palpitations with this pain. Denies any lower extremity edema or recent pain in his legs or recent travels or surgeries. He took 2 sublingual nitroglycerin at home and one in the emergency room followed by IV morphine sulfate before he had relief of his pain. He had an inch of Nitropaste placed. He was also given aspirin and Lovenox and a therapeutic dose. He denies any fever or chills, cough or wheezing or hemoptysis. No bleeding diathesis. When he came to the emergency room, vital signs were within normal. EKG showed normal sinus rhythm with a rate of 81 with probable LVH and early repolarization with minimally peaked T waves in V2 and T-wave inversion laterally. His labs were remarkable for mild hypernatremia and a BUN of 21. Initial set of cardiac enzymes come back with a troponin I of 0.051 and later 0.094 and 0.111. The patient will be admitted to an observation telemetry bed for further evaluation and management Hospital Course Hospital Course: The patient is a 68-year-old male with a past medical history of PAF, hyperlipidemia, hypertension, DM 2, GERD, arthritis, gout, and depression who was admitted on 06/15/18 for chest pain. Initial EKG demonstrated NSR with inverted T waves in lateral leads. Serial cardiac enzymes peaked at 0.12. ECHOcardiogram revealed mild concentric LVH and grade II diastolic dysfunction. Throughout his hospitalization, the patient frequently complained of L sided chest pain with activity (up to restroom, ambulating in hallway, etc.). Film Booker, Dr. Scott, performed a cardiolite stress test, which revealed transient ishechemia defect to the inferior wall. These findings were discussed with the patient, as well as the risks/benefits of a cardiac catheterization. The patient declined the cardiac catheterization and requested medical management. As a result, the patient's medication regimen was optimized. Carvedilol was discontinued and the patient was placed on Toprol XL. Additionally, the patient was started on Imdur, Ranexa and plavix. The patient was instructed to closely follow up with a hydrographical technical officer given the new medication changes. Additionally, the patient was extensively counseled regarding lifestyle modification - BP monitoring, healthier dietary habits, BG monitoring. The patient stated full understanding of his discharge instructions. For further information regarding the patient's hospitalization, please refer to the EMR. Physical Exam Vital Signs: Temp Pulse Resp BP Pulse Ox 98.4 F 59 L 16 123/83 100 06/20/18 12:20 06/20/18 12:20 06/20/18 12:20 06/20/18 12:20 06/20/18 12:20 Results Impressions: Chest X-Ray 06/15/18 15:26 IMPRESSION: NO ACUTE RADIOGRAPHIC FINDING IN THE CHEST. Chest/Abdomen CTA 06/20/18 08:00 IMPRESSION: NORMAL CTA OF THE CHEST. NO PULMONARY EMBOLI. Status: Imported from [employer] Qual[employer] - * PATIENT BEING DISCHARGED WITH ANY OF THE FOLLOWING DIAGNOSIS: No Plan Discharge Plan: DISCHARGE HOME. CLOSE FOLLOW UP WITH GRANULAR OPERATOR. Time Spent: Less than 30 Minutes
== END 2018-06-20 12:25 | disposition home or self-care (01) | DRG 311 ==
LOC: ER 15:01 → OBSVTOIN 22:50 → EH 22:50 → INTOOBSV 22:50 → 4N 06-16 → OBSVTOIN 06-17 12:32
PROVIDERS: ADMIT Family Medicine; ATTEND Family Medicine
DX: I24.9 Acute ischemic heart disease, unspecified (principal); E87.0 Hyperosmolality and hypernatremia; I44.0 Atrioventricular block, first degree; I65.29 Occlusion and stenosis of unspecified carotid artery; E11.8 Type 2 diabetes mellitus with unspecified complications; R07.9 Chest pain, unspecified; I10 Essential (primary) hypertension; E78.5 Hyperlipidemia, unspecified; I48.0 Paroxysmal atrial fibrillation; K21.9 Gastro-esophageal reflux disease without esophagitis; M19.90 Unspecified osteoarthritis, unspecified site; M10.9 Gout, unspecified; F41.8 Other specified anxiety disorders; F17.210 Nicotine dependence, cigarettes, uncomplicated; Z79.899 Other long term (current) drug therapy; Z79.84 Long term (current) use of oral hypoglycemic drugs
CPT/HCPCS: 36415; 71045; 71275; 78452; 80048; 80053; 80061; 82550; 82553; 82962; 84484; 85025; 85610; 93005; 93010; 93017; 93306; 96372; 96374; 96375; 96376; 99291; A9500; G0378; J0706; J1650; J1815; J2270; J2405; J2785; J3490; Q9969; S0164

== ENCOUNTER 2018-06-27 14:40 | Emergency (ER) | payer MEDICARE, MEDICAID ==
[2018-06-27] MEDS ORDERED: HYDROCODONE/ACETAMINOPHEN 5-325 MG TABLET PO ONE (15:49)
--- NOTE | 2018-06-27 15:52 | ER Document Report ---
ED General - General Chief Complaint: Syncope Stated Complaint: FALL HEAD NECK PAIN Time Seen by Provider: 06/27/18 15:47 Notes: Chief complaint: Fall History of complain:( obtained from----patient) 68 years old male on hypertensive medication, when he stood up from the seated position felt dizzy briefly and fell landed on his left knee and hit the wall on the anterior part of the skull, sustain abrasion. Did not pass out. Currently having headache, neck pain, left knee pain. He was able to walk and flex the knee without major discomfort. But noted some swelling. Currently has no dizzy no headache no focal weakness numbness tingling sensation. Onset: Sudden Duration: Just prior to arrival Severity: Mild to moderate Quality: Sharp Context: As described above Exacerbating factor and relieving factors: As above REVIEW OF SYSTEMS: CONSTITUTIONAL : Denies fever, chills, or sweats. Denies recent illness. EENT: Denies eye, ear, throat, or mouth pain or symptoms. Denies nasal or sinus congestion or discharge. Denies throat, tongue, or mouth swelling or difficulty swallowing. CARDIOVASCULAR: Denies chest pain. Denies palpitations or racing or irregular heart beat. Denies ankle edema. RESPIRATORY: Denies cough, cold, or chest congestion. Denies shortness of breath, difficulty breathing, or wheezing. GASTROINTESTINAL: Denies distention. Denies nausea, vomiting, or diarrhea. Denies blood in vomitus, stools, or per rectum. Denies black, tarry stools. Denies constipation. GENITOURINARY: Denies difficulty urinating, painful urination, burning, frequency, blood in urine, or discharge. FEMALE GENITOURINARY: Denies vaginal bleeding, heavy or abnormal periods, irregular periods. Denies vaginal discharge or odor. MUSCULOSKELETAL: Denies back or neck pain or stiffness. Denies joint pain or swelling. SKIN: Denies rash, lesions or sores. HEMATOLOGIC : Denies easy bruising or bleeding. LYMPHATIC: Denies swollen, enlarged glands. NEUROLOGICAL: Denies confusion or altered mental status. Denies passing out or loss of consciousness. Denies dizziness or lightheadedness. Denies headache. Denies weakness or paralysis or loss of use of either side. Denies problems with gait or speech. Denies sensory loss, numbness, or tingling. Denies seizures. PSYCHIATRIC: Denies anxiety or stress. Denies depression, suicidal ideation, or homicidal ideation. ALL OTHER SYSTEMS REVIEWED AND NEGATIVE. PHYSICAL EXAMINATION: GENERAL: Well-appearing, well-nourished and in no acute distress. HEAD: Atraumatic, normocephalic. Except minor abrasion over the anterior part of the scalp was noted EYES: Pupils equal round and reactive to light, extraocular movements intact, conjunctiva are normal. ENT: Nares patent, oropharynx clear without exudates. Moist mucous membranes. NECK: Normal range of motion, supple without lymphadenopathy Right paraspinal muscles were tender on palpation. Able to flex extend and neck without major discomfort. LUNGS: Breath sounds clear to auscultation bilaterally and equal. No wheezes rales or rhonchi. HEART: Regular rate and rhythm without murmurs ABDOMEN: Soft, nontender, nondistended abdomen. No guarding, no rebound. No masses appreciated. Examination of genitals-deferred Musculoskeletal: Normal range of motion, no pitting or edema. No cyanosis. Left knee has minor swelling and abrasion noted. Able to flex and extend to the full range. NEUROLOGICAL: Cranial nerves grossly intact. Normal speech, normal gait. Normal sensory, motor exams PSYCH: Normal mood, normal affect. SKIN: Warm, Dry, normal turgor, no rashes or lesions noted. Dictation was performed using [employer] voice recognition software TRAVEL OUTSIDE OF THE [place] IN LAST 30 DAYS: No - HPI Notes: Dictated - Related Data Allergies/Adverse Reactions: No Known Drug Allergies Allergy (Unknown, Verified 06/27/18 14:42) Raspberries Allergy (Mild, Uncoded 06/27/18 14:42) Hives Past Medical History - Social History Smoking Status: Current Every Day Smoker Frequency of alcohol use: Rare Drug Abuse: None Lives with: Family Family History: Reviewed & Not Pertinent, CAD, DM, Hypertension, Malignancy Patient has suicidal ideation: No Patient has homicidal ideation: No - Past Medical History Cardiac Medical History: Reports: Hx Atrial Fibrillation - Paroxysmal, Hx Hypercholesterolemia, Hx Hypertension - no medications Denies: Hx Congestive Heart Failure, Hx DVT, Hx Heart Attack, Hx Pulmonary Embolism Pulmonary Medical History: Denies: Hx Asthma, Hx COPD, Hx Tuberculosis Neurological Medical History: Denies: Hx Seizures Endocrine Medical History: Reports: Hx Diabetes Mellitus Type 2 - no medications. Denies: Hx Diabetes Mellitus Type 1, Hx Hyperthyroidism, Hx Hypothyroidism Renal/ Medical History: Denies: Hx Peritoneal Dialysis GI Medical History: Reports: Hx Gastroesophageal Reflux Disease, Hx Pancreatitis. Denies: Hx Cirrhosis, Hx Hepatitis Musculoskeletal Medical History: Reports Hx Arthritis, Reports Hx Gout Skin Medical History: Denies Hx Eczema, Denies Hx Psoriasis Psychiatric Medical History: Reports: Hx Depression Infectious Medical History: Denies: Hx Hepatitis Past Surgical History: Reports: Hx Carotid Endarterectomy - left- secondary to left carotid stenosis, Hx Vascular Surgery - clot removal in neck March 2018. Denies: Hx Pacemaker - Immunizations Immunizations up to date: Yes Hx Diphtheria, Pertussis, Tetanus Vaccination: Yes - unk Hx Pneumococcal Vaccination: 11/11/11 Review of Systems - Review of Systems Notes: Dictated Physical Exam - Vital signs Vitals: Temp Pulse Resp BP Pulse Ox 97.7 F 68 18 133/68 H 100 06/27/18 14:58 06/27/18 14:58 06/27/18 14:58 06/27/18 14:58 06/27/18 14:58 - Notes Notes: Dictated Course - Vital Signs Vital signs: Temp Pulse Resp BP Pulse Ox 97.7 F 68 18 133/68 H 100 06/27/18 14:58 06/27/18 14:58 06/27/18 14:58 06/27/18 14:58 06/27/18 14:58 - Diagnostic Test Radiology reviewed: Reports reviewed - CT of the head and cervical spine reported by radiologist as no acute fractures X-ray of the left knee shows no fractures. Minor contusion Discharge - Discharge Clinical Impression: Fall Qualifiers: Encounter type: initial encounter Qualified Code(s): W19.XXXA - Unspecified fall, initial encounter Head injury Qualifiers: Encounter type: initial encounter Qualified Code(s): S09.90XA - Unspecified injury of head, initial encounter Left knee injury Qualifiers: Encounter type: initial encounter Qualified Code(s): S89.92XA - Unspecified injury of left lower leg, initial encounter Condition: Fair Disposition: HOME, SELF-CARE Instructions: Head Injury Precautions ([facility]) Prescriptions: Hydrocodone/Acetaminophen [Hydrocodon-Acetaminophen 5-325] 1 each PO TID #10 tablet Referrals: GABBY SCHULTE MD [JASPAL SEVILLA] - Follow up as needed
--- NOTE | 2018-06-27 16:29 | RADIOLOGY REPORT (SQ) ---
EXAM DESCRIPTION: CT HEAD WITHOUT COMPLETED DATE/TIME: 06/27/2018 4:12 pm REASON FOR STUDY: Head and neck injury COMPARISON: 02/15/2018 TECHNIQUE: Axial images acquired through the brain without intravenous contrast. Images reviewed wi th bone, brain and subdural windows. Images stored on PACS. All CT scanners at this facility use dose modulation, iterative reconstruction, and/or weight based d osing when appropriate to reduce radiation dose to as low as reasonably achievable (ALARA). [facility]: Dose Right [facility]: CareDose [facility]: Dose Right [facility]: Teradose 4D [facility]: Smart Pure life renal RADIATION DOSE: CT Rad equipment meets quality standard of care and radiation dose reduction techniq ues were employed. CTDIvol: 53.2 mGy. DLP: 1017 mGy-cm. mGy. LIMITATIONS: None. FINDINGS: VENTRICLES: Normal size and contour. CEREBRUM: No masses. No hemorrhage. No midline shift. No evidence for acute infarction. Normal gra y/white matter differentiation. No areas of low density in the white matter. CEREBELLUM: No masses. No hemorrhage. No alteration of density. No evidence for acute infarction. EXTRAAXIAL SPACES: No fluid collections. No masses. ORBITS AND GLOBE: No intra- or extraconal masses. Normal contour of globe without masses. CALVARIUM: No fracture. PARANASAL SINUSES: No fluid or mucosal thickening. SOFT TISSUES: No mass or hematoma. OTHER: No other significant finding. IMPRESSION: No acute intracranial findings. EVIDENCE OF ACUTE STROKE: NO. COMMENT: Quality ID # [id number]: Final reports with documentation of one or more dose reduction techniques (e.g., Automated exposure control, adjustment of the mA and/or kV according to patient size, use of iterative reconstruction technique) TECHNICAL DOCUMENTATION: JOB ID: [id number] [employer]- All Rights Reserved Reading location - IP/workstation name: [email or web address]
--- NOTE | 2018-06-27 16:35 | RADIOLOGY REPORT (SQ) ---
EXAM DESCRIPTION: CT CERVICAL SPINE WITHOUT COMPLETED DATE/TIME: 06/27/2018 4:12 pm REASON FOR STUDY: Head and neck injury COMPARISON: 02/14/2018 CT cervical spine TECHNIQUE: Axial images acquired through the cervical spine without intravenous contrast. Images re viewed with lung, soft tissue and bone windows. Reconstructed coronal and sagittal MPR images review ed. Images stored on PACS. All CT scanners at this facility use dose modulation, iterative reconstruction, and/or weight based d osing when appropriate to reduce radiation dose to as low as reasonably achievable (ALARA). [facility]: Dose Right [facility]: CareDose [facility]: Dose Right [facility]: Teradose 4D [facility]: Red Seraphim RADIATION DOSE: CT Rad equipment meets quality standard of care and radiation dose reduction techniq ues were employed. CTDIvol: 21.3 mGy. DLP: 444 mGy-cm. mGy. LIMITATIONS: None. FINDINGS: ALIGNMENT: Anatomic. MINERALIZATION: Normal. VERTEBRAL BODIES: No fractures or dislocation. DISCS: Multilevel disc space narrowing with osteophytes. FACETS, LATERAL MASSES, POSTERIOR ELEMENTS: Facet arthropathy. No fractures. No dislocation. No ac jeromy findings. HARDWARE: None in the spine. VISUALIZED RIBS: No fractures. LUNG APICES AND SOFT TISSUES: Calcified carotid bifurcations bilaterally OTHER: No other significant finding. IMPRESSION: CHRONIC DEGENERATIVE CHANGES. NO ACUTE FINDINGS. TECHNICAL DOCUMENTATION: JOB ID: [id number] Quality ID # [id number]: Final reports with documentation of one or more dose reduction techniques (e.g., Au tomated exposure control, adjustment of the mA and/or kV according to patient size, use of iterative reconstruction technique) 2010 [employer]- All Rights Reserved Reading location - IP/workstation name: [email or web address]
--- NOTE | 2018-06-27 16:37 | RADIOLOGY REPORT (SQ) ---
EXAM DESCRIPTION: KNEE LEFT 4 VIEW COMPLETED DATE/TIME: 06/27/2018 4:22 pm REASON FOR STUDY: Knee injury left knee fall injury pain COMPARISON: None. NUMBER OF VIEWS: Four views. TECHNIQUE: AP, lateral, and both oblique radiographic images acquired of the left knee. LIMITATIONS: None. FINDINGS: MINERALIZATION: Normal. BONES: No acute fracture or dislocation. No worrisome bone lesions. JOINT: No suprapatellar knee joint effusion. No significant joint space narrowing SOFT TISSUES: Focal prepatellar soft tissue swelling is present suggesting hemorrhage into the prepat ellar bursa. This is best shown on lateral view. Underlying patellar is unremarkable. Patellar and quadriceps tendons are grossly intact on lateral view. OTHER: No other significant finding. IMPRESSION: Focal prepatellar soft tissue swelling from fluid or hemorrhage in the prepatellar bursa . No acute fracture or malalignment TECHNICAL DOCUMENTATION: JOB ID: [id number] [employer]- All Rights Reserved Reading location - IP/workstation name: [email or web address]
--- NOTE | 2018-06-27 18:40 | EKG REPORT ---
SEVERITY:- ABNORMAL ECG - SINUS RHYTHM FIRST DEGREE AV BLOCK NONSPECIFIC ST-T CHANGES- INFERIOR LATERAL LEADS : Confirmed by: Jose Isaac MD 27-Jun-2018 18:39:17
[2018-06-27 18:57] VITALS: BP 153/70
== END 2018-06-27 18:58 | disposition home or self-care (01) ==
LOC: ER 14:40
DX: S80.02XA Contusion of left knee, initial encounter (principal); S00.01XA Abrasion of scalp, initial encounter; M54.2 Cervicalgia; R51 Headache; M25.562 Pain in left knee; W19.XXXA Unspecified fall, initial encounter; R42 Dizziness and giddiness; F17.200 Nicotine dependence, unspecified, uncomplicated; E11.9 Type 2 diabetes mellitus without complications; I10 Essential (primary) hypertension; Z79.899 Other long term (current) drug therapy; Z91.048 Other nonmedicinal substance allergy status
CPT/HCPCS: 70450; 72125; 93005; 93010; 99284

== ENCOUNTER 2018-07-08 13:16 | Emergency (ER) | payer MEDICARE, MEDICAID ==
--- NOTE | 2018-07-08 14:06 | ER Document Report ---
ED Medical Screen (RME) - General Chief Complaint: Dizziness Stated Complaint: DIZZY WHEN STANDING Time Seen by Provider: 07/08/18 14:00 Notes: RAPID MEDICAL EVALUATION DISCLOSURE I have seen this patient as part of a Rapid Medical Evaluation and, if applicable, placed any initially appropriate orders. The patient will be seen and fully evaluated, including a full history and physical exam, by a provider ( in Main ED or Fast Track) when a room becomes available. 68-year-old male PMH atherosclerotic disease here with complaints of chest pain that started earlier today. He has taken his Ranexa with some improvement. The chest pain is a frequent issue for him and he has had a quite frequently since March. He is also complaining of some lightheadedness since the middle of this month when he fell and hit his head. He was seen here for this. He states that the lightheadedness is worse when he stands up. He denies any history of coronary stents. EXAM CTAB RRR TRAVEL OUTSIDE OF THE [place] IN LAST 30 DAYS: No - Related Data Allergies/Adverse Reactions: No Known Drug Allergies Allergy (Unknown, Verified 07/08/18 13:18) Raspberries Allergy (Mild, Uncoded 07/08/18 13:18) Hives Past Medical History - Social History Chew tobacco use (# tins/day): No Frequency of alcohol use: None Drug Abuse: None Family history: Reviewed & Not Pertinent - Past Medical History Cardiac Medical History: Reports: Hx Atrial Fibrillation - Paroxysmal, Hx Hypercholesterolemia, Hx Hypertension - no medications Denies: Hx Congestive Heart Failure, Hx DVT, Hx Heart Attack, Hx Pulmonary Embolism Pulmonary Medical History: Denies: Hx Asthma, Hx COPD, Hx Tuberculosis Neurological Medical History: Denies: Hx Seizures Endocrine Medical History: Reports: Hx Diabetes Mellitus Type 2 - no medications. Denies: Hx Diabetes Mellitus Type 1, Hx Hyperthyroidism, Hx Hypothyroidism Renal/ Medical History: Denies: Hx Peritoneal Dialysis GI Medical History: Reports: Hx Gastroesophageal Reflux Disease, Hx Pancreatitis. Denies: Hx Cirrhosis, Hx Hepatitis Musculoskeltal Medical History: Reports Hx Arthritis, Reports Hx Gout Skin Medical History: Denies Hx Eczema, Denies Hx Psoriasis Psychiatric Medical History: Reports: Hx Depression Infectious Medical History: Denies: Hx Hepatitis Past Surgical History: Reports: Hx Carotid Endarterectomy - left- secondary to left carotid stenosis, Hx Vascular Surgery - clot removal in neck March 2018. Denies: Hx Pacemaker - Immunizations Immunizations up to date: Yes Hx Diphtheria, Pertussis, Tetanus Vaccination: Yes - unk History of Influenza Vaccine for 08/2017 - 01/2018 Season: Yes Physical Exam - Vital signs Vitals: Temp Pulse Resp BP Pulse Ox 98.6 F 78 18 119/66 99 07/08/18 13:36 07/08/18 13:36 07/08/18 13:36 07/08/18 13:36 07/08/18 13:36 Course - Vital Signs Vital signs: Temp Pulse Resp BP Pulse Ox 98.6 F 78 18 119/66 99 07/08/18 13:36 07/08/18 13:36 07/08/18 13:36 07/08/18 13:36 07/08/18 13:36 Doctor's Discharge - Discharge Referrals: FAVIO CARABALLO MD [Primary Care Provider] - Follow up as needed
--- NOTE | 2018-07-08 14:46 | RADIOLOGY REPORT (SQ) ---
EXAM DESCRIPTION: CHEST 2 VIEWS COMPLETED DATE/TIME: 07/08/2018 2:33 pm REASON FOR STUDY: CP COMPARISON: 02/15/2018 EXAM PARAMETERS: NUMBER OF VIEWS: two views TECHNIQUE: Digital Frontal and Lateral radiographic views of the chest acquired. RADIATION DOSE: NA LIMITATIONS: none FINDINGS: LUNGS AND PLEURA: No opacities, masses or pneumothorax. No pleural effusion. MEDIASTINUM AND HILAR STRUCTURES: No masses or contour abnormalities. HEART AND VASCULAR STRUCTURES: Heart normal size. No evidence for failure. BONES: No acute findings. HARDWARE: None in the chest. OTHER: No other significant finding. IMPRESSION: NO ACUTE RADIOGRAPHIC FINDING IN THE CHEST. TECHNICAL DOCUMENTATION: JOB ID: [id number]- All Rights Reserved Reading location - IP/workstation name: [email or web address] [email or web address]
[2018-07-08 14:58] LABS: ABSOLUTE BASOPHILS # (AUTO) 0.1 10^3/uL (0.0-0.2); ABSOLUTE EOSINOPHILS # (AUTO) 0.3 10^3/uL (0.0-0.6); ABSOLUTE LYMPHOCYTES (AUTO) 3.7 10^3/uL (0.5-4.7); ABSOLUTE MONOCYTES (AUTO) 0.6 10^3/uL (0.1-1.4); ABSOLUTE NEUT (AUTO) 3.8 10^3/uL (1.7-8.2); BASOPHILS % (AUTO) 0.6 % (0-2); EOSINOPHILS % (AUTO) 3.6 % (0-6); HEMATOCRIT 37.2 % (37.9-51.0); HEMOGLOBIN 12.4 g/dL (13.5-17.0); LYMPHOCYTES % (AUTO) 43.8 % (13-45); MEAN CORPUSCULAR HEMOGLOBIN 32.2 pg (27.0-33.4); MEAN CORPUSCULAR HGB CONC 33.5 g/dL (32.0-36.0); MEAN CORPUSCULAR VOLUME 96 fl (80-97); PLATELET COUNT 353 10^3/uL (150-450); RED BLOOD COUNT 3.86 10^6/uL (4.35-5.55); RED CELL DISTRIBUTION WIDTH 14.4 % (11.5-14.0); TOTAL CELLS COUNTED % (AUTO) 100 %; WHITE BLOOD COUNT 8.4 10^3/uL (4.0-10.5)
[2018-07-08 15:12] LABS: ANION GAP 12 (5-19); BLOOD UREA NITROGEN 17 mg/dL (7-20); CALCIUM 9.4 mg/dL (8.4-10.2); CARBON DIOXIDE 30 mmol/L (22-30); CHLORIDE 102 mmol/L (98-107); GLUCOSE 98 mg/dL (75-110); POTASSIUM 4.1 mmol/L (3.6-5.0); SODIUM 144.3 mmol/L (137-145)
--- NOTE | 2018-07-08 15:35 | ER Document Report ---
ED Dizziness/Weakness - General Chief Complaint: Dizziness Stated Complaint: DIZZY WHEN STANDING Time Seen by Provider: 07/08/18 14:00 Notes: 68-year-old male to the emergency department for evaluation of chest pain. Evaluation of near syncope as well. Patient was recently admitted to the hospital and had a workup. Had an abnormal stress test but was deemed medical management criteria. Now having near syncopal episodes on a regular basis. Having intermittent chest pain. TRAVEL OUTSIDE OF THE [place] IN LAST 30 DAYS: No - HPI Patient complains to provider of: Near-syncope, Syncope, Weakness Onset: Last week Onset/Duration: Gradual - Related Data Allergies/Adverse Reactions: No Known Drug Allergies Allergy (Unknown, Verified 07/08/18 13:18) Raspberries Allergy (Mild, Uncoded 07/08/18 13:18) Hives Past Medical History - General Information source: Patient - Social History Smoking Status: Current Some Day Smoker Chew tobacco use (# tins/day): No Frequency of alcohol use: None Drug Abuse: None Lives with: Family Family History: Reviewed & Not Pertinent, CAD, DM, Hypertension, Malignancy Patient has suicidal ideation: No Patient has homicidal ideation: No - Past Medical History Cardiac Medical History: Reports: Hx Atrial Fibrillation - Paroxysmal, Hx Hypercholesterolemia, Hx Hypertension - no medications Denies: Hx Congestive Heart Failure, Hx DVT, Hx Heart Attack, Hx Pulmonary Embolism Pulmonary Medical History: Denies: Hx Asthma, Hx COPD, Hx Tuberculosis Neurological Medical History: Denies: Hx Seizures Endocrine Medical History: Reports: Hx Diabetes Mellitus Type 2 - no medications. Denies: Hx Diabetes Mellitus Type 1, Hx Hyperthyroidism, Hx Hypothyroidism Renal/ Medical History: Denies: Hx Peritoneal Dialysis GI Medical History: Reports: Hx Gastroesophageal Reflux Disease, Hx Pancreatitis. Denies: Hx Cirrhosis, Hx Hepatitis Musculoskeletal Medical History: Reports Hx Arthritis, Reports Hx Gout Skin Medical History: Denies Hx Eczema, Denies Hx Psoriasis Psychiatric Medical History: Reports: Hx Depression Infectious Medical History: Denies: Hx Hepatitis Past Surgical History: Reports: Hx Carotid Endarterectomy - left- secondary to left carotid stenosis, Hx Vascular Surgery - clot removal in neck March 2018. Denies: Hx Pacemaker - Immunizations Immunizations up to date: Yes Hx Diphtheria, Pertussis, Tetanus Vaccination: Yes - unk Hx Pneumococcal Vaccination: 11/11/11 Review of Systems - Review of Systems Constitutional: denies: Fever, Malaise, Weakness EENT: denies: Double vision, Ear pain, Throat pain, Throat swelling Cardiovascular: Chest pain, Syncope, Dizziness, Lightheaded. denies: Palpitations Respiratory: denies: Cough, Hurts to breathe, Short of breath, Wheezing Gastrointestinal: denies: Abdominal pain, Diarrhea, Nausea, Vomiting Musculoskeletal: denies: Back pain, Gout, Joint pain, Joint swelling, Leg swelling Skin: denies: Change in color, Dryness, Lesions, Lumps, Rash Hematologic/Lymphatic: denies: Anemia, Blood clots, Easy bleeding, Easy bruising Neurological/Psychological: denies: Confusion, Weakness, Numbness Physical Exam - Vital signs Vitals: Temp Pulse Resp BP Pulse Ox 98.6 F 78 18 119/66 99 07/08/18 13:36 07/08/18 13:36 07/08/18 13:36 07/08/18 13:36 07/08/18 13:36 Interpretation: Normal - General General appearance: Appears well, Alert - HEENT Head: Normocephalic, Atraumatic Eyes: Normal Pupils: PERRL - Respiratory Respiratory status: No respiratory distress Chest status: Nontender Breath sounds: Normal Chest palpation: Normal - Cardiovascular Rhythm: Regular Heart sounds: Normal auscultation Murmur: No - Abdominal Inspection: Normal Distension: No distension Bowel sounds: Normal Tenderness: Nontender Organomegaly: No organomegaly - Back Back: Normal, Nontender - Extremities General upper extremity: Normal inspection, Nontender, Normal color, Normal ROM , Normal temperature General lower extremity: Normal inspection, Nontender, Normal color, Normal ROM , Normal temperature, Normal weight bearing. No: Efrain's sign - Neurological Neuro grossly intact: Yes Cognition: Normal Orientation: AAOx4 Dariela Coma Scale Eye Opening: Spontaneous Dariela Coma Scale Verbal: Oriented Dariela Coma Scale Motor: Obeys Commands Dariela Coma Scale Total: 15 Speech: Normal Motor strength normal: LUE, RUE, LLE, RLE Sensory: Normal - Psychological Associated symptoms: Normal affect, Normal mood - Skin Skin Temperature: Warm Skin Moisture: Dry Skin Color: Normal Course - Re-evaluation Re-evalutation: 07/08/18 17:56 Laboratory 07/08/18 07/08/18 07/08/18 14:35 14:35 14:35 WBC 8.4 RBC 3.86 L Hgb 12.4 L Hct 37.2 L MCV 96 MCH 32.2 MCHC 33.5 RDW 14.4 H Plt Count 353 Seg Neutrophils % 45.0 Lymphocytes % 43.8 Monocytes % 7.0 Eosinophils % 3.6 Basophils % 0.6 Absolute Neutrophils 3.8 Absolute Lymphocytes 3.7 Absolute Monocytes 0.6 Absolute Eosinophils 0.3 Absolute Basophils 0.1 PT INR APTT Sodium 144.3 Potassium 4.1 Chloride 102 Carbon Dioxide 30 Anion Gap 12 BUN 17 Creatinine 0.97 Est GFR ( Amer) > 60 Est GFR (Non-Af Amer) > 60 Glucose 98 Calcium 9.4 Troponin I 0.120 07/08/18 14:35 WBC RBC Hgb Hct MCV MCH MCHC RDW Plt Count Seg Neutrophils % Lymphocytes % Monocytes % Eosinophils % Basophils % Absolute Neutrophils Absolute Lymphocytes Absolute Monocytes Absolute Eosinophils Absolute Basophils PT 13.0 INR 0.94 APTT 31.7 Sodium Potassium Chloride Carbon Dioxide Anion Gap BUN Creatinine Est GFR ( Amer) Est GFR (Non-Af Amer) Glucose Calcium Troponin I Chest X-Ray 07/08/18 14:05 IMPRESSION: NO ACUTE RADIOGRAPHIC FINDING IN THE CHEST. Patient with slightly elevated cardiac troponin at 0.12. Consulted with tools administrator who is seen patient before. Patient needs to be transferred to the place we can get cardiac intervention according to Dr. Scott. Aspirin and heparin have been started. At this time will instigate the transfer process. 07/08/18 18:08 Patient accepted as a direct admit to [facility], Dr. Liborio bourgeois. - Vital Signs Vital signs: Temp Pulse Resp BP Pulse Ox 98.6 F 88 15 129/72 H 98 07/08/18 13:36 07/08/18 15:22 07/08/18 17:01 07/08/18 17:00 07/08/18 17:01 - Laboratory Result Diagrams: 07/08/18 14:35 07/08/18 14:35 Laboratory results interpreted by me: 07/08/18 14:35 RBC 3.86 L Hgb 12.4 L Hct 37.2 L RDW 14.4 H - EKG Interpretation by Ak EKG shows normal: Sinus rhythm, Penn Laird, Intervals, QRS Complexes. abnormal: ST-T Waves - Inverted T waves anterior lateral leads. Frequent atrial premature contractions Critical Care Note - Critical Care Note Total time excluding time spent on procedures (mins): 45 Comments: Non-ST elevation CO, consultation with multiple specialist, coordination of transfer care medical management Discharge - Discharge Clinical Impression: Non-ST elevation CO (NSTEMI) Condition: Good Disposition: [facility] Referrals: FAVIO CARABALLO MD [Primary Care Provider] - Follow up as needed
[2018-07-08] MEDS ORDERED: HEPARIN SODIUM,PORCINE/D5W 25,000 UNIT/250 ML RTUINJ IV PRN (16:22)
[2018-07-08] MEDS ORDERED: ASPIRIN 81 MG TABLET, CHEWABLE PO ONE (16:22)
[2018-07-08] MEDS ORDERED: HEPARIN SOD (PORCINE) 1,000 UNIT/ML 10 ML VIAL IV ONE (16:22)
[2018-07-08 16:40] LABS: INTERNATIONAL RATION (INR) 0.94
[2018-07-08 16:41] LABS: PARTIAL THROMBOPLASTIN TIME 31.7 SEC (23.5-35.8)
[2018-07-08] MEDS ORDERED: MORPHINE SULFATE 10 MG/ML INJ IV ONE (17:52)
[2018-07-08] MEDS ORDERED: HEPARIN SOD (PORCINE) 1,000 UNIT/ML 10 ML VIAL IV PRN (19:23)
--- NOTE | 2018-07-08 19:54 | EKG REPORT ---
SEVERITY:- BORDERLINE ECG - SINUS RHYTHM ATRIAL PREMATURE COMPLEX NONSPECIFIC ST-T CHANGES : Confirmed by: Jose Isaac MD 08-Jul-2018 19:53:01
[2018-07-08 20:01] VITALS: BP 145/70
--- NOTE | 2018-07-08 21:50 | PDOC CONSULTATION ---
Consultation Consult Date: 07/08/18 Attending physician:: LEFTY TAVERAS Consult reason:: Chest pain History of Present Illness Admission Date/PCP: FAVIO CARABALLO History of Present Illness: SAMPSON MAO is a 68 year old male presents to the emergency department for evaluation of chest pain. Evaluation of near syncope as well. Patient was recently admitted to the hospital and had a workup. Had an abnormal stress test but was deemed medical management criteria. Now having near syncopal episodes on a regular basis. Having intermittent chest pain. Troponin I has been suggestive. Past Medical History Cardiac Medical History: Reports: Atrial Fibrillation - Paroxysmal, Hyperlipidema, Hypertension - no medications Denies: Congestive Heart Failure, DVT, Myocardial Infarction, Pulmonary Embolism Pulmonary Medical History: Denies: Asthma, Chronic Obstructive Pulmonary Disease (COPD), Tuberculosis Neurological Medical History: Denies: Seizures Endocrine Medical History: Reports: Diabetes Mellitus Type 2 - no medications Denies: Diabetes Mellitus Type 1, Hyperthyroidism, Hypothyroidism GI Medical History: Reports: Gastroesophageal Reflux Disease Denies: Cirrhosis, Hepatitis Musculoskeltal Medical History: Reports: Arthritis, Gout Skin Medical History: Denies: Eczema, Psoriasis Psychiatric Medical History: Reports: Depression Past Surgical History Past Surgical History: Reports: Carotid Endarterectomy - left- secondary to left carotid stenosis, Vascular Surgery - clot removal in neck March 2018 Denies: Pacemaker Social History Lives with: Family Smoking Status: Current Some Day Smoker Frequency of Alcohol Use: None Hx Recreational Drug Use: No Drugs: Marijuana Hx Prescription Drug Abuse: No Family History Family History: Reviewed & Not Pertinent, CAD, DM, Hypertension, Malignancy Medication/Allergy Home Medications: Allopurinol [Zyloprim 100 mg Tablet] 100 mg PO DAILY 06/16/18 Amlodipine Besylate [Norvasc 10 mg Tablet] 10 mg PO DAILY 06/16/18 Aspirin [Aspirin 81 mg Chewable Tablet] 81 mg PO DAILY 06/16/18 Atorvastatin Calcium [Lipitor 80 mg Tablet] 80 mg PO QHS 06/16/18 Carvedilol [Coreg 12.5 mg Tablet] 12.5 mg PO Q12 06/16/18 Citalopram Hydrobromide [Celexa 20 mg Tablet] 20 mg PO DAILY 06/16/18 Ergocalciferol (Vitamin D2) [Vitamin D2] 50,000 unit PO MO@1000 06/16/18 Glipizide [Glucotrol 10 mg Tablet] 10 mg PO QAM 06/16/18 Losartan/Hydrochlorothiazide [Losartan-Hctz 100-25 mg Tab] 1 each PO DAILY 06/16 Metformin HCl [Glucophage] 1,000 mg PO BIDBS 06/16/18 Nitroglycerin [Nitrostat 0.4 mg (1/150 Gr) Tabs 25/Bottle] 1 tab SL Q5MP PRN 04/28 Aspirin 81 mg PO DAILY #30 tab.chew 06/20/18 Clopidogrel Bisulfate [Plavix 75 mg Tablet] 75 mg PO DAILY #30 tablet 06/20/18 Insulin Admin. Supplies [Inpen (For Humalog)] 1 each SQ ACHS #1 insuln.pen 06/20 Isosorbide Mononitrate [Imdur 60 mg Tablet.er] 60 mg PO DAILY #30 tab.er.24h 08/28 Metoprolol Succinate [Toprol Xl 25 mg Tab.sr] 25 mg PO Q12 #60 tab.sr.24h Ranolazine [Ranexa 500 mg Tab.sr] 500 mg PO BID #60 tab.sr.12h 06/20/18 Hydrocodone/Acetaminophen [Hydrocodon-Acetaminophen 5-325] 1 each PO TID #10 tablet 06/27/18 Allergies/Adverse Reactions: No Known Drug Allergies Allergy (Unknown, Verified 07/08/18 13:18) Raspberries Allergy (Mild, Uncoded 07/08/18 13:18) Hives Physical Exam Vital Signs: Temp Pulse Resp BP Pulse Ox 98.0 F 88 18 145/70 H 98 07/08/18 19:58 07/08/18 15:22 07/08/18 19:58 07/08/18 19:58 07/08/18 19:58 Intake & Output 07/07/18 07/08/18 07/09/18 06:59 06:59 06:59 Weight 103.5 kg Results Laboratory Results: 07/08/18 14:35 07/08/18 14:35 07/08/18 07/08/18 14:35 14:35 WBC 8.4 RBC 3.86 L Hgb 12.4 L Hct 37.2 L MCV 96 MCH 32.2 MCHC 33.5 RDW 14.4 H Plt Count 353 Seg Neutrophils % 45.0 Lymphocytes % 43.8 Monocytes % 7.0 Eosinophils % 3.6 Basophils % 0.6 Absolute Neutrophils 3.8 Absolute Lymphocytes 3.7 Absolute Monocytes 0.6 Absolute Eosinophils 0.3 Absolute Basophils 0.1 Sodium 144.3 Potassium 4.1 Chloride 102 Carbon Dioxide 30 Anion Gap 12 BUN 17 Creatinine 0.97 Est GFR ( Amer) > 60 Est GFR (Non-Af Amer) > 60 Glucose 98 Calcium 9.4 07/08/18 07/08/18 14:35 18:40 Troponin I 0.120 0.134 EKG Comments: Sinus rhythm, non specific ST segment depression, frequent APCs Impressions: Chest X-Ray 07/08/18 14:05 IMPRESSION: NO ACUTE RADIOGRAPHIC FINDING IN THE CHEST.
== END 2018-07-08 20:33 | disposition short-term general hospital (02) ==
LOC: ER 13:16
DX: I21.4 Non-ST elevation (NSTEMI) myocardial infarction (principal); R07.9 Chest pain, unspecified; R55 Syncope and collapse; I10 Essential (primary) hypertension; E11.9 Type 2 diabetes mellitus without complications; F17.200 Nicotine dependence, unspecified, uncomplicated; Z91.018 Allergy to other foods
CPT/HCPCS: 93005; 99291; 96375; 96365; 96366; 36415; 85025; 85610; 85730; 80048; 84484; 71046; 93010; J1644 ×2; A9270; J2270

== ENCOUNTER 2018-10-29 19:14 | Emergency (ER) | payer MEDICARE, MEDICAID ==
[2018-10-29] MEDS ORDERED: LIDOCAINE 5% (700 MG) TRANSDERMAL ADH..PATCH TP ONE ×2 (19:52→20:21)
--- NOTE | 2018-10-29 19:59 | ER Document Report ---
ED Neck/Back Problem - General Chief Complaint: Leg Pain Stated Complaint: LEG PAIN Time Seen by Provider: 10/29/18 19:42 Mode of Arrival: Ambulatory Information source: Patient Notes: 68-year-old male presents to ED for complaint of pain across both buttocks and down both legs for "years. He states it is just flared up right now and hurting so he came to the emergency room. I asked him how long it is been hurting like it is now and he said the pain is been present for years. Patient is alert and oriented respirations regular and unlabored speaking in full sentences. Patient states he did get a patent endarterectomy and a coronary stent in June. He states the pain in his back and legs has not changed in years. TRAVEL OUTSIDE OF THE [place] IN LAST 30 DAYS: No - HPI Patient complains to provider of: Lower back Onset: Other - Years Onset: Chronic Timing: Waxing and waning Quality of pain: Burning, Sharp Pain Level: 5 Context: Turning Associated symptoms: Like prior neck/back pain, Radiation to leg, Lower back pain. denies: Constipation, Incontinence, Motor loss, Numbness/tingling, Sensory loss, Sweaty, Unable to urinate Exacerbated by: Movement of trunk Relieved by: Nothing Similar symptoms previously: Yes Recently seen / treated by doctor: No - Related Data Allergies/Adverse Reactions: No Known Drug Allergies Allergy (Unknown, Verified 07/08/18 13:18) Raspberries Allergy (Mild, Uncoded 07/08/18 13:18) Hives Past Medical History - General Information source: Patient - Social History Smoking Status: Current Every Day Smoker Cigarette use (# per day): Yes - Pack per day Smoking Education Provided: Yes - 4 minutes Frequency of alcohol use: None Drug Abuse: None Lives with: Family Family History: CAD, DM, Hypertension, Malignancy - Past Medical History Cardiac Medical History: Reports: Hx Atrial Fibrillation - Paroxysmal, Hx Coronary Artery Disease, Hx Hypercholesterolemia, Hx Hypertension - no medications, Other - Carotid endarterectomy Pulmonary Medical History: Reports: None EENT Medical History: Reports: None Neurological Medical History: Reports: None Endocrine Medical History: Reports: Hx Diabetes Mellitus Type 2 - States he takes pills Renal/ Medical History: Reports: None Malignancy Medical History: Reports None GI Medical History: Reports: Hx Gastroesophageal Reflux Disease, Hx Pancreatitis Musculoskeletal Medical History: Reports Hx Arthritis, Reports Hx Gout Skin Medical History: Reports None Psychiatric Medical History: Reports: Hx Depression Traumatic Medical History: Reports: None Infectious Medical History: Reports: None Past Surgical History: Reports: Hx Cardiac Catheterization, Hx Carotid Endarterectomy - left- secondary to left carotid stenosis, Hx Coronary Stent, Hx Vascular Surgery - clot removal in neck March 2018 - Immunizations Immunizations up to date: Yes Hx Diphtheria, Pertussis, Tetanus Vaccination: No - unk Hx Pneumococcal Vaccination: 11/11/11 Review of Systems - Review of Systems Constitutional: No symptoms reported EENT: No symptoms reported Cardiovascular: No symptoms reported Respiratory: No symptoms reported Gastrointestinal: No symptoms reported Genitourinary: No symptoms reported Male Genitourinary: No symptoms reported Musculoskeletal: Back pain - Across both buttocks down both legs Skin: No symptoms reported Hematologic/Lymphatic: No symptoms reported Neurological/Psychological: No symptoms reported -: Yes All other systems reviewed and negative Physical Exam - Vital signs Vitals: Temp Pulse Resp BP Pulse Ox 98.9 F 85 20 133/75 H 96 10/29/18 19:32 10/29/18 19:32 10/29/18 19:32 10/29/18 19:32 10/29/18 19:32 Interpretation: Normal - General General appearance: Appears well, Alert General appearance pediatric: Attentiveness normal, Good eye contact - HEENT Head: Normocephalic, Atraumatic Eyes: Normal Pupils: PERRL - Respiratory Respiratory status: No respiratory distress Chest status: Nontender Breath sounds: Normal Chest palpation: Normal - Cardiovascular Rhythm: Regular Heart sounds: Normal auscultation Murmur: No - Abdominal Inspection: Normal Distension: No distension Bowel sounds: Normal Tenderness: Nontender Organomegaly: No organomegaly - Back Back: Normal, Tender. No: Deformity/step-off, CVA tenderness, Vertebra tenderness, Scars, Scoliosis, Wounds Notes: Denies signs and symptoms of cauda equina, denies loss of control of bowel or bladder, denies loss of sensation to the lower extremities, denies loss of control of the lower extremities, denies saddle anesthesia. - Extremities General upper extremity: Normal inspection, Nontender, Normal color, Normal ROM, Normal temperature General lower extremity: Normal inspection, Nontender, Normal color, Normal ROM, Normal temperature, Normal weight bearing. No: Efrain's sign - Neurological Neuro grossly intact: Yes Cognition: Normal Orientation: AAOx4 Dariela Coma Scale Eye Opening: Spontaneous [place] Coma Scale Verbal: Oriented [place] Coma Scale Motor: Obeys Commands Ped Dariela Coma Scale Eye Opening: Spontaneous Ped [place] Coma Scale Verbal: Age appropriate verbal Ped [place] Coma Scale Motor: Spontaneous Movements Speech: Normal Motor strength normal: LUE, RUE, LLE, RLE Sensory: Normal - Psychological Associated symptoms: Normal affect, Normal mood - Skin Skin Temperature: Warm Skin Moisture: Dry Skin Color: Normal Course - Re-evaluation Re-evalutation: 10/29/18 20:47 Discussed x-ray with patient and family. Written report of x-ray given to patient and family. Discussed x-ray with patient. Patient instructed to follow-up with primary doctor in the morning and get a referral to a store protection specialist. After performing a Medical Screening Examination, I estimate there is LOW risk for EXPANDING OR RUPTURED ABDOMINAL AORTIC ANEURYSM, CAUDA EQUINA SYNDROME, EPIDURAL MASS LESION, or HERNIATED DISK CAUSING SEVERE SPINAL STENOSIS, thus I consider the discharge disposition reasonable. I have reevaluated this patient multiple times and no significant life threatening changes are noted. The patient and I have discussed the diagnosis and risks, and we agree with discharging home and close follow-up. We also discussed returning to the Emergency Department immediately if new or worsening symptoms occur with the understanding that symptoms and presentations can change. We have discussed the symptoms which are most concerning (e.g., saddle anesthesia, urinary or bowel incontinence or retention, changing or worsening pain) that necessitate immediate return. - Vital Signs Vital signs: Temp Pulse Resp BP Pulse Ox 98.9 F 85 20 133/75 H 96 10/29/18 19:32 10/29/18 19:32 10/29/18 19:32 10/29/18 19:32 10/29/18 19:32 - Diagnostic Test Radiology reviewed: Image reviewed, Reports reviewed Discharge - Discharge Clinical Impression: Chronic low back pain with bilateral sciatica Qualifiers: Back pain laterality: bilateral Qualified Code(s): M54.42 - Lumbago with sciatica, left side; M54.41 - Lumbago with sciatica, right side; G89.29 - Other chronic pain Condition: Stable Disposition: HOME, SELF-CARE Additional Instructions: Chronic Back Pain Chronic back pain (pain persisting longer than three months) is a common problem. A medical evaluation can look for herniated disc, arthritis, osteoporosis, tumors, and infections. But at least half the time, there's no obvious treatable cause. Anxiety and depression tend to worsen back pain. Ibuprofen or other anti-inflammatory medicine can help. A heating pad, used for 15-20 minutes at a time, can ease pain. For this type of back pain, narcotic medicines should be avoided. Muscle relaxers are rarely helpful unless you're having spasms. Activity is important. Find an aerobic exercise program that your back can tolerate. Too much rest makes back pain worse. Specific back exercises are usually prescribed to strengthen the back and abdominal muscles. Often, a physical therapist can help. Avoid heavy lifting, working while bent over, or standing with both knees straight. Most back pain patients do better with a firm mattress. If new symptoms of a "herniated disc" (radiation of pain, numbness, or tingling down the back of the leg or weakness in the leg) occur, you should be re-examined. Chronic Pain Control Stress, inactivity, and depression make pain more severe regardless of the cause of the pain. Stress and poor physical condition can cause pain such as headaches and backache. Relaxation: Rest in a quiet place with your eyes closed for 20 minutes twice daily. Concentrate on a pleasant image, or simply "feel" your breathing. Clear your mind. Stress management: Deal with your "stressors." Either take action, or eliminate the stressor from your life. Don't let things hang over you. Accept those things you can't change. Nutrition: Eat small, balanced meals -- don't skip, don't overeat. Meals should be high-carbohydrate, low-sugar, low-fat. Exercise: Exercise helps painful conditions and eases stress. Get 30 minutes of moderate exercise, five days a week. Do an activity that does not flare your pain. Precautions: Pain which continues to disrupt daily activities, or which changes in nature, requires a medical evaluation. Pain Clinic referral is available. We do not manage chronic pain in the Emergency Department. We will try to appropriately help you through an acute flare of your chronic painful condition, but for on-going chronic pain that does not improve, you will need to see your private doctor or acid painter. We do not provide repeated medication management of chronic painful conditions. If you wish, we can provide the name of local pain management physicians. Sciatica Your symptoms suggest "sciatica." The pain of sciatica typically radiates down the leg. Numbness in the foot or calf may also occur. Sciatica is caused by irritation of the sciatic nerve or its branches. The irritation can be due to a herniated disk in the spine, swelling and inflammation in the muscles surrounding the sciatic nerve, or direct injury of the nerve itself. Most cases of sciatica will resolve with medical treatment. Bed rest is usually recommended initially. Surgery is only necessary when the condition will not improve with rest and antiinflammatory medication. Muscle relaxers are often given if muscle soreness is present. A CAT scan of the back may be performed if a herniated disk is suspected. Re-examination is necessary if you develop increasing numbness, localized weakness in the foot or ankle, or if the pain does not respond to rest. MUSCLE RELAXERS: Muscle relaxing medications are usually prescribed for acute muscle spasm or injury to the neck and back. They are often combined with antiinflammatory pain medication for increased relief. You may stop the muscle relaxer when the pain and stiffness have improved. Start the medication again if spasms recur. Muscle relaxers may cause drowsiness, especially with the first dose. Do not operate machinery or drive while under the effects of the medication. Most muscle relaxers last up to 24 hours. Do not combine the medication with alcohol. ICE PACKS: Apply ice packs frequently against the painful area. Many different schedules are recommended, such as "20 minutes on, 20 minutes off" or "one hour ice, two hours rest." If you need to work, you may need to go longer between ic e treatments. You should plan to have the area ice packed AT LEAST one fourth of the time. The ice should be applied over the wrap, tape, or splint, or over a layer of cloth -- not directly against the skin. Some ice bags have a built-in cloth and can be put directly on the skin. WARM PACKS: After approximately two days, apply gentle heat (such as a heating pad or hot water bottle) for about 20 to 30 minutes about every two hours -- at least four times daily. Warmth and elevation will help you make a more rapid recovery, and will ease the pain considerably. Do not use HOT heat, and never apply heat for longer than 30 minutes. The continuous heat can invisibly damage skin and muscles -- even when no burn is seen on the surface. Damaged muscles can make you MORE sore. Stretching Exercises for the Back The physician has recommended that you begin stretching exercises for your back. These are often used even while the back is painful. However, you should notify the physician if the activities seem to increase your pain. PELVIC TILT: Lie flat on your back with knees bent. Tighten your stomach and buttock muscles so it flattens your lower back against the floor. Hold 10 seconds. Repeat 10 times, twice daily. KNEE RAISE: Lying on the back with knees bent, raise one knee to your chest, then the other. Hold both knees against the chest 10 seconds, then lower one knee at a time. Repeat 10 times, twice daily. PARTIAL TRUNK RAISE: Lie face down, arms at your sides. Keeping your waist on the floor, use your arms raise your chest up. Support yourself on your elbows for 30 seconds. Repeat twice daily, increasing the time to two minutes as you recover. I have placed Lidoderm patches on your back. These need to be removed in 12 hours. After removing these patches, you need to wait 12 hours before you can put other patches in their place. You can buy patches [id number] that are similar to the patches I placed on your back. Please call your primary care doctor in the morning to schedule a follow-up appointment for your chronic back pain with sciatica going down both legs. FOLLOW-UP CARE: If you have been referred to a physician for follow-up care, call the physicians office for an appointment as you were instructed or within the next two days. If you experience worsening or a significant change in your symptoms, notify the physician immediately or return to the Emergency Department at any time for re-evaluation. Forms: Elevated Blood Pressure, Smoking Cessation Education Referrals: FAVIO CARABALLO MD [Primary Care Provider] - Follow up tomorrow
[2018-10-29 20:17] VITALS: BP 133/75
--- NOTE | 2018-10-29 20:26 | RADIOLOGY REPORT (SQ) ---
EXAM DESCRIPTION: L SPINE WHOLE COMPLETED DATE/TIME: 10/29/2018 8:12 pm REASON FOR STUDY: low back pain radiates to both legs COMPARISON: None. NUMBER OF VIEWS: Five views including obliques. TECHNIQUE: AP, lateral, oblique, and sacral radiographic images acquired of the lumbar spine. LIMITATIONS: None. FINDINGS: MINERALIZATION: Normal. SEGMENTATION: Normal. No transitional anatomy. ALIGNMENT: Normal. VERTEBRAE: Maintained height. No fracture or worrisome bone lesion. DISCS: Disc spaces are narrowed at C3-4 and C4-5. There is sclerosis of the vertebral endplates at C 3-4. Small marginal osteophytes are seen. POSTERIOR ELEMENTS: Pedicles and facets are intact. No pars defect or posterior arch defects. HARDWARE: None in the spine. PARASPINAL SOFT TISSUES: Normal. PELVIS: Intact as visualized. No fractures or worrisome bone lesions. SI joints intact. OTHER: No other significant finding. IMPRESSION: Degenerative disc disease and spondylosis. TECHNICAL DOCUMENTATION: JOB ID: [id number] [employer]- All Rights Reserved Reading location - IP/workstation name: [email or web address]
== END 2018-10-29 21:17 | disposition home or self-care (01) ==
LOC: ER 19:14
DX: M54.41 Lumbago with sciatica, right side (principal); M54.42 Lumbago with sciatica, left side; G89.29 Other chronic pain; I25.10 Atherosclerotic heart disease of native coronary artery without angina pectoris; I10 Essential (primary) hypertension; E11.9 Type 2 diabetes mellitus without complications; F17.210 Nicotine dependence, cigarettes, uncomplicated; Z71.6 Tobacco abuse counseling; Z95.5 Presence of coronary angioplasty implant and graft; Z91.018 Allergy to other foods
CPT/HCPCS: 72110; 99283; 99406

== ENCOUNTER 2018-11-13 10:22 | Observation (INO) | payer MEDICARE, MEDICAID ==
[2018-11-13] MEDS ORDERED: ASPIRIN 81 MG TABLET, CHEWABLE PO ONE (10:38)
[2018-11-13 10:55] LABS: ABSOLUTE BASOPHILS # (AUTO) 0.1 10^3/uL (0.0-0.2); ABSOLUTE EOSINOPHILS # (AUTO) 0.3 10^3/uL (0.0-0.6); ABSOLUTE LYMPHOCYTES (AUTO) 3.4 10^3/uL (0.5-4.7); ABSOLUTE MONOCYTES (AUTO) 0.6 10^3/uL (0.1-1.4); ABSOLUTE NEUT (AUTO) 3.8 10^3/uL (1.7-8.2); EOSINOPHILS % (AUTO) 3.9 % (0-6); HEMATOCRIT 40.2 % (37.9-51.0); HEMOGLOBIN 13.5 g/dL (13.5-17.0); LYMPHOCYTES % (AUTO) 41.8 % (13-45); MEAN CORPUSCULAR HEMOGLOBIN 31.8 pg (27.0-33.4); MEAN CORPUSCULAR HGB CONC 33.7 g/dL (32.0-36.0); MEAN CORPUSCULAR VOLUME 94 fl (80-97); MONOCYTES % (AUTO) 6.9 % (3-13); PLATELET COUNT 283 10^3/uL (150-450); RED BLOOD COUNT 4.25 10^6/uL (4.35-5.55); RED CELL DISTRIBUTION WIDTH 14.1 % (11.5-14.0); SEGMENTED NEUTROPHILS % (AUTO) 46.4 % (42-78); TOTAL CELLS COUNTED % (AUTO) 100 %; WHITE BLOOD COUNT 8.2 10^3/uL (4.0-10.5)
[2018-11-13 11:11] LABS: ALANINE AMINOTRANSFERASE 26 U/L (21-72); ALBUMIN 4.1 g/dL (3.5-5.0); ALKALINE PHOSPHATASE 96 U/L (38-126); ANION GAP 11 (5-19); ASPARTATE AMINO TRANSFERASE 21 U/L (17-59); BILIRUBIN,DIRECT 0.3 mg/dL (0.0-0.4); BILIRUBIN,TOTAL 0.5 mg/dL (0.2-1.3); BLOOD UREA NITROGEN 10 mg/dL (7-20); CALCIUM 9.7 mg/dL (8.4-10.2); CARBON DIOXIDE 24 mmol/L (22-30); CHLORIDE 105 mmol/L (98-107); CREATINE KINASE 84 U/L (55-170); GLUCOSE 359 mg/dL (75-110); POTASSIUM 4.5 mmol/L (3.6-5.0)
[2018-11-13 11:22] LABS: CREATINE KINASE MB 1.01 ng/mL (<4.55); TROPONIN I 0.017 ng/mL
[2018-11-13] MEDS ORDERED: DILTIAZEM HCL INJ 25 MG/5 ML VIAL IV ONE (11:35)
[2018-11-13] MEDS ORDERED: DILTIAZEM HCL/D5W 125 MG/125 ML RTUINJ IV PRN (11:35)
--- NOTE | 2018-11-13 11:36 | RADIOLOGY REPORT (SQ) ---
EXAM DESCRIPTION: CHEST SINGLE VIEW COMPLETED DATE/TIME: 11/13/2018 11:20 am REASON FOR STUDY: bed 18 cp Chest pain COMPARISON: Two-view chest 07/08/2018 EXAM PARAMETERS: NUMBER OF VIEWS: One view. TECHNIQUE: Single frontal radiographic view of the chest acquired. RADIATION DOSE: NA LIMITATIONS: None. FINDINGS: LUNGS AND PLEURA: No opacities, masses or pneumothorax. No pleural effusion. MEDIASTINUM AND HILAR STRUCTURES: No masses. Contour normal. HEART AND VASCULAR STRUCTURES: Heart normal in size. Normal vasculature. BONES: No acute findings. HARDWARE: None in the chest. OTHER: No other significant finding. IMPRESSION: NO ACUTE RADIOGRAPHIC FINDING IN THE CHEST. TECHNICAL DOCUMENTATION: JOB ID: [id number] [employer]- All Rights Reserved Reading location - IP/workstation name: [email or web address]
--- NOTE | 2018-11-13 11:39 | ER Document Report ---
ED General - General Chief Complaint: Chest Pain Stated Complaint: CHEST PAIN Time Seen by Provider: 11/13/18 10:59 Notes: Patient is a 68-year-old male with multiple chronic medical conditions including diabetes, hypertension, paroxysmal atrial fibrillation, PAD that presents to the emergency department for chief complaint of chest pain. Patient reports that his pain started this morning, he did take 3 of his nitro without much relief so he decided to call EMS and brought him to the emergency department. He describes it as a heaviness in the left side of his chest that radiates towards his left jaw, it seems to be better now, but is still present. He also noted that his heart rate was fast as well and felt palpitations, he states he has been taking his medications, and does not think he missed any of his medications. Denies being on any blood thinners. He did take aspirin this morning. He currently rates his pain as a 3 out of 10, as noted describes it as a heaviness. Past Medical History: CAD, hypertension, hyperlipidemia, diabetes mellitus, peripheral artery disease, gout, atrial fibrillation Past Surgical History: Carotid endarterectomy, PCI with stenting Social History: Admits to smoking cigarettes, denies alcohol or drug use. Family History: Reviewed and noncontributory for presenting illness Allergies: Reviewed, see documented allergy list. REVIEW OF SYSTEMS: Other than noted above, the 12 point review of systems was reviewed with the patient and were negative, all pertinent findings are included in the HPI. PHYSICAL EXAMINATION: Vital signs reviewed, nursing noted reviewed. GENERAL: Elderly male, no acute respiratory distress HEAD: Atraumatic, normocephalic. EYES: Eyes appear normal, extraocular movements intact, sclera anicteric, conjunctiva are normal. ENT: nares patent, oropharynx clear without exudates. Moist mucous membranes. NECK: Normal range of motion, supple without lymphadenopathy LUNGS: Breath sounds clear to auscultation bilaterally and equal. No wheezes rales or rhonchi. HEART: Heart rate tachycardic, irregular rhythm, no audible murmur. ABDOMEN: Soft, nontender, normoactive bowel sounds. No rebound, guarding, or rigidity. No masses appreciated. EXTREMITIES: Nontender, good range of motion, trace bilateral lower extremity edema NEUROLOGICAL: No focal neurological deficits. Moves all extremities spontaneously Motor and sensory grossly intact on exam. PSYCH: Normal mood, normal affect. SKIN: Warm, Dry, normal turgor, no rashes or lesions noted on exposed skin TRAVEL OUTSIDE OF THE [place] IN LAST 30 DAYS: No - Related Data Allergies/Adverse Reactions: No Known Drug Allergies Allergy (Unknown, Verified 11/13/18 10:23) Raspberries Allergy (Mild, Uncoded 11/13/18 10:23) Hives Past Medical History - Social History Smoking Status: Unknown if Ever Smoked Family History: CAD, DM, Hypertension, Malignancy Patient has suicidal ideation: No Patient has homicidal ideation: No - Past Medical History Cardiac Medical History: Reports: Hx Atrial Fibrillation - Paroxysmal, Hx Coronary Artery Disease, Hx Hypercholesterolemia, Hx Hypertension - no medications Endocrine Medical History: Reports: Hx Diabetes Mellitus Type 2 - States he takes pills Renal/ Medical History: Denies: Hx Peritoneal Dialysis GI Medical History: Reports: Hx Gastroesophageal Reflux Disease, Hx Pancreatitis Musculoskeletal Medical History: Reports Hx Arthritis, Reports Hx Gout Psychiatric Medical History: Reports: Hx Depression Past Surgical History: Reports: Hx Cardiac Catheterization, Hx Carotid Endarterectomy - left- secondary to left carotid stenosis, Hx Coronary Stent, Hx Vascular Surgery - clot removal in neck March 2018 - Immunizations Immunizations up to date: Yes Hx Diphtheria, Pertussis, Tetanus Vaccination: No - unk Hx Pneumococcal Vaccination: 11/11/11 Physical Exam - Vital signs Vitals: Resp 23 H 11/13/18 10:40 Course - Re-evaluation Re-evalutation: Patient seen and examined vital signs reviewed. Laboratory data and imaging were ordered as appropriate for the patient's presenting symptoms and complaint, with consideration of any critical or life threatening conditions that may be associated with their obtained history and exam as noted above. Patient was treated with IV metoprolol, as the patient was noted to be going in and out of 2-1 AV block atrial flutter, down to 3-1, but he intermittently was going into the 150s for heart rate, he was given a total of 5 mg of IV metoprolol, and this did improve his heart rate into the 80s, is now spontaneously converted to sinus rhythm. Blood pressure has remained stable. He still having some chest pain, his initial troponin was 0.017, I feel that the patient needs to be admitted, for serial troponin testing, and monitoring on telemetry. And discussion of whether the patient should be on full dose anticoagulation given that his chads 2 Vasc score is rather high and it would be recommended. A call was placed to the patient's primary care physician Dr. Lizbeth edouard, who I did a repeat call back Evaluation was most consistent with chest pain, atrial fibrillation with rapid ventricular response. Results were discussed with the patient at this point after careful consideration I feel that that patient should be admitted to the hospital. This was discussed with the patient that it is in the best interest for their care to be admitted for further evaluation and management. Patient agreed with this plan of care. A call was placed to the admitted physician, Dr. Caraballo did eventually call back, and stated that if the second troponin is negative, that he will come to the emergency department and discharge the patient as he knows this patient well. From my standpoint I feel that the patient should be kept for at least 3 troponins, for definitive rule out, given his high heart score based on his risk factors and age, I will defer to Dr. Caraballo to make this definitive disposition. *Note is created using voice recognition software and may contain spelling, syntax or grammatical errors. Laboratory 11/13/18 11/13/18 11/13/18 10:39 10:39 10:39 WBC 8.2 RBC 4.25 L Hgb 13.5 Hct 40.2 MCV 94 MCH 31.8 MCHC 33.7 RDW 14.1 H Plt Count 283 Seg Neutrophils % 46.4 Lymphocytes % 41.8 Monocytes % 6.9 Eosinophils % 3.9 Basophils % 1.0 Absolute Neutrophils 3.8 Absolute Lymphocytes 3.4 Absolute Monocytes 0.6 Absolute Eosinophils 0.3 Absolute Basophils 0.1 Sodium 140.0 Potassium 4.5 Chloride 105 Carbon Dioxide 24 Anion Gap 11 BUN 10 Creatinine 0.93 Est GFR ( Amer) > 60 Est GFR (Non-Af Amer) > 60 Glucose 359 H Calcium 9.7 Total Bilirubin 0.5 Direct Bilirubin 0.3 Neonat Total Bilirubin Not Reportable Neonat Direct Bilirubin Not Reportable Neonat Indirect Bili Not Reportable AST 21 ALT 26 Alkaline Phosphatase 96 Creatine Kinase 84 CK-MB (CK-2) 1.01 Troponin I 0.017 Total Protein 7.0 Albumin 4.1 Chest X-Ray 11/13/18 10:38 IMPRESSION: NO ACUTE RADIOGRAPHIC FINDING IN THE CHEST. 11/13/18 14:14 - Vital Signs Vital signs: Temp Pulse Resp BP Pulse Ox 97.9 F 147 H 15 136/79 H 98 11/13/18 10:46 11/13/18 10:46 11/13/18 14:01 11/13/18 14:01 11/13/18 14:01 - Laboratory Result Diagrams: 11/13/18 10:39 11/13/18 10:39 Laboratory results interpreted by me: 11/13/18 11/13/18 10:39 10:39 RBC 4.25 L RDW 14.1 H Glucose 359 H - EKG Interpretation by Me Additional EKG results interpreted by me: EKG demonstrates atrial flutter with a ventricular rate of 146 bpm, 2-1 AV bloc k, left axis deviation, QTC 449 ms, there is slight T wave inversions in leads I and aVL, this is compared to prior EKG from 07/08/2018, with significant change, atrial flutter is new. Discharge - Discharge Clinical Impression: Atrial flutter with rapid ventricular response, Hyperglycemia Chest pain Qualifiers: Chest pain type: unspecified Qualified Code(s): R07.9 - Chest pain, unspecified Condition: Stable Disposition: ADMITTED OBSERVATION Admitting Provider: V[facility] Unit Admitted: Telemetry Referrals: FAVIO CARABALLO MD [Primary Care Provider] - Follow up as needed
[2018-11-13] MEDS ORDERED: METOPROLOL TARTRATE PF/INJ 5 MG/5 ML SDV IV ONE (11:44)
--- NOTE | 2018-11-13 13:38 | EKG REPORT ---
SEVERITY:- ABNORMAL ECG - SINUS TACHYCARDIA VERSUS ATRIAL FLUTTER BORDERLINE LEFT AXIS DEVIATION REPOLARIZATION ABNORMALITY, PROB RATE RELATED : Confirmed by: Osiris Andrews MD 13-Nov-2018 13:37:34
[2018-11-13] MEDS ORDERED: ONDANSETRON HCL INJ/PF 4 MG/2 ML SDV IV PRN (17:55)
[2018-11-13] MEDS ORDERED: ZOLPIDEM TARTRATE 5 MG TABLET PO PRN (17:55)
[2018-11-13] MEDS ORDERED: ACETAMINOPHEN 325 MG TABLET PO PRN (17:55)
[2018-11-13] MEDS ORDERED: MORPHINE SULFATE 10 MG/ML INJ IV PRN (18:04)
[2018-11-13] MEDS ORDERED: NITROGLYCERIN 0.4 MG/TAB 25 TAB/BOTTLE SL PRN (18:04)
--- NOTE | 2018-11-13 18:20 | PDOC H&P ---
History of Present Illness Admission Date/PCP: 11/13/18 14:37 FAVIO CARABALLO Patient complains of: Chest pain radiating to left jaw History of Present Illness: SAMPSON MAO is a 68 year old male with hx of DM2/HTN/hyperlipidemia/CAD s.p stent/A-fib/Left carotid stenosis s.p left CEA/Severe PAD/Gout/CVD s.p CVA/Back pain/right hip pain/Anxiety/Vitamin D def/Chronic smoker, who presented with hx of left sided chest pain radiating to left jaw, 03/20,assoc. with palpitations, that was not relieved with 3 tabs of Nitro S/L and he called EMS and was brought to ER. At ER, he was in A-flutter at rate of 150s and was given IV metoprolol and Cardizem and he converted to normal sinus rhythm. His heart rate is normal and 2 sets of troponin were normal. He is admitted for 23 hour observation. Past Medical History Cardiac Medical History: Reports: Atrial Fibrillation - Paroxysmal, Coronary Artery Disease, Hyperlipidema, Hypertension - no medications Endocrine Medical History: Reports: Diabetes Mellitus Type 2 - States he takes pills GI Medical History: Reports: Gastroesophageal Reflux Disease Musculoskeltal Medical History: Reports: Arthritis, Gout Psychiatric Medical History: Reports: Depression Past Surgical History Past Surgical History: Reports: Cardiac Catheterization, Carotid Endarterectomy - left- secondary to left carotid stenosis, Coronary Stent, Vascular Surgery - clot removal in neck March 2018 Social History Smoking Status: Current Every Day Smoker Cigarettes Packs Per Day: 0.5 Frequency of Alcohol Use: None Hx Recreational Drug Use: No Drugs: Marijuana Hx Prescription Drug Abuse: No - Advance Directive Resuscitation Status: Full Code Family History Family History: CAD, DM, Hypertension, Malignancy Parental Family History Reviewed: Yes Children Family History Reviewed: Yes Sibling(s) Family History Reviewed.: Yes Medication/Allergy Home Medications: Allopurinol [Zyloprim 100 mg Tablet] 100 mg PO DAILY 11/13/18 Amlodipine Besylate [Norvasc 10 mg Tablet] 10 mg PO DAILY 11/13/18 Aspirin [Aspirin 325 mg Tablet] 325 mg PO DAILY 11/13/18 Atorvastatin Calcium [Lipitor 80 mg Tablet] 80 mg PO DAILY 11/13/18 Canagliflozin [Invokana] 300 mg PO DAILY 11/13/18 Cetirizine HCl [Zyrtec 10 mg Tablet] 10 mg PO DAILY 11/13/18 Citalopram Hydrobromide [Celexa] 20 mg PO DAILY 11/13/18 Ergocalciferol (Vitamin D2) [Drisdol 50,000 Unit (1.25MG) Capsule] 50,000 unit PO MO@1000 11/13/18 Gabapentin [Neurontin 300 mg Capsule] 300 mg PO Q12 11/13/18 Glipizide [Glocotrol 10 Mg Tablet] 10 mg PO DAILY 11/13/18 Losartan/Hydrochlorothiazide [Losartan-Hctz 100-25 mg Tab] 1 each PO DAILY 11/13/18 Metformin HCl [Glucophage] 1,000 mg PO BID 11/13/18 Metoprolol Succinate [Toprol Xl 50 mg Tab.sr] 50 mg PO Q12 11/13/18 Nitroglycerin [Nitrostat 0.4 mg (1/150 Gr) Tabs 25/Bottle] 1 tab SL Q5MP PRN 11/13/18 Allergies/Adverse Reactions: No Known Drug Allergies Allergy (Unknown, Verified 11/13/18 10:23) Raspberries Allergy (Mild, Uncoded 11/13/18 10:23) Hives Review of Systems All systems: as per PMH Constitutional: PRESENT: as per HPI Ears: PRESENT: as per HPI Nose, Mouth, and Throat: PRESENT: as per HPI Cardiovascular: PRESENT: as per HPI, chest pain, palpitations Respiratory: PRESENT: as per HPI Gastrointestinal: PRESENT: as per HPI Genitourinary: PRESENT: as per HPI Musculoskeletal: PRESENT: as per HPI Integumentary: PRESENT: as per HPI Neurological: PRESENT: as per HPI Psychiatric: PRESENT: as per HPI Endocrine: PRESENT: as per HPI Hematologic/Lymphatic: PRESENT: as per HPI Physical Exam Vital Signs: Temp Pulse Resp BP Pulse Ox 98.0 F 62 16 141/80 H 99 11/13/18 16:42 11/13/18 16:42 11/13/18 16:42 11/13/18 16:42 11/13/18 16:42 Intake & Output 11/12/18 11/13/18 11/14/18 06:59 06:59 06:59 Weight 107.3 kg General appearance: PRESENT: no acute distress, cooperative, well-developed, well-nourished Head exam: PRESENT: atraumatic, normocephalic Eye exam: PRESENT: EOMI, PERRLA Mouth exam: PRESENT: moist, neck supple, tongue midline Respiratory exam: PRESENT: clear to auscultation wyatt, symmetrical Cardiovascular exam: PRESENT: +S1 Pulses: PRESENT: +2 pedal pulses bilateral GI/Abdominal exam: PRESENT: normal bowel sounds, soft Rectal exam: PRESENT: deferred Extremities exam: PRESENT: full ROM Musculoskeletal exam: PRESENT: full ROM Neurological exam: PRESENT: alert, awake, oriented to person, oriented to place, oriented to time Psychiatric exam: PRESENT: normal mood Results Laboratory Results: 11/13/18 10:39 11/13/18 10:39 11/13/18 11/13/18 10:39 10:39 WBC 8.2 RBC 4.25 L Hgb 13.5 Hct 40.2 MCV 94 MCH 31.8 MCHC 33.7 RDW 14.1 H Plt Count 283 Seg Neutrophils % 46.4 Lymphocytes % 41.8 Monocytes % 6.9 Eosinophils % 3.9 Basophils % 1.0 Absolute Neutrophils 3.8 Absolute Lymphocytes 3.4 Absolute Monocytes 0.6 Absolute Eosinophils 0.3 Absolute Basophils 0.1 Sodium 140.0 Potassium 4.5 Chloride 105 Carbon Dioxide 24 Anion Gap 11 BUN 10 Creatinine 0.93 Est GFR ( Amer) > 60 Est GFR (Non-Af Amer) > 60 Glucose 359 H Calcium 9.7 Total Bilirubin 0.5 AST 21 ALT 26 Alkaline Phosphatase 96 Total Protein 7.0 Albumin 4.1 11/13/18 11/13/18 11/13/18 10:39 10:39 14:33 Creatine Kinase 84 CK-MB (CK-2) 1.01 Troponin I 0.017 < 0.012 Impressions: Chest X-Ray 11/13/18 10:38 IMPRESSION: NO ACUTE RADIOGRAPHIC FINDING IN THE CHEST. Assessment & Plan - Diagnosis (1) Chest pain Qualifiers: Chest pain type: unspecified Qualified Code(s): R07.9 - Chest pain, unspecified Is this a current diagnosis for this admission?: Yes Plan: Cardiac enzymes and EKG q6hx2; Asa 325 mg qd; NTG S/L 0.4 mg q5 min prnx3; Morphine 4 mg q4h IV prn; Zofran 4 mg q4h IV prn. (2) Diabetes mellitus type 2 in nonobese Is this a current diagnosis for this admission?: Yes Plan: Ct with Metformin 1 g BID; Glipizide 10 mg qd po; Slidding with humalog insulin [facility] protocol; 1800 calorie ADA diet. (3) Hypertension Qualifiers: Hypertension type: essential hypertension Qualified Code(s): I10 - [place] l (primary) hypertension Is this a current diagnosis for this admission?: Yes Plan: Ct with Amlodipine 10 mg qd po; Losartan/HCTZ 100/25 1 qd po; 2 g sodium diet. (4) Hyperlipidemia Qualifiers: Hyperlipidemia type: mixed hyperlipidemia Qualified Code(s): E78.2 - Mixed hyperlipidemia Is this a current diagnosis for this admission?: Yes Plan: Ct with Atorvastatin 80 mg qhs po; 200 mg cholesterol diet. (5) Coronary artery disease Is this a current diagnosis for this admission?: Yes Plan: Ct with Asa 325 mg qd; Atorvastatin 80 mh qhs; cardiac diet (6) PAD (peripheral artery disease) Is this a current diagnosis for this admission?: Yes Plan: Ct with ASA 325 mg qd. (7) Gout Qualifiers: Chronicity: unspecified Is this a current diagnosis for this admission?: Yes Plan: Ct with Allopurinol 100 mg qd. (8) DVT prophylaxis Is this a current diagnosis for this admission?: Yes Plan: Ct with SCD; Lovenox 40 mg qd subcut. (9) Tobacco dependency Is this a current diagnosis for this admission?: Yes Plan: Ct with Nicotine patch 21 mg qd; Smoking cessation counseling. - Time Time Spent: 30 to 50 Minutes Smoking Cessation Education: 3 to 10 minutes Medications reviewed and adjusted accordingly: Yes Anticipated discharge: Home Within: within 24 hours
[2018-11-13 19:02] LABS: CREATINE KINASE MB 0.82 ng/mL (<4.55); TROPONIN I 0.017 ng/mL
[2018-11-13] MEDS ORDERED: GLUCAGON,HUMAN RECOMB 1 MG INJ IM PRN (21:00)
[2018-11-13] MEDS ORDERED: DEXTROSE 40% GEL 15 GM TUBE PO PRN (21:00)
[2018-11-13] MEDS ORDERED: DEXTROSE 50%-WATER SYRINGE 25 GM/50 ML DOSE IV PRN (21:00)
[2018-11-13] MEDS ORDERED: DEXTROSE 50%-WATER SYRINGE 12.5 GM/25 ML DOSE IV PRN (21:00)
[2018-11-13] MEDS ORDERED: DEXTROSE 40% GEL 15 GM TUBE X 2 PO PRN (21:00)
[2018-11-13] MEDS: METFORMIN HCL 500 MG TABLET PO SCH (21:17)
[2018-11-13] MEDS: METOPROLOL SUCCINATE 50 MG TAB.SR.24H PO SCH (21:18)
[2018-11-13] MEDS: GABAPENTIN 300 MG CAPSULE PO SCH (21:18)
[2018-11-13] MEDS: ENOXAPARIN SODIUM INJ 40 MG/0.4 ML DISP.SYRIN SUBCUT SCH (22:53)
[2018-11-14 00:53] LABS: CREATINE KINASE MB 0.67 ng/mL (<4.55); TROPONIN I 0.014 ng/mL
[2018-11-14] MEDS ORDERED: LANSOPRAZOLE 30 MG TAB.RAP.DR PO SCH (06:00)
[2018-11-14 06:24] LABS: HEMATOCRIT 37.1 % (37.9-51.0); HEMOGLOBIN 12.5 g/dL (13.5-17.0); MEAN CORPUSCULAR HEMOGLOBIN 31.9 pg (27.0-33.4); MEAN CORPUSCULAR HGB CONC 33.7 g/dL (32.0-36.0); MEAN CORPUSCULAR VOLUME 95 fl (80-97); PLATELET COUNT 250 10^3/uL (150-450); RED BLOOD COUNT 3.92 10^6/uL (4.35-5.55); RED CELL DISTRIBUTION WIDTH 14.3 % (11.5-14.0); WHITE BLOOD COUNT 9.2 10^3/uL (4.0-10.5)
[2018-11-14 06:44] LABS: ANION GAP 8 (5-19); BLOOD UREA NITROGEN 13 mg/dL (7-20); CALCIUM 9.6 mg/dL (8.4-10.2); CARBON DIOXIDE 25 mmol/L (22-30); CHLORIDE 107 mmol/L (98-107); CHOLESTEROL 121.46 mg/dL (0-200); GLUCOSE 151 mg/dL (75-110); POTASSIUM 4.2 mmol/L (3.6-5.0); SODIUM 139.6 mmol/L (137-145); TRIGLYCERIDES 233 mg/dL (<150)
[2018-11-14 06:54] LABS: DIRECT LDL 58 mg/dL (<100)
[2018-11-14 07:02] LABS: VLDL CHOLESTEROL 46.6 mg/dL (10-31)
[2018-11-14] MEDS: INSULIN LISPRO 100 UNIT/ML 3 ML VIAL SUBCUT SCH ×2 (08:06→12:55)
[2018-11-14] MEDS ORDERED: (PENDING PHARMACY ID) (Losartan/Hydrochlorothiazide [Losartan-Hctz 100-25 Mg Tab] 1 EACH) PO SCH (10:00)
[2018-11-14] MEDS ORDERED: NICOTINE 21 MG/24 HR PATCH.TD24 TD SCH (10:00)
[2018-11-14] MEDS ORDERED: GLIPIZIDE 10 MG TABLET PO SCH (10:00)
[2018-11-14] MEDS ORDERED: ASPIRIN 325 MG TABLET PO SCH (10:00)
[2018-11-14] MEDS ORDERED: CITALOPRAM HYDROBROMIDE 20 MG TABLET PO SCH (10:00)
[2018-11-14] MEDS ORDERED: LOSARTAN POTASSIUM 50 MG TABLET PO SCH (10:00)
[2018-11-14] MEDS ORDERED: (PENDING PHARMACY ID) (Canagliflozin [Invokana] 300 MG) PO SCH (10:00)
[2018-11-14] MEDS ORDERED: CETIRIZINE 10 MG TABLET PO SCH (10:00)
[2018-11-14] MEDS ORDERED: HYDROCHLOROTHIAZIDE 25 MG TABLET PO SCH (10:00)
[2018-11-14] MEDS ORDERED: ALLOPURINOL 100 MG TABLET PO SCH (10:00)
[2018-11-14] MEDS ORDERED: DOCUSATE SODIUM 100 MG CAPSULE PO SCH (10:00)
[2018-11-14] MEDS ORDERED: AMLODIPINE BESYLATE 10 MG TABLET PO SCH (10:00)
[2018-11-14] MEDS: METOPROLOL SUCCINATE 50 MG TAB.SR.24H PO SCH (10:02)
[2018-11-14] MEDS: GABAPENTIN 300 MG CAPSULE PO SCH (10:02)
[2018-11-14] MEDS: METFORMIN HCL 500 MG TABLET PO SCH (10:03)
[2018-11-14] MEDS: ENOXAPARIN SODIUM INJ 40 MG/0.4 ML DISP.SYRIN SUBCUT SCH (10:04)
--- NOTE | 2018-11-14 11:38 | PDOC DISCHARGE SUMMARY ---
General - Admit/Disc Date/PCP Admission Date/Primary Care Provider: 11/13/18 14:37 FAVIO CARABALLO Discharge Date: 11/14/18 - Discharge Diagnosis (1) Chest pain Is this a current diagnosis for this admission?: Yes (2) Diabetes mellitus type 2 in nonobese Is this a current diagnosis for this admission?: Yes (3) Hypertension Is this a current diagnosis for this admission?: Yes (4) Hyperlipidemia Is this a current diagnosis for this admission?: Yes (5) Coronary artery disease Is this a current diagnosis for this admission?: Yes (6) PAD (peripheral artery disease) Is this a current diagnosis for this admission?: Yes (7) Gout Is this a current diagnosis for this admission?: Yes (8) DVT prophylaxis Is this a current diagnosis for this admission?: Yes (9) Tobacco dependency Is this a current diagnosis for this admission?: Yes - Additional Information Resuscitation Status: Full Code Home Medications: Allopurinol [Zyloprim 100 mg Tablet] 100 mg PO DAILY 11/13/18 Amlodipine Besylate [Norvasc 10 mg Tablet] 10 mg PO DAILY 11/13/18 Aspirin [Aspirin 325 mg Tablet] 325 mg PO DAILY 11/13/18 Atorvastatin Calcium [Lipitor 80 mg Tablet] 80 mg PO DAILY 11/13/18 Canagliflozin [Invokana] 300 mg PO DAILY 11/13/18 Cetirizine HCl [Zyrtec 10 mg Tablet] 10 mg PO DAILY 11/13/18 Citalopram Hydrobromide [Celexa] 20 mg PO DAILY 11/13/18 Ergocalciferol (Vitamin D2) [Drisdol 50,000 unit (1.25MG) Capsule] 50,000 unit PO MO@1000 11/13/18 Gabapentin [Neurontin 300 mg Capsule] 300 mg PO Q12 11/13/18 Glipizide [Glucotrol 10 mg Tablet] 10 mg PO DAILY 11/13/18 Losartan/Hydrochlorothiazide [Losartan-Hctz 100-25 mg Tab] 1 each PO DAILY 11/13/18 Metformin HCl [Glucophage] 1,000 mg PO BID 11/13/18 Metoprolol Succinate [Toprol Xl 50 mg Tab.sr] 50 mg PO Q12 11/13/18 Nitroglycerin [Nitrostat 0.4 mg (1/150 Gr) Tabs 25/Bottle] 1 tab SL Q5MP PRN 11/13/18 History of Present Illness History of Present Illness: SAMPSON MAO is a 68 year old male with hx of DM2/HTN/hyperlipidemia/CAD s.p stent/A-fib/Left carotid stenosis s.p left CEA/Severe PAD/Gout/CVD s.p CVA/Back pain/right hip pain/Anxiety/Vitamin D def/Chronic smoker, who presented with hx of left sided chest pain radiating to left jaw, 5,assoc. with palpitations, that was not relieved with 3 tabs of Nitro S/L and he called EMS and was brought to ER. At ER, he was in A-flutter at rate of 150s and was given IV metoprolol and Cardizem and he converted to normal sinus rhythm. His heart rate is normal and 2 sets of troponin were normal. He is admitted for 23 hour observation. Hospital Course Hospital Course: 68 year old man with multiple medical problems including CAD s.p stent, who was admitted for 23 hour observation for chest pain.He was admitted at [facility] and had serial EKG and cardiac enzymes and OK was ruled out. Pt is stable and back to his baseline. He will be discharged home today to follow up with his PCP within 1 week for transition of care and his point of care technician with [facility] for further risk stratification. Physical Exam Vital Signs: Temp Pulse Resp BP Pulse Ox 97.7 F 61 16 121/53 L 96 11/14/18 03:38 11/14/18 07:00 11/14/18 03:38 11/14/18 03:38 11/14/18 03:38 Intake & Output 11/13/18 11/14/18 11/15/18 06:59 06:59 06:59 Weight 110.5 kg General appearance: PRESENT: no acute distress, cooperative, well-developed, well-nourished Head exam: PRESENT: atraumatic, normocephalic Eye exam: PRESENT: EOMI, PERRLA Ear exam: PRESENT: normal external ear exam, TM's normal bilaterally Mouth exam: PRESENT: moist, neck supple, tongue midline Neck exam: PRESENT: full ROM Respiratory exam: PRESENT: clear to auscultation wyatt Cardiovascular exam: PRESENT: +S1, +S2 Pulses: PRESENT: +2 pedal pulses bilateral GI/Abdominal exam: PRESENT: normal bowel sounds, soft Rectal exam: PRESENT: deferred Musculoskeletal exam: PRESENT: full ROM Neurological exam: PRESENT: alert, awake, oriented to person, oriented to place, oriented to time, CN II-XII grossly intact Psychiatric exam: PRESENT: normal mood Results Laboratory Results: 11/14/18 06:08 11/14/18 06:08 11/14/18 11/14/18 06:08 06:08 WBC 9.2 RBC 3.92 L Hgb 12.5 L Hct 37.1 L MCV 95 MCH 31.9 MCHC 33.7 RDW 14.3 H Plt Count 250 Sodium 139.6 Potassium 4.2 Chloride 107 Carbon Dioxide 25 Anion Gap 8 BUN 13 Creatinine 1.07 Est GFR ( Amer) > 60 Est GFR (Non-Af Amer) > 60 Glucose 151 H Calcium 9.6 Triglycerides 233 H Cholesterol 121.46 LDL Cholesterol Direct 58 VLDL Cholesterol 46.6 H HDL Cholesterol 27 L 11/13/18 11/13/18 11/13/18 10:39 10:39 14:33 Creatine Kinase 84 CK-MB (CK-2) 1.01 Troponin I 0.017 < 0.012 11/13/18 11/13/18 11/14/18 18:25 18:25 00:14 Creatine Kinase 62 52 L CK-MB (CK-2) 0.82 Troponin I 0.017 11/14/18 00:14 Creatine Kinase CK-MB (CK-2) 0.67 Troponin I 0.014 Impressions: Chest X-Ray 11/13/18 10:38 IMPRESSION: NO ACUTE RADIOGRAPHIC FINDING IN THE CHEST. Qualifiers - * PATIENT BEING DISCHARGED WITH ANY OF THE FOLLOWING DIAGNOSIS: No
[2018-11-14 12:23] VITALS: BP 131/98
[2018-11-14] MEDS ORDERED: ATORVASTATIN CALCIUM 80 MG TABLET PO SCH (22:00)
[2018-11-17] MEDS ORDERED: ERGOCALCIFEROL (VITAMIN D2) 50000 UNIT (1.25 MG) CAPSULE PO SCH (10:00)
== END 2018-11-14 13:47 | disposition home or self-care (01) ==
LOC: ER 10:22 → EH 14:37 → 3N 16:26
PROVIDERS: ADMIT Internal Medicine; ATTEND Internal Medicine
PROC: HZ31ZZZ Individual Counseling for Substance Abuse Treatment, Behavioral (ICD-10-PCS; principal; 2018-11-13)
PROC: 3E02340 Introduction of Influenza Vaccine into Muscle, Percutaneous Approach (ICD-10-PCS; 2018-11-14)
DX: R07.9 Chest pain, unspecified (principal); E11.65 Type 2 diabetes mellitus with hyperglycemia; E11.51 Type 2 diabetes mellitus with diabetic peripheral angiopathy without gangrene; I73.9 Peripheral vascular disease, unspecified; I10 Essential (primary) hypertension; E78.2 Mixed hyperlipidemia; I25.10 Atherosclerotic heart disease of native coronary artery without angina pectoris; M10.9 Gout, unspecified; I48.0 Paroxysmal atrial fibrillation; I48.92 Unspecified atrial flutter; F17.210 Nicotine dependence, cigarettes, uncomplicated; Z79.82 Long term (current) use of aspirin; Z79.899 Other long term (current) drug therapy; Z95.5 Presence of coronary angioplasty implant and graft; Z82.49 Family history of ischemic heart disease and other diseases of the circulatory system; Z23 Encounter for immunization
CPT/HCPCS: 93005; 99285; 96374; 36415 ×2; 82553 ×2; 82962 ×2; 82550 ×2; 85025; 85027; 80048; 80053; 84484 ×2; 83036; 80061; 71045; 90686; 93010; 99406; A9270 ×17; J3490 ×2; J1650; G0378; J1815

== ENCOUNTER → 2018-12-03 | Outpatient (CLI) | payer MEDICARE, MEDICAID ==
--- NOTE | 2018-12-04 09:19 | XCELERA REPORT ---
[address] [address] Lower Extremity Arterial Evaluation Name: SAMPSON MAO Age: 68 yrs Gender: Male : 1950 Patient Status: Outpatient Patient Location: [facility] Study Date: 12/03/2018 11:22 AM Procedure: A color flow and duplex scan of the lower extremity arteries was performed bilaterally with velocity and waveform anaylsis. Ankle brachial indicies performed. 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 Occlusion in the Femoral, then biphasic with low velocity in the Anterior Tibial artery, trickle flow distally. Posterior Tibial biphasic with increased diastolic.. Ankle Brachial index 0.7 in the Posterior Tibial. Left Side Arterial Evaluation Normal velocity and triphasic waveforms noted in the Common Femoral artery. Occlusion in the Femoral, then biphasic with low velocity to the infrageniculate vessels.. Ankle Brachial index 0.58 in the Posterior Tibial. Interpretation Summary Severe hemodynamically significant lesions in the bilateral lower extremities, on duplex imaging, at rest. Complex findings with Femoral occlusion, reconstitution and sequential disease. Hemodynamic effect seems a bit worse on the left. : NANCI RUSS > Jamil Centeno
== END ==
LOC: SP 10:47
PROVIDERS: ATTEND Surgery Vascular Surgery
DX: I70.90 Unspecified atherosclerosis (principal)
CPT/HCPCS: 93925

== ENCOUNTER → 2019-01-09 | Outpatient (CLI) | payer MEDICARE, MEDICAID | LOC: OD 11:10 | PROVIDERS: ATTEND Surgery Vascular Surgery | DX: Z51.81 Encounter for therapeutic drug level monitoring (principal); Z79.899 Other long term (current) drug therapy | CPT/HCPCS: 36415; 82565 ==

== ENCOUNTER 2019-06-26 17:51 | Emergency (ER) | payer MEDICARE, MEDICAID ==
[2019-06-26 18:00] VITALS: BP 170/97
--- NOTE | 2019-06-26 19:11 | ER Document Report ---
ED Medical Screen (RME) - General Chief Complaint: High Blood Pressure Stated Complaint: BLOOD PRESSURE ISSUES Time Seen by Provider: 06/26/19 19:10 Primary Care Provider: NANCI RUSS MD [Primary Care Provider] - Follow up as needed Mode of Arrival: Wheelchair Information source: Patient Notes: Patient presents complaining of elevated blood pressure reading today with dizziness. Patient denies any chest pain shortness of breath or headache at this time. Patient also reports elevated blood sugar at home over 400. I have greeted and performed a rapid initial assessment of this patient. A comprehensive ED assessment and evaluation of the patient, analysis of test results and completion of the medical decision making process will be conducted by additional ED providers. TRAVEL OUTSIDE OF THE [place] IN LAST 30 DAYS: No - Related Data Allergies/Adverse Reactions: No Known Drug Allergies Allergy (Unknown, Verified 06/26/19 17:53) Raspberries Allergy (Mild, Uncoded 06/26/19 17:53) Hives Past Medical History - Social History Family history: Reviewed & Not Pertinent - Past Medical History Cardiac Medical History: Reports: Hx Atrial Fibrillation - Paroxysmal, Hx Coronary Artery Disease, Hx Hypercholesterolemia, Hx Hypertension - no medications Endocrine Medical History: Reports: Hx Diabetes Mellitus Type 2 - States he takes pills Renal/ Medical History: Denies: Hx Peritoneal Dialysis GI Medical History: Reports: Hx Gastroesophageal Reflux Disease, Hx Pancreatitis Musculoskeltal Medical History: Reports Hx Arthritis, Reports Hx Gout Psychiatric Medical History: Reports: Hx Depression Past Surgical History: Reports: Hx Cardiac Catheterization, Hx Carotid Endarterectomy - left- secondary to left carotid stenosis, Hx Coronary Stent, Hx Vascular Surgery - clot removal in neck March 2018 - Immunizations Immunizations up to date: Yes Hx Diphtheria, Pertussis, Tetanus Vaccination: No - unk History of Influenza Vaccine for 08/2017 - 01/2018 Season: Yes Physical Exam - Vital signs Vitals: Temp Pulse Resp BP Pulse Ox 98.5 F 82 12 170/97 H 95 06/26/19 17:58 06/26/19 17:58 06/26/19 17:58 06/26/19 17:58 06/26/19 17:58 - Cardiovascular Rhythm: Regular Heart sounds: S1 appreciated, S2 appreciated Murmur: No Course - Vital Signs Vital signs: Temp Pulse Resp BP Pulse Ox 98.5 F 82 12 170/97 H 95 06/26/19 17:58 06/26/19 17:58 06/26/19 17:58 06/26/19 17:58 06/26/19 17:58 Doctor's Discharge - Discharge Referrals: NANCI RUSS MD [Primary Care Provider] - Follow up as needed
[2019-06-26 20:29] LABS: ABSOLUTE BASOPHILS # (AUTO) 0.1 10^3/uL (0.0-0.2); ABSOLUTE EOSINOPHILS # (AUTO) 0.3 10^3/uL (0.0-0.6); ABSOLUTE MONOCYTES (AUTO) 0.5 10^3/uL (0.1-1.4); TOTAL CELLS COUNTED % (AUTO) 100 %
--- NOTE | 2019-06-26 20:29 | RADIOLOGY REPORT (SQ) ---
EXAM DESCRIPTION: CLINICAL HISTORY: 69 years Male, HTN, dizziness COMPARISON: 07/08/2018. FINDINGS: Cardiomediastinal silhouette is not enlarged. No suspicious lung pleural or bone abnormalities. IMPRESSION: No acute findings in the chest.
[2019-06-26 20:36] LABS: ABSOLUTE LYMPHOCYTES (AUTO) 3.2 10^3/uL (0.5-4.7); ABSOLUTE NEUT (AUTO) 3.8 10^3/uL (1.7-8.2); BASOPHILS % (AUTO) 0.7 % (0-2); EOSINOPHILS % (AUTO) 3.8 % (0-6); HEMOGLOBIN 14.3 g/dL (13.5-17.0); LYMPHOCYTES % (AUTO) 41.1 % (13-45); MEAN CORPUSCULAR HEMOGLOBIN 30.9 pg (27.0-33.4); MEAN CORPUSCULAR HGB CONC 33.3 g/dL (32.0-36.0); MEAN CORPUSCULAR VOLUME 93 fl (80-97); MONOCYTES % (AUTO) 5.8 % (3-13); PLATELET COUNT 285 10^3/uL (150-450); RED BLOOD COUNT 4.63 10^6/uL (4.35-5.55); RED CELL DISTRIBUTION WIDTH 14.7 % (11.5-14.0); SEGMENTED NEUTROPHILS % (AUTO) 48.6 % (42-78); WHITE BLOOD COUNT 7.9 10^3/uL (4.0-10.5)
[2019-06-26 20:41] LABS: VENOUS BLOOD HCO3 23.2 mmol/L (20-32); VENOUS BLOOD PCO2 41.6 mmHg (35-63); VENOUS BLOOD PH 7.37 (7.30-7.42)
[2019-06-26 20:42] LABS: ALBUMIN 4.2 g/dL (3.5-5.0); ALKALINE PHOSPHATASE 89 U/L (38-126); ANION GAP 9 (5-19); ASPARTATE AMINO TRANSFERASE 23 U/L (17-59); BILIRUBIN,DIRECT 0.2 mg/dL (0.0-0.4); BILIRUBIN,TOTAL 0.3 mg/dL (0.2-1.3); BLOOD UREA NITROGEN 14 mg/dL (7-20); CALCIUM 10.2 mg/dL (8.4-10.2); CARBON DIOXIDE 27 mmol/L (22-30); CHLORIDE 102 mmol/L (98-107); GLUCOSE 192 mg/dL (75-110); TOTAL PROTEIN 7.5 g/dL (6.3-8.2)
== END 2019-06-26 23:36 | disposition left against medical advice (07) ==
LOC: ER 17:51
DX: R03.0 Elevated blood-pressure reading, without diagnosis of hypertension (principal); R42 Dizziness and giddiness; I48.0 Paroxysmal atrial fibrillation; E78.00 Pure hypercholesterolemia, unspecified; I10 Essential (primary) hypertension; E11.9 Type 2 diabetes mellitus without complications; Z79.84 Long term (current) use of oral hypoglycemic drugs
CPT/HCPCS: 36415; 71046; 80053; 82803; 84484; 85025; 99281

== ENCOUNTER 2019-07-02 23:04 | Observation (INO) | payer MEDICARE, MEDICAID ==
[2019-07-02 23:35] LABS: ABSOLUTE BASOPHILS # (AUTO) 0.1 10^3/uL (0.0-0.2); ABSOLUTE EOSINOPHILS # (AUTO) 0.2 10^3/uL (0.0-0.6); ABSOLUTE LYMPHOCYTES (AUTO) 5.6 10^3/uL (0.5-4.7); ABSOLUTE MONOCYTES (AUTO) 0.8 10^3/uL (0.1-1.4); ABSOLUTE NEUT (AUTO) 4.2 10^3/uL (1.7-8.2); BASOPHILS % (AUTO) 0.7 % (0-2); EOSINOPHILS % (AUTO) 2.1 % (0-6); HEMATOCRIT 44.8 % (37.9-51.0); HEMOGLOBIN 14.8 g/dL (13.5-17.0); LYMPHOCYTES % (AUTO) 51.1 % (13-45); MEAN CORPUSCULAR HEMOGLOBIN 30.8 pg (27.0-33.4); MEAN CORPUSCULAR HGB CONC 33.1 g/dL (32.0-36.0); MEAN CORPUSCULAR VOLUME 93 fl (80-97); MONOCYTES % (AUTO) 7.5 % (3-13); PLATELET COUNT 333 10^3/uL (150-450); RED BLOOD COUNT 4.82 10^6/uL (4.35-5.55); RED CELL DISTRIBUTION WIDTH 14.7 % (11.5-14.0); SEGMENTED NEUTROPHILS % (AUTO) 38.6 % (42-78); TOTAL CELLS COUNTED % (AUTO) 100 %
--- NOTE | 2019-07-02 23:47 | RADIOLOGY REPORT (SQ) ---
EXAM DESCRIPTION: XR CHEST 1 VIEW COMPLETED DATE/TME: 07/02/2019 23:15 CLINICAL HISTORY: 69 years, Male, cp COMPARISON: 06/26/2019 chest NUMBER OF VIEWS: 1 TECHNIQUE: Portable chest LIMITATIONS: None. FINDINGS: Heart size normal. Lungs clear. No pneumothorax IMPRESSION: Negative chest copyright 2010 [employer]- All Rights Reserved
[2019-07-02 23:49] LABS: ALBUMIN 4.4 g/dL (3.5-5.0); ALKALINE PHOSPHATASE 93 U/L (38-126); ANION GAP 13 (5-19); ASPARTATE AMINO TRANSFERASE 24 U/L (17-59); BILIRUBIN,DIRECT 0.3 mg/dL (0.0-0.4); BILIRUBIN,TOTAL 0.5 mg/dL (0.2-1.3); BLOOD UREA NITROGEN 25 mg/dL (7-20); CALCIUM 10.3 mg/dL (8.4-10.2); CARBON DIOXIDE 24 mmol/L (22-30); CHLORIDE 96 mmol/L (98-107); CREATINE KINASE 186 U/L (55-170); GLUCOSE 261 mg/dL (75-110); TOTAL PROTEIN 7.5 g/dL (6.3-8.2)
[2019-07-02 23:51] LABS: INTERNATIONAL RATION (INR) 0.93; PROTHROMBIN TIME 12.4 SEC (11.4-15.4)
[2019-07-02] MEDS ORDERED: MORPHINE SULFATE 10 MG/ML INJ IV ONE (23:52)
[2019-07-02] MEDS ORDERED: ONDANSETRON HCL INJ/PF 4 MG/2 ML SDV IV ONE (23:53)
[2019-07-02] MEDS ORDERED: ONDANSETRON HCL INJ/PF 4 MG/2 ML SDV ONE (23:55)
[2019-07-02] MEDS ORDERED: MORPHINE SULFATE 10 MG/ML INJ ONE (23:55)
[2019-07-03 00:02] LABS: CREATINE KINASE MB 1.58 ng/mL (<4.55); TROPONIN I 0.042 ng/mL
--- NOTE | 2019-07-03 00:25 | ER Document Report ---
ED Cardiac - General Chief Complaint: Chest Pain Stated Complaint: CHEST PAIN Time Seen by Provider: 07/03/19 00:22 Primary Care Provider: FAVIO CARABALLO MD [Primary Care Provider] - Follow up as needed Mode of Arrival: Medic Information source: Patient, Emergency Med Personnel, [facility] Records Notes: This 69-year-old male patient comes emergency room complaining of onset left chest pain about 9:30 PM this evening. He reports the pain was going up into his left neck and occasionally into his right neck. He states that he "felt kind of dizzy because my sugar was up". EMS found the patient to be in atrial flutter with a heart rate of about 140. They tried vagal maneuvers without success, a gave adenosine which slowed him down but then the rate went back up. At some point after he got here he spontaneously converted to normal sinus rhythm. He was here in November 2018 with atrial flutter with RVR, EMS rhythm strips and EKG looked quite similar. EMS did give nitroglycerin twice to the patient in route, he states that helped a little bit but did not make the pain go completely away. He seems to be resting quite comfortably, although states that he still feels the discomfort in his throat region. TRAVEL OUTSIDE OF THE [place] IN LAST 30 DAYS: No - Related Data Allergies/Adverse Reactions: No Known Drug Allergies Allergy (Unknown, Verified 06/26/19 17:53) Raspberries Allergy (Mild, Uncoded 06/26/19 17:53) Hives Past Medical History - General Information source: Patient, Emergency Med Personnel, [facility] Records - Social History Smoking Status: Current Every Day Smoker Cigarette use (# per day): Yes - Is taking Chantix to try to help reduce his smoking Chew tobacco use (# tins/day): No Smoking Education Provided: No Frequency of alcohol use: None Drug Abuse: None Lives with: Alone Family History: CAD, DM, Hypertension, Malignancy Patient has suicidal ideation: No Patient has homicidal ideation: No - Past Medical History Cardiac Medical History: Reports: Hx Atrial Fibrillation - Paroxysmal atrial fibrillation and flutter, Hx Coronary Artery Disease, Hx Hypercholesterolemia, Hx Hypertension - no medications, Hx Peripheral Vascular Disease Pulmonary Medical History: Reports: Hx COPD Neurological Medical History: Reports: None Endocrine Medical History: Reports: Hx Diabetes Mellitus Type 2 - States he takes pills and insulin GI Medical History: Reports: Hx Gastroesophageal Reflux Disease, Hx Pancreatitis Musculoskeletal Medical History: Reports Hx Arthritis, Reports Hx Gout Psychiatric Medical History: Reports: Hx Depression Past Surgical History: Reports: Hx Cardiac Catheterization, Hx Carotid Endarterectomy - left- secondary to left carotid stenosis, Hx Coronary Stent, Hx Vascular Surgery - clot removal in neck March 2018 - Immunizations Immunizations up to date: Yes Hx Diphtheria, Pertussis, Tetanus Vaccination: No - unk Hx Pneumococcal Vaccination: 11/11/11 Review of Systems - Review of Systems Constitutional: No symptoms reported EENT: No symptoms reported Cardiovascular: See HPI Respiratory: No symptoms reported Gastrointestinal: No symptoms reported Genitourinary: No symptoms reported Musculoskeletal: No symptoms reported Skin: No symptoms reported Hematologic/Lymphatic: No symptoms reported Neurological/Psychological: No symptoms reported Physical Exam - Vital signs Vitals: Resp BP Pulse Ox 17 164/144 H 97 07/02/19 23:13 07/02/19 23:13 07/02/19 23:13 Interpretation: Hypertensive - General General appearance: Appears well, Alert In distress: None - HEENT Head: Normocephalic, Atraumatic Eyes: Normal Pupils: PERRL Neck: Normal - No tenderness to palpate the neck muscles - Respiratory Respiratory status: No respiratory distress Chest status: Tender - There is minimal tenderness to palpate the left medial anterior chest wall Breath sounds: Normal - Cardiovascular Rhythm: Regular Heart sounds: Normal auscultation Murmur: No - Abdominal Inspection: Obese Bowel sounds: Normal Tenderness: Nontender - Back Back: Normal - Extremities General upper extremity: Normal inspection General lower extremity: Normal inspection - Neurological Neuro grossly intact: Yes - Psychological Associated symptoms: Normal affect, Normal mood - Skin Skin Temperature: Warm Skin Moisture: Dry Skin Color: Normal Course - Vital Signs Vital signs: Temp Pulse Resp BP Pulse Ox 15 132/80 H 96 07/03/19 03:01 07/03/19 03:00 07/03/19 03:01 - Laboratory Result Diagrams: 07/02/19 22:48 07/02/19 22:48 Laboratory results interpreted by me: 07/02/19 07/02/19 22:48 22:48 WBC 11.0 H RDW 14.7 H Lymph % (Auto) 51.1 H Absolute Lymphs (auto) 5.6 H Seg Neutrophils % 38.6 L Sodium 133.3 L Chloride 96 L BUN 25 H Creatinine 1.32 H Est GFR (MDRD) Non-Af 54 L Glucose 261 H Calcium 10.3 H Creatine Kinase 186 H - Diagnostic Test Radiology reviewed: Image reviewed, Reports reviewed - Chest x-ray does not show any acute or chronic abnormalities. - EKG Interpretation by Me EKG shows normal: Sinus rhythm, [place], Intervals, QRS Complexes, ST-T Waves Rate: Normal - 88 Rhythm: NSR, PVC's, APC's Voltage: Consistant with LVH When compared to previous EKG there are: No significant change - Consults Dr. Graham Time consulted: 03:31 Consulted provider: will come to ER Critical Care Note - Critical Care Note Total time excluding time spent on procedures (mins): 30 Discharge - Discharge Clinical Impression: Atrial flutter with rapid ventricular response, Troponin leak, Chest pain due to CAD Condition: Stable Disposition: ADMITTED OBSERVATION Admitting Provider: Gladys (Hospitalist) Unit Admitted: Telemetry Referrals: FAVIO CARABALLO MD [Primary Care Provider] - Follow up as needed
[2019-07-03] MEDS ORDERED: LEVALBUTEROL HCL NEB 0.63 MG/3 ML AMPUL NEB PRN (04:06)
[2019-07-03] MEDS ORDERED: MAGNESIUM HYDROXIDE SUSP 30 ML UDCUP PO PRN (04:06)
[2019-07-03] MEDS ORDERED: HYDRALAZINE HCL INJ/PF 20 MG/1 ML SDV IV PRN (04:06)
[2019-07-03] MEDS ORDERED: MAG HYDROX/AL HYDROX/SIMETH SUSP 30 ML UDCUP PO PRN (04:06)
[2019-07-03] MEDS ORDERED: INSULIN REG, HUMAN 100 UNIT/ML 3 ML VIAL (PYX) SUBCUT PRN (04:06)
[2019-07-03] MEDS ORDERED: ACETAMINOPHEN 325 MG TABLET PO PRN (04:06)
[2019-07-03] MEDS ORDERED: NICOTINE 21 MG/24 HR PATCH.TD24 TD PRN (04:06)
[2019-07-03] MEDS ORDERED: MORPHINE SULFATE 10 MG/ML INJ IV PRN ×4 (04:06→04:13)
[2019-07-03] MEDS ORDERED: GLUCAGON,HUMAN RECOMB 1 MG INJ IM PRN (04:08)
[2019-07-03] MEDS ORDERED: DEXTROSE 50%-WATER 25 GM/50 ML DISP.SYRIN IV PRN ×2 (04:08)
[2019-07-03] MEDS ORDERED: DEXTROSE 40% GEL 15 GM TUBE PO PRN ×2 (04:08)
[2019-07-03] MEDS ORDERED: PROMETHAZINE HCL INJ 25 MG/1 ML VIAL IV PRN (05:54)
[2019-07-03] MEDS: HEPARIN SOD (PORCINE) 5,000 UNIT/ML 1 ML VIAL SUBCUT SCH ×2 (06:04→13:46)
--- NOTE | 2019-07-03 06:25 | PDOC H&P ---
History of Present Illness Admission Date/PCP: 07/03/2019 03:39 FAVIO ARMENDARIZWHIT Patient complains of: Chest pain History of Present Illness: SAMPSON DENNISON is a 69 year old male who presented to the emergency room via EMS with acute chest pain. Patient admits that at approximately 2130 on 07/02/2019 he developed sudden onset of a constant, moderate to severe pressure- like pain in his left chest which radiated into his neck on both sides. The pain was treated by EMS with nitroglycerin resulting in minimal improvement. Patient's chest pain gradually improved over the course of his emergency room treatment to the point where he was sleeping and having only minimal discomfort in his throat at the time of admission. He admits that his blood sugar was significantly elevated which he associates with his chest pain. He denies other associated or accompanying signs and symptoms. He admits prior similar episodes related to atrial fibrillation/atrial flutter. He has not identified any additional aggravating or ameliorating factors for his chest pain. In the emergency room patient was noted to initially have atrial flutter with a rate in the 140s however this rapidly spontaneously converted to a sinus rhythm. Patient was noted to have indeterminate level troponin studies done x3 and his EKG showed no evidence of acute myocardial ischemia or injury. He was subsequently admitted to observation status for further evaluation treatment. Past Medical History Cardiac Medical History: Reports: Atrial Fibrillation - Paroxysmal atrial fibrillation and flutter, Coronary Artery Disease, Hyperlipidema, Hypertension, Peripheral Vascular Disease Denies: DVT, Myocardial Infarction, Pulmonary Embolism Pulmonary Medical History: Reports: Chronic Obstructive Pulmonary Disease (COPD) Denies: Asthma EENT Medical History: Reports: Nose - Allergic rhinitis Denies: Cataracts, Ears - Hearing aids Neurological Medical History: Denies: Hemorrhagic CVA, Ischemic CVA, Multiple Sclerosis, Seizures Endocrine Medical History: Reports: Diabetes Mellitus Type 2 - States he takes pills and insulin Denies: Diabetes Mellitus Type 1, Hyperthyroidism, Hypothyroidism Renal/ Medical History: Denies: Chronic Kidney Disease, Nephrolithiasis Malignancy Medical History: Reports: None GI Medical History: Reports: Gastroesophageal Reflux Disease Denies: Cirrhosis, Crohn's Disease, Hepatitis, Peptic Ulcer Disease, Ulcerative Colitis Musculoskeltal Medical History: Reports: Arthritis, Gout Skin Medical History: Denies: Eczema, Psoriasis Psychiatric Medical History: Reports: Depression, Tobacco Dependency Denies: Alcohol Dependency, Substance Abuse Traumatic Medical History: Reports: None Hematology: Denies: Anemia, Bleeding Tendencies Infectious Medical History: Reports: None Past Surgical History Past Surgical History: Reports: Cardiac Catheterization, Carotid Endarterectomy - left, Coronary Stent, Vascular Surgery - clot removal in neck March 2018 Social History Information Source: Patient Lives with: Alone Smoking Status: Current Every Day Smoker Frequency of Alcohol Use: None Hx Recreational Drug Use: Yes Drugs: Marijuana Hx Prescription Drug Abuse: No - Advance Directive Resuscitation Status: Full Code Surrogate healthcare decision maker:: Umang Dennison Family History Family History: CAD, DM, Hypertension, Malignancy Parental Family History Reviewed: Yes Children Family History Reviewed: No Sibling(s) Family History Reviewed.: Yes Medication/Allergy Home Medications: Allopurinol [Zyloprim 100 mg Tablet] 100 mg PO DAILY 11/13/18 Amlodipine Besylate [Norvasc 10 mg Tablet] 10 mg PO DAILY 11/13/18 Aspirin [Aspirin 325 mg Tablet] 325 mg PO DAILY 11/13/18 Atorvastatin Calcium [Lipitor 80 mg Tablet] 80 mg PO DAILY 11/13/18 Canagliflozin [Invokana] 300 mg PO DAILY 11/13/18 Cetirizine HCl [Zyrtec 10 mg Tablet] 10 mg PO DAILY 11/13/18 Citalopram Hydrobromide [Celexa] 20 mg PO DAILY 11/13/18 Ergocalciferol (Vitamin D2) [Drisdol 50,000 unit (1.25MG) Capsule] 50,000 unit PO MO@1000 11/13/18 Gabapentin [Neurontin 300 mg Capsule] 300 mg PO Q12 11/13/18 Glipizide [Glucotrol 10 mg Tablet] 10 mg PO DAILY 11/13/18 Losartan/Hydrochlorothiazide [Losartan-Hctz 100-25 mg Tab] 1 each PO DAILY 11/13/18 Metformin HCl [Glucophage] 1,000 mg PO BID 11/13/18 Metoprolol Succinate [Toprol Xl 50 mg Tab.sr] 50 mg PO Q12 11/13/18 Nitroglycerin [Nitrostat 0.4 mg (1/150 Gr) Tabs 25/Bottle] 1 tab SL Q5MP PRN 11/13/18 Allergies/Adverse Reactions: No Known Drug Allergies Allergy (Unknown, Verified 06/26/19 17:53) Raspberries Allergy (Mild, Uncoded 06/26/19 17:53) Hives Review of Systems Constitutional: ABSENT: chills, fever(s) Eyes: ABSENT: visual disturbances, other - Eye pain Ears: ABSENT: hearing changes, other - Ear pain Nose, Mouth, and Throat: ABSENT: mouth pain, sore throat Cardiovascular: PRESENT: as per HPI, chest pain. ABSENT: dyspnea on exertion, edema, orthropnea, palpitations Respiratory: ABSENT: cough, dyspnea Gastrointestinal: ABSENT: abdominal pain, constipation, diarrhea, nausea, vomiting Genitourinary: ABSENT: dysuria, hematuria Musculoskeletal: ABSENT: back pain, joint swelling, muscle weakness Integumentary: ABSENT: pruritus, rash Neurological: ABSENT: confusion, convulsions, focal weakness, memory loss, syncope Psychiatric: ABSENT: anxiety, depression Endocrine: ABSENT: cold intolerance, heat intolerance Hematologic/Lymphatic: ABSENT: easy bleeding, easy bruising Allergic/Immunologic: ABSENT: seasonal rhinorrhea Physical Exam Vital Signs: Temp Pulse Resp BP Pulse Ox 15 132/80 H 96 07/03/19 03:01 07/03/19 03:00 07/03/19 03:01 Intake & Output 07/01/19 07/02/19 07/03/19 23:59 23:59 23:59 Weight 114 kg General appearance: PRESENT: no acute distress, cooperative Head exam: PRESENT: atraumatic, normocephalic Eye exam: PRESENT: conjunctiva pink. ABSENT: conjunctival injection, scleral icterus Ear exam: PRESENT: normal external ear exam. ABSENT: bleeding, drainage Mouth exam: PRESENT: dry mucosa, neck supple Neck exam: ABSENT: JVD, thyromegaly, tracheal deviation Respiratory exam: PRESENT: clear to auscultation wyatt, symmetrical, unlabored Cardiovascular exam: PRESENT: RRR. ABSENT: clicks, gallop, rubs Pulses: PRESENT: normal radial pulses, normal dorsalis pedis pul Vascular exam: PRESENT: normal capillary refill. ABSENT: pallor GI/Abdominal exam: PRESENT: distended - mild gasseous distention of the abdomen with mild tympani on percussion., hypoactive bowel sounds, soft Rectal exam: PRESENT: deferred Extremities exam: ABSENT: joint swelling, pedal edema, tenderness Musculoskeletal exam: PRESENT: full ROM, normal inspection Neurological exam: PRESENT: alert, oriented to person, oriented to place, oriented to time, oriented to situation, CN II-XII grossly intact. ABSENT: motor sensory deficit Psychiatric exam: PRESENT: appropriate affect, normal mood Skin exam: PRESENT: dry, intact, warm. ABSENT: jaundice, rash, urticaria Results Laboratory Results: 07/02/19 22:48 07/02/19 22:48 07/02/19 07/02/19 22:48 22:48 WBC 11.0 H RBC 4.82 Hgb 14.8 Hct 44.8 MCV 93 MCH 30.8 MCHC 33.1 RDW 14.7 H Plt Count 333 Seg Neutrophils % 38.6 L Sodium 133.3 L Potassium 4.0 Chloride 96 L Carbon Dioxide 24 Anion Gap 13 BUN 25 H Creatinine 1.32 H Est GFR ( Amer) > 60 Glucose 261 H Calcium 10.3 H Total Bilirubin 0.5 AST 24 Alkaline Phosphatase 93 Total Protein 7.5 Albumin 4.4 07/02/19 07/02/19 07/03/19 22:48 22:48 00:45 Creatine Kinase 186 H CK-MB (CK-2) 1.58 Troponin I 0.042 0.047 07/03/19 02:50 Creatine Kinase CK-MB (CK-2) Troponin I 0.052 Impressions: Chest X-Ray 07/02/19 23:15 IMPRESSION: Negative chest copyright 2011 [employer]- All Rights Reserved Assessment and Plan - Diagnosis (1) Chest pain Qualifiers: Chest pain type: unspecified Qualified Code(s): R07.9 - Chest pain, unspecified Is this a current diagnosis for this admission?: Yes Plan: Patient will be admitted observation status with serial cardiac enzymes being performed. He will receive morphine sulfate 2 to 4 mg IV every 2 hours on a as needed basis for chest pain administered via a sliding scale. A Cardiolite stress test will be performed later this morning. (2) Coronary artery disease Qualifiers: Coronary Disease-Associated Artery/Lesion type: [place] artery [place] vs. transplanted heart: [place] heart Associated angina: angina presence unspecified Qualified Code(s): I25.10 - Atherosclerotic heart disease of [place] coronary artery without angina pectoris Is this a current diagnosis for this admission?: Yes Plan: Patient will be evaluated with a Cardiolite stress test. He will be returning to his usual cardiac medications after the stress test if appropriate. (3) Hyperlipidemia Qualifiers: Hyperlipidemia type: mixed hyperlipidemia Qualified Code(s): E78.2 - Mixed hyperlipidemia Is this a current diagnosis for this admission?: Yes Plan: A lipid profile will be obtained to evaluate the patient's current lipid therapy. He will be maintained on a cardiac diet. He will continue on his current lipid therapy if appropriate. (4) Diabetes mellitus type 2 in nonobese Is this a current diagnosis for this admission?: Yes Plan: Patient will have hemoglobin A1c performed to assess his current therapy. He will be continued on his current therapy and a diabetic diet. Accu-Cheks will be performed before meals and at bedtime with hyperglycemia being treated via a sliding scale insulin regimen and hypoglycemia being treated per protocol. (5) Hypertension Qualifiers: Hypertension type: essential hypertension Qualified Code(s): I10 - Essential (primary) hypertension Is this a current diagnosis for this admission?: Yes Plan: Patient be continued on his current antihypertensive therapy. His blood pressure be monitored closely throughout his hospital course. (6) Tobacco dependency Is this a current diagnosis for this admission?: Yes Plan: Smoking cessation is advised and counseled briefly. Patient will have a nicotine replacement patch available for his use. - Time Time Spent with patient: 15-24 minutes Smoking Cessation Education: 3 to 10 minutes Medications reviewed and adjusted accordingly: Yes Anticipated discharge: Home - Inpatient Certification Based on my medical assessment, after consideration of the patient's comorbidities, presenting symptoms, or acuity I expect that the services needed warrant INPATIENT care.: No I certify that my determination is in accordance with my understanding of Medicare's requirements for reasonable and necessary INPATIENT services [42 CFR 412.3e].: No Medical Necessity: Significant Comorbidiites Make Outpatient Treatment Too Risky, Need Close Monitoring Due to Risk of Patient Decompensation, Need For Continuous Telemetry Monitoring, Risk of Diagnosis Which Will Require Inpatient Eval/Care/Monitoring
[2019-07-03 07:02] LABS: CREATINE KINASE MB 1.82 ng/mL (<4.55); TROPONIN I 0.043 ng/mL
[2019-07-03 07:09] LABS: FREE T3 4.03 pg/mL (2.77-5.27); FREE T4 (FREE THYROXINE) 1.25 ng/dL (0.78-2.19)
[2019-07-03 08:20] LABS: ABSOLUTE BASOPHILS # (AUTO) 0.1 10^3/uL (0.0-0.2); ABSOLUTE EOSINOPHILS # (AUTO) 0.2 10^3/uL (0.0-0.6); ABSOLUTE LYMPHOCYTES (AUTO) 3.5 10^3/uL (0.5-4.7); ABSOLUTE MONOCYTES (AUTO) 0.6 10^3/uL (0.1-1.4); BASOPHILS % (AUTO) 0.7 % (0-2); EOSINOPHILS % (AUTO) 2.4 % (0-6); HEMOGLOBIN 13.5 g/dL (13.5-17.0); LYMPHOCYTES % (AUTO) 37.3 % (13-45); MEAN CORPUSCULAR HEMOGLOBIN 30.8 pg (27.0-33.4); MEAN CORPUSCULAR HGB CONC 32.9 g/dL (32.0-36.0); MEAN CORPUSCULAR VOLUME 94 fl (80-97); MONOCYTES % (AUTO) 6.1 % (3-13); PLATELET COUNT 268 10^3/uL (150-450); RED BLOOD COUNT 4.38 10^6/uL (4.35-5.55); RED CELL DISTRIBUTION WIDTH 14.5 % (11.5-14.0); SEGMENTED NEUTROPHILS % (AUTO) 53.5 % (42-78); TOTAL CELLS COUNTED % (AUTO) 100 %; WHITE BLOOD COUNT 9.3 10^3/uL (4.0-10.5)
[2019-07-03 08:46] LABS: ALBUMIN 3.7 g/dL (3.5-5.0); ALKALINE PHOSPHATASE 75 U/L (38-126); ANION GAP 10 (5-19); ASPARTATE AMINO TRANSFERASE 21 U/L (17-59); BILIRUBIN,DIRECT 0.2 mg/dL (0.0-0.4); BILIRUBIN,TOTAL 0.4 mg/dL (0.2-1.3); BLOOD UREA NITROGEN 22 mg/dL (7-20); CALCIUM 9.2 mg/dL (8.4-10.2); CARBON DIOXIDE 25 mmol/L (22-30); CHLORIDE 101 mmol/L (98-107); GLUCOSE 226 mg/dL (75-110); POTASSIUM 4.1 mmol/L (3.6-5.0); TOTAL PROTEIN 6.6 g/dL (6.3-8.2)
[2019-07-03] MEDS: INSULIN REG, HUMAN 100 UNIT/ML 3 ML VIAL (PYX) SUBCUT SCH ×2 (09:15→12:10)
[2019-07-03] MEDS: SUCRALFATE 1 GM TABLET PO SCH ×2 (09:15→12:09)
[2019-07-03] MEDS: METOCLOPRAMIDE HCL 10 MG TABLET PO SCH ×2 (09:24→12:10)
--- NOTE | 2019-07-03 09:37 | PDOC PROGRESS REPORT ---
Subjective Progress Note for:: 07/03/19 Subjective:: 69 year old male who presented to the emergency room via EMS with acute chest pain. Patient admits that at approximately 2130 on 07/02/2019 he developed sudden onset of a constant, moderate to severe pressure-like pain in his left chest which radiated into his neck on both sides. The pain was treated by EMS with nitroglycerin resulting in minimal improvement. Patient's chest pain gradually improved over the course of his emergency room treatment to the point where he was sleeping and having only minimal discomfort in his throat at the time of admission. He admits that his blood sugar was significantly elevated which he associates with his chest pain. He denies other associated or accompanying signs and symptoms. He admits prior similar episodes related to atrial fibrillation/atrial flutter. He has not identified any additional aggravating or ameliorating factors for his chest pain. In the emergency room patient was noted to initially have atrial flutter with a rate in the 140s however this rapidly spontaneously converted to a sinus rhythm. Patient was noted to have indeterminate level troponin studies done x3 and his EKG showed no evidence of acute myocardial ischemia or injury. He was subsequently admitted to observation status for further evaluation treatment. 07/03/2019-patient comfortably in the bed eating his breakfast. Denies any chest pains this morning. He went for the first part of the stress test today. No acute events since last night. Reason For Visit: CHEST PAIN Physical Exam Vital Signs: Temp Pulse Resp BP Pulse Ox 97.5 F 67 20 150/50 H 96 07/03/19 08:00 07/03/19 08:00 07/03/19 08:00 07/03/19 08:00 07/03/19 08:00 Intake & Output 07/02/19 07/03/19 07/04/19 06:59 06:59 06:59 Weight 110.9 kg General appearance: PRESENT: no acute distress, morbidly obese Head exam: PRESENT: atraumatic Eye exam: PRESENT: conjunctiva pink, conjunctiva pale, PERRLA Ear exam: PRESENT: normal external ear exam Mouth exam: PRESENT: moist, tongue midline Neck exam: ABSENT: carotid bruit, JVD, lymphadenopathy, thyromegaly Respiratory exam: PRESENT: decreased breath sounds Cardiovascular exam: PRESENT: RRR. ABSENT: diastolic murmur, rubs, systolic murmur GI/Abdominal exam: PRESENT: other - obese abdomen, no organomegaly and nontender bowel sounds are present. Rectal exam: PRESENT: deferred Extremities exam: PRESENT: full ROM. ABSENT: calf tenderness, clubbing, pedal edema Neurological exam: PRESENT: alert, awake, oriented to person, oriented to place, oriented to time, oriented to situation, CN II-XII grossly intact. ABSENT: motor sensory deficit Psychiatric exam: PRESENT: appropriate affect, normal mood. ABSENT: homicidal ideation, suicidal ideation Results Laboratory Results: 07/03/19 06:21 07/03/19 06:21 07/02/19 07/02/19 07/03/19 22:48 22:48 06:21 WBC 11.0 H RBC 4.82 Hgb 14.8 Hct 44.8 MCV 93 MCH 30.8 MCHC 33.1 RDW 14.7 H Plt Count 333 Seg Neutrophils % 38.6 L Sodium 133.3 L Potassium 4.0 Chloride 96 L Carbon Dioxide 24 Anion Gap 13 BUN 25 H Creatinine 1.32 H Est GFR ( Amer) > 60 Glucose 261 H Calcium 10.3 H Total Bilirubin 0.5 AST 24 Alkaline Phosphatase 93 Total Protein 7.5 Albumin 4.4 Free T4 1.25 Free T3 pg/mL 4.03 07/03/19 07/03/19 06:21 06:21 WBC 9.3 RBC 4.38 Hgb 13.5 Hct 41.0 MCV 94 MCH 30.8 MCHC 32.9 RDW 14.5 H Plt Count 268 Seg Neutrophils % 53.5 Sodium 136.0 L Potassium 4.1 Chloride 101 Carbon Dioxide 25 Anion Gap 10 BUN 22 H Creatinine 1.09 Est GFR ( Amer) > 60 Glucose 226 H Calcium 9.2 Total Bilirubin 0.4 AST 21 Alkaline Phosphatase 75 Total Protein 6.6 Albumin 3.7 Free T4 Free T3 pg/mL 07/02/19 07/02/19 07/03/19 22:48 22:48 00:45 Creatine Kinase 186 H CK-MB (CK-2) 1.58 Troponin I 0.042 0.047 07/03/19 07/03/19 07/03/19 02:50 06:21 06:21 Creatine Kinase 128 CK-MB (CK-2) 1.82 Troponin I 0.052 0.043 Impressions: Chest X-Ray 07/02/19 23:15 IMPRESSION: Negative chest copyright 2010 [employer]- All Rights Reserved Assessment and Plan - Diagnosis (1) Chest pain Qualifiers: Chest pain type: unspecified Qualified Code(s): R07.9 - Chest pain, unspecified Is this a current diagnosis for this admission?: Yes Plan: Patient will be admitted observation status with serial cardiac enzymes being performed. He will receive morphine sulfate 2 to 4 mg IV every 2 hours on a as needed basis for chest pain administered via a sliding scale. A Cardiolite stress test will be performed later this morning. 07/03/2019-patient admitted with chest pain. Cardiac enzymes are negative so far latest troponin is 0.043. Patient scheduled for stress test today. Denies any chest pains this morning. (2) Coronary artery disease Qualifiers: Coronary Disease-Associated Artery/Lesion type: [place] artery [place] vs. transplanted heart: [place] heart Associated angina: angina presence unspecified Qualified Code(s): I25.10 - Atherosclerotic heart disease of [place] coronary artery without angina pectoris Is this a current diagnosis for this admission?: Yes Plan: Patient will be evaluated with a Cardiolite stress test. He will be returning to his usual cardiac medications after the stress test if appropriate. 07/03/2019-patient has history of coronary artery disease status post stent placement. He went for the stress test today. No complaints of chest pains this morning. (3) Diabetes mellitus type 2 in nonobese Is this a current diagnosis for this admission?: Yes Plan: Patient will have hemoglobin A1c performed to assess his current therapy. He will be continued on his current therapy and a diabetic diet. Accu-Cheks will be performed before meals and at bedtime with hyperglycemia being treated via a sliding scale insulin regimen and hypoglycemia being treated per protocol. 07/03/2019-patient has a history of type 2 diabetes mellitus. Present blood sugar is 103. On diabetic diet. on Insulin sliding scale. Hemoglobin A1c is pending. Diet exercise weight loss lifestyle modifications are discussed with the patient. (4) Hypertension Qualifiers: Hypertension type: essential hypertension Qualified Code(s): I10 - Essential (primary) hypertension Is this a current diagnosis for this admission?: Yes Plan: Patient be continued on his current antihypertensive therapy. His blood pressure be monitored closely throughout his hospital course. 07/03/2019-patient has history of hypertension blood pressure is 160/70. Plan is to resume his home medications. (5) Obesity (BMI 30.0-34.9) Is this a current diagnosis for this admission?: No Plan: 07/03/2019-patient's BMI is more than 32 diet exercise weight loss lifestyle modifications are discussed with the patient dietary consult was requested. (6) Chronic atrial fibrillation Is this a current diagnosis for this admission?: No Plan: 07/03/2019-patient has history of chronic atrial fibrillation not on anticoagulation. Discussed about anticoagulation patient is not interested in initiation of the medications. - Time Time Spent with patient: 25-34 minutes Medications reviewed and adjusted accordingly: Yes Anticipated discharge: Home
[2019-07-03] MEDS ORDERED: LOSARTAN POTASSIUM 50 MG TABLET PO SCH (10:00)
[2019-07-03] MEDS ORDERED: DOCUSATE SODIUM 100 MG CAPSULE PO SCH (10:00)
[2019-07-03] MEDS ORDERED: FAMOTIDINE 20 MG TABLET PO SCH (10:00)
--- NOTE | 2019-07-03 12:24 | EKG REPORT ---
SEVERITY:- ABNORMAL ECG - SINUS RHYTHM ABNORMAL T, CONSIDER ISCHEMIA, LATERAL LEADS : Confirmed by: Osiris Andrews MD 03-Jul-2019 12:24:13
--- NOTE | 2019-07-03 12:24 | EKG REPORT ---
SEVERITY:- ABNORMAL ECG - SINUS RHYTHM LVH WITH SECONDARY REPOLARIZATION ABNORMALITY : Confirmed by: Osiris Andrews MD 03-Jul-2019 12:24:09
--- NOTE | 2019-07-03 12:24 | EKG REPORT ---
SEVERITY:- ABNORMAL ECG - SINUS RHYTHM PROBABLE LEFT ATRIAL ABNORMALITY LVH WITH SECONDARY REPOLARIZATION ABNORMALITY : Confirmed by: Osiris Andrews MD 03-Jul-2019 12:24:05
[2019-07-03 13:02] LABS: CREATINE KINASE MB 1.51 ng/mL (<4.55); TROPONIN I 0.033 ng/mL
[2019-07-03] MEDS ORDERED: REGADENOSON INJ 0.4 MG/5 ML DISP.SYRIN IV ONE (13:42)
--- NOTE | 2019-07-03 14:41 | PDOC DISCHARGE SUMMARY ---
General - Admit/Disc Date/PCP Admission Date/Primary Care Provider: 07/03/19 03:53 FAVIO CARABALLO Discharge Date: 07/03/19 - Discharge Diagnosis (1) Chest pain Is this a current diagnosis for this admission?: Yes Summary: Patient will be admitted observation status with serial cardiac enzymes being performed. He will receive morphine sulfate 2 to 4 mg IV every 2 hours on a as needed basis for chest pain administered via a sliding scale. A Cardiolite stress test will be performed later this morning. 07/03/2019-patient admitted with chest pain. Cardiac enzymes are negative so far latest troponin is 0.043. Patient scheduled for stress test today. Denies any chest pains this morning. stress is negative as per Dr. Andrews. (2) Coronary artery disease Is this a current diagnosis for this admission?: Yes Summary: Patient will be evaluated with a Cardiolite stress test. He will be returning to his usual cardiac medications after the stress test if appropriate. 07/03/2019-patient has history of coronary artery disease status post stent placement. He went for the stress test today. No complaints of chest pains this morning. (3) Diabetes mellitus type 2 in nonobese Is this a current diagnosis for this admission?: Yes Summary: Patient will have hemoglobin A1c performed to assess his current therapy. He will be continued on his current therapy and a diabetic diet. Accu-Cheks will be performed before meals and at bedtime with hyperglycemia being treated via a sliding scale insulin regimen and hypoglycemia being treated per protocol. 07/03/2019-patient has a history of type 2 diabetes mellitus. Present blood sugar is 103. On diabetic diet. on Insulin sliding scale. Hemoglobin A1c is pending. Diet exercise weight loss lifestyle modifications are discussed with the patient. (4) Hypertension Is this a current diagnosis for this admission?: Yes Summary: Patient be continued on his current antihypertensive therapy. His blood pressure be monitored closely throughout his hospital course. 07/03/2019-patient has history of hypertension blood pressure is 160/70. Plan is to resume his home medications. (5) Obesity (BMI 30.0-34.9) Is this a current diagnosis for this admission?: No Summary: 07/03/2019-patient's BMI is more than 32 diet exercise weight loss lifestyle mo difications are discussed with the patient dietary consult was requested. (6) Chronic atrial fibrillation Is this a current diagnosis for this admission?: No Summary: 07/03/2019-patient has history of chronic atrial fibrillation not on anticoagulation. Discussed about anticoagulation patient is not interested in initiation of the medications. - Additional Information Resuscitation Status: Full Code History of Present Illness History of Present Illness: SAMPSON MAO is a 69 year old male 69 year old male who presented to the emergency room via EMS with acute chest pain. Patient admits that at approximately 2130 on 07/02/2019 he developed sudden onset of a constant, moderate to severe pressure-like pain in his left chest which radiated into his neck on both sides. The pain was treated by EMS with nitroglycerin resulting in minimal improvement. Patient's chest pain gradually improved over the course of his emergency room treatment to the point where he was sleeping and having only minimal discomfort in his throat at the time of admission. He admits that his blood sugar was significantly elevated which he associates with his chest pain. He denies other associated or accompanying signs and symptoms. He admits prior similar episodes related to atrial fibrillation/atrial flutter. He has not identified any additional aggravating or ameliorating factors for his chest pain. In the emergency room patient was noted to initially have atrial flutter with a rate in the 140s however this rapidly spontaneously converted to a sinus rhythm. Patient was noted to have indeterminate level troponin studies done x3 and his EKG showed no evidence of acute myocardial ischemia or injury. He was subsequently admitted to observation status for further evaluation treatment. 07/03/2019-patient comfortably in the bed eating his breakfast. Denies any chest pains this morning. He went for the first part of the stress test today. No acute events since last night. Hospital Course Hospital Course: 69-year-old male with multiple medical problems admitted for chest pain chest pain is resolved stress test came back negative today. Patient agreed to go home today. Physical Exam Vital Signs: Temp Pulse Resp BP Pulse Ox 98.3 F 84 20 138/65 H 97 07/03/19 12:00 07/03/19 12:00 07/03/19 12:00 07/03/19 12:00 07/03/19 12:00 Intake & Output 07/02/19 07/03/19 07/04/19 06:59 06:59 06:59 Intake Total 250 Balance 250 Weight 110.9 kg Results Laboratory Results: 07/03/19 06:21 07/03/19 06:21 07/02/19 07/02/19 07/03/19 22:48 22:48 06:21 WBC 11.0 H RBC 4.82 Hgb 14.8 Hct 44.8 MCV 93 MCH 30.8 MCHC 33.1 RDW 14.7 H Plt Count 333 Seg Neutrophils % 38.6 L Sodium 133.3 L Potassium 4.0 Chloride 96 L Carbon Dioxide 24 Anion Gap 13 BUN 25 H Creatinine 1.32 H Est GFR ( Amer) > 60 Glucose 261 H Calcium 10.3 H Total Bilirubin 0.5 AST 24 Alkaline Phosphatase 93 Total Protein 7.5 Albumin 4.4 Free T4 1.25 Free T3 pg/mL 4.03 07/03/19 07/03/19 06:21 06:21 WBC 9.3 RBC 4.38 Hgb 13.5 Hct 41.0 MCV 94 MCH 30.8 MCHC 32.9 RDW 14.5 H Plt Count 268 Seg Neutrophils % 53.5 Sodium 136.0 L Potassium 4.1 Chloride 101 Carbon Dioxide 25 Anion Gap 10 BUN 22 H Creatinine 1.09 Est GFR ( Amer) > 60 Glucose 226 H Calcium 9.2 Total Bilirubin 0.4 AST 21 Alkaline Phosphatase 75 Total Protein 6.6 Albumin 3.7 Free T4 Free T3 pg/mL 07/02/19 07/02/19 07/03/19 22:48 22:48 00:45 Creatine Kinase 186 H CK-MB (CK-2) 1.58 Troponin I 0.042 0.047 07/03/19 07/03/19 07/03/19 02:50 06:21 06:21 Creatine Kinase 128 CK-MB (CK-2) 1.82 Troponin I 0.052 0.043 07/03/19 07/03/19 12:20 12:20 Creatine Kinase 107 CK-MB (CK-2) 1.51 Troponin I 0.033 Impressions: Chest X-Ray 07/02/19 23:15 IMPRESSION: Negative chest copyright 2011 [employer]- All Rights Reserved Qualifiers - * PATIENT BEING DISCHARGED WITH ANY OF THE FOLLOWING DIAGNOSIS: No VTE patient discharged on overlapping Therapy?: No Acute Heart Failure - Is this a Heart Failure Patient?: No
[2019-07-03 15:51] VITALS: BP 138/65
--- NOTE | 2019-07-05 01:15 | DRAGON STRESS TEST REPORT ---
Intravenous Lexiscan Cardiolite stress test using single photon emmision computerized tomography. Date of procedure: 07/03/2019. Ordering Provider: Dr. Rishi Jaramillo. Patient's status: NCAT patient. Indication: Chest pain. Coronary risk factors: Age, diabetes mellitus, hypertension, and tobacco abuse disorder. Resting EKG: Sinus Rhythm. Inferolateral T wave changes. Stress EKG: No changes of ischemia. The patient had no chest pain or discomfort, and there were no arrhythmias seen. Reason for termination: Protocol. Conclusions: Normal EKG and hemodynamic response to IV Lexiscan. Nuclear data: At rest the patient was given 15.08 millicuries of technetium 99m sestamibi injected intravenously. As per protocol rest non gated SPECT images were obtained. Subsequently the patient was given intravenous Lexiscan at a dose of 0.4 mg in 5 mL intravenously, followed by flush with normal saline. Subsequently the stress dose of 46.4 millicuries of technetium 99m sestamibi was injected intravenously. As per protocol stress gated images were obtained. Nuclear interpretation: Review of images showed that all segments of the myocardium had normal perfusion at rest, and normal perfusion post stress with IV Lexiscan. All segments of the myocardium had normal motion, contraction, and thickening by gated study. T. I D. ratio read by the computer as abnormal at 1.29. This is not reliable. Visually the T I D ratio was normal. There is no transient ischemic dilatation of the left ventricle. Computer read rest, and stress left ventricular ejection fraction were 59 %, and 54 %, respectively. Visually both the stress and rest ejection fractions were normal, and greater than 55%. Conclusion: 1. There is no scintigraphic evidence of Lexiscan induced myocardial ischemia. 2. There is no scintigraphic evidence of myocardial infarction/scar. Recommendations: Aggressive risk factor modification, and treating the underlying co- morbidities. [facility]
== END 2019-07-03 16:28 | disposition home or self-care (01) ==
LOC: ER 23:04 → EH 07-03 03:53 → 4S 07-03 05:46
PROVIDERS: ADMIT Emergency Medicine; ATTEND Emergency Medicine
PROC: HZ31ZZZ Individual Counseling for Substance Abuse Treatment, Behavioral (ICD-10-PCS; principal; 2019-07-03)
DX: R07.89 Other chest pain (principal); I25.10 Atherosclerotic heart disease of native coronary artery without angina pectoris; E11.51 Type 2 diabetes mellitus with diabetic peripheral angiopathy without gangrene; I10 Essential (primary) hypertension; E66.9 Obesity, unspecified; I48.0 Paroxysmal atrial fibrillation; E78.2 Mixed hyperlipidemia; I48.92 Unspecified atrial flutter; F17.210 Nicotine dependence, cigarettes, uncomplicated; Z68.34 Body mass index [BMI] 34.0-34.9, adult; Z95.5 Presence of coronary angioplasty implant and graft; Z79.4 Long term (current) use of insulin; Z79.82 Long term (current) use of aspirin; Z82.49 Family history of ischemic heart disease and other diseases of the circulatory system
CPT/HCPCS: 93005; 99291; 96374; 96375; 36415 ×2; 84439; 82553 ×2; 82962; 82550 ×2; 85025 ×2; 85610; 80053 ×2; 84484 ×2; 84481; 93017; 71045; 78452; 93010; 99406; A9500; J2785; J1644; A9270 ×6; J2270; J2550; J3490; J2405; Q9969; G0378; J1815

== ENCOUNTER 2019-07-26 13:42 | Inpatient (IN) | payer MEDICARE, MEDICAID ==
[2019-07-26] MEDS ORDERED: ASPIRIN 81 MG TABLET, CHEWABLE PO ONE (13:48)
[2019-07-26 14:13] LABS: ABSOLUTE BASOPHILS # (AUTO) 0.1 10^3/uL (0.0-0.2); ABSOLUTE EOSINOPHILS # (AUTO) 0.2 10^3/uL (0.0-0.6); ABSOLUTE LYMPHOCYTES (AUTO) 2.7 10^3/uL (0.5-4.7); ABSOLUTE MONOCYTES (AUTO) 0.5 10^3/uL (0.1-1.4); ABSOLUTE NEUT (AUTO) 3.4 10^3/uL (1.7-8.2); BASOPHILS % (AUTO) 0.8 % (0-2); EOSINOPHILS % (AUTO) 2.7 % (0-6); HEMATOCRIT 41.7 % (37.9-51.0); HEMOGLOBIN 14.1 g/dL (13.5-17.0); LYMPHOCYTES % (AUTO) 39.7 % (13-45); MEAN CORPUSCULAR HEMOGLOBIN 31.2 pg (27.0-33.4); MEAN CORPUSCULAR HGB CONC 33.7 g/dL (32.0-36.0); MEAN CORPUSCULAR VOLUME 93 fl (80-97); MONOCYTES % (AUTO) 7.1 % (3-13); PLATELET COUNT 265 10^3/uL (150-450); RED CELL DISTRIBUTION WIDTH 14.3 % (11.5-14.0); SEGMENTED NEUTROPHILS % (AUTO) 49.7 % (42-78); TOTAL CELLS COUNTED % (AUTO) 100 %; WHITE BLOOD COUNT 6.8 10^3/uL (4.0-10.5)
[2019-07-26 14:30] LABS: ALKALINE PHOSPHATASE 96 U/L (38-126); ANION GAP 15 (5-19); ASPARTATE AMINO TRANSFERASE 22 U/L (17-59); BILIRUBIN,DIRECT 0.2 mg/dL (0.0-0.4); BILIRUBIN,TOTAL 0.8 mg/dL (0.2-1.3); BLOOD UREA NITROGEN 21 mg/dL (7-20); CARBON DIOXIDE 22 mmol/L (22-30); CHLORIDE 101 mmol/L (98-107); CREATINE KINASE 74 U/L (55-170); GLUCOSE 199 mg/dL (75-110); POTASSIUM 3.7 mmol/L (3.6-5.0); TOTAL PROTEIN 7.1 g/dL (6.3-8.2)
[2019-07-26 14:40] LABS: CREATINE KINASE MB 1.27 ng/mL (<4.55); TROPONIN I 0.018 ng/mL
[2019-07-26] MEDS ORDERED: MORPHINE SULFATE 10 MG/ML INJ IV ONE (14:43)
[2019-07-26] MEDS ORDERED: DILTIAZEM HCL/D5W 125 MG/125 ML RTUINJ IV PRN ×2 (14:43→18:22)
--- NOTE | 2019-07-26 14:50 | ER Document Report ---
ED Cardiac - General Chief Complaint: Chest Pain Stated Complaint: NECK PAIN Time Seen by Provider: 07/26/19 14:18 Primary Care Provider: FAVIO CARABALLO MD [Primary Care Provider] - Follow up as needed Information source: Patient Notes: HPI: 69-year-old male with past medical history as recorded including carotid endarterectomy, coronary stent, intermittent atrial fibrillation, and supposedly a right femoral stent who presents today stating the onset this afternoon of some left-sided chest discomfort radiating to the left neck and shoulder. He denies nausea, vomiting, diaphoresis, shortness of breath, calf pain or leg swelling. Patient had a very similar/exact presentation 1 month ago late June here at this emergency department. He had atrial flutter/fibrillation at that time with rapid ventricular response. This converted in the emergency department. He then had a Cardiolite stress test/Lexiscan study performed by the meteorological aide here at this facility which showed no reversible ischemia. Patient denies any radiation to his back. He denies any weakness or numbness to his arms or legs. ROS: See HPI All other review of systems reviewed and otherwise negative Reviewed vital signs and nursing note as charted by RN. PHYSICAL EXAM: CONSTITUTIONAL: Alert and oriented and responds appropriately to questions. Well-appearing; well-nourished HEAD: Normocephalic; atraumatic EYES: PERRL; Conjunctivae clear, sclerae non-icteric ENT: Normal nose; no rhinorrhea; moist mucous membranes; pharynx without lesions noted NECK: Supple without meningismus; non-tender to palpation of the anterior posterior neck; no carotid bruits; old surgical scar present; no cervical lymphadenopathy, no masses CARD: Tachycardic and irregular; no murmurs; symmetric distal pulses RESP: Normal chest excursion without splinting or tachypnea; breath sounds clear and equal bilaterally; no wheezes, no rhonchi, no rales ABD/GI: Normal bowel sounds; non-distended; soft, non-tender BACK: The back appears normal and is non-tender to palpation EXT: Normal ROM in all joints; non-tender to palpation; no edema SKIN: No acute lesions noted NEURO: CN 2-12 intact; 5/5 bilateral upper and lower extremity strength with sensation intact to light touch PSYCH: The patient's mood and manner are appropriate. Grooming and personal hygiene are appropriate. TRAVEL OUTSIDE OF THE [place] IN LAST 30 DAYS: No - Related Data Allergies/Adverse Reactions: No Known Drug Allergies Allergy (Unknown, Verified 07/07/19 15:16) Raspberries Allergy (Mild, Uncoded 07/07/19 15:16) Hives Past Medical History - Social History Smoking Status: Unknown if Ever Smoked Family History: CAD, DM, Hypertension, Malignancy - Past Medical History Cardiac Medical History: Reports: Hx Atrial Fibrillation - Paroxysmal atrial fibrillation and flutter, Hx Coronary Artery Disease, Hx Hypercholesterolemia, Hx Hypertension, Hx Peripheral Vascular Disease Denies: Hx DVT, Hx Heart Attack, Hx Pulmonary Embolism Pulmonary Medical History: Reports: Hx COPD Denies: Hx Asthma Neurological Medical History: Denies: Hx Seizures Endocrine Medical History: Reports: Hx Diabetes Mellitus Type 2. Denies: Hx Diabetes Mellitus Type 1, Hx Hyperthyroidism, Hx Hypothyroidism Renal/ Medical History: Denies: Hx Peritoneal Dialysis GI Medical History: Reports: Hx Gastroesophageal Reflux Disease, Hx Pancreatitis. Denies: Hx Cirrhosis, Hx Crohn's Disease, Hx Hepatitis, Hx Ulcerative Colitis Musculoskeletal Medical History: Reports Hx Arthritis, Reports Hx Gout Skin Medical History: Denies Hx Eczema, Denies Hx Psoriasis Psychiatric Medical History: Reports: Hx Depression Infectious Medical History: Denies: Hx Hepatitis Past Surgical History: Reports: Hx Cardiac Catheterization, Hx Carotid Endarterectomy - left, Hx Coronary Stent, Hx Vascular Surgery - clot removal in neck March 2018 - Immunizations Immunizations up to date: Yes Hx Diphtheria, Pertussis, Tetanus Vaccination: No - unk Hx Pneumococcal Vaccination: 11/11/11 Physical Exam - Vital signs Vitals: Pulse Ox 98 07/26/19 13:53 Course - Re-evaluation Re-evalutation: Given the history and physical examination with the patient having atrial flutter/fibrillation with rapid ventricular response, with some chest pain, with minimal relief with nitroglycerin, we will provide morphine as well as diltiazem. I do have a low pretest probability currently for pulmonary embo lism. Patient had a very similar presentation one month ago with a negative Cardiolite stress test here at this facility. EKG shows heart of 110, atrial flutter with rapid ventricular response, no o bvious ST elevation or depression. Inverted T waves in leads I, 2, aVL, and minimally and V6. EKG from July 07 shows inverted T waves at that time in leads I, II, aVL, and V5 and V6 07/26/19 16:20 Labs as recorded. Patient has a baseline slightly elevated troponin. He denies any chest pain or neck pain at this time. Heart rate appears to be normal sinus with a rate of 86 currently. Patient thinks he is on blood thinning medications but a hospitalist note upon previous admission and discharge states that the patient refused this. He does take 325 aspirin daily. Patient will be admitted to the hospitalist service for further evaluation and control of his cardiac rate as well as possibly to place the patient on blood thinning medications with cardiology consultation. - Vital Signs Vital signs: Temp Pulse Resp BP Pulse Ox 98 07/26/19 13:53 - Laboratory Result Diagrams: 07/26/19 14:00 07/26/19 14:00 Laboratory results interpreted by me: 07/26/19 07/26/19 14:00 14:00 RDW 14.3 H BUN 21 H Est GFR (MDRD) Non-Af 58 L Glucose 199 H Critical Care Note - Critical Care Note Total time excluding time spent on procedures (mins): 35 Discharge - Discharge Clinical Impression: Atrial fibrillation with rapid ventricular response, Substernal chest pain Condition: Fair Disposition: ADMITTED OBSERVATION Admitting Provider: Lola (Hospitalist) Unit Admitted: Telemetry Referrals: FAVIO CARABALLO MD [Primary Care Provider] - Follow up as needed
[2019-07-26] MEDS ORDERED: DILTIAZEM HCL INJ 25 MG/5 ML VIAL IV ONE (15:00)
[2019-07-26] MEDS ORDERED: ACETAMINOPHEN 325 MG TABLET PO PRN (17:44)
[2019-07-26] MEDS ORDERED: LEVALBUTEROL HCL NEB 0.63 MG/3 ML AMPUL NEB PRN (17:44)
[2019-07-26] MEDS ORDERED: ONDANSETRON HCL INJ/PF 4 MG/2 ML SDV IV PRN (18:18)
[2019-07-26] MEDS ORDERED: MAG HYDROX/AL HYDROX/SIMETH SUSP 30 ML UDCUP PO PRN (18:18)
[2019-07-26] MEDS ORDERED: DEXTROSE 40% GEL 15 GM TUBE PO PRN ×2 (18:22)
[2019-07-26] MEDS ORDERED: GLUCAGON,HUMAN RECOMB 1 MG INJ IM PRN (18:22)
[2019-07-26] MEDS ORDERED: DEXTROSE 50%-WATER 25 GM/50 ML DISP.SYRIN IV PRN ×2 (18:22)
[2019-07-26] MEDS ORDERED: HYDRALAZINE HCL INJ/PF 20 MG/1 ML SDV IV PRN (18:31)
--- NOTE | 2019-07-26 18:33 | PDOC H&P ---
History of Present Illness Admission Date/PCP: 07/26/19 16:40 FAVIO CARABALLO Patient complains of: chest pain History of Present Illness: SAMPSON MAO is a 69 year old male with a past medical history significant for atrial fibrillation, CAD, hyperlipidemia, hypertension, PVD, COPD, insulin- dependent diabetes mellitus, GERD, arthritis, gout, depression, tobacco dependence, and morbid obesity who presented to the emergency department today with a complaint of sudden onset chest discomfort that radiated into his left shoulder associated with diaphoresis and dyspnea. He reports that the pain started shortly after eating lunch. Upon arrival to the emergency department, he was found to be in atrial fibrillation with RVR: Heart rate in the 150s to 160s. He did respond to a diltiazem bolus and drip; now in sinus rhythm with appropriate heart rate and pa in is significantly improved. At time of my assessment, patient was noted to be lying supine on supplemental oxygen via nasal cannula; not home O2 dependent. He denies medication or dietary noncompliance. Laboratory evaluation was unremarkable. He is referred to the hospitalist service for admission and management of atrial fibrillation with RVR. Past Medical History Cardiac Medical History: Reports: Atrial Fibrillation - Paroxysmal atrial fibrillation and flutter, Coronary Artery Disease, Hyperlipidema, Hypertension, Peripheral Vascular Disease Denies: DVT, Myocardial Infarction, Pulmonary Embolism Pulmonary Medical History: Reports: Chronic Obstructive Pulmonary Disease (COPD) Denies: Asthma Neurological Medical History: Denies: Seizures Endocrine Medical History: Reports: Diabetes Mellitus Type 2, Obesity Denies: Diabetes Mellitus Type 1, Hyperthyroidism, Hypothyroidism GI Medical History: Reports: Gastroesophageal Reflux Disease Denies: Cirrhosis, Crohn's Disease, Hepatitis, Ulcerative Colitis Musculoskeltal Medical History: Reports: Arthritis, Gout Skin Medical History: Denies: Eczema, Psoriasis Psychiatric Medical History: Reports: Depression, Tobacco Dependency Hematology: Denies: Anemia, Bleeding Tendencies Past Surgical History Past Surgical History: Reports: Cardiac Catheterization, Carotid Endarterectomy - left, Coronary Stent, Vascular Surgery - clot removal in neck March 2018 Social History Information Source: Patient Lives with: Family Smoking Status: Current Every Day Smoker Cigarettes Packs Per Day: 0.5 Frequency of Alcohol Use: Occasional Hx Recreational Drug Use: Yes Drugs: Marijuana Hx Prescription Drug Abuse: No - Advance Directive Resuscitation Status: Full Code Family History Family History: CAD, DM, Hypertension, Malignancy Parental Family History Reviewed: Yes Children Family History Reviewed: Yes Sibling(s) Family History Reviewed.: Yes Medication/Allergy Home Medications: Atorvastatin Calcium [Lipitor 80 mg Tablet] 80 mg PO DAILY 07/03/19 Budesonide/Formoterol Fumarate [Symbicort Hfa 160-4.5 Mcg Inhaler 6 gm] 2 puff IH Q12 07/03/19 Citalopram Hydrobromide [Celexa] 20 mg PO DAILY 07/03/19 Empagliflozin [Jardiance] 25 mg PO DAILY 07/03/19 Ergocalciferol (Vitamin D2) [Drisdol] 50,000 unit PO MO@1000 07/03/19 Gabapentin [Neurontin 300 mg Capsule] 300 mg PO Q8 07/03/19 Albuterol Sulfate [Albuterol Sulfate Hfa] 2 puff IH Q6HP PRN 07/26/19 Aspirin [Ecotrin 325 mg EC Tablet] 325 mg PO DAILY 07/26/19 Glipizide [Glucotrol 10 mg Tablet] 10 mg PO DAILY 07/26/19 Insulin Detemir [Levemir] 20 unit SQ QHS 07/26/19 Nitroglycerin [Nitrostat 0.4 mg (1/150 Gr) Tabs 25/Bottle] 1 tab SL Q5MP PRN 07/26/19 Allergies/Adverse Reactions: No Known Drug Allergies Allergy (Unknown, Verified 07/07/19 15:16) Raspberries Allergy (Mild, Uncoded 07/07/19 15:16) Hives Review of Systems Constitutional: ABSENT: chills, fever(s), headache(s), weight gain, weight loss Eyes: ABSENT: visual disturbances Ears: ABSENT: hearing changes Cardiovascular: PRESENT: chest pain, palpitations. ABSENT: dyspnea on exertion, edema, orthropnea Respiratory: ABSENT: cough, hemoptysis Gastrointestinal: ABSENT: abdominal pain, constipation, diarrhea, hematemesis, hematochezia, nausea, vomiting Genitourinary: ABSENT: dysuria, hematuria Musculoskeletal: ABSENT: joint swelling Integumentary: ABSENT: rash, wounds Neurological: ABSENT: abnormal gait, abnormal speech, confusion, dizziness, focal weakness, syncope Psychiatric: ABSENT: anxiety, depression, homidical ideation, suicidal ideation Endocrine: ABSENT: cold intolerance, heat intolerance, polydipsia, polyuria Hematologic/Lymphatic: ABSENT: easy bleeding, easy bruising Physical Exam Vital Signs: Temp Pulse Resp BP Pulse Ox 97.3 F 17 157/100 H 98 07/26/19 13:59 07/26/19 17:01 07/26/19 17:01 07/26/19 17:01 Intake & Output 07/25/19 07/26/19 07/27/19 06:59 06:59 06:59 Weight 109 kg General appearance: PRESENT: no acute distress, obese, well-developed, well- nourished Head exam: PRESENT: atraumatic, normocephalic Eye exam: PRESENT: conjunctiva pink, EOMI, PERRLA. ABSENT: scleral icterus Ear exam: PRESENT: normal external ear exam Mouth exam: PRESENT: moist, tongue midline Neck exam: ABSENT: carotid bruit, JVD, lymphadenopathy, thyromegaly Respiratory exam: PRESENT: clear to auscultation wyatt, symmetrical, unlabored. ABSENT: rales, rhonchi, wheezes Cardiovascular exam: PRESENT: RRR, +S1, +S2. ABSENT: diastolic murmur, rubs, systolic murmur Pulses: PRESENT: normal dorsalis pedis pul Vascular exam: PRESENT: normal capillary refill GI/Abdominal exam: PRESENT: normal bowel sounds, soft. ABSENT: distended, guarding, mass, organolmegaly, rebound, tenderness Rectal exam: PRESENT: deferred Extremities exam: PRESENT: full ROM. ABSENT: calf tenderness, clubbing, pedal edema Neurological exam: PRESENT: alert, awake, oriented to person, oriented to place, oriented to time, oriented to situation, CN II-XII grossly intact. ABSENT: motor sensory deficit Psychiatric exam: PRESENT: appropriate affect, normal mood. ABSENT: homicidal ideation, suicidal ideation Skin exam: PRESENT: dry, intact, warm. ABSENT: cyanosis, rash Results Laboratory Results: 07/26/19 14:00 07/26/19 14:00 07/26/19 07/26/19 14:00 14:00 WBC 6.8 RBC 4.50 Hgb 14.1 Hct 41.7 MCV 93 MCH 31.2 MCHC 33.7 RDW 14.3 H Plt Count 265 Seg Neutrophils % 49.7 Sodium 137.9 Potassium 3.7 Chloride 101 Carbon Dioxide 22 Anion Gap 15 BUN 21 H Creatinine 1.25 Est GFR ( Amer) > 60 Glucose 199 H Calcium 10.0 Total Bilirubin 0.8 AST 22 Alkaline Phosphatase 96 Total Protein 7.1 Albumin 4.0 07/26/19 07/26/19 14:00 14:00 Creatine Kinase 74 CK-MB (CK-2) 1.27 Troponin I 0.018 Assessment and Plan - Diagnosis (1) Atrial fibrillation with rapid ventricular response Is this a current diagnosis for this admission?: Yes Plan: The patient is admitted on continuous cardiac telemetry. Continue diltiazem drip. Does not appear that the patient was on any rate controlling medications; will transition to diltiazem p.o. tomorrow. Full dose Lovenox. We will need to discuss option for chronic anticoagulation. Daily aspirin and statin therapy. Cardiac diet. (2) Substernal chest pain Is this a current diagnosis for this admission?: Yes Plan: Resolved. Secondary to atrial fibrillation RVR. We will trend troponins. Continue to monitor on cardiac telemetry. (3) Hyperlipidemia Qualifiers: Hyperlipidemia type: mixed hyperlipidemia Qualified Code(s): E78.2 - Mixed hyperlipidemia Is this a current diagnosis for this admission?: Yes Plan: Continue home dose statin. Cardiac diet. (4) Hypertension Qualifiers: Hypertension type: essential hypertension Qualified Code(s): I10 - Essential (primary) hypertension Is this a current diagnosis for this admission?: Yes Plan: Patient endorses a history of hypertension; does not appear that he is on antihypertensive medications. Currently on diltiazem drip. Blood pressure remains elevated. IV hydralazine for blood pressure control. Cardiac diet. 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 Continue home dose Lantus. Accu-Cheks before meals and at bedtime with Humalog coverage. Cardiac/consistent carb diet. (6) Tobacco dependency Is this a current diagnosis for this admission?: Yes Plan: Smoking cessation encouraged. Nicotine or placement therapies provided. - Time Time Spent with patient: 35 or more minutes Smoking Cessation Education: 3 to 10 minutes Medications reviewed and adjusted accordingly: Yes Anticipated discharge: Home Within: within 48 hours
[2019-07-26] MEDS ORDERED: NICOTINE 14 MG/24 HR PATCH.TD24 TD ONE (19:15)
--- NOTE | 2019-07-26 19:26 | EKG REPORT ---
SEVERITY:- ABNORMAL ECG - A-FLUTTER W/ PREDOM 3:1 AV BLOCK, A-RATE 319 LVH WITH SECONDARY REPOLARIZATION ABNORMALITY PROLONGED QT INTERVAL : Confirmed by: Osiris Andrews MD 26-Jul-2019 19:25:52
[2019-07-26] MEDS: ENOXAPARIN SODIUM INJ 120 MG/0.8 ML DISP.SYRIN SUBCUT SCH (19:38)
[2019-07-26] MEDS: NORMAL SALINE 1000 ML 1,000 ML IV PRN (20:32)
[2019-07-26] MEDS ORDERED: INSULIN GLARGINE,HUM.REC.ANLOG 1,000 UNIT/10 ML VIAL (PYX) SUBCUT PRN (20:45)
[2019-07-26] MEDS: IPRATROPIUM/ALBUTEROL 0.5-2.5 MG/3 ML AMPUL NEB SCH (20:57)
[2019-07-26] MEDS ORDERED: METOPROLOL TARTRATE PF/INJ 5 MG/5 ML SDV IV ONE ×2 (21:04→21:30)
[2019-07-26] MEDS ORDERED: INSULIN GLARGINE,HUM.REC.ANLOG 1,000 UNIT/10 ML VIAL SUBCUT SCH (22:00)
[2019-07-26] MEDS ORDERED: INSULIN GLARGINE,HUM.REC.ANLOG 1,000 UNIT/10 ML VIAL (PYX) SUBCUT ONE (22:58)
[2019-07-26] MEDS: GABAPENTIN 300 MG CAPSULE PO SCH (23:01)
[2019-07-26] MEDS: FAMOTIDINE 20 MG TABLET PO SCH (23:01)
[2019-07-26] MEDS: METOPROLOL TARTRATE 50 MG TABLET PO SCH (23:01)
[2019-07-26] MEDS: INSULIN LISPRO 100 UNIT/ML 3 ML VIAL SUBCUT SCH (23:08)
[2019-07-27 05:31] LABS: HEMATOCRIT 38.1 % (37.9-51.0); HEMOGLOBIN 12.6 g/dL (13.5-17.0); MEAN CORPUSCULAR HEMOGLOBIN 30.8 pg (27.0-33.4); MEAN CORPUSCULAR HGB CONC 33.1 g/dL (32.0-36.0); MEAN CORPUSCULAR VOLUME 93 fl (80-97); PLATELET COUNT 249 10^3/uL (150-450); RED CELL DISTRIBUTION WIDTH 14.4 % (11.5-14.0); WHITE BLOOD COUNT 7.6 10^3/uL (4.0-10.5)
[2019-07-27] MEDS: ENOXAPARIN SODIUM INJ 120 MG/0.8 ML DISP.SYRIN SUBCUT SCH ×2 (05:40→17:17)
[2019-07-27] MEDS: GABAPENTIN 300 MG CAPSULE PO SCH ×2 (05:40→15:13)
[2019-07-27] MEDS: NORMAL SALINE 1000 ML 1,000 ML IV PRN (05:46)
[2019-07-27 05:55] LABS: ANION GAP 8 (5-19); BLOOD UREA NITROGEN 21 mg/dL (7-20); CALCIUM 9.2 mg/dL (8.4-10.2); CARBON DIOXIDE 25 mmol/L (22-30); CHLORIDE 105 mmol/L (98-107); GLUCOSE 132 mg/dL (75-110); POTASSIUM 3.5 mmol/L (3.6-5.0)
--- NOTE | 2019-07-27 07:28 | EKG REPORT ---
SEVERITY:- ABNORMAL ECG - SINUS RHYTHM FIRST DEGREE AV BLOCK LEFT VENTRICULAR HYPERTROPHY BORDERLINE T ABNORMALITIES, INFERIOR AND LATERAL LEADS : Confirmed by: Jose Isaac MD 27-Jul-2019 07:26:48
[2019-07-27] MEDS: INSULIN LISPRO 100 UNIT/ML 3 ML VIAL SUBCUT SCH ×3 (09:00→17:16)
[2019-07-27] MEDS: FAMOTIDINE 20 MG TABLET PO SCH (09:24)
[2019-07-27] MEDS: METOPROLOL TARTRATE 50 MG TABLET PO SCH (09:24)
[2019-07-27] MEDS: IPRATROPIUM/ALBUTEROL 0.5-2.5 MG/3 ML AMPUL NEB SCH (09:39)
[2019-07-27] MEDS ORDERED: CITALOPRAM HYDROBROMIDE 20 MG TABLET PO SCH (10:00)
[2019-07-27] MEDS ORDERED: ATORVASTATIN CALCIUM 80 MG TABLET PO SCH (10:00)
[2019-07-27] MEDS ORDERED: ASPIRIN 325 MG TABLET, ENT COATED PO SCH (10:00)
[2019-07-27] MEDS ORDERED: NICOTINE 14 MG/24 HR PATCH.TD24 TD SCH (10:00)
[2019-07-27] MEDS ORDERED: DOCUSATE SODIUM 100 MG CAPSULE PO SCH (10:00)
[2019-07-27] MEDS ORDERED: FLUTICASONE/VILANTEROL 200-25 MCG/DOSE IH SCH (10:00)
[2019-07-27 19:48] VITALS: BP 166/77
--- NOTE | 2019-07-28 13:07 | PDOC DISCHARGE SUMMARY ---
General - Admit/Disc Date/PCP Admission Date/Primary Care Provider: 07/26/19 16:40 FAVIO CARABALLO Discharge Date: 07/27/19 - Discharge Diagnosis (1) Atrial fibrillation with rapid ventricular response Is this a current diagnosis for this admission?: Yes Summary: Resolved; patient now in NSR The patient was admitted on continuous cardiac telemetry. He was initially placed on a diltiazem drip; transitioned to p.o. Metoprolol 50 mg BID. Maintains in NSR. He was initially started on Full dose Lovenox. [id number] Score 4; 4.8% Discussed recommendation for chronic anticoagulation with patient, who is agreeable. He is discharged on Eliquis. Continue daily aspirin and statin therapy and cardiac diet. (2) Substernal chest pain Is this a current diagnosis for this admission?: Yes Summary: Resolved. Secondary to atrial fibrillation RVR. Troponins were negative x 2. No further episodes of chest pain Recommend outpatient cardiology follow up. (3) Hyperlipidemia Is this a current diagnosis for this admission?: Yes Summary: Continue home dose statin. Cardiac diet. (4) Hypertension Is this a current diagnosis for this admission?: Yes Summary: Patient endorses a history of hypertension; does not appear that he is on antihypertensive medications. He has been transitioned to p.o. Metoprolol 50 mg BID. Blood pressures do remain elevated; will start on Lisinopril. Continue Cardiac diet. Follow up with PCP for continued management. (5) Type 2 diabetes mellitus Is this a current diagnosis for this admission?: Yes Summary: Resume outpatient regimen at discharge. Cardiac/consistent carb diet. (6) Tobacco dependency Is this a current diagnosis for this admission?: Yes Summary: Smoking cessation encouraged. Nicotine replacement therapies provided. - Additional Information Resuscitation Status: Full Code Discharge Diet: Diabetic Discharge Activity: Activity As Tolerated, Balance Activity w/Rest Prescriptions: Fluticasone/Vilanterol [Breo 200-25 Mcg Ellipta 14 Dose/Dpi] 1 inh IH DAILY #1 inhaler Apixaban [Eliquis 5 mg Tablet] 5 mg PO BID #60 tablet Metoprolol Tartrate [Lopressor 50 mg Tablet] 50 mg PO Q12 #60 tablet Nicotine [Nicoderm 14 mg/24 Hr Transdermal Patch] 1 each TD DAILY #30 patch.td24 Home Medications: Atorvastatin Calcium [Lipitor 80 mg Tablet] 80 mg PO DAILY 08/23/19 Budesonide/Formoterol Fumarate [Symbicort HFA 160-4.5 mcg Inhaler 6 gm] 2 puff IH Q12 07/03/19 Citalopram Hydrobromide [Celexa] 20 mg PO DAILY 07/03/19 Empagliflozin [Jardiance] 25 mg PO DAILY 07/03/19 Ergocalciferol (Vitamin D2) [Drisdol] 50,000 unit PO MO@1000 07/03/19 Gabapentin [Neurontin 300 mg Capsule] 300 mg PO Q8 07/03/19 Albuterol Sulfate [Albuterol Sulfate Hfa] 2 puff IH Q6HP PRN 07/26/19 Aspirin [Ecotrin 325 mg EC Tablet] 325 mg PO DAILY 07/26/19 Glipizide [Glucotrol 10 mg Tablet] 10 mg PO DAILY 07/26/19 Insulin Detemir [Levemir] 20 unit SQ QHS 07/26/19 Nitroglycerin [Nitrostat 0.4 mg (1/150 Gr) Tabs 25/Bottle] 1 tab SL Q5MP PRN 07/26/19 Acetaminophen [Tylenol 325 mg Tablet] 650 mg PO Q4HP PRN tablet 07/27/19 Apixaban [Eliquis 5 mg Tablet] 5 mg PO BID #60 tablet 07/27/19 Fluticasone/Vilanterol [Breo 200-25 Mcg Ellipta 14 Dose/Dpi] 1 inh IH DAILY #1 inhaler 07/27/19 Metoprolol Tartrate [Lopressor 50 mg Tablet] 50 mg PO Q12 #60 tablet 07/27/19 Nicotine [Nicoderm 14 mg/24 Hr Transdermal Patch] 1 each TD DAILY #30 patch.td24 07/27/19 Lisinopril 20 mg PO DAILY #30 tablet 07/28/19 History of Present Illness History of Present Illness: SAMPSON MAO is a 69 year old male with a past medical history significant for atrial fibrillation, CAD, hyperlipidemia, hypertension, PVD, COPD, insulin- dependent diabetes mellitus, GERD, arthritis, gout, depression, tobacco dependence, and morbid obesity who presented to the emergency department today with a complaint of sudden onset chest discomfort that radiated into his left shoulder associated with diaphoresis and dyspnea. He reports that the pain started shortly after eating lunch. Upon arrival to the emergency department, he was found to be in atrial fibri llation with RVR: Heart rate in the 150s to 160s. He did respond to a diltiazem bolus and drip; now in sinus rhythm with appropriate heart rate and pain is significantly improved. At time of my assessment, patient was noted to be lying supine on supplemental oxygen via nasal cannula; not home O2 dependent. He denies medication or dietary noncompliance. Laboratory evaluation was unremarkable. He is referred to the hospitalist service for admission and management of atrial fibrillation with RVR. Physical Exam Vital Signs: Temp Pulse Resp BP Pulse Ox 98.2 F 62 16 168/72 H 97 07/27/19 18:16 07/27/19 18:16 07/27/19 18:16 07/27/19 18:16 07/27/19 18:16 Intake & Output 07/27/19 07/28/19 07/29/19 06:59 06:59 06:59 Intake Total 1067 1380 Output Total 650 400 Balance 417 980 Weight 107.6 kg General appearance: PRESENT: no acute distress, cooperative, well-developed, well-nourished - overweight Head exam: PRESENT: atraumatic, normocephalic Eye exam: PRESENT: conjunctiva pink, EOMI, PERRLA. ABSENT: scleral icterus Ear exam: PRESENT: normal external ear exam Mouth exam: PRESENT: moist, tongue midline Neck exam: ABSENT: carotid bruit, JVD, lymphadenopathy, thyromegaly Respiratory exam: PRESENT: clear to auscultation wyatt, symmetrical, unlabored. ABSENT: rales, rhonchi, wheezes Cardiovascular exam: PRESENT: RRR, +S1, +S2. ABSENT: diastolic murmur, rubs, systolic murmur Pulses: PRESENT: normal dorsalis pedis pul Vascular exam: PRESENT: normal capillary refill GI/Abdominal exam: PRESENT: normal bowel sounds, soft, other - rotund. ABSENT: distended, guarding, mass, organolmegaly, rebound, tenderness Rectal exam: PRESENT: deferred Extremities exam: PRESENT: full ROM. ABSENT: calf tenderness, clubbing, pedal edema Musculoskeletal exam: PRESENT: ambulatory - on room air Neurological exam: PRESENT: alert, awake, oriented to person, oriented to place, oriented to time, oriented to situation, CN II-XII grossly intact. ABSENT: motor sensory deficit Psychiatric exam: PRESENT: appropriate affect, normal mood. ABSENT: homicidal ideation, suicidal ideation Skin exam: PRESENT: dry, intact, warm. ABSENT: cyanosis, rash Results Laboratory Results: 07/27/19 05:02 07/27/19 05:02 07/26/19 07/26/19 07/26/19 14:00 14:00 19:36 Creatine Kinase 74 CK-MB (CK-2) 1.27 Troponin I 0.018 0.020 Qualifiers - * PATIENT BEING DISCHARGED WITH ANY OF THE FOLLOWING DIAGNOSIS: No Acute Heart Failure - Is this a Heart Failure Patient?: No Plan Discharge Plan: The patient is discharged home in stable condition. Follow up with primary care provider within 1 week. Consider establishing with a commercial appraiser. Provided referral information for Dr. Wendy Subramanian. Take medications as prescribed. Eat a low sodium, low fat, diabetic diet. STOP smoking. Decrease alcohol intake. Do not use recreational drugs. Return to the emergency department as needed for concerning symptoms. Time Spent: Greater than 30 Minutes
== END 2019-07-27 19:15 | disposition home or self-care (01) | DRG 310 ==
LOC: ER 13:42 → EH 16:40 → INTOOBSV 16:40 → OBSVTOIN 16:40 → 3S 19:04
PROVIDERS: ADMIT Internal Medicine; ATTEND Internal Medicine
DX: I48.0 Paroxysmal atrial fibrillation (principal); I48.91 Unspecified atrial fibrillation; I10 Essential (primary) hypertension; E11.51 Type 2 diabetes mellitus with diabetic peripheral angiopathy without gangrene; E78.5 Hyperlipidemia, unspecified; F32.9 Major depressive disorder, single episode, unspecified; J44.9 Chronic obstructive pulmonary disease, unspecified; R79.89 Other specified abnormal findings of blood chemistry; F17.210 Nicotine dependence, cigarettes, uncomplicated; I25.10 Atherosclerotic heart disease of native coronary artery without angina pectoris; K21.9 Gastro-esophageal reflux disease without esophagitis; M19.90 Unspecified osteoarthritis, unspecified site; Z79.899 Other long term (current) drug therapy; Z79.82 Long term (current) use of aspirin; Z79.4 Long term (current) use of insulin; Z95.5 Presence of coronary angioplasty implant and graft; Z82.49 Family history of ischemic heart disease and other diseases of the circulatory system; Z83.3 Family history of diabetes mellitus
CPT/HCPCS: 36415; 80048; 80053; 82550; 82553; 82962; 84484; 85025; 85027; 93005; 93010; 94640; 96365; 96366; 96375; 96376; 99291; G0378; J1650; J1815; J2270; J3490; J7030; J7620

== ENCOUNTER 2019-07-28 14:35 | Observation (INO) | payer MEDICARE, MEDICAID ==
[2019-07-28] MEDS ORDERED: ASPIRIN 81 MG TABLET, CHEWABLE PO ONE (14:54)
--- NOTE | 2019-07-28 14:59 | ER Document Report ---
ED Medical Screen (RME) - General Chief Complaint: Chest Pain Stated Complaint: CHEST PAIN Time Seen by Provider: 07/28/19 14:54 Primary Care Provider: FAVIO CARABALLO MD [Primary Care Provider] - Follow up as needed Mode of Arrival: Wheelchair Information source: Patient Notes: This 69-year-old male presents to the emergency department with complaints of chest pain. Reports he is taken 3 nitro's without relief of symptoms. Patient was evaluated discharge this Saturday with atrial fib. Patient reports they did prescribe him of the new medication but he has been told that the medication is on back order. Patient feels short of breath. EKG shows atrial fib heart rate around 110. I have greeted and performed a rapid initial assessment of this patient. A comprehensive ED assessment and evaluation of the patient, analysis of test results and completion of the medical decision making process will be conducted by additional ED providers. Dictation of this chart was performed using voice recognition software; therefore, there may be some unintended grammatical errors. TRAVEL OUTSIDE OF THE [place] IN LAST 30 DAYS: No - Related Data Allergies/Adverse Reactions: No Known Drug Allergies Allergy (Unknown, Verified 07/28/19 14:36) Raspberries Allergy (Mild, Uncoded 07/28/19 14:36) Hives Past Medical History - Social History Family history: Reviewed & Not Pertinent - Past Medical History Cardiac Medical History: Reports: Hx Atrial Fibrillation - Paroxysmal atrial fibrillation and flutter, Hx Coronary Artery Disease, Hx Hypercholesterolemia, Hx Hypertension, Hx Peripheral Vascular Disease Denies: Hx DVT, Hx Heart Attack, Hx Pulmonary Embolism Pulmonary Medical History: Reports: Hx COPD Denies: Hx Asthma Neurological Medical History: Denies: Hx Seizures Endocrine Medical History: Reports: Hx Diabetes Mellitus Type 2. Denies: Hx Diabetes Mellitus Type 1, Hx Hyperthyroidism, Hx Hypothyroidism Renal/ Medical History: Denies: Hx Peritoneal Dialysis GI Medical History: Reports: Hx Gastroesophageal Reflux Disease, Hx Pancreatitis. Denies: Hx Cirrhosis, Hx Crohn's Disease, Hx Hepatitis, Hx Ulcerative Colitis Musculoskeltal Medical History: Reports Hx Arthritis, Reports Hx Gout Skin Medical History: Denies Hx Eczema, Denies Hx Psoriasis Psychiatric Medical History: Reports: Hx Depression Infectious Medical History: Denies: Hx Hepatitis Past Surgical History: Reports: Hx Cardiac Catheterization, Hx Carotid Endarterectomy - left, Hx Coronary Stent, Hx Vascular Surgery - clot removal in neck March 2018 - Immunizations Immunizations up to date: Yes Hx Diphtheria, Pertussis, Tetanus Vaccination: No - unk History of Influenza Vaccine for 08/2017 - 01/2018 Season: Yes Physical Exam - Vital signs Vitals: Temp Pulse Resp BP Pulse Ox 98.5 F 91 18 140/79 H 94 07/28/19 14:47 07/28/19 14:47 07/28/19 14:47 07/28/19 14:47 07/28/19 14:47 Course - Vital Signs Vital signs: Temp Pulse Resp BP Pulse Ox 98.5 F 91 18 140/79 H 94 07/28/19 14:47 07/28/19 14:47 07/28/19 14:47 07/28/19 14:47 07/28/19 14:47 Doctor's Discharge - Discharge Referrals: FAIVO CARABALLO MD [Primary Care Provider] - Follow up as needed
[2019-07-28 15:35] LABS: ABSOLUTE BASOPHILS # (AUTO) 0.1 10^3/uL (0.0-0.2); ABSOLUTE EOSINOPHILS # (AUTO) 0.2 10^3/uL (0.0-0.6); ABSOLUTE LYMPHOCYTES (AUTO) 2.5 10^3/uL (0.5-4.7); ABSOLUTE MONOCYTES (AUTO) 0.4 10^3/uL (0.1-1.4); ABSOLUTE NEUT (AUTO) 3.5 10^3/uL (1.7-8.2); BASOPHILS % (AUTO) 1.1 % (0-2); EOSINOPHILS % (AUTO) 3.2 % (0-6); HEMOGLOBIN 13.7 g/dL (13.5-17.0); LYMPHOCYTES % (AUTO) 37.4 % (13-45); MEAN CORPUSCULAR HEMOGLOBIN 30.7 pg (27.0-33.4); MEAN CORPUSCULAR HGB CONC 33.3 g/dL (32.0-36.0); MEAN CORPUSCULAR VOLUME 92 fl (80-97); MONOCYTES % (AUTO) 6.5 % (3-13); PLATELET COUNT 256 10^3/uL (150-450); RED BLOOD COUNT 4.45 10^6/uL (4.35-5.55); RED CELL DISTRIBUTION WIDTH 14.3 % (11.5-14.0); SEGMENTED NEUTROPHILS % (AUTO) 51.8 % (42-78); TOTAL CELLS COUNTED % (AUTO) 100 %; WHITE BLOOD COUNT 6.7 10^3/uL (4.0-10.5)
[2019-07-28 15:41] LABS: INTERNATIONAL RATION (INR) 0.95; PROTHROMBIN TIME 12.7 SEC (11.4-15.4)
[2019-07-28 15:42] LABS: PARTIAL THROMBOPLASTIN TIME 33.5 SEC (23.5-35.8)
[2019-07-28 15:43] LABS: APPEARANCE,URINE CLEAR; BILIRUBIN,URINE NEGATIVE (NEGATIVE); COLOR,URINE YELLOW; GLUCOSE, URINE >=500 mg/dL (NEGATIVE); KETONES,URINE NEGATIVE (NEGATIVE); LEUKOCYTE ESTERASE,URINE NEGATIVE (NEGATIVE); NITRITE,URINE NEGATIVE (NEGATIVE); PROTEIN,URINE NEGATIVE (NEGATIVE); URINE SPECIFIC GRAVITY 1.033; UROBILINOGEN,URINE NEGATIVE mg/dL (<2.0)
--- NOTE | 2019-07-28 15:53 | RADIOLOGY REPORT (SQ) ---
EXAM DESCRIPTION: CHEST 2 VIEWS COMPLETED DATE/TIME: 07/28/2019 3:45 pm REASON FOR STUDY: cp COMPARISON: 07/07/2019 EXAM PARAMETERS: NUMBER OF VIEWS: two views TECHNIQUE: Digital Frontal and Lateral radiographic views of the chest acquired. RADIATION DOSE: NA LIMITATIONS: none FINDINGS: LUNGS AND PLEURA: No opacities, masses or pneumothorax. No pleural effusion. MEDIASTINUM AND HILAR STRUCTURES: No masses or contour abnormalities. HEART AND VASCULAR STRUCTURES: Heart normal size. No evidence for failure. BONES: No acute findings. HARDWARE: None in the chest. OTHER: No other significant finding. IMPRESSION: NO ACUTE RADIOGRAPHIC FINDING IN THE CHEST. TECHNICAL DOCUMENTATION: JOB ID: [id number] [employer]- All Rights Reserved Reading location - IP/workstation name: [email or web address]
[2019-07-28 15:57] LABS: ALBUMIN 4.2 g/dL (3.5-5.0); ALKALINE PHOSPHATASE 92 U/L (38-126); ANION GAP 11 (5-19); ASPARTATE AMINO TRANSFERASE 21 U/L (17-59); BILIRUBIN,DIRECT 0.1 mg/dL (0.0-0.4); BILIRUBIN,TOTAL 0.6 mg/dL (0.2-1.3); BLOOD UREA NITROGEN 15 mg/dL (7-20); CALCIUM 9.7 mg/dL (8.4-10.2); CARBON DIOXIDE 24 mmol/L (22-30); CHLORIDE 104 mmol/L (98-107); CREATINE KINASE 73 U/L (55-170); GLUCOSE 317 mg/dL (75-110); POTASSIUM 3.7 mmol/L (3.6-5.0); TOTAL PROTEIN 7.2 g/dL (6.3-8.2)
--- NOTE | 2019-07-28 17:57 | ER Document Report ---
ED Cardiac - General Chief Complaint: Chest Pain Stated Complaint: CHEST PAIN Time Seen by Provider: 07/28/19 14:54 Primary Care Provider: FAVIO CARABALLO MD [Primary Care Provider] - Follow up as needed Information source: Patient TRAVEL OUTSIDE OF THE [place] IN LAST 30 DAYS: No - HPI Notes: Patient comes in complaining of chest pain. This chest pain is been intermittent. Lasting several minutes at a time. He states it radiates to the left arm and to the jaw. It is a severe aching sensation. Nothing makes it better or worse. He also has had some lightheadedness and dizziness today. He was recently admitted at this hospital. He was diagnosed with atrial fibrillation with rapid ventricular response. He had returned to a stable sinus rhythm and was therefore discharged. He was prescribed Eliquis which he was able to brain picker. However he states the other medicines, which I presumed to be medicines for rate control he has not been able to buy. Currently at this time he states that he is only having minimal pain in his chest. He has had some mild shortness of breath. No sweating or nausea. - Related Data Allergies/Adverse Reactions: No Known Drug Allergies Allergy (Unknown, Verified 07/28/19 14:36) Raspberries Allergy (Mild, Uncoded 07/28/19 14:36) Hives Past Medical History - General Information source: Patient - Social History Smoking Status: Current Some Day Smoker Frequency of alcohol use: None Drug Abuse: None Family History: CAD, DM, Hypertension, Malignancy Patient has suicidal ideation: No Patient has homicidal ideation: No - Past Medical History Cardiac Medical History: Reports: Hx Atrial Fibrillation - Paroxysmal atrial fibrillation and flutter, Hx Coronary Artery Disease, Hx Hypercholesterolemia, Hx Hypertension, Hx Peripheral Vascular Disease Denies: Hx DVT, Hx Heart Attack, Hx Pulmonary Embolism Pulmonary Medical History: Reports: Hx COPD Denies: Hx Asthma Neurological Medical History: Denies: Hx Seizures Endocrine Medical History: Reports: Hx Diabetes Mellitus Type 2. Denies: Hx Diabetes Mellitus Type 1, Hx Hyperthyroidism, Hx Hypothyroidism Renal/ Medical History: Denies: Hx Peritoneal Dialysis GI Medical History: Reports: Hx Gastroesophageal Reflux Disease, Hx Pancreatitis. Denies: Hx Cirrhosis, Hx Crohn's Disease, Hx Hepatitis, Hx Ulcerative Colitis Musculoskeletal Medical History: Reports Hx Arthritis, Reports Hx Gout Skin Medical History: Denies Hx Eczema, Denies Hx Psoriasis Psychiatric Medical History: Reports: Hx Depression Infectious Medical History: Denies: Hx Hepatitis Past Surgical History: Reports: Hx Cardiac Catheterization, Hx Carotid Endarterectomy - left, Hx Coronary Stent, Hx Vascular Surgery - clot removal in neck March 2018 - Immunizations Immunizations up to date: Yes Hx Diphtheria, Pertussis, Tetanus Vaccination: No - unk Hx Pneumococcal Vaccination: 11/11/11 Review of Systems - Review of Systems Constitutional: denies: Chills, Fever Cardiovascular: Chest pain, Dizziness Respiratory: Short of breath. denies: Cough Gastrointestinal: denies: Abdominal pain, Vomiting -: Yes All other systems reviewed and negative Physical Exam - Vital signs Vitals: Temp Pulse Resp BP Pulse Ox 98.5 F 91 18 140/79 H 94 07/28/19 14:47 07/28/19 14:47 07/28/19 14:47 07/28/19 14:47 07/28/19 14:47 Interpretation: Normal - General General appearance: Appears well, Alert - HEENT Head: Normocephalic, Atraumatic Eyes: Normal Pupils: PERRL - Respiratory Respiratory status: No respiratory distress Chest status: Nontender Breath sounds: Normal Chest palpation: Normal - Cardiovascular Rhythm: Irregularly irregular, Tachycardia Heart sounds: Normal auscultation Murmur: No - Abdominal Inspection: Normal Distension: No distension Bowel sounds: Normal Tenderness: Nontender Organomegaly: No organomegaly - Back Back: Normal, Nontender - Extremities General upper extremity: Normal inspection, Nontender, Normal color, Normal ROM, Normal temperature General lower extremity: Normal inspection, Nontender, Normal color, Normal ROM, Normal temperature, Normal weight bearing. No: Efrain's sign - Neurological Neuro grossly intact: Yes Cognition: Normal Orientation: AAOx4 Dariela Coma Scale Eye Opening: Spontaneous Ferney Coma Scale Verbal: Oriented Ferney Coma Scale Motor: Obeys Commands Dariela Coma Scale Total: 15 Speech: Normal Motor strength normal: LUE, RUE, LLE, RLE Sensory: Normal - Psychological Associated symptoms: Normal affect, Normal mood - Skin Skin Temperature: Warm Skin Moisture: Dry Skin Color: Normal Course - Re-evaluation Re-evalutation: 07/28/19 17:55 Patient presents with chest pain arm pain and jaw pain. Patient has known coronary artery disease and still smokes. He has got multiple stents and other vessels as well. Patient has not had a recent cardiac evaluation. Therefore I think the most prudent thing to do is have the patient admitted for cardiology consultation. HEART Score 7 - Vital Signs Vital signs: Temp Pulse Resp BP Pulse Ox 98.5 F 91 18 140/79 H 94 07/28/19 14:47 07/28/19 14:47 07/28/19 14:47 07/28/19 14:47 07/28/19 14:47 - Laboratory Result Diagrams: 07/28/19 15:18 07/28/19 15:18 Laboratory results interpreted by me: 07/28/19 07/28/19 07/28/19 15:18 15:18 15:18 RDW 14.3 H Glucose 317 H Urine Glucose (UA) >=500 H - Diagnostic Test Radiology reviewed: Image reviewed, Reports reviewed - EKG Interpretation by Me EKG shows normal: abnormal: [place] Rate: Tachycardia - 110 Rhythm: A.Fib Voltage: Consistant with LVH When compared to previous EKG there are: Changes noted Discharge - Discharge Clinical Impression: Dizziness Chest pain Qualifiers: Chest pain type: unspecified Qualified Code(s): R07.9 - Chest pain, unspecified Atrial fibrillation Qualifiers: Atrial fibrillation type: paroxysmal Qualified Code(s): I48.0 - Paroxysmal atrial fibrillation Condition: Fair Disposition: ADMITTED INPATIENT Admitting Provider: Yumiko (Hospitalist) Unit Admitted: Telemetry Referrals: FAVIO CARABALLO MD [Primary Care Provider] - Follow up as needed
--- NOTE | 2019-07-28 18:39 | EKG REPORT ---
SEVERITY:- ABNORMAL ECG - ATRIAL FIBRILLATION PROBABLE LVH WITH SECONDARY REPOL ABNRM : Confirmed by: Jose Isaac MD 28-Jul-2019 18:38:34
[2019-07-28] MEDS ORDERED: GLUCAGON,HUMAN RECOMB 1 MG INJ IM PRN (18:49)
[2019-07-28] MEDS ORDERED: DEXTROSE 40% GEL 15 GM TUBE PO PRN ×2 (18:49)
[2019-07-28] MEDS ORDERED: DEXTROSE 50%-WATER 25 GM/50 ML DISP.SYRIN IV PRN ×2 (18:49)
--- NOTE | 2019-07-28 18:49 | PDOC H&P ---
History of Present Illness Admission Date/PCP: 07/28/19 18:02 FAVIO CARABALLO Patient complains of: Chest pain History of Present Illness: SAMPSON MAO is a 69 year old male with a past medical history significant for atrial fibrillation, CAD, hyperlipidemia, hypertension, PVD, COPD, insulin- dependent diabetes mellitus, GERD, arthritis, gout, depression, tobacco dependence, and morbid obesity who returns the emergency room after being discharged yesterday. He presented initially for chest pain and had A. fib with RVR. Patient was treated and was discharged to home. No ischemic work-up was done. Chest pain was attributed to A. fib. Patient returns for the same symptoms. He described well sudden onset chest discomfort that radiated into his left shoulder associated with diaphoresis and dyspnea. Cardiology Dr. Subramanian was informed by the ER physician and he will see the patient in consult. Patient is currently hemodynamically stable. Past Medical History Cardiac Medical History: Reports: Atrial Fibrillation - Paroxysmal atrial fibrillation and flutter, Coronary Artery Disease, Hyperlipidema, Hypertension, Peripheral Vascular Disease Denies: DVT, Myocardial Infarction, Pulmonary Embolism Pulmonary Medical History: Reports: Chronic Obstructive Pulmonary Disease (COPD) Denies: Asthma Neurological Medical History: Denies: Seizures Endocrine Medical History: Reports: Diabetes Mellitus Type 2 Denies: Diabetes Mellitus Type 1, Hyperthyroidism, Hypothyroidism GI Medical History: Reports: Gastroesophageal Reflux Disease Denies: Cirrhosis, Crohn's Disease, Hepatitis, Ulcerative Colitis Musculoskeltal Medical History: Reports: Arthritis, Gout Skin Medical History: Denies: Eczema, Psoriasis Psychiatric Medical History: Reports: Depression Hematology: Denies: Anemia, Bleeding Tendencies Past Surgical History Past Surgical History: Reports: Cardiac Catheterization, Carotid Endarterectomy - left, Coronary Stent, Vascular Surgery - clot removal in neck March 2018 Social History Smoking Status: Current Some Day Smoker Frequency of Alcohol Use: Occasional Hx Recreational Drug Use: Yes Drugs: Marijuana Hx Prescription Drug Abuse: No Family History Family History: CAD, DM, Hypertension, Malignancy Parental Family History Reviewed: Yes Children Family History Reviewed: Yes Sibling(s) Family History Reviewed.: Yes Medication/Allergy Allergies/Adverse Reactions: No Known Drug Allergies Allergy (Unknown, Verified 07/28/19 14:36) Raspberries Allergy (Mild, Uncoded 07/28/19 14:36) Hives Review of Systems All systems: reviewed and no additional remarkable complaints except as stated Physical Exam Vital Signs: Temp Pulse Resp BP Pulse Ox 98.5 F 91 18 140/79 H 94 07/28/19 14:47 07/28/19 14:47 07/28/19 14:47 07/28/19 14:47 07/28/19 14:47 Intake & Output 07/27/19 07/28/19 07/29/19 06:59 06:59 06:59 Weight 240 lb Exam: Patient is no acute distress Alert oriented to time place person No anxiety or depression Head: atraumatic normocephalic Pupils: are equal reactive Neck: is supple and trachea is central no lymphadenopathy No pharyngeal erythema or exudates Heart: Regular rate and rhythm Lungs: clear no distress Abdomen: nontender nondistended Neurological exam: unremarkable Musculoskeletal: No joint swelling or effusion chronic lower back pain and tenderness No suicidal or homicidal ideation Results Laboratory Results: 07/28/19 15:18 07/28/19 15:18 07/28/19 07/28/19 07/28/19 15:18 15:18 15:18 WBC 6.7 RBC 4.45 Hgb 13.7 Hct 41.0 MCV 92 MCH 30.7 MCHC 33.3 RDW 14.3 H Plt Count 256 Seg Neutrophils % 51.8 Sodium 138.9 Potassium 3.7 Chloride 104 Carbon Dioxide 24 Anion Gap 11 BUN 15 Creatinine 1.10 Est GFR ( Amer) > 60 Glucose 317 H Calcium 9.7 Total Bilirubin 0.6 AST 21 Alkaline Phosphatase 92 Total Protein 7.2 Albumin 4.2 Urine Color YELLOW Urine Appearance CLEAR Urine pH 6.0 Ur Specific [place] 1.033 Urine Protein NEGATIVE Urine Glucose (UA) >=500 H Urine Ketones NEGATIVE Urine Blood NEGATIVE Urine Nitrite NEGATIVE Ur Leukocyte Esterase NEGATIVE Urine WBC (Auto) 1 Urine RBC (Auto) 0 07/28/19 07/28/19 15:18 15:18 Creatine Kinase 73 Troponin I 0.016 Impressions: Chest X-Ray 07/28/19 14:54 IMPRESSION: NO ACUTE RADIOGRAPHIC FINDING IN THE CHEST. Assessment and Plan - Diagnosis (1) Chest pain Qualifiers: Chest pain type: unspecified Qualified Code(s): R07.9 - Chest pain, unspecified Is this a current diagnosis for this admission?: Yes Plan: Will admit for observation. We will start ischemic work-up with serial troponins and serial EKG. She received aspirin in the emergency room. Dr. Subramanian notified by ER physician and we consulted him. (2) Atrial fibrillation Qualifiers: Atrial fibrillation type: paroxysmal Qualified Code(s): I48.0 - Paroxysmal atrial fibrillation Is this a current diagnosis for this admission?: Yes Plan: Currently in sinus rhythm. Continue home meds. Continue Eliquis. (3) Hyperlipidemia Qualifiers: Hyperlipidemia type: mixed hyperlipidemia Qualified Code(s): E78.2 - Mixed hyperlipidemia Is this a current diagnosis for this admission?: Yes Plan: Continue statin (4) Hypertension Qualifiers: Hypertension type: essential hypertension Qualified Code(s): I10 - Essential (primary) hypertension Is this a current diagnosis for this admission?: Yes Plan: Continue home meds. Monitor blood pressure. (5) Type 2 diabetes mellitus Qualifiers: Diabetes mellitus fci insulin use: with consulting sales executive use Diabetes mellitus complication status: without complication Qualified Code(s): E11.9 - Type 2 diabetes mellitus without complications; Z79.4 - dosimetrist (current) use of insulin Is this a current diagnosis for this admission?: Yes Plan: Check hemoglobin A1c. Monitor glucose levels. Start insulin sliding scale. (6) Tobacco dependency Is this a current diagnosis for this admission?: Yes Plan: Patient was counseled. Offered nicotine replacement therapy.
[2019-07-28] MEDS: INSULIN LISPRO 100 UNIT/ML 3 ML VIAL SUBCUT SCH (23:44)
[2019-07-29 06:49] LABS: HEMOGLOBIN 12.4 g/dL (13.5-17.0); MEAN CORPUSCULAR HEMOGLOBIN 31.2 pg (27.0-33.4); MEAN CORPUSCULAR HGB CONC 33.5 g/dL (32.0-36.0); MEAN CORPUSCULAR VOLUME 93 fl (80-97); PLATELET COUNT 232 10^3/uL (150-450); RED BLOOD COUNT 3.97 10^6/uL (4.35-5.55); RED CELL DISTRIBUTION WIDTH 14.4 % (11.5-14.0); WHITE BLOOD COUNT 8.2 10^3/uL (4.0-10.5)
[2019-07-29 07:08] LABS: ANION GAP 9 (5-19); BLOOD UREA NITROGEN 16 mg/dL (7-20); CALCIUM 9.5 mg/dL (8.4-10.2); CARBON DIOXIDE 24 mmol/L (22-30); CHLORIDE 107 mmol/L (98-107); CHOLESTEROL 117.18 mg/dL (0-200); GLUCOSE 134 mg/dL (75-110); POTASSIUM 3.7 mmol/L (3.6-5.0); TRIGLYCERIDES 206 mg/dL (<150)
[2019-07-29 07:23] LABS: DIRECT LDL 65 mg/dL (<100)
[2019-07-29 07:26] LABS: VLDL CHOLESTEROL 41.2 mg/dL (10-31)
[2019-07-29] MEDS: INSULIN LISPRO 100 UNIT/ML 3 ML VIAL SUBCUT SCH (09:26)
[2019-07-29 11:14] VITALS: BP 150/66
--- NOTE | 2019-07-29 22:47 | PDOC CONSULTATION ---
Consultation Consult Date: 07/29/19 Provider Consulted: EDENILSON WILEY History of Present Illness Admission Date/PCP: 07/28/19 18:02 FAVIO CARABALLO Patient complains of: Palpitations, chest discomfort History of Present Illness: SAMPSON MAO is a 69 year old male 1. CAD 2. Systemic hypertension 3. DM 4. Paroxysmal atrial fibrillation 5. CVA 6. Nicotine dependence Was initially admitted the prior week with Afib --> converted to SR and was then discharged. Has presented back with chest discomfort and palpitations. Found to be in atrial fibrillation again. By the time of my evaluation he had converted back to SR. No longer having chest discomfort or palpitations. Had been discharged on NOAC and BB. Had not filled BB. Past Medical History Cardiac Medical History: Reports: Atrial Fibrillation - Paroxysmal atrial fibrillation and flutter, Coronary Artery Disease, Hyperlipidema, Hypertension, Peripheral Vascular Disease Denies: DVT, Myocardial Infarction, Pulmonary Embolism Pulmonary Medical History: Reports: Chronic Obstructive Pulmonary Disease (COPD) Denies: Asthma Neurological Medical History: Denies: Seizures Endocrine Medical History: Reports: Diabetes Mellitus Type 2 Denies: Diabetes Mellitus Type 1, Hyperthyroidism, Hypothyroidism GI Medical History: Reports: Gastroesophageal Reflux Disease Denies: Cirrhosis, Crohn's Disease, Hepatitis, Ulcerative Colitis Musculoskeltal Medical History: Reports: Arthritis, Gout Skin Medical History: Denies: Eczema, Psoriasis Psychiatric Medical History: Reports: Depression Hematology: Denies: Anemia, Bleeding Tendencies Past Surgical History Past Surgical History: Reports: Cardiac Catheterization, Carotid Endarterectomy - left, Coronary Stent, Vascular Surgery - clot removal in neck March 2018 Social History Smoking Status: Current Some Day Smoker Cigarettes Packs Per Day: 10 Frequency of Alcohol Use: Occasional Hx Recreational Drug Use: Yes Drugs: Marijuana Hx Prescription Drug Abuse: No Family History Family History: CAD, DM, Hypertension, Malignancy Parental Family History Reviewed: No Children Family History Reviewed: No Sibling(s) Family History Reviewed.: No Medication/Allergy Home Medications: Albuterol Sulfate [Ventolin Hfa 8 gm Mdi (1 Mdi/ER Disp)] 2 puff IH Q6HP PRN 07/28/19 Apixaban [Eliquis 5 mg Tablet] 5 mg PO Q12 07/28/19 Aspirin [Aspirin 325 mg Tablet] 325 mg PO DAILY 07/28/19 Atorvastatin Calcium [Lipitor 80 mg Tablet] 80 mg PO DAILY 07/28/19 Budesonide/Formoterol Fumarate [Symbicort HFA 160-4.5 mcg Inhaler 6 gm] 2 puff IH Q12 07/28/19 Citalopram Hydrobromide [Celexa 20 mg Tablet] 20 mg PO DAILY 07/28/19 Empagliflozin [Jardiance] 25 mg PO DAILY 07/28/19 Gabapentin [Neurontin 300 mg Capsule] 300 mg PO Q8 07/28/19 Glipizide [Glucotrol 10 mg Tablet] 10 mg PO DAILY 07/28/19 Insulin Detemir [Levemir] 20 unit SQ QHS 07/28/19 Metformin HCl [Glucophage] 1,000 mg PO BID 07/28/19 Metoprolol Tartrate [Lopressor 25 mg Tablet] 25 mg PO Q12 07/28/19 Nitroglycerin [Nitrostat 0.4 mg (1/150 Gr) Tabs 25/Bottle] 1 tab SL Q5MP PRN 07/28/19 Allergies/Adverse Reactions: No Known Drug Allergies Allergy (Unknown, Verified 07/28/19 14:36) Raspberries Allergy (Mild, Uncoded 07/28/19 14:36) Hives Review of Systems Cardiovascular: PRESENT: as per HPI Physical Exam Vital Signs: Temp Pulse Resp BP Pulse Ox 97.7 F 58 L 18 150/66 H 98 07/29/19 11:12 07/29/19 11:12 07/29/19 11:12 07/29/19 11:12 07/29/19 11:12 Intake & Output 07/28/19 07/29/19 07/30/19 06:59 06:59 06:59 Intake Total 240 Output Total 500 Balance -260 Weight 108.7 kg General appearance: PRESENT: no acute distress Head exam: PRESENT: atraumatic Eye exam: PRESENT: EOMI Mouth exam: PRESENT: moist Neck exam: PRESENT: full ROM Respiratory exam: PRESENT: unlabored Cardiovascular exam: PRESENT: +S1, +S2 Pulses: PRESENT: normal radial pulses GI/Abdominal exam: PRESENT: soft Musculoskeletal exam: PRESENT: ambulatory, full ROM, normal inspection Psychiatric exam: PRESENT: appropriate affect Skin exam: PRESENT: warm Results Laboratory Results: 07/29/19 06:25 07/29/19 06:25 07/29/19 07/29/19 06:25 06:25 WBC 8.2 RBC 3.97 L Hgb 12.4 L Hct 37.0 L MCV 93 MCH 31.2 MCHC 33.5 RDW 14.4 H Plt Count 232 Sodium 139.8 Potassium 3.7 Chloride 107 Carbon Dioxide 24 Anion Gap 9 BUN 16 Creatinine 1.07 Est GFR ( Amer) > 60 Glucose 134 H Calcium 9.5 Triglycerides 206 H Cholesterol 117.18 LDL Cholesterol Direct 65 VLDL Cholesterol 41.2 H HDL Cholesterol 26 L 07/28/19 07/28/19 07/28/19 15:18 15:18 21:03 Creatine Kinase 73 Troponin I 0.016 0.015 07/29/19 07/29/19 00:17 06:25 Creatine Kinase Troponin I 0.015 0.018 EKG Comments: EKG Afib LVH Tele now SR Impressions: Chest X-Ray 07/28/19 14:54 IMPRESSION: NO ACUTE RADIOGRAPHIC FINDING IN THE CHEST. Assessment & Plan - Diagnosis (1) Atrial fibrillation Qualifiers: Atrial fibrillation type: paroxysmal Qualified Code(s): I48.0 - Paroxysmal atrial fibrillation Is this a current diagnosis for this admission?: Yes Plan: 1. Continue NOAC 2. Low dose BB 3. Will arrange for out patient follow up to discuss treatment options (2) Chest pain Qualifiers: Chest pain type: unspecified Qualified Code(s): R07.9 - Chest pain, unspecified Is this a current diagnosis for this admission?: Yes Plan: Non diagnostic Troponin EKG with LVH and no convincing ischemia Atypical symptoms in a setting of Afib RVR Can consider out patient stress test (3) Coronary artery disease Qualifiers: Coronary Disease-Associated Artery/Lesion type: [place] artery [place] vs. transplanted heart: [place] heart Associated angina: angina presence unspecified Qualified Code(s): I25.10 - Atherosclerotic heart disease of [place] coronary artery without angina pectoris Is this a current diagnosis for this admission?: Yes Plan: CAD with stent Non diagnostic Troponin EKG without convincing ischemia Continue medical therapy (4) Tobacco dependency Is this a current diagnosis for this admission?: Yes Plan: Advised smoking cessation given CAD
== END 2019-07-29 11:26 | disposition home or self-care (01) ==
LOC: ER 14:35 → EH 18:02 → INTOOBSV 18:02 → 4N 22:13 → 3S 23:28
PROVIDERS: ADMIT Family Medicine; ATTEND Family Medicine
DX: R07.89 Other chest pain (principal); I25.10 Atherosclerotic heart disease of native coronary artery without angina pectoris; I10 Essential (primary) hypertension; I48.0 Paroxysmal atrial fibrillation; F17.210 Nicotine dependence, cigarettes, uncomplicated; E11.51 Type 2 diabetes mellitus with diabetic peripheral angiopathy without gangrene; E78.2 Mixed hyperlipidemia; R06.02 Shortness of breath; J44.9 Chronic obstructive pulmonary disease, unspecified; Z82.49 Family history of ischemic heart disease and other diseases of the circulatory system; Z79.02 Long term (current) use of antithrombotics/antiplatelets; Z79.82 Long term (current) use of aspirin; Z95.5 Presence of coronary angioplasty implant and graft
CPT/HCPCS: 93005; 99285; 36415 ×2; 82962 ×2; 82550; 85025; 85027; 85610; 85730; 80048; 80053; 81001; 84484 ×2; 83036; 80061; 71046; 93010; G0378 ×2; A9270; J1815

== ENCOUNTER 2019-09-27 13:36 | Inpatient (IN) | payer MEDICARE, MEDICAID ==
[2019-09-27] MEDS ORDERED: MORPHINE SULFATE 10 MG/ML INJ IV ONE (13:48)
[2019-09-27] MEDS ORDERED: ONDANSETRON HCL INJ/PF 4 MG/2 ML SDV IV ONE ×2 (13:48→16:53)
--- NOTE | 2019-09-27 13:50 | ER Document Report ---
ED Medical Screen (RME) - General Chief Complaint: Abdominal Pain Stated Complaint: STOMACH PAIN Time Seen by Provider: 09/27/19 13:41 Primary Care Provider: FAVIO CARABALLO MD [Primary Care Provider] - Follow up as needed Notes: Patient is a 69-year-old male with a history of type 2 diabetes, hypertension on Eliquis (unsure why, but does report hx. stroke and cardiac stents) who presents to the emergency department with chief complaint of abdominal pain. Patient reports he has had abdominal pain for 3 days. Patient reports he feels like the pain started in his epigastric region and is worse in the right upper quadrant. Patient also reports having right lower quadrant pain patient reports nausea and pain is worse with eating. Patient denies fever. Patient reports nausea without vomiting or diarrhea. Patient reports that the pain in his abdomen is worse after eating. TRAVEL OUTSIDE OF THE [place] IN LAST 30 DAYS: No - Related Data Allergies/Adverse Reactions: No Known Drug Allergies Allergy (Unknown, Verified 07/28/19 14:36) Raspberries Allergy (Mild, Uncoded 07/28/19 14:36) Hives Home Medications: Eliquis. "suagr pills". "blood pressure pills" Past Medical History - Social History Chew tobacco use (# tins/day): No Frequency of alcohol use: None Drug Abuse: None Family history: Reviewed & Not Pertinent - Past Medical History Cardiac Medical History: Reports: Hx Atrial Fibrillation - Paroxysmal atrial fibrillation and flutter, Hx Coronary Artery Disease, Hx Hypercholesterolemia, Hx Hypertension, Hx Peripheral Vascular Disease Denies: Hx DVT, Hx Heart Attack, Hx Pulmonary Embolism Pulmonary Medical History: Reports: Hx COPD Denies: Hx Asthma Neurological Medical History: Denies: Hx Seizures Endocrine Medical History: Reports: Hx Diabetes Mellitus Type 2. Denies: Hx Diabetes Mellitus Type 1, Hx Hyperthyroidism, Hx Hypothyroidism Renal/ Medical History: Denies: Hx Peritoneal Dialysis GI Medical History: Reports: Hx Gastroesophageal Reflux Disease, Hx Pancreatitis. Denies: Hx Cirrhosis, Hx Crohn's Disease, Hx Hepatitis, Hx Ulcerative Colitis Musculoskeltal Medical History: Reports Hx Arthritis, Reports Hx Gout Skin Medical History: Denies Hx Eczema, Denies Hx Psoriasis Psychiatric Medical History: Reports: Hx Depression Infectious Medical History: Denies: Hx Hepatitis Past Surgical History: Reports: Hx Cardiac Catheterization, Hx Carotid Endarterectomy - left, Hx Coronary Stent, Hx Vascular Surgery - clot removal in neck March 2018 - Immunizations Immunizations up to date: Yes Hx Diphtheria, Pertussis, Tetanus Vaccination: No - unk Physical Exam - Vital signs Vitals: Temp Pulse Resp BP Pulse Ox 98.0 F 56 L 20 211/93 H 99 09/27/19 13:41 09/27/19 13:41 09/27/19 13:41 09/27/19 13:41 09/27/19 13:41 - Abdominal Inspection: Normal Distension: No distension Tenderness: Tender - RUQ and RLQ tenderness Organomegaly: No organomegaly Course - Re-evaluation Re-evalutation: 09/27/19 13:49 I have greeted and performed a rapid initial assessment of this patient. A comprehensive ED assessment and evaluation of the patient, analysis of test results and completion of the medical decision making process will be conducted by additional ED providers. - Vital Signs Vital signs: Temp Pulse Resp BP Pulse Ox 98.0 F 56 L 20 211/93 H 99 09/27/19 13:41 09/27/19 13:41 09/27/19 13:41 09/27/19 13:41 09/27/19 13:41 Doctor's Discharge - Discharge Referrals: FAVIO CARABALLO MD [Primary Care Provider] - Follow up as needed
[2019-09-27 15:05] LABS: ABSOLUTE EOSINOPHILS # (AUTO) 0.2 10^3/uL (0.0-0.6); ABSOLUTE LYMPHOCYTES (AUTO) 3.1 10^3/uL (0.5-4.7); ABSOLUTE MONOCYTES (AUTO) 0.5 10^3/uL (0.1-1.4); ABSOLUTE NEUT (AUTO) 3.9 10^3/uL (1.7-8.2); BASOPHILS % (AUTO) 0.5 % (0-2); EOSINOPHILS % (AUTO) 2.2 % (0-6); HEMATOCRIT 43.6 % (37.9-51.0); HEMOGLOBIN 14.9 g/dL (13.5-17.0); LYMPHOCYTES % (AUTO) 40.4 % (13-45); MEAN CORPUSCULAR HEMOGLOBIN 31.8 pg (27.0-33.4); MEAN CORPUSCULAR HGB CONC 34.1 g/dL (32.0-36.0); MEAN CORPUSCULAR VOLUME 93 fl (80-97); PLATELET COUNT 320 10^3/uL (150-450); RED BLOOD COUNT 4.67 10^6/uL (4.35-5.55); RED CELL DISTRIBUTION WIDTH 15.1 % (11.5-14.0); SEGMENTED NEUTROPHILS % (AUTO) 50.9 % (42-78); TOTAL CELLS COUNTED % (AUTO) 100 %; WHITE BLOOD COUNT 7.7 10^3/uL (4.0-10.5)
--- NOTE | 2019-09-27 15:13 | RADIOLOGY REPORT (SQ) ---
EXAM DESCRIPTION: U/S ABDOMEN LIMITED W/O DOP COMPLETED DATE/TIME: 09/27/2019 2:39 pm REASON FOR STUDY: ruq pain COMPARISON: Right upper quadrant ultrasound 12/20/2016. CT chest 06/20/2018. CT abdomen and pelvis 02/17/2017. TECHNIQUE: Grayscale images acquired of the abdomen and recorded on PACS. Additional selected color Doppler and spectral images recorded. LIMITATIONS: None. FINDINGS: PANCREAS: Mostly obscured by overlying bowel gas. There is mild dilation of the main panc reatic duct to 4 mm. LIVER: The liver measures 14.5 cm. Increased echotexture suggestive of fatty infiltration. LIVER VASCULATURE: Normal directional flow of the main portal vein and hepatic veins. GALLBLADDER: No stones. Normal wall thickness. No pericholecystic fluid. ULTRASOUND-DETECTED CUMMINGS'S SIGN: Not performed. INTRAHEPATIC DUCTS AND COMMON DUCT: CBD and intrahepatic ducts normal caliber. INFERIOR VENA CAVA: Patent. AORTA: No aneurysm at the visualized segments. RIGHT KIDNEY: Measures 10.7 cm in length. Normal echogenicity. No hydronephrosis. PERITONEAL AND RIGHT PLEURAL SPACE: No ascites or effusions. IMPRESSION: 1. Suboptimal visualization of the pancreas. Mild dilation of the main pancreatic duct . 2. No cholelithiasis or biliary ductal dilation. 3. Fatty infiltration of the liver. TECHNICAL DOCUMENTATION: JOB ID: [id number] [email or web address]- All Rights Reserved Reading location - IP/workstation name: [email or web address]
--- NOTE | 2019-09-27 15:14 | ER Document Report ---
ED GI/ - General Chief Complaint: Abdominal Pain Stated Complaint: STOMACH PAIN Time Seen by Provider: 09/27/19 13:41 Mode of Arrival: Ambulatory Information source: Patient Notes: Patient is a 69-year-old gentleman presenting to the emergency department with chief complaint of abdominal pain that began this morning. Patient reports pain is located in the right side of his abdomen and has associated nausea without vomiting, diarrhea or fevers. He states he has not had this type of pain before. TRAVEL OUTSIDE OF THE [place] IN LAST 30 DAYS: No - Related Data Allergies/Adverse Reactions: No Known Drug Allergies Allergy (Unknown, Verified 07/28/19 14:36) Raspberries Allergy (Mild, Uncoded 07/28/19 14:36) Hives Home Medications: Eliquis. "suagr pills". "blood pressure pills" Past Medical History - General Information source: Patient - Social History Smoking Status: Never Smoker Chew tobacco use (# tins/day): No Frequency of alcohol use: None Drug Abuse: None Family History: CAD, DM, Hypertension, Malignancy Patient has suicidal ideation: No Patient has homicidal ideation: No - Past Medical History Cardiac Medical History: Reports: Hx Atrial Fibrillation - Paroxysmal atrial fibrillation and flutter, Hx Coronary Artery Disease, Hx Hypercholesterolemia, Hx Hypertension, Hx Peripheral Vascular Disease Denies: Hx DVT, Hx Heart Attack, Hx Pulmonary Embolism Pulmonary Medical History: Reports: Hx COPD Denies: Hx Asthma Neurological Medical History: Denies: Hx Seizures Endocrine Medical History: Reports: Hx Diabetes Mellitus Type 2. Denies: Hx Diabetes Mellitus Type 1, Hx Hyperthyroidism, Hx Hypothyroidism Renal/ Medical History: Denies: Hx Peritoneal Dialysis GI Medical History: Reports: Hx Gastroesophageal Reflux Disease, Hx Pancreatitis. Denies: Hx Cirrhosis, Hx Crohn's Disease, Hx Hepatitis, Hx Ulcerative Colitis Musculoskeletal Medical History: Reports Hx Arthritis, Reports Hx Gout Skin Medical History: Denies Hx Eczema, Denies Hx Psoriasis Psychiatric Medical History: Reports: Hx Depression Infectious Medical History: Denies: Hx Hepatitis Past Surgical History: Reports: Hx Cardiac Catheterization, Hx Carotid En darterectomy - left, Hx Coronary Stent, Hx Vascular Surgery - clot removal in neck March 2018 - Immunizations Immunizations up to date: Yes Hx Diphtheria, Pertussis, Tetanus Vaccination: No - unk Hx Pneumococcal Vaccination: 11/11/11 Review of Systems - Review of Systems Constitutional: No symptoms reported EENT: No symptoms reported Cardiovascular: No symptoms reported Respiratory: No symptoms reported Gastrointestinal: Abdominal pain, Nausea, Constipation Genitourinary: No symptoms reported Male Genitourinary: No symptoms reported Musculoskeletal: No symptoms reported Skin: No symptoms reported Hematologic/Lymphatic: No symptoms reported Neurological/Psychological: No symptoms reported Physical Exam - Vital signs Vitals: Temp Pulse Resp BP Pulse Ox 98.0 F 56 L 20 211/93 H 99 09/27/19 13:41 09/27/19 13:41 09/27/19 13:41 09/27/19 13:41 09/27/19 13:41 - Notes Notes: PHYSICAL EXAMINATION: GENERAL: Well-appearing, well-nourished and in no acute distress. HEAD: Atraumatic, normocephalic. EYES: Pupils equal round and reactive to light, extraocular movements intact, sclera anicteric, conjunctiva are normal. ENT: Nares patent, oropharynx clear without exudates. Moist mucous membranes. NECK: Normal range of motion, supple without lymphadenopathy LUNGS: Breath sounds clear to auscultation bilaterally and equal. No wheezes rales or rhonchi. HEART: Regular rate and rhythm without murmurs ABDOMEN: Soft, tender, nondistended abdomen. No guarding, no rebound. No masses appreciated. Musculoskeletal: Normal range of motion, no pitting or edema. No cyanosis. NEUROLOGICAL: Cranial nerves grossly intact. Normal speech, normal gait. Normal sensory, motor exams PSYCH: Normal mood, normal affect. SKIN: Warm, Dry, normal turgor, no rashes or lesions noted. Course - Re-evaluation Re-evalutation: Laboratory 09/27/19 09/27/19 09/27/19 14:42 14:42 16:30 WBC 7.7 RBC 4.67 Hgb 14.9 Hct 43.6 MCV 93 MCH 31.8 MCHC 34.1 RDW 15.1 H Plt Count 320 Lymph % (Auto) 40.4 Mcleod % (Auto) 6.0 Eos % (Auto) 2.2 Baso % (Auto) 0.5 Absolute Neuts (auto) 3.9 Absolute Lymphs (auto) 3.1 Absolute Monos (auto) 0.5 Absolute Eos (auto) 0.2 Absolute Basos (auto) 0.0 Seg Neutrophils % 50.9 Sodium Cancelled 140.7 Potassium Cancelled 4.0 Chloride Cancelled 105 Carbon Dioxide Cancelled 27 Anion Gap Cancelled 9 BUN Cancelled 12 Creatinine Cancelled 0.95 Est GFR ( Amer) Cancelled > 60 Est GFR (Non-Af Amer) Cancelled Est GFR (MDRD) Non-Af Cancelled > 60 Glucose Cancelled 80 Calcium Cancelled 10.0 Total Bilirubin Cancelled 0.5 Direct Bilirubin Cancelled 0.1 Neonat Total Bilirubin Cancelled Not Reportable Neonat Direct Bilirubin Cancelled Not Reportable Neonat Indirect Bili Cancelled Not Reportable AST Cancelled 22 ALT Cancelled 17 Alkaline Phosphatase Cancelled 88 Total Protein Cancelled 8.1 Albumin Cancelled 4.4 Lipase Cancelled 2414.1 H EGFR Cancelled Urine Color Urine Appearance Urine pH Ur Specific Glady Urine Protein Urine Glucose (UA) Urine Ketones Urine Blood Urine Nitrite Urine Bilirubin Urine Urobilinogen Ur Leukocyte Esterase Urine WBC (Auto) Urine RBC (Auto) Urine Ascorbic Acid 09/27/19 19:28 WBC RBC Hgb Hct MCV MCH MCHC RDW Plt Count Lymph % (Auto) Mcleod % (Auto) Eos % (Auto) Baso % (Auto) Absolute Neuts (auto) Absolute Lymphs (auto) Absolute Monos (auto) Absolute Eos (auto) Absolute Basos (auto) Seg Neutrophils % Sodium Potassium Chloride Carbon Dioxide Anion Gap BUN Creatinine Est GFR ( Amer) Est GFR (Non-Af Amer) Est GFR (MDRD) Non-Af Glucose Calcium Total Bilirubin Direct Bilirubin Neonat Total Bilirubin Neonat Direct Bilirubin Neonat Indirect Bili AST ALT Alkaline Phosphatase Total Protein Albumin Lipase EGFR Urine Color YELLOW Urine Appearance CLEAR Urine pH 5.0 Ur Specific Glady 1.015 Urine Protein NEGATIVE Urine Glucose (UA) >=500 H Urine Ketones TRACE H Urine Blood NEGATIVE Urine Nitrite NEGATIVE Urine Bilirubin NEGATIVE Urine Urobilinogen NEGATIVE Ur Leukocyte Esterase NEGATIVE Urine WBC (Auto) 1 Urine RBC (Auto) 0 Urine Ascorbic Acid NEGATIVE Abdomen/Pelvis CT 09/27/19 00:00 IMPRESSION: 1. No acute findings 2. Atherosclerosis 3. Lumbar spine degenerative changes 4. Apparent bladder wall thickening. This may be secondary to incomplete distention. Please correlate with clinical symptoms and urinalysis regarding possibility of cystitis. Abdomen Ultrasound 09/27/19 13:49 IMPRESSION: 1. Suboptimal visualization of the pancreas. Mild dilation of the main pancreatic duct. 2. No cholelithiasis or biliary ductal dilation. 3. Fatty infiltration of the liver. KUB X-Ray 09/27/19 15:28 IMPRESSION: NO RADIOGRAPHIC EVIDENCE FOR ACUTE ABDOMINAL DISEASE. Patient admitted to hospitalist for pancreatitis. - Vital Signs Vital signs: Temp Pulse Resp BP Pulse Ox 99.3 F 60 16 153/62 H 96 09/29/19 08:03 09/29/19 08:46 09/29/19 08:46 09/29/19 08:03 09/29/19 08:46 - Laboratory Result Diagrams: 09/29/19 06:43 09/29/19 06:43 Laboratory results interpreted by me: 09/27/19 09/27/19 09/27/19 14:42 16:30 19:28 RDW 15.1 H Lipase 2414.1 H Urine Glucose (UA) >=500 H Urine Ketones TRACE H Discharge - Discharge Clinical Impression: Pancreatitis Qualifiers: Chronicity: acute Pancreatitis type: unspecified pancreatitis type Acute pancreatitis complication: unspecified Qualified Code(s): K85.90 - Acute pancreatitis without necrosis or infection, unspecified Hypertension Qualifiers: Hypertension type: essential hypertension Qualified Code(s): I10 - Essential (primary) hypertension Condition: Stable Disposition: ADMITTED INPATIENT Admitting Provider: Gladys (Hospitalist) Unit Admitted: Medical Floor
--- NOTE | 2019-09-27 16:21 | RADIOLOGY REPORT (SQ) ---
EXAM DESCRIPTION: KUB/ABDOMEN (SINGLE VIEW) COMPLETED DATE/TIME: 09/27/2019 4:09 pm REASON FOR STUDY: eval for constipation COMPARISON: 12/11/2015. NUMBER OF VIEWS: One view. TECHNIQUE: Supine radiographic image of the abdomen acquired. LIMITATIONS: None. FINDINGS: BOWEL GAS PATTERN: Normal bowel gas pattern. Scattered stool in the colon. No dilated lo ops. CALCIFICATIONS: No suspicious calcifications. SOFT TISSUES: No gross mass or suggestion of organomegaly. HARDWARE: None in the abdomen. BONES: No acute fracture. No worrisome bone lesions. OTHER: No other significant finding. IMPRESSION: NO RADIOGRAPHIC EVIDENCE FOR ACUTE ABDOMINAL DISEASE. TECHNICAL DOCUMENTATION: JOB ID: [id number] [employer]- All Rights Reserved Reading location - IP/workstation name: [email or web address]
[2019-09-27 17:07] LABS: ALBUMIN 4.4 g/dL (3.5-5.0); ALKALINE PHOSPHATASE 88 U/L (38-126); ANION GAP 9 (5-19); ASPARTATE AMINO TRANSFERASE 22 U/L (17-59); BILIRUBIN,DIRECT 0.1 mg/dL (0.0-0.4); BILIRUBIN,TOTAL 0.5 mg/dL (0.2-1.3); BLOOD UREA NITROGEN 12 mg/dL (7-20); CARBON DIOXIDE 27 mmol/L (22-30); CHLORIDE 105 mmol/L (98-107); GLUCOSE 80 mg/dL (75-110); TOTAL PROTEIN 8.1 g/dL (6.3-8.2)
[2019-09-27 19:42] LABS: APPEARANCE,URINE CLEAR; BILIRUBIN,URINE NEGATIVE (NEGATIVE); COLOR,URINE YELLOW; GLUCOSE, URINE >=500 mg/dL (NEGATIVE); KETONES,URINE TRACE mg/dL (NEGATIVE); LEUKOCYTE ESTERASE,URINE NEGATIVE (NEGATIVE); NITRITE,URINE NEGATIVE (NEGATIVE); PROTEIN,URINE NEGATIVE (NEGATIVE); URINE SPECIFIC GRAVITY 1.015; UROBILINOGEN,URINE NEGATIVE mg/dL (<2.0)
--- NOTE | 2019-09-27 20:49 | RADIOLOGY REPORT (SQ) ---
EXAM DESCRIPTION: [facility]: CT ABDOMEN PELVIS WITH IV CONTRAST CLINICAL HISTORY: 69 years Male; Abd pain TECHNIQUE: CT of the abdomen and pelvis using intravenous contrast. Oral contrast was administered. All CT scans at this facility use dose modulation, iterative reconstruction, and/or weight based dosing when appropriate to reduce radiation dose to as low as reasonably achievable. COMPARISON: None. FINDINGS: Abdomen: Liver:No focal lesions. No intrahepatic ductal distention. Gallbladder:Nondistended Pancreas:Within normal limits Spleen:Within normal limits Right kidney:No hydronephrosis. No focal lesion. Left kidney:No hydronephrosis. No focal lesion. Adrenal glands:Within normal limits Vascular structures: Scattered aortic calcifications without aneurysm or dissection. Pelvis: Small bowel:No significant distention. Appendix: Normal Colon:No distention or acute pericolonic edema. Oral contrast is seen throughout the bowel, down to the rectum. No free intraperitoneal fluid or air. Bones: Degenerative facet arthropathy in the lower lumbar spine. Severe degenerative disc changes at L3-L4, with endplate sclerosis and irregularity. No acute perivertebral edema. Bladder: Wall appears thickened, but the bladder is incompletely distended. There is no surrounding edema. No pelvic mass or adenopathy. IMPRESSION: 1. No acute findings 2. Atherosclerosis 3. Lumbar spine degenerative changes 4. Apparent bladder wall thickening. This may be secondary to incomplete distention. Please correlate with clinical symptoms and urinalysis regarding possibility of cystitis.
[2019-09-27] MEDS ORDERED: NORMAL SALINE 1000 ML 1,000 ML IV PRN (21:38)
[2019-09-27] MEDS ORDERED: HEPARIN SOD (PORCINE) 5,000 UNIT/ML 1 ML VIAL SUBCUT SCH (22:00)
--- NOTE | 2019-09-27 22:15 | EKG REPORT ---
SEVERITY:- ABNORMAL ECG - SINUS RHYTHM FIRST DEGREE AV BLOCK ABNORMAL T, CONSIDER ISCHEMIA, INFERIOR LEADS : Confirmed by: Osiris Andrews MD 27-Sep-2019 22:15:29
[2019-09-28] MEDS ORDERED: MORPHINE SULFATE 10 MG/ML INJ IV PRN ×3 (00:28)
[2019-09-28] MEDS ORDERED: ACETAMINOPHEN 650 MG SUPP.RECT PR PRN (00:28)
[2019-09-28] MEDS ORDERED: DEXTROSE 50%-WATER 25 GM/50 ML DISP.SYRIN IV PRN ×2 (00:30)
[2019-09-28] MEDS ORDERED: DEXTROSE 40% GEL 15 GM TUBE PO PRN ×2 (00:30)
[2019-09-28] MEDS ORDERED: GLUCAGON,HUMAN RECOMB 1 MG INJ IM PRN (00:30)
[2019-09-28] MEDS ORDERED: LEVALBUTEROL HCL NEB 0.63 MG/3 ML AMPUL NEB PRN (00:32)
[2019-09-28] MEDS ORDERED: ENOXAPARIN SODIUM INJ 120 MG/0.8 ML DISP.SYRIN SUBCUT ONE (01:00)
[2019-09-28 02:04] LABS: APPEARANCE,URINE CLEAR; BILIRUBIN,URINE NEGATIVE (NEGATIVE); COLOR,URINE STRAW; GLUCOSE, URINE >=500 mg/dL (NEGATIVE); KETONES,URINE 20 mg/dL (NEGATIVE); LEUKOCYTE ESTERASE,URINE NEGATIVE (NEGATIVE); NITRITE,URINE NEGATIVE (NEGATIVE); PROTEIN,URINE NEGATIVE (NEGATIVE); UROBILINOGEN,URINE NEGATIVE mg/dL (<2.0)
[2019-09-28] MEDS: HYDRALAZINE HCL INJ/PF 20 MG/1 ML SDV IV PRN ×2 (02:27→22:09)
--- NOTE | 2019-09-28 03:28 | PDOC H&P ---
History of Present Illness Admission Date/PCP: 09/27/19 21:41 FAVIO CARABALLO Patient complains of: Abdominal pain History of Present Illness: SAMPSON DENNISON is a 69 year old male who presented to the emergency room with a 3-day history of abdominal pain. He admits the gradual onset of and progressively worsening, constant epigastric and right upper quadrant colicky/gripping pain without radiation over the last 3 days. His pain has been accompanied by nausea and is worsened by oral intake. He denies other associated or accompanying signs and symptoms. He admits a prior similar epis ode with pancreatitis in the past. He has not identified any additional aggravating or ameliorating factors for his abdominal pain. In the emergency room he was found to have an elevated lipase of 2400 with upper abdominal tenderness on exam. He was subsequently admitted to the hospital for further evaluation and treatment. Past Medical History Cardiac Medical History: Reports: Atrial Fibrillation - Paroxysmal atrial fibrillation and flutter, Coronary Artery Disease, Hyperlipidema, Hypertension, Peripheral Vascular Disease Denies: DVT, Myocardial Infarction, Pulmonary Embolism Pulmonary Medical History: Reports: Chronic Obstructive Pulmonary Disease (COPD) Denies: Asthma EENT Medical History: Denies: Cataracts, Ears - Hearing aids Neurological Medical History: Denies: Hemorrhagic CVA, Ischemic CVA, Seizures Endocrine Medical History: Reports: Diabetes Mellitus Type 2, Obesity Denies: Diabetes Mellitus Type 1, Hyperthyroidism, Hypothyroidism Renal/ Medical History: Denies: Chronic Kidney Disease, Nephrolithiasis Malignancy Medical History: Reports: None GI Medical History: Reports: Gastroesophageal Reflux Disease, Other - Pancreatitis Denies: Cirrhosis, Crohn's Disease, Hepatitis, Ulcerative Colitis Musculoskeltal Medical History: Reports: Arthritis, Gout Skin Medical History: Denies: Eczema, Psoriasis Psychiatric Medical History: Reports: Depression Denies: Alcohol Dependency, Substance Abuse, Tobacco Dependency Traumatic Medical History: Reports: None Hematology: Denies: Anemia, Bleeding Tendencies Infectious Medical History: Reports: None Past Surgical History Past Surgical History: Reports: Cardiac Catheterization, Carotid Endarterectomy - left, Coronary Stent, Vascular Surgery - clot removal in neck March 2018 Social History Information Source: Patient Lives with: Alone Smoking Status: Current Some Day Smoker Electronic Cigarette use?: No Frequency of Alcohol Use: Occasional Hx Recreational Drug Use: Yes Drugs: Marijuana Hx Prescription Drug Abuse: No - Advance Directive Resuscitation Status: Full Code Surrogate healthcare decision maker:: Umang Dennison Family History Family History: CAD, DM, Hypertension, Malignancy Parental Family History Reviewed: Yes Children Family History Reviewed: No Sibling(s) Family History Reviewed.: Yes Medication/Allergy Home Medications: Albuterol Sulfate [Ventolin Hfa 8 gm Mdi (1 Mdi/ER Disp)] 2 puff IH Q6HP PRN 07/28/19 Apixaban [Eliquis 5 mg Tablet] 5 mg PO Q12 07/28/19 Aspirin [Aspirin 325 mg Tablet] 325 mg PO DAILY 07/28/19 Atorvastatin Calcium [Lipitor 80 mg Tablet] 80 mg PO DAILY 07/28/19 Budesonide/Formoterol Fumarate [Symbicort HFA 160-4.5 mcg Inhaler 6 gm] 2 puff IH Q12 07/28/19 Citalopram Hydrobromide [Celexa 20 mg Tablet] 20 mg PO DAILY 07/28/19 Empagliflozin [Jardiance] 25 mg PO DAILY 07/28/19 Gabapentin [Neurontin 300 mg Capsule] 300 mg PO Q8 07/28/19 Glipizide [Glucotrol 10 mg Tablet] 10 mg PO DAILY 07/28/19 Insulin Detemir [Levemir] 20 unit SQ QHS 07/28/19 Metformin HCl [Glucophage] 1,000 mg PO BID 07/28/19 Metoprolol Tartrate [Lopressor 25 mg Tablet] 25 mg PO Q12 07/28/19 Nitroglycerin [Nitrostat 0.4 mg (1/150 Gr) Tabs 25/Bottle] 1 tab SL Q5MP PRN 07/28/19 Allergies/Adverse Reactions: No Known Drug Allergies Allergy (Unknown, Verified 07/28/19 14:36) Raspberries Allergy (Mild, Uncoded 07/28/19 14:36) Hives Review of Systems Constitutional: ABSENT: chills, fever(s) Eyes: ABSENT: visual disturbances, other - Eye pain Ears: ABSENT: hearing changes, other - Ear pain Nose, Mouth, and Throat: ABSENT: headache(s), mouth pain, sore throat Cardiovascular: ABSENT: chest pain, palpitations Respiratory: ABSENT: cough, dyspnea Gastrointestinal: PRESENT: as per HPI, abdominal pain, nausea. ABSENT: constipation, diarrhea, vomiting Genitourinary: ABSENT: dysuria, hematuria Musculoskeletal: ABSENT: back pain, joint swelling, muscle weakness Integumentary: ABSENT: pruritus, rash Neurological: ABSENT: confusion, convulsions, focal weakness, memory loss, syncope Psychiatric: ABSENT: anxiety, depression Endocrine: ABSENT: cold intolerance, heat intolerance Hematologic/Lymphatic: ABSENT: easy bleeding, easy bruising Allergic/Immunologic: ABSENT: seasonal rhinorrhea Physical Exam Vital Signs: Temp Pulse Resp BP Pulse Ox 98.0 F 62 16 184/72 H 97 09/27/19 22:48 09/27/19 22:48 09/27/19 22:48 09/27/19 22:48 09/27/19 22:48 Intake & Output 09/25/19 09/26/19 09/27/19 23:59 23:59 23:59 Weight 107.048 kg General appearance: PRESENT: cooperative, mild distress - Secondary to abdominal pain Head exam: PRESENT: atraumatic, normocephalic Eye exam: PRESENT: conjunctiva pink. ABSENT: conjunctival injection, scleral i cterus Ear exam: PRESENT: normal external ear exam. ABSENT: bleeding, drainage Mouth exam: PRESENT: dry mucosa, neck supple Neck exam: ABSENT: thyromegaly, tracheal deviation Respiratory exam: PRESENT: clear to auscultation wyatt, symmetrical, unlabored Cardiovascular exam: PRESENT: RRR. ABSENT: clicks, gallop, rubs Pulses: PRESENT: normal radial pulses, normal dorsalis pedis pul Vascular exam: PRESENT: normal capillary refill. ABSENT: pallor GI/Abdominal exam: PRESENT: normal bowel sounds, soft, tenderness - Moderate tenderness to palpation in the epigastrium and right upper quadrant. Rectal exam: PRESENT: deferred Extremities exam: ABSENT: joint swelling, pedal edema Musculoskeletal exam: ABSENT: deformity, dislocation Neurological exam: PRESENT: alert, oriented to person, oriented to place, oriented to time, oriented to situation, CN II-XII grossly intact. ABSENT: motor sensory deficit Psychiatric exam: PRESENT: appropriate affect, normal mood Skin exam: PRESENT: dry, intact, warm. ABSENT: jaundice, rash, urticaria Results Laboratory Results: 09/27/19 14:42 09/27/19 16:30 09/27/19 09/27/19 09/27/19 14:42 14:42 16:30 WBC 7.7 RBC 4.67 Hgb 14.9 Hct 43.6 MCV 93 MCH 31.8 MCHC 34.1 RDW 15.1 H Plt Count 320 Seg Neutrophils % 50.9 Sodium Cancelled 140.7 Potassium Cancelled 4.0 Chloride Cancelled 105 Carbon Dioxide Cancelled 27 Anion Gap Cancelled 9 BUN Cancelled 12 Creatinine Cancelled 0.95 Est GFR ( Amer) Cancelled > 60 Est GFR (Non-Af Amer) Cancelled Glucose Cancelled 80 Calcium Cancelled 10.0 Total Bilirubin Cancelled 0.5 AST Cancelled 22 Alkaline Phosphatase Cancelled 88 Total Protein Cancelled 8.1 Albumin Cancelled 4.4 Lipase Cancelled 2414.1 H Urine Color Urine Appearance Urine pH Ur Specific [place] Urine Protein Urine Glucose (UA) Urine Ketones Urine Blood Urine Nitrite Ur Leukocyte Esterase Urine WBC (Auto) Urine RBC (Auto) 09/27/19 19:28 WBC RBC Hgb Hct MCV MCH MCHC RDW Plt Count Seg Neutrophils % Sodium Potassium Chloride Carbon Dioxide Anion Gap BUN Creatinine Est GFR ( Amer) Est GFR (Non-Af Amer) Glucose Calcium Total Bilirubin AST Alkaline Phosphatase Total Protein Albumin Lipase Urine Color YELLOW Urine Appearance CLEAR Urine pH 5.0 Ur Specific [place] 1.015 Urine Protein NEGATIVE Urine Glucose (UA) >=500 H Urine Ketones TRACE H Urine Blood NEGATIVE Urine Nitrite NEGATIVE Ur Leukocyte Esterase NEGATIVE Urine WBC (Auto) 1 Urine RBC (Auto) 0 Impressions: Abdomen/Pelvis CT 09/27/19 00:00 IMPRESSION: 1. No acute findings 2. Atherosclerosis 3. Lumbar spine degenerative changes 4. Apparent bladder wall thickening. This may be secondary to incomplete distention. Please correlate with clinical symptoms and urinalysis regarding possibility of cystitis. Abdomen Ultrasound 09/27/19 13:49 IMPRESSION: 1. Suboptimal visualization of the pancreas. Mild dilation of the main pancreatic duct. 2. No cholelithiasis or biliary ductal dilation. 3. Fatty infiltration of the liver. KUB X-Ray 09/27/19 15:28 IMPRESSION: NO RADIOGRAPHIC EVIDENCE FOR ACUTE ABDOMINAL DISEASE. Assessment and Plan - Diagnosis (1) Recurrent acute pancreatitis Is this a current diagnosis for this admission?: Yes (2) Abdominal pain Qualifiers: Abdominal location: upper abdomen, unspecified Qualified Code(s): R10.10 - Upper abdominal pain, unspecified Is this a current diagnosis for this admission?: Yes (3) Hypertension Qualifiers: Hypertension type: essential hypertension Qualified Code(s): I10 - Essential (primary) hypertension Is this a current diagnosis for this admission?: Yes (4) Coronary artery disease Qualifiers: Coronary Disease-Associated Artery/Lesion type: [place] artery [place] vs. transplanted heart: [place] heart Associated angina: without angina Qualified Code(s): I25.10 - Atherosclerotic heart disease of [place] coronary artery without angina pectoris Is this a current diagnosis for this admission?: Yes (5) Paroxysmal atrial flutter Is this a current diagnosis for this admission?: Yes (6) PAD (peripheral artery disease) Is this a current diagnosis for this admission?: Yes (7) Paroxysmal atrial fibrillation Is this a current diagnosis for this admission?: Yes (8) Type 2 diabetes mellitus Qualifiers: Diabetes mellitus [place] insulin use: with skilled nursing use Diabetes mellitus complication status: without complication Qualified Code(s): E11.9 - Type 2 diabetes mellitus without complications; Z79.4 - [facility] (current) use of insulin Is this a current diagnosis for this admission?: Yes (9) Gout Qualifiers: Gout site: unspecified site Gout etiology: unspecified cause Chronicity: chronic Presence of tophus: without tophus Qualified Code(s): M1A.9XX0 - Chronic gout, unspecified, without tophus (tophi) Is this a current diagnosis for this admission?: Yes - Plan Summary Summary: Patient is admitted to the medical floor for routine supportive and symptomatic cares. He will be treated with IV fluids and a clear liquid diet until he feels like he can tolerate additional oral intake. Serial amylase and lipase levels will be obtained to follow the progress of his disease. Daily CBCs, magnesium levels and metabolic profiles will be obtained as appropriate. Patient will use morphine sulfate 2 to 4 mg IV every 4 hours on an as-needed basis for pain using a sliding scale for control of his pain. He will be continued on his usual diabetic and cardiac diet and his usual medications as appropriate when he is able to tolerate oral intake. In the interim he will be treated with sliding scale insulin based on 4 times daily Accu-Cheks and he will receive IV hydr alazine 20 mg every 4 hours as needed to control his blood pressure. Lovenox 1 mg/kg every 12 hours will be initiated until patient is able to resume taking his Eliquis. - Time Time Spent with patient: 25-34 minutes Medications reviewed and adjusted accordingly: Yes Anticipated discharge: Home - Inpatient Certification Based on my medical assessment, after consideration of the patient's comorbidities, presenting symptoms, or acuity I expect that the services needed warrant INPATIENT care.: Yes I certify that my determination is in accordance with my understanding of Medicare's requirements for reasonable and necessary INPATIENT services [42 CFR 412.3e].: Yes Medical Necessity: Need Close Monitoring Due to Risk of Patient Decompensation, Need For IV Fluids, Need for Pain Control, Risk of Complication if Not Cared For in Hospital, Risk of Diagnosis Which Will Require Inpatient Eval/Care/Monitoring
[2019-09-28] MEDS: RINGERS SOLUTION,LACTATED 1,000 ML IV PRN ×3 (03:33→22:09)
[2019-09-28] MEDS ORDERED: NITROGLYCERIN 0.4 MG/TAB 25 TAB/BOTTLE SL PRN (04:35)
[2019-09-28] MEDS ORDERED: INFLUENZA QUAD (6MOS+) 2019-20 VAC 0.5 ML SYR IM ONE (04:49)
[2019-09-28] MEDS: NICOTINE 21 MG/24 HR PATCH.TD24 TD PRN (06:32)
[2019-09-28 06:53] LABS: HEMATOCRIT 39.2 % (37.9-51.0); HEMOGLOBIN 13.1 g/dL (13.5-17.0); MEAN CORPUSCULAR HEMOGLOBIN 31.7 pg (27.0-33.4); MEAN CORPUSCULAR HGB CONC 33.5 g/dL (32.0-36.0); MEAN CORPUSCULAR VOLUME 94 fl (80-97); PLATELET COUNT 231 10^3/uL (150-450); RED BLOOD COUNT 4.15 10^6/uL (4.35-5.55); RED CELL DISTRIBUTION WIDTH 14.3 % (11.5-14.0); WHITE BLOOD COUNT 6.6 10^3/uL (4.0-10.5)
[2019-09-28 07:15] LABS: AMYLASE 89 U/L (30-110); ANION GAP 11 (5-19); BLOOD UREA NITROGEN 13 mg/dL (7-20); CALCIUM 9.2 mg/dL (8.4-10.2); CARBON DIOXIDE 21 mmol/L (22-30); CHLORIDE 107 mmol/L (98-107); CHOLESTEROL 122.54 mg/dL (0-200); GLUCOSE 133 mg/dL (75-110); POTASSIUM 3.9 mmol/L (3.6-5.0); TRIGLYCERIDES 159 mg/dL (<150)
[2019-09-28 07:25] LABS: DIRECT LDL 78 mg/dL (<100)
[2019-09-28] MEDS: INSULIN REG, HUMAN 100 UNIT/ML 3 ML VIAL (PYX) SUBCUT SCH ×4 (07:40→22:09)
[2019-09-28 07:43] LABS: VLDL CHOLESTEROL 31.8 mg/dL (10-31)
[2019-09-28] MEDS ORDERED: BUDESONIDE NEB 0.5 MG/2 ML AMPUL NEB SCH (08:00)
[2019-09-28] MEDS: LEVALBUTEROL HCL NEB 1.25 MG/3 ML AMPUL NEB SCH ×2 (08:23→16:18)
[2019-09-28] MEDS: IPRATROPIUM BROMIDE 0.02% NEB 0.5 MG/2.5 ML AMPUL NEB SCH ×2 (08:23→16:18)
--- NOTE | 2019-09-28 09:07 | PDOC PROGRESS REPORT ---
Subjective Progress Note for:: 09/28/19 Subjective:: 09/28/2019-improved abdominal pain Reason For Visit: PANCREATITIS HYPERTENSION Physical Exam Vital Signs: Temp Pulse Resp BP Pulse Ox 98.1 F 77 16 149/64 H 95 09/28/19 08:01 09/28/19 08:27 09/28/19 08:27 09/28/19 08:01 09/28/19 08:27 Intake & Output 09/27/19 09/28/19 09/29/19 06:59 06:59 06:59 Intake Total 562 Output Total 275 Balance 287 Weight 106.3 kg General appearance: PRESENT: no acute distress, well-developed, well-nourished Head exam: PRESENT: atraumatic, normocephalic Eye exam: PRESENT: conjunctiva pink, EOMI, PERRLA. ABSENT: scleral icterus Ear exam: PRESENT: normal external ear exam Mouth exam: PRESENT: moist, tongue midline Neck exam: ABSENT: carotid bruit, JVD, lymphadenopathy, thyromegaly Respiratory exam: PRESENT: clear to auscultation wyatt. ABSENT: rales, rhonchi, wheezes Cardiovascular exam: PRESENT: RRR. ABSENT: diastolic murmur, rubs, systolic murmur Pulses: PRESENT: normal dorsalis pedis pul Vascular exam: PRESENT: normal capillary refill GI/Abdominal exam: PRESENT: normal bowel sounds, soft, tenderness. ABSENT: distended, guarding, mass, organolmegaly, rebound Rectal exam: PRESENT: deferred Extremities exam: PRESENT: full ROM. ABSENT: calf tenderness, clubbing, pedal edema Neurological exam: PRESENT: alert, awake, oriented to person, oriented to place, oriented to time, oriented to situation, CN II-XII grossly intact. ABSENT: motor sensory deficit Psychiatric exam: PRESENT: appropriate affect, normal mood. ABSENT: homicidal ideation, suicidal ideation Skin exam: PRESENT: dry, intact, warm. ABSENT: cyanosis, rash Results Laboratory Results: 09/28/19 06:35 09/28/19 06:35 09/27/19 09/27/19 09/27/19 14:42 14:42 16:30 WBC 7.7 RBC 4.67 Hgb 14.9 Hct 43.6 MCV 93 MCH 31.8 MCHC 34.1 RDW 15.1 H Plt Count 320 Seg Neutrophils % 50.9 Sodium Cancelled 140.7 Potassium Cancelled 4.0 Chloride Cancelled 105 Carbon Dioxide Cancelled 27 Anion Gap Cancelled 9 BUN Cancelled 12 Creatinine Cancelled 0.95 Est GFR ( Amer) Cancelled > 60 Est GFR (Non-Af Amer) Cancelled Glucose Cancelled 80 Calcium Cancelled 10.0 Magnesium Total Bilirubin Cancelled 0.5 AST Cancelled 22 Alkaline Phosphatase Cancelled 88 Total Protein Cancelled 8.1 Albumin Cancelled 4.4 Triglycerides Cholesterol LDL Cholesterol Direct VLDL Cholesterol HDL Cholesterol Amylase Lipase Cancelled 2414.1 H TSH Urine Color Urine Appearance Urine pH Ur Specific [place] Urine Protein Urine Glucose (UA) Urine Ketones Urine Blood Urine Nitrite Ur Leukocyte Esterase Urine WBC (Auto) Urine RBC (Auto) 09/27/19 09/28/19 09/28/19 19:28 01:45 06:35 WBC 6.6 RBC 4.15 L Hgb 13.1 L Hct 39.2 MCV 94 MCH 31.7 MCHC 33.5 RDW 14.3 H Plt Count 231 Seg Neutrophils % Sodium Potassium Chloride Carbon Dioxide Anion Gap BUN Creatinine Est GFR ( Amer) Est GFR (Non-Af Amer) Glucose Calcium Magnesium Total Bilirubin AST Alkaline Phosphatase Total Protein Albumin Triglycerides Cholesterol LDL Cholesterol Direct VLDL Cholesterol HDL Cholesterol Amylase Lipase TSH Urine Color YELLOW STRAW Urine Appearance CLEAR CLEAR Urine pH 5.0 5.0 Ur Specific [place] 1.015 1.050 Urine Protein NEGATIVE NEGATIVE Urine Glucose (UA) >=500 H >=500 H Urine Ketones TRACE H 20 H Urine Blood NEGATIVE NEGATIVE Urine Nitrite NEGATIVE NEGATIVE Ur Leukocyte Esterase NEGATIVE NEGATIVE Urine WBC (Auto) 1 1 Urine RBC (Auto) 0 0 09/28/19 09/28/19 06:35 06:35 WBC RBC Hgb Hct MCV MCH MCHC RDW Plt Count Seg Neutrophils % Sodium 139.3 Potassium 3.9 Chloride 107 Carbon Dioxide 21 L Anion Gap 11 BUN 13 Creatinine 0.99 Est GFR ( Amer) > 60 Est GFR (Non-Af Amer) Glucose 133 H Calcium 9.2 Magnesium 1.7 Total Bilirubin AST Alkaline Phosphatase Total Protein Albumin Triglycerides 159 H Cholesterol 122.54 LDL Cholesterol Direct 78 VLDL Cholesterol 31.8 H HDL Cholesterol 29 L Amylase 89 Lipase 645.6 H TSH 0.39 L Urine Color Urine Appearance Urine pH Ur Specific [place] Urine Protein Urine Glucose (UA) Urine Ketones Urine Blood Urine Nitrite Ur Leukocyte Esterase Urine WBC (Auto) Urine RBC (Auto) Impressions: Abdomen/Pelvis CT 09/27/19 00:00 IMPRESSION: 1. No acute findings 2. Atherosclerosis 3. Lumbar spine degenerative changes 4. Apparent bladder wall thickening. This may be secondary to incomplete distention. Please correlate with clinical symptoms and urinalysis regarding possibility of cystitis. Abdomen Ultrasound 09/27/19 13:49 IMPRESSION: 1. Suboptimal visualization of the pancreas. Mild dilation of the main pancreatic duct. 2. No cholelithiasis or biliary ductal dilation. 3. Fatty infiltration of the liver. KUB X-Ray 09/27/19 15:28 IMPRESSION: NO RADIOGRAPHIC EVIDENCE FOR ACUTE ABDOMINAL DISEASE. Assessment and Plan - Diagnosis (1) Recurrent acute pancreatitis Is this a current diagnosis for this admission?: Yes Plan: 09/28/2019-improved lipase is down to 600 slight abdominal pain. Patient will continue current therapy (2) Abdominal pain Qualifiers: Abdominal location: upper abdomen, unspecified Qualified Code(s): R10.10 - Upper abdominal pain, unspecified Is this a current diagnosis for this admission?: Yes Plan: 05/28/2019-improved continue to current morphine therapy (3) Coronary artery disease Qualifiers: Coronary Disease-Associated Artery/Lesion type: [place] artery [place] vs. transplanted heart: [place] heart Associated angina: without angina Qualified Code(s): I25.10 - Atherosclerotic heart disease of [place] coronary artery without angina pectoris Is this a current diagnosis for this admission?: Yes Plan: 09/28/2019-stable (4) Diabetes mellitus type 2 in nonobese Is this a current diagnosis for this admission?: Yes Plan: 09/28/2019-stable (5) Gout Qualifiers: Chronicity: unspecified Is this a current diagnosis for this admission?: Yes Plan: 09/29/2019-stable (6) Hypertension Qualifiers: Hypertension type: essential hypertension Qualified Code(s): I10 - Essential (primary) hypertension Is this a current diagnosis for this admission?: Yes Plan: 09/28/2019-stable at this time. Patient most likely had hypertensive episodes secondary to acute pain. Will follow (7) PAD (peripheral artery disease) Is this a current diagnosis for this admission?: Yes Plan: 09/28/2019-stable (8) Hyperthyroidism Is this a current diagnosis for this admission?: Yes Plan: 09/28/2019-Tapazole 5 mill grams p.o. daily repeat TSH T4 in 2 to 3 months - Plan Summary Summary: Patient is admitted to the medical floor for routine supportive and symptomatic cares. He will be treated with IV fluids and a clear liquid diet until he feels like he can tolerate additional oral intake. Serial amylase and lipase levels will be obtained to follow the progress of his disease. Daily CBCs, magnesium levels and metabolic profiles will be obtained as appropriate. Patient will use morphine sulfate 2 to 4 mg IV every 4 hours on an as-needed basis for pain using a sliding scale for control of his pain. He will be continued on his usual diabetic and cardiac diet and his usual medications as appropriate when he is able to tolerate oral intake. In the interim he will be treated with sliding scale insulin based on 4 times daily Accu-Cheks and he will receive IV hydralazine 20 mg every 4 hours as needed to control his blood pressure. Lovenox 1 mg/kg every 12 hours will be initiated until patient is able to resume taking his Eliquis. - Time Time Spent with patient: 15-24 minutes - Inpatient Certification Based on my medical assessment, after consideration of the patient's comorbidities, presenting symptoms, or acuity I expect that the services needed warrant INPATIENT care.: Yes I certify that my determination is in accordance with my understanding of Medicare's requirements for reasonable and necessary INPATIENT services [42 CFR 412.3e].: Yes Medical Necessity: Need For IV Fluids, Need for Pain Control
[2019-09-28] MEDS: PANTOPRAZOLE SODIUM 40 MG VIAL IV SCH ×2 (09:38→22:09)
[2019-09-28] MEDS: APIXABAN 5 MG TABLET PO SCH ×2 (09:38→22:07)
[2019-09-28] MEDS: METOPROLOL TARTRATE 25 MG TABLET PO SCH ×2 (09:38→22:09)
[2019-09-28] MEDS: CITALOPRAM HYDROBROMIDE 20 MG TABLET PO SCH (09:38)
[2019-09-28] MEDS: METOCLOPRAMIDE HCL INJ/PF 10 MG/2 ML SDV IV SCH ×4 (09:38→22:09)
[2019-09-28] MEDS ORDERED: APIXABAN 5 MG TABLET PO SCH (10:00)
[2019-09-28] MEDS ORDERED: ENOXAPARIN SODIUM INJ 120 MG/0.8 ML DISP.SYRIN SUBCUT SCH (10:00)
[2019-09-28] MEDS: METHIMAZOLE 5 MG TABLET PO SCH (12:13)
[2019-09-28] MEDS: ALBUTEROL SULFATE HFA (90 MCG/PUFF) 200 PUFF/8.5 GM MDI IH SCH (18:44)
[2019-09-28] MEDS ORDERED: ATORVASTATIN CALCIUM 80 MG TABLET PO SCH (22:00)
[2019-09-29] MEDS: METOPROLOL TARTRATE 25 MG TABLET PO SCH ×2 (00:31→09:17)
[2019-09-29] MEDS: RINGERS SOLUTION,LACTATED 1,000 ML IV PRN (04:18)
[2019-09-29] MEDS: HYDRALAZINE HCL INJ/PF 20 MG/1 ML SDV IV PRN (04:38)
[2019-09-29] MEDS: NICOTINE 21 MG/24 HR PATCH.TD24 TD PRN (04:43)
[2019-09-29 07:38] LABS: HEMATOCRIT 40.1 % (37.9-51.0); HEMOGLOBIN 13.3 g/dL (13.5-17.0); MEAN CORPUSCULAR HEMOGLOBIN 31.4 pg (27.0-33.4); MEAN CORPUSCULAR HGB CONC 33.2 g/dL (32.0-36.0); MEAN CORPUSCULAR VOLUME 95 fl (80-97); PLATELET COUNT 238 10^3/uL (150-450); RED BLOOD COUNT 4.24 10^6/uL (4.35-5.55); RED CELL DISTRIBUTION WIDTH 14.6 % (11.5-14.0); WHITE BLOOD COUNT 5.9 10^3/uL (4.0-10.5)
[2019-09-29 08:10] LABS: AMYLASE 52 U/L (30-110); ANION GAP 9 (5-19); BLOOD UREA NITROGEN 9 mg/dL (7-20); CALCIUM 9.2 mg/dL (8.4-10.2); CARBON DIOXIDE 23 mmol/L (22-30); CHLORIDE 108 mmol/L (98-107); GLUCOSE 129 mg/dL (75-110); POTASSIUM 4.1 mmol/L (3.6-5.0)
[2019-09-29] MEDS: INSULIN REG, HUMAN 100 UNIT/ML 3 ML VIAL (PYX) SUBCUT SCH (08:22)
[2019-09-29 09:01] VITALS: BP 153/62
[2019-09-29] MEDS: ALBUTEROL SULFATE HFA (90 MCG/PUFF) 200 PUFF/8.5 GM MDI IH SCH (09:17)
[2019-09-29] MEDS: CITALOPRAM HYDROBROMIDE 20 MG TABLET PO SCH (09:17)
[2019-09-29] MEDS: METOCLOPRAMIDE HCL INJ/PF 10 MG/2 ML SDV IV SCH (09:17)
[2019-09-29] MEDS: APIXABAN 5 MG TABLET PO SCH (09:17)
[2019-09-29] MEDS: PANTOPRAZOLE SODIUM 40 MG VIAL IV SCH (09:18)
[2019-09-29] MEDS: METHIMAZOLE 5 MG TABLET PO SCH (09:18)
[2019-09-29] MEDS ORDERED: FLUTICASONE/VILANTEROL 200-25 MCG/DOSE IH SCH (10:00)
--- NOTE | 2019-09-29 12:17 | PDOC DISCHARGE SUMMARY ---
Impression - Admit/DC Date/PCP Admission Date/Primary Care Provider: 09/27/19 21:41 FAVIO CARABALLO Discharge Date: 09/29/19 - Discharge Diagnosis (1) Diabetes mellitus type 2 in obese Is this a current diagnosis for this admission?: Yes (2) Hyperthyroidism Is this a current diagnosis for this admission?: Yes (3) Abdominal pain Is this a current diagnosis for this admission?: Yes (4) Gout Is this a current diagnosis for this admission?: Yes (5) Hypertension Is this a current diagnosis for this admission?: Yes (6) PAD (peripheral artery disease) Is this a current diagnosis for this admission?: Yes (7) Recurrent acute pancreatitis Is this a current diagnosis for this admission?: Yes (8) Coronary artery disease Is this a current diagnosis for this admission?: Yes - Assessment Summary: Patient presented with abdominal pain which is stated was similar to his prior episodes of pancreatitis. On presentation he was hemodynamically stable. Blood work revealed elevated lipase of 2414. Abdominal ultrasound revealed no evidence of gallstones and no common bile ducts dilation. CT of the abdomen showed peripancreatic stranding. Patient was admitted and treated for acute recurrence of pancreatitis with aggressive IV fluids, IV pain medication and antiemetics. Patient's diet was gradually advanced. Patient has tolerated his diet and his abdominal pain is currently almost resolved. Patient states he would like to go home and he will follow-up with his primary care physician for follow-up care. Patient is being discharged in stable conditions with [id number] pain medication and antiemetics with instructions to gradually escalate his diet. - Additional Information Resuscitation Status: Full Code Discharge Diet: As Tolerated Discharge Activity: Activity As Tolerated Referrals: FAVIO CARABALLO MD [Primary Care Provider] - 10/06/19 1:00 pm (Follow-up with your primary care provider within 7 days) Prescriptions: Metoclopramide HCl [Metoclopramide HCl Odt] 10 mg PO Q8HP PRN #10 tab.rapdis PRN Reason: Ibuprofen [Motrin 400 mg Tablet] 400 mg PO MEALS PRN #10 tablet PRN Reason: Home Medications: Acetaminophen [Tylenol Extra Strength 500 mg Tablet] 1,000 mg PO Q6HP PRN 09/28/19 Albuterol Sulfate [Proair HFA Inhalation Aerosol 8.5 gm MDI] 2 puff IH Q12HP PRN 09/28/19 Apixaban [Eliquis 5 mg Tablet] 5 mg PO Q12 09/28/19 Atorvastatin Calcium [Lipitor 80 mg Tablet] 80 mg PO QHS 09/28/19 Citalopram Hydrobromide [Celexa 20 mg Tablet] 20 mg PO DAILY 09/28/19 Empagliflozin [Jardiance] 25 mg PO DAILY 09/28/19 Ergocalciferol (Vitamin D2) [Drisdol 50,000 unit (1.25MG) Capsule] 50,000 unit PO TH 09/28/19 Fluticasone/Vilanterol [Breo 200-25 Mcg Ellipta 14 Dose/Dpi] 1 puff IH DAILY 09/28/19 Gabapentin [Neurontin 300 mg Capsule] 300 mg PO Q8 09/28/19 Glipizide [Glucotrol 10 mg Tablet] 10 mg PO DAILY 09/28/19 Insulin Detemir [Levemir] 20 units SQ QHS 09/28/19 Lisinopril [Zestril] 20 mg PO DAILY 09/28/19 Metoprolol Tartrate [Lopressor 50 mg Tablet] 50 mg PO Q12 09/28/19 Nicotine [Nicoderm 14 mg/24 Hr Transdermal Patch] 1 patch TD DAILY 09/28/19 Nitroglycerin [Nitrostat 0.4 mg (1/150 Gr) Tabs 25/Bottle] 0.4 mg SL Q5MP PRN 09/28/19 Ibuprofen [Motrin 400 mg Tablet] 400 mg PO MEALS PRN #10 tablet 09/29/19 Metoclopramide HCl [Metoclopramide HCl Odt] 10 mg PO Q8HP PRN #10 tab.rapdis 09/29/19 History of Present Illiness History of Present Illness: SAMPSON MAO is a 69 year old male who presented to the emergency room with a 3-day history of abdominal pain. He admits the gradual onset of and progressively worsening, constant epigastric and right upper quadrant colicky/gripping pain without radiation over the last 3 days. His pain has been accompanied by nausea and is worsened by oral intake. He denies other associated or accompanying signs and symptoms. He admits a prior similar episode with pancreatitis in the past. He has not identified any additional aggravating or ameliorating factors for his abdominal pain. In the emergency room he was found to have an elevated lipase of 2400 with upper abdominal tenderness on exam. He was subsequently admitted to the hospital for further evaluation and treatment. Physical Exam Vital Signs: Temp Pulse Resp BP Pulse Ox 99.3 F 60 16 153/62 H 96 09/29/19 08:03 09/29/19 08:46 09/29/19 08:46 09/29/19 08:03 09/29/19 08:46 Intake & Output 09/28/19 09/29/19 09/30/19 06:59 06:59 06:59 Intake Total 562 3822 Output Total 275 3925 Balance 287 -103 Weight 106.3 kg 96.5 kg General appearance: PRESENT: no acute distress, cooperative Head exam: PRESENT: normocephalic Eye exam: PRESENT: EOMI Neck exam: ABSENT: JVD Respiratory exam: PRESENT: clear to auscultation wyatt, symmetrical, unlabored. ABSENT: tachypnea, wheezes Cardiovascular exam: PRESENT: RRR, +S1, +S2. ABSENT: systolic murmur, tachyc ardia GI/Abdominal exam: PRESENT: normal bowel sounds, soft. ABSENT: guarding, rebound, rigid, tenderness Neurological exam: PRESENT: alert, awake, oriented to person, oriented to place, oriented to time, oriented to situation Psychiatric exam: ABSENT: agitated Results Laboratory Results: WBC 5.9 10^3/uL (4.0-10.5) 09/29/19 06:43 RBC 4.24 10^6/uL (4.35-5.55) L 09/29/19 06:43 Hgb 13.3 g/dL (13.5-17.0) L 09/29/19 06:43 Hct 40.1 % (37.9-51.0) 09/29/19 06:43 MCV 95 fl (80-97) 09/29/19 06:43 MCH 31.4 pg (27.0-33.4) 09/29/19 06:43 MCHC 33.2 g/dL (32.0-36.0) 09/29/19 06:43 RDW 14.6 % (11.5-14.0) H 09/29/19 06:43 Plt Count 238 10^3/uL (150-450) 09/29/19 06:43 Lymph % (Auto) 40.4 % (13-45) 09/27/19 14:42 [place] % (Auto) 6.0 % (3-13) 09/27/19 14:42 Eos % (Auto) 2.2 % (0-6) 09/27/19 14:42 Baso % (Auto) 0.5 % (0-2) 09/27/19 14:42 Absolute Neuts (auto) 3.9 10^3/uL (1.7-8.2) 09/27/19 14:42 Absolute Lymphs (auto) 3.1 10^3/uL (0.5-4.7) 09/27/19 14:42 Absolute Monos (auto) 0.5 10^3/uL (0.1-1.4) 09/27/19 14:42 Absolute Eos (auto) 0.2 10^3/uL (0.0-0.6) 09/27/19 14:42 Absolute Basos (auto) 0.0 10^3/uL (0.0-0.2) 09/27/19 14:42 Seg Neutrophils % 50.9 % (42-78) 09/27/19 14:42 Sodium 139.6 mmol/L (137-145) 09/29/19 06:43 Potassium 4.1 mmol/L (3.6-5.0) 09/29/19 06:43 Chloride 108 mmol/L (98-107) H 09/29/19 06:43 Carbon Dioxide 23 mmol/L (22-30) 09/29/19 06:43 Anion Gap 9 (5-19) 09/29/19 06:43 BUN 9 mg/dL (7-20) 09/29/19 06:43 Creatinine 0.86 mg/dL (0.52-1.25) 09/29/19 06:43 Est GFR ( Amer) > 60 (>60) 09/29/19 06:43 Est GFR (Non-Af Amer) Cancelled 09/27/19 14:42 Est GFR (MDRD) Non-Af > 60 (>60) 09/29/19 06:43 Glucose 129 mg/dL (75-110) H 09/29/19 06:43 POC Glucose 191 mg/dL (70-110) H 09/29/19 08:02 Hemoglobin A1c % 8.6 % (4.7-6.0) H 09/28/19 06:35 Calcium 9.2 mg/dL (8.4-10.2) 09/29/19 06:43 Magnesium 1.8 mg/dL (1.6-2.3) 09/29/19 06:43 Total Bilirubin 0.5 mg/dL (0.2-1.3) 09/27/19 16:30 Direct Bilirubin 0.1 mg/dL (0.0-0.4) 09/27/19 16:30 Neonat Total Bilirubin Not Reportable 09/27/19 16:30 Neonat Direct Bilirubin Not Reportable 09/27/19 16:30 Neonat Indirect Bili Not Reportable 09/27/19 16:30 AST 22 U/L (17-59) 09/27/19 16:30 ALT 17 U/L (<50) 09/27/19 16:30 Alkaline Phosphatase 88 U/L (38-126) 09/27/19 16:30 Total Protein 8.1 g/dL (6.3-8.2) 09/27/19 16:30 Albumin 4.4 g/dL (3.5-5.0) 09/27/19 16:30 Triglycerides 159 mg/dL (<150) H 09/28/19 06:35 Cholesterol 122.54 mg/dL (0-200) 09/28/19 06:35 LDL Cholesterol Direct 78 mg/dL (<100) 09/28/19 06:35 VLDL Cholesterol 31.8 mg/dL (10-31) H 09/28/19 06:35 HDL Cholesterol 29 mg/dL (>40) L 09/28/19 06:35 Amylase 52 U/L (30-110) 09/29/19 06:43 Lipase 615.9 U/L (23-300) H 09/29/19 06:43 EGFR Cancelled 09/27/19 14:42 TSH 0.39 uIU/mL (0.47-4.68) L 09/28/19 06:35 Urine Color STRAW 09/28/19 01:45 Urine Appearance CLEAR 09/28/19 01:45 Urine pH 5.0 (5.0-9.0) 09/28/19 01:45 Ur Specific [place] 1.050 09/28/19 01:45 Urine Protein NEGATIVE mg/dL (NEGATIVE) 09/28/19 01:45 Urine Glucose (UA) >=500 mg/dL (NEGATIVE) H 09/28/19 01:45 Urine Ketones 20 mg/dL (NEGATIVE) H 09/28/19 01:45 Urine Blood NEGATIVE (NEGATIVE) 09/28/19 01:45 Urine Nitrite NEGATIVE (NEGATIVE) 09/28/19 01:45 Urine Bilirubin NEGATIVE (NEGATIVE) 09/28/19 01:45 Urine Urobilinogen NEGATIVE mg/dL (<2.0) 09/28/19 01:45 Ur Leukocyte Esterase NEGATIVE (NEGATIVE) 09/28/19 01:45 Urine WBC (Auto) 1 /HPF 09/28/19 01:45 Urine RBC (Auto) 0 /HPF 09/28/19 01:45 Squamous Epi Cells Auto <1 /HPF 09/28/19 01:45 Urine Ascorbic Acid NEGATIVE (NEGATIVE) 09/28/19 01:45 Impressions: Abdomen/Pelvis CT 09/27/19 00:00 IMPRESSION: 1. No acute findings 2. Atherosclerosis 3. Lumbar spine degenerative changes 4. Apparent bladder wall thickening. This may be secondary to incomplete distention. Please correlate with clinical symptoms and urinalysis regarding possibility of cystitis. Abdomen Ultrasound 09/27/19 13:49 IMPRESSION: 1. Suboptimal visualization of the pancreas. Mild dilation of the main pancreatic duct. 2. No cholelithiasis or biliary ductal dilation. 3. Fatty infiltration of the liver. KUB X-Ray 09/27/19 15:28 IMPRESSION: NO RADIOGRAPHIC EVIDENCE FOR ACUTE ABDOMINAL DISEASE. Plan Time Spent: Less than 30 Minutes Stroke Is this a Stroke Patient?: No Acute Heart Failure - Is this a Heart Failure Patient?: Yes Documentation of LVEF assessment?: Yes LVEF < 40%?: No- if no continue to question #3 3. Anticoagulant therapy for permanect/persistent/paraoxysmal Afib or Aflutter: Yes
== END 2019-09-29 12:50 | disposition home or self-care (01) | DRG 439 ==
LOC: ER 13:36 → EH 21:41 → 3S 09-28 02:40
PROVIDERS: ADMIT Emergency Medicine; ATTEND Emergency Medicine
DX: K85.90 Acute pancreatitis without necrosis or infection, unspecified (principal); I48.92 Unspecified atrial flutter; I48.0 Paroxysmal atrial fibrillation; I25.10 Atherosclerotic heart disease of native coronary artery without angina pectoris; I10 Essential (primary) hypertension; J44.9 Chronic obstructive pulmonary disease, unspecified; E11.8 Type 2 diabetes mellitus with unspecified complications; E78.00 Pure hypercholesterolemia, unspecified; I73.9 Peripheral vascular disease, unspecified; M1A.9XX0 Chronic gout, unspecified, without tophus (tophi); K21.9 Gastro-esophageal reflux disease without esophagitis; F17.210 Nicotine dependence, cigarettes, uncomplicated; Z60.2 Problems related to living alone; Z95.5 Presence of coronary angioplasty implant and graft; Z95.1 Presence of aortocoronary bypass graft; Z79.01 Long term (current) use of anticoagulants; Z79.84 Long term (current) use of oral hypoglycemic drugs; Z79.82 Long term (current) use of aspirin; Z79.4 Long term (current) use of insulin; Z79.51 Long term (current) use of inhaled steroids; Z79.899 Other long term (current) drug therapy
CPT/HCPCS: 36415; 74018; 74177; 76705; 80048; 80053; 80061; 81001; 82150; 82962; 83036; 83690; 83735; 84443; 85025; 85027; 90686; 93005; 93010; 94640; 96374; 96375; 96376; 99285; C9113; J0360; J1644; J1815; J2270; J2405; J2765; J3490; J7030; J7120

== ENCOUNTER 2019-10-04 19:17 | Inpatient (IN) | payer MEDICARE, MEDICAID ==
[2019-10-04] MEDS ORDERED: NORMAL SALINE 1000 ML 1,000 ML IV ONE (20:16)
[2019-10-04] MEDS ORDERED: MORPHINE SULFATE 10 MG/ML INJ IV ONE (20:16)
[2019-10-04] MEDS ORDERED: ONDANSETRON HCL INJ/PF 4 MG/2 ML SDV IV ONE (20:16)
--- NOTE | 2019-10-04 20:20 | ER Document Report ---
ED GI/ - General Chief Complaint: Abdominal Pain Stated Complaint: ABDOMINAL PAIN Time Seen by Provider: 10/04/19 20:07 Notes: Patient is a 69-year-old male that comes emergency department for chief complaint of mainly epigastric pain but also generalized abdominal pain worse on the right side and pain up into his chest occasionally. He states that he was discharged 5 days ago after he had been admitted to the hospital for acute pancreatitis, he states that the pain started worsening today when he was trying to eat, he states that he tried to take prescribed ibuprofen and Reglan he was given on discharge but this did not help at all so he came in for evaluation. He denies vomiting, he states he has not had a bowel movement in 3 days, he denies fever/chills, flank pain. Patient denies any abdominal surgeries, he states he has had pancreatitis several times now and there is no definite cause. Past medical history includes CAD with stents, paroxysmal atrial fibrillation on Eliquis, hypertension, type 2 diabetes. He comes from home. TRAVEL OUTSIDE OF THE [place] IN LAST 30 DAYS: No - Related Data Allergies/Adverse Reactions: No Known Drug Allergies Allergy (Unknown, Verified 07/28/19 14:36) Raspberries Allergy (Mild, Uncoded 07/28/19 14:36) Hives Past Medical History - General Information source: Patient - Social History Smoking Status: Never Smoker Frequency of alcohol use: None Lives with: Family Family History: CAD, DM, Hypertension, Malignancy Patient has suicidal ideation: No Patient has homicidal ideation: No - Past Medical History Cardiac Medical History: Reports: Hx Atrial Fibrillation - Paroxysmal atrial fibrillation and flutter, Hx Coronary Artery Disease, Hx Hypercholesterolemia, Hx Hypertension, Hx Peripheral Vascular Disease Denies: Hx DVT, Hx Heart Attack, Hx Pulmonary Embolism Pulmonary Medical History: Reports: Hx COPD Denies: Hx Asthma Neurological Medical History: Denies: Hx Seizures Endocrine Medical History: Reports: Hx Diabetes Mellitus Type 2. Denies: Hx Diabetes Mellitus Type 1, Hx Hyperthyroidism, Hx Hypothyroidism Renal/ Medical History: Denies: Hx Peritoneal Dialysis GI Medical History: Reports: Hx Gastroesophageal Reflux Disease, Hx Pancreatitis. Denies: Hx Cirrhosis, Hx Crohn's Disease, Hx Hepatitis, Hx Ulcerative Colitis Musculoskeletal Medical History: Reports Hx Arthritis, Reports Hx Gout Skin Medical History: Denies Hx Eczema, Denies Hx Psoriasis Psychiatric Medical History: Reports: Hx Depression Infectious Medical History: Denies: Hx Hepatitis Past Surgical History: Reports: Hx Cardiac Catheterization, Hx Carotid Endarterectomy - left, Hx Coronary Stent, Hx Vascular Surgery - clot removal in neck March 2018 - Immunizations Immunizations up to date: Yes Hx Diphtheria, Pertussis, Tetanus Vaccination: No - unk Hx Pneumococcal Vaccination: 11/11/11 Review of Systems - Review of Systems Constitutional: No symptoms reported EENT: No symptoms reported Cardiovascular: See HPI Respiratory: No symptoms reported Gastrointestinal: See HPI Genitourinary: No symptoms reported Male Genitourinary: No symptoms reported Musculoskeletal: No symptoms reported Skin: No symptoms reported Hematologic/Lymphatic: No symptoms reported Neurological/Psychological: No symptoms reported Physical Exam - Vital signs Vitals: Temp Pulse Resp BP Pulse Ox 97.5 F 64 17 183/91 H 98 10/04/19 19:30 10/04/19 19:30 10/04/19 19:30 10/04/19 19:30 10/04/19 19:30 - Notes Notes: GENERAL: Alert, interacts well. No acute distress. HEAD: Normocephalic, atraumatic. EYES: Pupils equal, round, and reactive to light. Extraocular movements intact. ENT: Oral mucosa dry, tongue midline. Oropharynx unremarkable. Airway patent. NECK: Full range of motion. Supple. Trachea midline. LUNGS: Clear to auscultation bilaterally, no wheezes, rales, or rhonchi. No respiratory distress. HEART: Regular rate and rhythm. No murmur ABDOMEN: Epigastric and general upper abdominal tenderness, lower abdomen seems benign. Exam limited by body habitus GENITOURINARY: Deferred EXTREMITIES: Moves all 4 extremities spontaneously. No edema, normal radial and dorsalis pedis pulses bilaterally. No cyanosis. BACK: no cervical, thoracic, lumbar midline tenderness. No saddle anesthesia, normal distal neurovascular exam. Moves all extremities in full range of motion. NEUROLOGICAL: Alert and oriented x3. Normal speech. Cranial nerves II through XII grossly intact. SKIN: Warm, dry, normal turgor. No rashes or lesions noted. Course - Re-evaluation Re-evalutation: Patient appears mildly uncomfortable on initial examination, he has generalized upper abdominal tenderness on exam. Vital signs unremarkable. No other concerning findings on evaluation. CBC unremarkable, lipase shows elevation again at 2300. Chemistry nonspecific otherwise. Troponin is indeterminate. Chest x-ray/acute abdominal series unremarkable. EKG does show some inverted T waves anteriorly. I suspect patient's chest pain is more from pancreatitis but this is not certain, he does have a cardiovascular history. CT shows acute pancreatitis without significant change from prior. CT also shows duodenitis, possibly because he has been taking ibuprofen for his symptoms. I discussed with patient. He states he is concerned about going home because of his recurrent symptoms and pain, in addition to this, his age, and his EKG changes were discussed with hospitalist for admission. Discussed with Dr. Adorno, hospitalist, patient admitted to medical floor observation. - Vital Signs Vital signs: Temp Pulse Resp BP Pulse Ox 97.5 F 16 L 16 157/68 H 99 10/05/19 01:20 10/05/19 01:20 10/05/19 01:20 10/05/19 01:20 10/05/19 01:20 - Laboratory Result Diagrams: 10/04/19 20:26 10/04/19 20:26 Laboratory results interpreted by me: 10/04/19 10/04/19 10/04/19 20:26 20:26 22:02 RBC 4.21 L Hgb 13.4 L RDW 14.1 H Glucose 167 H Lipase 2294.7 H Urine Glucose (UA) >=500 H - EKG Interpretation by Me Additional EKG results interpreted by me: EKG shows sinus rhythm at a rate of 58, left axis deviation, QTC of 401, borderline T wave inversions in V4 and V5, no ST segment changes in consecutive leads. Discharge - Discharge Clinical Impression: Epigastric pain, Acute electrocardiogram changes Pancreatitis Qualifiers: Chronicity: acute Pancreatitis type: unspecified pancreatitis type Acute pancreatitis complication: unspecified Qualified Code(s): K85.90 - Acute pancreatitis without necrosis or infection, unspecified Chest pain Qualifiers: Chest pain type: unspecified Qualified Code(s): R07.9 - Chest pain, unspecified Condition: Stable Disposition: ADMITTED OBSERVATION Admitting Provider: Kyree (Hospitalist) Unit Admitted: Medical Floor
[2019-10-04 20:40] LABS: ABSOLUTE BASOPHILS # (AUTO) 0.1 10^3/uL (0.0-0.2); ABSOLUTE EOSINOPHILS # (AUTO) 0.2 10^3/uL (0.0-0.6); ABSOLUTE LYMPHOCYTES (AUTO) 3.2 10^3/uL (0.5-4.7); ABSOLUTE MONOCYTES (AUTO) 0.7 10^3/uL (0.1-1.4); ABSOLUTE NEUT (AUTO) 5.6 10^3/uL (1.7-8.2); BASOPHILS % (AUTO) 1.2 % (0-2); EOSINOPHILS % (AUTO) 2.4 % (0-6); HEMATOCRIT 39.9 % (37.9-51.0); HEMOGLOBIN 13.4 g/dL (13.5-17.0); LYMPHOCYTES % (AUTO) 32.7 % (13-45); MEAN CORPUSCULAR HEMOGLOBIN 31.8 pg (27.0-33.4); MEAN CORPUSCULAR HGB CONC 33.5 g/dL (32.0-36.0); MEAN CORPUSCULAR VOLUME 95 fl (80-97); MONOCYTES % (AUTO) 6.7 % (3-13); PLATELET COUNT 300 10^3/uL (150-450); RED BLOOD COUNT 4.21 10^6/uL (4.35-5.55); RED CELL DISTRIBUTION WIDTH 14.1 % (11.5-14.0); TOTAL CELLS COUNTED % (AUTO) 100 %; WHITE BLOOD COUNT 9.9 10^3/uL (4.0-10.5)
[2019-10-04 20:58] LABS: ALBUMIN 3.8 g/dL (3.5-5.0); ALKALINE PHOSPHATASE 75 U/L (38-126); ANION GAP 12 (5-19); ASPARTATE AMINO TRANSFERASE 19 U/L (17-59); BILIRUBIN,DIRECT 0.1 mg/dL (0.0-0.4); BILIRUBIN,TOTAL 0.2 mg/dL (0.2-1.3); BLOOD UREA NITROGEN 15 mg/dL (7-20); CALCIUM 10.1 mg/dL (8.4-10.2); CARBON DIOXIDE 22 mmol/L (22-30); CHLORIDE 106 mmol/L (98-107); GLUCOSE 167 mg/dL (75-110); POTASSIUM 4.3 mmol/L (3.6-5.0)
--- NOTE | 2019-10-04 21:41 | RADIOLOGY REPORT (SQ) ---
EXAM: XR ABDOMEN SUPINE AND ERECT WITH CHEST (ABD ACUTE SERIES) CLINICAL INDICATION: 69-year-old male with chest, abdominal pain and abdominal swelling. TECHNIQUE: Single view, PA chest was obtained. Two views of the abdomen were obtained in upright and supine positioning. COMPARISON: 09/27/2019 abdominal series. FINDINGS: Chest: Unremarkable cardiac and mediastinal silhouette. Heart size is normal. Lungs are clear without focal opacity, pneumothorax or pleural effusions. The visualized bones are within normal limits. Abdomen: Gas is seen within normal caliber small and large bowel. No free air is identified. Incidental note of RIGHT iliac stent. Pelvic calcification suggestive of pelvic phleboliths. The possibility of ureteral calcification cannot be excluded. The osseous structures are within normal limits. Degenerative change of the bilateral femoral acetabular joint space. IMPRESSION: 1. No acute cardiopulmonary abnormalities. 2. Nonspecific abdominal bowel gas pattern, within normal limits.
[2019-10-04] MEDS ORDERED: ASPIRIN 81 MG TABLET, CHEWABLE PO ONE (21:50)
[2019-10-04 22:13] LABS: APPEARANCE,URINE CLEAR; BILIRUBIN,URINE NEGATIVE (NEGATIVE); COLOR,URINE YELLOW; GLUCOSE, URINE >=500 mg/dL (NEGATIVE); KETONES,URINE NEGATIVE (NEGATIVE); LEUKOCYTE ESTERASE,URINE NEGATIVE (NEGATIVE); NITRITE,URINE NEGATIVE (NEGATIVE); PROTEIN,URINE NEGATIVE (NEGATIVE); UROBILINOGEN,URINE NEGATIVE mg/dL (<2.0)
[2019-10-04] MEDS ORDERED: NORMAL SALINE 1000 ML 1,000 ML IV PRN (22:36)
--- NOTE | 2019-10-04 23:08 | EKG REPORT ---
SEVERITY:- ABNORMAL ECG - SINUS RHYTHM FIRST DEGREE AV BLOCK LEFT VENTRICULAR HYPERTROPHY NONSPECIFIC T ABNORMALITIES, INFERIOR LEADS : Confirmed by: Jose Isaac MD 04-Oct-2019 23:08:12
--- NOTE | 2019-10-04 23:33 | RADIOLOGY REPORT (SQ) ---
EXAM: CT ABDOMEN PELVIS WITH IV CONTRAST CLINICAL INDICATION: 69-year-old male with sharp upper abdominal pain. COMPARISON: 02/17/2017 EXAMINATION: CT of the abdomen and pelvis was performed following intravenous administration of contrast. Oral contrast was not administered. Multiplanar reformatted images were provided. This exam was performed according to our departmental dose optimization program which includes use of automated exposure control, adjustment of the mA and/or kV according to patient size and/or use of iterative reconstruction technique. FINDINGS: Chest: Evaluation through the lung bases reveals no focal opacity, pleural effusion or pneumothorax. Heart size is within normal limits. No pericardial effusion. Abdomen and pelvis: Edematous appearance of the pancreatic head with diffuse peripancreatic stranding concerning for focal acute pancreatitis. Additionally, there appears to be diffuse wall thickening and stranding at the level of the pancreatic head adjacent to the duodenum. The possibility of duodenal inflammatory process may be considered in the differential. No organizing fluid collection. Prominent portal and peripancreatic lymph nodes are present, similar appearance to previous examination, may be reactive in etiology. The largest of these lymph nodes situated at the level of the pancreatic head and duodenum measures 11 mm in short axis dimension, (series 3, image 26). Bilateral adrenal gland hypertrophy similar in appearance to the previous examination. The liver, gallbladder, spleen, bilateral kidneys and bilateral adrenal glands are within normal limits. The vessels reveal atherosclerotic calcification otherwise patent and normal in caliber. RIGHT iliac stent appears patent. No additional abdominopelvic lymph nodes are noted to be pathologically enlarged by CT measurement criteria. The bowel is within normal limits without abnormal bowel wall thickness or bowel dilation. No free air. No free abdominopelvic fluid collections. The appendix is within normal limits. Thickened appearance of the bladder wall may be secondary to incomplete distention, however can be seen in the setting of infectious or inflammatory process. Please correlate with laboratory values. The osseous structures reveal degenerative change. Small fat-containing umbilical hernia. IMPRESSION: 1. Edematous appearance of the pancreatic head concerning for acute pancreatitis as detailed above. Please correlate with laboratory values. 2. Diffuse stranding and wall thickening at the level of the transverse duodenum may be reactive in etiology, however the possibility of duodenal inflammatory process may be considered in the differential. 3. Thickened appearance of the bladder wall may be secondary to incomplete distention, however can be seen in the setting of infectious or inflammatory process. Please correlate with laboratory values.
[2019-10-05] MEDS ORDERED: ACETAMINOPHEN 325 MG TABLET PO PRN (00:10)
[2019-10-05] MEDS ORDERED: IPRATROPIUM/ALBUTEROL 0.5-2.5 MG/3 ML AMPUL NEB PRN (00:20)
[2019-10-05] MEDS ORDERED: ONDANSETRON HCL INJ/PF 4 MG/2 ML SDV IV PRN (00:20)
[2019-10-05] MEDS ORDERED: MAG HYDROX/AL HYDROX/SIMETH SUSP 30 ML UDCUP PO PRN (00:20)
[2019-10-05] MEDS: KETOROLAC TROMETHAMINE INJ/PF 30 MG/1 ML SDV IV PRN ×2 (00:42→17:59)
[2019-10-05] MEDS: HYDRALAZINE HCL INJ/PF 20 MG/1 ML SDV IV PRN ×2 (00:42→17:37)
[2019-10-05] MEDS: NORMAL SALINE 1000 ML 1,000 ML IV PRN ×2 (00:43→09:54)
[2019-10-05 03:31] LABS: CREATINE KINASE MB 0.93 ng/mL (<4.55); TROPONIN I 0.02 ng/mL
--- NOTE | 2019-10-05 05:39 | PDOC H&P ---
History of Present Illness Admission Date/PCP: 10/05/19 00:16 FAVIO CARABALLO Patient complains of: Abdominal pain History of Present Illness: SAMPSON MAO is a 69 year old male with a past medical history of diabetes, tobacco, hypertension, dyslipidemia, and recurrent chronic pancreatitis. Patient has had 48 hours of abdominal pain worsened by eating, nausea without vomiting and denying diarrhea. He recognizes this from multiple similar episodes. Patient denies any medication, alcohol or recent viral illness. In the emergency room he is found to have mild pancreatitis by CT and a lipase of 2200. He received symptomatic management, IV fluids referred to the hospitalist for admission. Past Medical History Cardiac Medical History: Reports: Atrial Fibrillation - Paroxysmal atrial fibrillation and flutter, Coronary Artery Disease, Hyperlipidema, Hypertension, Peripheral Vascular Disease Denies: DVT, Myocardial Infarction, Pulmonary Embolism Pulmonary Medical History: Reports: Chronic Obstructive Pulmonary Disease (COPD) Denies: Asthma Neurological Medical History: Denies: Seizures Endocrine Medical History: Reports: Diabetes Mellitus Type 2 Denies: Diabetes Mellitus Type 1, Hyperthyroidism, Hypothyroidism GI Medical History: Reports: Gastroesophageal Reflux Disease Denies: Cirrhosis, Crohn's Disease, Hepatitis, Ulcerative Colitis Musculoskeltal Medical History: Reports: Arthritis, Gout Skin Medical History: Denies: Eczema, Psoriasis Psychiatric Medical History: Reports: Depression Hematology: Denies: Anemia, Bleeding Tendencies Past Surgical History Past Surgical History: Reports: Cardiac Catheterization, Carotid Endarterectomy - left, Coronary Stent, Vascular Surgery - clot removal in neck March 2018 Social History Information Source: Patient Lives with: Family Smoking Status: Current Every Day Smoker Electronic Cigarette use?: No Number of Years Smokin Frequency of Alcohol Use: None Hx Recreational Drug Use: No Drugs: None Hx Prescription Drug Abuse: No Family History Family History: CAD, DM, Hypertension, Malignancy Parental Family History Reviewed: Yes Children Family History Reviewed: Yes Sibling(s) Family History Reviewed.: Yes Medication/Allergy Home Medications: Acetaminophen [Tylenol Extra Strength 500 mg Tablet] 1,000 mg PO Q6HP PRN 09/28/19 Albuterol Sulfate [Proair HFA Inhalation Aerosol 8.5 gm MDI] 2 puff IH Q12HP PRN 09/28/19 Apixaban [Eliquis 5 mg Tablet] 5 mg PO Q12 09/28/19 Atorvastatin Calcium [Lipitor 80 mg Tablet] 80 mg PO QHS 09/28/19 Citalopram Hydrobromide [Celexa 20 mg Tablet] 20 mg PO DAILY 09/28/19 Empagliflozin [Jardiance] 25 mg PO DAILY 09/28/19 Ergocalciferol (Vitamin D2) [Drisdol 50,000 unit (1.25MG) Capsule] 50,000 unit PO TH 09/28/19 Fluticasone/Vilanterol [Breo 200-25 Mcg Ellipta 14 Dose/Dpi] 1 puff IH DAILY 09/28/19 Gabapentin [Neurontin 300 mg Capsule] 300 mg PO Q8 09/28/19 Glipizide [Glucotrol 10 mg Tablet] 10 mg PO DAILY 09/28/19 Insulin Detemir [Levemir] 20 units SQ QHS 09/28/19 Lisinopril [Zestril] 20 mg PO DAILY 09/28/19 Metoprolol Tartrate [Lopressor 50 mg Tablet] 50 mg PO Q12 09/28/19 Nicotine [Nicoderm 14 mg/24 Hr Transdermal Patch] 1 patch TD DAILY 09/28/19 Nitroglycerin [Nitrostat 0.4 mg (1/150 Gr) Tabs 25/Bottle] 0.4 mg SL Q5MP PRN 09/28/19 Ibuprofen [Motrin 400 mg Tablet] 400 mg PO MEALS PRN #10 tablet 09/29/19 Metoclopramide HCl [Metoclopramide HCl Odt] 10 mg PO Q8HP PRN #10 tab.rapdis 09/29/19 Allergies/Adverse Reactions: No Known Drug Allergies Allergy (Unknown, Verified 07/28/19 14:36) Raspberries Allergy (Mild, Uncoded 07/28/19 14:36) Hives Review of Systems Constitutional: ABSENT: chills, fever(s), headache(s), weight gain, weight loss Eyes: ABSENT: visual disturbances Ears: ABSENT: hearing changes Cardiovascular: ABSENT: chest pain, dyspnea on exertion, edema, orthropnea, pal pitations Respiratory: ABSENT: cough, hemoptysis Gastrointestinal: ABSENT: abdominal pain, constipation, diarrhea, hematemesis, hematochezia, nausea, vomiting Genitourinary: ABSENT: dysuria, hematuria Musculoskeletal: ABSENT: joint swelling Integumentary: ABSENT: rash, wounds Neurological: ABSENT: abnormal gait, abnormal speech, confusion, dizziness, focal weakness, syncope Psychiatric: ABSENT: anxiety, depression, homidical ideation, suicidal ideation Endocrine: ABSENT: cold intolerance, heat intolerance, polydipsia, polyuria Hematologic/Lymphatic: ABSENT: easy bleeding, easy bruising Physical Exam Vital Signs: Temp Pulse Resp BP Pulse Ox 97.5 F 16 L 16 157/68 H 99 10/05/19 01:20 10/05/19 01:20 10/05/19 01:20 10/05/19 01:20 10/05/19 01:20 Intake & Output 10/03/19 10/04/19 10/05/19 11:59 11:59 11:59 Intake Total 1600 Output Total 400 Balance 1200 Weight 106.5 kg General appearance: PRESENT: no acute distress, well-developed, well-nourished Head exam: PRESENT: atraumatic, normocephalic Eye exam: PRESENT: conjunctiva pink, EOMI, PERRLA. ABSENT: scleral icterus Ear exam: PRESENT: normal external ear exam Mouth exam: PRESENT: moist, tongue midline Neck exam: ABSENT: carotid bruit, JVD, lymphadenopathy, thyromegaly Respiratory exam: PRESENT: clear to auscultation wyatt. ABSENT: rales, rhonchi, wheezes Cardiovascular exam: PRESENT: RRR. ABSENT: diastolic murmur, rubs, systolic murmur Pulses: PRESENT: normal dorsalis pedis pul Vascular exam: PRESENT: normal capillary refill GI/Abdominal exam: PRESENT: distended, hyperactive bowel sounds, normal bowel sounds, soft, tenderness. ABSENT: guarding, mass, organolmegaly, rebound Rectal exam: PRESENT: deferred Extremities exam: PRESENT: full ROM. ABSENT: calf tenderness, clubbing, pedal edema Neurological exam: PRESENT: alert, awake, oriented to person, oriented to place, oriented to time, oriented to situation, CN II-XII grossly intact. ABSENT: motor sensory deficit Psychiatric exam: PRESENT: appropriate affect, normal mood. ABSENT: homicidal ideation, suicidal ideation Skin exam: PRESENT: dry, intact, warm. ABSENT: cyanosis, rash Results Laboratory Results: 10/04/19 20:26 10/04/19 20:26 10/04/19 10/04/19 10/04/19 20:26 20:26 22:02 WBC 9.9 RBC 4.21 L Hgb 13.4 L Hct 39.9 MCV 95 MCH 31.8 MCHC 33.5 RDW 14.1 H Plt Count 300 Seg Neutrophils % 57.0 Sodium 139.5 Potassium 4.3 Chloride 106 Carbon Dioxide 22 Anion Gap 12 BUN 15 Creatinine 1.02 Est GFR ( Amer) > 60 Glucose 167 H Calcium 10.1 Total Bilirubin 0.2 AST 19 Alkaline Phosphatase 75 Total Protein 7.0 Albumin 3.8 Lipase 2294.7 H Urine Color YELLOW Urine Appearance CLEAR Urine pH 5.0 Ur Specific [place] 1.030 Urine Protein NEGATIVE Urine Glucose (UA) >=500 H Urine Ketones NEGATIVE Urine Blood NEGATIVE Urine Nitrite NEGATIVE Ur Leukocyte Esterase NEGATIVE Urine WBC (Auto) 1 Urine RBC (Auto) 0 10/04/19 10/05/19 10/05/19 20:26 00:33 00:33 Creatine Kinase Cancelled CK-MB (CK-2) Cancelled Troponin I 0.024 Cancelled 10/05/19 10/05/19 02:51 02:51 Creatine Kinase 38 L CK-MB (CK-2) 0.93 Troponin I 0.020 Impressions: Acute Abdomen Series 10/04/19 20:35 IMPRESSION: 1. No acute cardiopulmonary abnormalities. 2. Nonspecific abdominal bowel gas pattern, within normal limits. Abdomen/Pelvis CT 10/04/19 21:53 IMPRESSION: 1. Edematous appearance of the pancreatic head concerning for acute pancreatitis as detailed above. Please correlate with laboratory values. 2. Diffuse stranding and wall thickening at the level of the transverse duodenum may be reactive in etiology, however the possibility of duodenal inflammatory process may be considered in the differential. 3. Thickened appearance of the bladder wall may be secondary to incomplete distention, however can be seen in the setting of infectious or inflammatory process. Please correlate with laboratory values. Assessment and Plan - Diagnosis (1) Pancreatitis Qualifiers: Chronicity: acute Pancreatitis type: unspecified pancreatitis type Acute pancreatitis complication: unspecified Qualified Code(s): K85.90 - Acute p ancreatitis without necrosis or infection, unspecified Is this a current diagnosis for this admission?: Yes Plan: Acute and chronic, idiopathic though patient now admits diet supplementation and energy drink consumption. He advised to discontinue this and tobacco. Previous work-up is unremarkable for underlying cause. Bowel rest, symptomatic management, IV fluids. Trial p.o. clear liquids when not requiring pain medication. (2) Epigastric pain Is this a current diagnosis for this admission?: Yes Plan: Secondary #1 (3) Acute electrocardiogram changes Is this a current diagnosis for this admission?: Yes Plan: Subtle T wave flattening versus inversion in lateral leads. Serial cardiac enzymes ordered. Previous stress test less than 1 year ago is negative. - Time Time Spent with patient: 25-34 minutes
[2019-10-05 10:31] LABS: CREATINE KINASE MB 1.01 ng/mL (<4.55); TROPONIN I 0.017 ng/mL
[2019-10-05] MEDS ORDERED: POLYETHYLENE GLYCOL 3350 POWDER 17 GM/1 PACKET PO ONE (12:30)
[2019-10-05] MEDS: LISINOPRIL 10 MG TABLET PO SCH (13:36)
[2019-10-05] MEDS: METOPROLOL TARTRATE 25 MG TABLET PO SCH ×2 (13:36→22:28)
[2019-10-05] MEDS: APIXABAN 5 MG TABLET PO SCH (17:35)
[2019-10-05] MEDS ORDERED: MORPHINE SULFATE 10 MG/ML INJ IV PRN (18:21)
[2019-10-05] MEDS ORDERED: NORMAL SALINE 1000 ML 1,000 ML IV PRN (18:22)
[2019-10-05] MEDS ORDERED: LISINOPRIL 10 MG TABLET PO ONE (19:00)
[2019-10-05 20:06] LABS: CREATINE KINASE MB 1.04 ng/mL (<4.55); TROPONIN I 0.032 ng/mL
[2019-10-06 06:33] LABS: ABSOLUTE EOSINOPHILS # (AUTO) 0.2 10^3/uL (0.0-0.6); ABSOLUTE LYMPHOCYTES (AUTO) 2.3 10^3/uL (0.5-4.7); ABSOLUTE MONOCYTES (AUTO) 0.4 10^3/uL (0.1-1.4); ABSOLUTE NEUT (AUTO) 3.2 10^3/uL (1.7-8.2); BASOPHILS % (AUTO) 0.7 % (0-2); EOSINOPHILS % (AUTO) 3.2 % (0-6); HEMATOCRIT 38.2 % (37.9-51.0); HEMOGLOBIN 12.7 g/dL (13.5-17.0); LYMPHOCYTES % (AUTO) 37.6 % (13-45); MEAN CORPUSCULAR HEMOGLOBIN 31.3 pg (27.0-33.4); MEAN CORPUSCULAR HGB CONC 33.1 g/dL (32.0-36.0); MEAN CORPUSCULAR VOLUME 94 fl (80-97); MONOCYTES % (AUTO) 6.8 % (3-13); PLATELET COUNT 286 10^3/uL (150-450); RED BLOOD COUNT 4.05 10^6/uL (4.35-5.55); RED CELL DISTRIBUTION WIDTH 14.4 % (11.5-14.0); SEGMENTED NEUTROPHILS % (AUTO) 51.7 % (42-78); TOTAL CELLS COUNTED % (AUTO) 100 %; WHITE BLOOD COUNT 6.2 10^3/uL (4.0-10.5)
[2019-10-06 06:52] LABS: ANION GAP 6 (5-19); BLOOD UREA NITROGEN 10 mg/dL (7-20); CALCIUM 9.5 mg/dL (8.4-10.2); CARBON DIOXIDE 26 mmol/L (22-30); CHLORIDE 107 mmol/L (98-107); GLUCOSE 143 mg/dL (75-110); POTASSIUM 4.2 mmol/L (3.6-5.0)
--- NOTE | 2019-10-06 08:06 | PDOC PROGRESS REPORT ---
Subjective Progress Note for:: 10/06/19 Subjective:: The patient is feeling better. Abdominal pain is minimal. He is doing well with clear liquids and is okay to try soft mechanical. His biggest complaint is constipation. He states he has not had a bowel movement in almost a week. He did get 1 dose of MiraLAX yesterday and it was not effective. Reason For Visit: EPIGASTRIC PAIN ACUTE ON CHRONIC PANCREATITIS,DM Physical Exam Vital Signs: Temp Pulse Resp BP Pulse Ox 98.4 F 84 15 165/78 H 98 10/06/19 03:06 10/06/19 03:06 10/06/19 03:06 10/06/19 03:06 10/06/19 03:06 Intake & Output 10/05/19 10/06/19 10/07/19 06:59 06:59 06:59 Intake Total 2600 2100 Output Total 400 3970 Balance 2200 -1870 Weight 106.5 kg 105.9 kg General appearance: PRESENT: no acute distress, cooperative, well-developed Head exam: PRESENT: atraumatic, normocephalic Ear exam: PRESENT: bleeding, drainage, normal external ear exam Respiratory exam: PRESENT: clear to auscultation wyatt, symmetrical, unlabored. ABSENT: rales, rhonchi, tachypnea, wheezes Cardiovascular exam: PRESENT: RRR, +S1, +S2, systolic murmur - Subtle at 1/6 GI/Abdominal exam: PRESENT: diminished bowel sounds, soft. ABSENT: distended, guarding, tenderness - No tenderness over the epigastrium Rectal exam: PRESENT: deferred Neurological exam: PRESENT: alert, awake, oriented to person, oriented to place, oriented to time, oriented to situation, CN II-XII grossly intact. ABSENT: motor sensory deficit Psychiatric exam: PRESENT: appropriate affect. ABSENT: agitated, anxious Focused psych exam: ABSENT: delusional, restlessness Skin exam: PRESENT: dry, normal color, warm. ABSENT: rash Results Laboratory Results: 10/06/19 05:45 10/06/19 05:45 10/06/19 10/06/19 05:45 05:45 WBC 6.2 RBC 4.05 L Hgb 12.7 L Hct 38.2 MCV 94 MCH 31.3 MCHC 33.1 RDW 14.4 H Plt Count 286 Seg Neutrophils % 51.7 Sodium 138.9 Potassium 4.2 Chloride 107 Carbon Dioxide 26 Anion Gap 6 BUN 10 Creatinine 0.92 Est GFR ( Amer) > 60 Glucose 143 H Calcium 9.5 10/04/19 10/05/19 10/05/19 20:26 00:33 00:33 Creatine Kinase Cancelled CK-MB (CK-2) Cancelled Troponin I 0.024 Cancelled 10/05/19 10/05/19 10/05/19 02:51 02:51 09:40 Creatine Kinase 38 L 38 L CK-MB (CK-2) 0.93 Troponin I 0.020 10/05/19 10/05/19 10/05/19 09:40 19:00 19:00 Creatine Kinase 41 L CK-MB (CK-2) 1.01 1.04 Troponin I 0.017 0.032 Impressions: Acute Abdomen Series 10/04/19 20:35 IMPRESSION: 1. No acute cardiopulmonary abnormalities. 2. Nonspecific abdominal bowel gas pattern, within normal limits. Abdomen/Pelvis CT 10/04/19 21:53 IMPRESSION: 1. Edematous appearance of the pancreatic head concerning for acute pancreatitis as detailed above. Please correlate with laboratory values. 2. Diffuse stranding and wall thickening at the level of the transverse duodenum may be reactive in etiology, however the possibility of duodenal inflammatory process may be considered in the differential. 3. Thickened appearance of the bladder wall may be secondary to incomplete distention, however can be seen in the setting of infectious or inflammatory process. Please correlate with laboratory values. Assessment and Plan - Diagnosis (1) Pancreatitis Qualifiers: Chronicity: acute Pancreatitis type: unspecified pancreatitis type Acute pancreatitis complication: no infection or necrosis Qualified Code(s): K85.90 - Acute pancreatitis without necrosis or infection, unspecified Is this a current diagnosis for this admission?: Yes Plan: 10/06/2019-the patient is feeling better. He is tolerating clear liquid diet. I am going to advance him to soft diet. I will recheck his lipase today. I explained to him that once he is tolerating his diet he can discharged home. I also informed him that his best course of action will be to follow-up with gastroenterology as an outpatient. Because of recurrent pancreatitis he will likely need an ERCP. Continue current management. (2) Epigastric pain Is this a current diagnosis for this admission?: Yes Plan: 10/06/2019-the patient has a history of GERD. I will add famotidine for GI prophylaxis. The source of the epigastric pain is the pancreatitis. His pain is much better today. (3) Diabetes mellitus type 2 in nonobese Is this a current diagnosis for this admission?: Yes Plan: 10/06/2019-the patient has a history of diabetes mellitus type 2. He is not on any medications at home. His fingersticks are reasonably controlled. Now that he is starting a soft diet he will be cardiac/controlled carbohydrate. If his serum glucoses are regularly over 150 (the starting point for sliding scale coverage) I will institute a sliding scale. (4) Coronary artery disease Qualifiers: Coronary Disease-Associated Artery/Lesion type: [place] artery [place] vs. transplanted heart: [place] heart Associated angina: without angina Qualified Code(s): I25.10 - Atherosclerotic heart disease of [place] coronary artery without angina pectoris Is this a current diagnosis for this admission?: Yes Plan: 10/06/2019-he has a history of coronary disease. He is on lisinopril and metoprolol. I will continue the same. He is not on a statin given his history of diabetes and coronary disease however I will defer to his primary care provider to initiate any therapy. (5) Paroxysmal atrial fibrillation Is this a current diagnosis for this admission?: Yes Plan: 10/06/2019-by auscultation he appears to be in sinus rhythm. He is on metoprolol with good rate control and we will continue his apixaban for anticoagulation. (6) Hypertension Qualifiers: Hypertension type: essential hypertension Qualified Code(s): I10 - Essential (primary) hypertension Is this a current diagnosis for this admission?: Yes Plan: 10/06/2019-continue lisinopril and metoprolol. (7) COPD (chronic obstructive pulmonary disease) Qualifiers: COPD type: unspecified COPD Qualified Code(s): J44.9 - Chronic obstructive pulmonary disease, unspecified Is this a current diagnosis for this admission?: Yes Plan: 10/06/2019-the patient is currently asymptomatic. We will continue his Breo inhaler therapy. - Plan Summary Summary: 10/06/2019-advance diet. If he tolerates regular diet he will discharged home. - Time Time Spent with patient: 15-24 minutes Medications reviewed and adjusted accordingly: Yes Anticipated discharge: Home Within: within 24 hours
[2019-10-06] MEDS ORDERED: MAGNESIUM CITRATE 296 ML BOTTLE PO ONE (08:15)
[2019-10-06] MEDS: METOPROLOL TARTRATE 25 MG TABLET PO SCH (09:15)
[2019-10-06] MEDS: LISINOPRIL 10 MG TABLET PO SCH (09:15)
[2019-10-06] MEDS: APIXABAN 5 MG TABLET PO SCH ×2 (09:15→17:54)
[2019-10-06] MEDS ORDERED: FAMOTIDINE 20 MG TABLET PO SCH (10:00)
[2019-10-06] MEDS ORDERED: POLYETHYLENE GLYCOL 3350 POWDER 17 GM/1 PACKET PO SCH (10:00)
[2019-10-06] MEDS ORDERED: FLUTICASONE/VILANTEROL 200-25 MCG/DOSE IH SCH (10:00)
[2019-10-06] MEDS ORDERED: DEXTROSE 50%-WATER 25 GM/50 ML DISP.SYRIN IV PRN ×2 (11:30)
[2019-10-06] MEDS ORDERED: GLUCAGON,HUMAN RECOMB 1 MG INJ IM PRN (11:30)
[2019-10-06] MEDS ORDERED: DEXTROSE 40% GEL 15 GM TUBE PO PRN ×2 (11:30)
[2019-10-06] MEDS: HYDRALAZINE HCL INJ/PF 20 MG/1 ML SDV IV PRN (13:17)
[2019-10-06] MEDS ORDERED: AMLODIPINE BESYLATE 5 MG TABLET PO SCH (13:30)
[2019-10-06 15:53] VITALS: BP 163/54
[2019-10-06] MEDS ORDERED: INSULIN REG, HUMAN 100 UNIT/ML 3 ML VIAL (PYX) SUBCUT SCH (16:00)
--- NOTE | 2019-10-07 08:02 | Left Against Medical Advice ---
Against Medical Advice Admission Date/Time: 10/05/19 00:16 Primary Care Provider: FAVIO CARABALLO Date of Patient Emigration: 10/06/19 - Diagnosis: (1) Pancreatitis Is this a current diagnosis for this admission?: Yes (2) Epigastric pain Is this a current diagnosis for this admission?: Yes (3) Diabetes mellitus type 2 in nonobese Is this a current diagnosis for this admission?: Yes (4) Coronary artery disease Is this a current diagnosis for this admission?: Yes (5) Paroxysmal atrial fibrillation Is this a current diagnosis for this admission?: Yes (6) Hypertension Is this a current diagnosis for this admission?: Yes (7) COPD (chronic obstructive pulmonary disease) Is this a current diagnosis for this admission?: Yes - Summary: Summary: Please see Admission and Progress Notes as well. SAMPSON MAO is a 69 M, who LEFT AGAINST MEDICAL ADVICE. The Patient was admitted on 10/05/19 00:16.
[2019-10-07] MEDS ORDERED: HYDROCHLOROTHIAZIDE 12.5 MG TABLET PO SCH (10:00)
== END 2019-10-06 18:00 | disposition left against medical advice (07) | DRG 440 ==
LOC: ER 19:17 → INTOOBSV 10-05 00:16 → EH 10-05 00:16 → UNDOADMOB 10-05 00:16 → OBSVTOIN 10-05 00:16 → EH 10-05 01:16 → 5 10-05 01:16
PROVIDERS: ADMIT Internal Medicine; ATTEND Internal Medicine
DX: K86.1 Other chronic pancreatitis (principal); E11.51 Type 2 diabetes mellitus with diabetic peripheral angiopathy without gangrene; I25.10 Atherosclerotic heart disease of native coronary artery without angina pectoris; I48.0 Paroxysmal atrial fibrillation; I10 Essential (primary) hypertension; J44.9 Chronic obstructive pulmonary disease, unspecified; E78.5 Hyperlipidemia, unspecified; K21.9 Gastro-esophageal reflux disease without esophagitis; M19.90 Unspecified osteoarthritis, unspecified site; M10.9 Gout, unspecified; F32.9 Major depressive disorder, single episode, unspecified; I16.0 Hypertensive urgency; K59.00 Constipation, unspecified; F17.200 Nicotine dependence, unspecified, uncomplicated; Z95.5 Presence of coronary angioplasty implant and graft; Z79.01 Long term (current) use of anticoagulants; Z79.4 Long term (current) use of insulin; Z91.018 Allergy to other foods; Z83.3 Family history of diabetes mellitus; Z82.49 Family history of ischemic heart disease and other diseases of the circulatory system
CPT/HCPCS: 36415; 74022; 74177; 80048; 80053; 81001; 82550; 82553; 82962; 83690; 84484; 85025; 93005; 93010; 96361; 96374; 96375; 99285; G0378; J0360; J1815; J1885; J2270; J2405; J3490; J7030

== ENCOUNTER 2020-04-07 14:12 | Emergency (ER) | payer MEDICARE, MEDICAID ==
--- NOTE | 2020-04-07 15:09 | ER Document Report ---
ED Medical Screen (RME) - General Chief Complaint: Chest Pain Stated Complaint: STOMACH PAIN Time Seen by Provider: 04/07/20 14:54 Primary Care Provider: FAVIO CARABALLO MD [Primary Care Provider] - Follow up as needed Mode of Arrival: Ambulatory TRAVEL OUTSIDE OF THE [place] IN LAST 30 DAYS: No - HPI Notes: 04/07/20 15:07 70-year-old male the history of an CVA, diabetes, HTN with a LA in 2017 with a stent placement on Eliquis presents to the emergency room for complaints of chest pain that started at 1:00 today on the left side. Chest pain subsided with 2 nitroglycerin. Patient states he wants to be checked out for his abdominal pain that he has been having for the last 3 weeks, has not had a bowel movement in the last 2 weeks, is passing flatus. Has tried MiraLAX, stool softeners without relief. Chest pain has resolved. I have greeted and performed a rapid initial assessment of this patient. A comprehensive ED assessment and evaluation of the patient, analysis of test results and completion of the medical decision making process will be conducted by additional ED providers. PHYSICAL EXAMINATION: GENERAL: Well-appearing, well-nourished and in no acute distress. CV: Sinus tachycardia LUNGS: No respiratory distress - Related Data Allergies/Adverse Reactions: Raspberries Allergy (Mild, Uncoded 04/07/20 14:52) Hives Past Medical History - Social History Chew tobacco use (# tins/day): No Frequency of alcohol use: None Drug Abuse: None Family history: Reviewed & Not Pertinent - Past Medical History Cardiac Medical History: Reports: Hx Atrial Fibrillation - Paroxysmal atrial fibrillation and flutter, Hx Coronary Artery Disease, Hx Hypercholesterolemia, Hx Hypertension, Hx Peripheral Vascular Disease Denies: Hx DVT, Hx Heart Attack, Hx Pulmonary Embolism Pulmonary Medical History: Reports: Hx COPD Denies: Hx Asthma Neurological Medical History: Denies: Hx Seizures Endocrine Medical History: Reports: Hx Diabetes Mellitus Type 2. Denies: Hx Diabetes Mellitus Type 1, Hx Hyperthyroidism, Hx Hypothyroidism Renal/ Medical History: Denies: Hx Peritoneal Dialysis GI Medical History: Reports: Hx Gastroesophageal Reflux Disease, Hx Pancreatitis. Denies: Hx Cirrhosis, Hx Crohn's Disease, Hx Hepatitis, Hx Ulcerative Colitis Musculoskeltal Medical History: Reports Hx Arthritis, Reports Hx Gout Skin Medical History: Denies Hx Eczema, Denies Hx Psoriasis Psychiatric Medical History: Reports: Hx Depression Infectious Medical History: Denies: Hx Hepatitis Past Surgical History: Reports: Hx Cardiac Catheterization, Hx Carotid Endarterectomy - left, Hx Coronary Stent, Hx Vascular Surgery - clot removal in neck March 2018 - Immunizations Immunizations up to date: Yes Hx Diphtheria, Pertussis, Tetanus Vaccination: No - unk Physical Exam - Vital signs Vitals: Temp Pulse Resp BP Pulse Ox 99.2 F 55 L 18 168/75 H 99 04/07/20 14:43 04/07/20 14:43 04/07/20 14:43 04/07/20 14:43 04/07/20 14:43 Course - Vital Signs Vital signs: Temp Pulse Resp BP Pulse Ox 99.2 F 55 L 18 168/75 H 99 04/07/20 14:47 04/07/20 14:43 04/07/20 14:43 04/07/20 14:43 04/07/20 14:43 Doctor's Discharge - Discharge Referrals: FAVIO CARABALLO MD [Primary Care Provider] - Follow up as needed
--- NOTE | 2020-04-07 15:50 | RADIOLOGY REPORT (SQ) ---
EXAM DESCRIPTION: CHEST SINGLE VIEW IMAGES COMPLETED DATE/TIME: 04/07/2020 3:39 pm REASON FOR STUDY: chest pain COMPARISON: 07/28/2019. EXAM PARAMETERS: NUMBER OF VIEWS: One view. TECHNIQUE: Single frontal radiographic view of the chest acquired. RADIATION DOSE: NA LIMITATIONS: None. FINDINGS: LUNGS AND PLEURA: No opacities, masses or pneumothorax. No pleural effusion. MEDIASTINUM AND HILAR STRUCTURES: No masses. Contour normal. HEART AND VASCULAR STRUCTURES: Heart normal in size. Normal vasculature. BONES: No acute findings. HARDWARE: None in the chest. OTHER: No other significant finding. IMPRESSION: NO ACUTE RADIOGRAPHIC FINDING IN THE CHEST. TECHNICAL DOCUMENTATION: JOB ID: [id number] 2010 [employer]- All Rights Reserved Reading location - IP/workstation name: [email or web address]
[2020-04-07 16:07] LABS: APPEARANCE,URINE CLOUDY; BILIRUBIN,URINE NEGATIVE (NEGATIVE); COLOR,URINE YELLOW; GLUCOSE, URINE NEGATIVE (NEGATIVE); KETONES,URINE NEGATIVE (NEGATIVE); LEUKOCYTE ESTERASE,URINE NEGATIVE (NEGATIVE); NITRITE,URINE NEGATIVE (NEGATIVE); PROTEIN,URINE 30 mg/dL (NEGATIVE); URINE SPECIFIC GRAVITY 1.008; UROBILINOGEN,URINE NEGATIVE mg/dL (<2.0)
[2020-04-07 16:41] LABS: ABSOLUTE BASOPHILS # (AUTO) 0.1 10^3/uL (0.0-0.2); ABSOLUTE EOSINOPHILS # (AUTO) 0.3 10^3/uL (0.0-0.6); ABSOLUTE LYMPHOCYTES (AUTO) 2.9 10^3/uL (0.5-4.7); ABSOLUTE MONOCYTES (AUTO) 0.4 10^3/uL (0.1-1.4); ABSOLUTE NEUT (AUTO) 2.3 10^3/uL (1.7-8.2); BASOPHILS % (AUTO) 1.2 % (0-2); EOSINOPHILS % (AUTO) 4.3 % (0-6); HEMOGLOBIN 14.1 g/dL (13.5-17.0); MEAN CORPUSCULAR HEMOGLOBIN 31.6 pg (27.0-33.4); MEAN CORPUSCULAR HGB CONC 33.6 g/dL (32.0-36.0); MEAN CORPUSCULAR VOLUME 94 fl (80-97); MONOCYTES % (AUTO) 7.4 % (3-13); PLATELET COUNT 331 10^3/uL (150-450); RED BLOOD COUNT 4.47 10^6/uL (4.35-5.55); RED CELL DISTRIBUTION WIDTH 13.9 % (11.5-14.0); SEGMENTED NEUTROPHILS % (AUTO) 38.1 % (42-78); TOTAL CELLS COUNTED % (AUTO) 100 %; WHITE BLOOD COUNT 5.9 10^3/uL (4.0-10.5)
[2020-04-07 16:54] LABS: ALBUMIN 4.2 g/dL (3.5-5.0); ALKALINE PHOSPHATASE 132 U/L (38-126); ANION GAP 9 (5-19); ASPARTATE AMINO TRANSFERASE 32 U/L (17-59); BILIRUBIN,TOTAL 0.4 mg/dL (0.2-1.3); BLOOD UREA NITROGEN 10 mg/dL (7-20); CARBON DIOXIDE 28 mmol/L (22-30); CHLORIDE 102 mmol/L (98-107); GLUCOSE 119 mg/dL (75-110); PHOSPHORUS 3.5 mg/dL (2.5-4.5); POTASSIUM 4.3 mmol/L (3.6-5.0); TOTAL PROTEIN 7.6 g/dL (6.3-8.2)
--- NOTE | 2020-04-07 18:59 | EKG REPORT ---
SEVERITY:- ABNORMAL ECG - SINUS TACHYCARDIA ATRIAL PREMATURE COMPLEX LVH WITH SECONDARY REPOLARIZATION ABNORMALITY : Confirmed by: Jose Isaac MD 07-Apr-2020 18:57:09
--- NOTE | 2020-04-07 20:34 | RADIOLOGY REPORT (SQ) ---
EXAM DESCRIPTION: CT abdomen pelvis with IV contrast. CLINICAL HISTORY: 70 years Male abd pain, no bm x 2 weeks COMPARISON: CT 10/04/2019 and 02/27/2017. TECHNIQUE: Axial images with 100 mL of Omnipaque 350. Sagittal coronal reconstruction. This exam was performed according to our departmental dose-optimization program, which includes automated exposure control, adjustment of the mA and/or kV according to patient size and/or use of iterative reconstruction technique.. FINDINGS: Left ventricular enlargement predominantly wall thickening unchanged. Lung bases are unremarkable. Liver, spleen, pancreas are unremarkable. There is mild thickening of the duodenum similar to previous studies. No acute biliary abnormalities. Mild nodular thickening of both adrenal glands unchanged. Mildly atherosclerotic aorta. Mild atherosclerotic disease of aortic branches. No suspicious para-aortic adenopathy. Kidneys without acute findings. Tiny calcification in the left kidney unchanged. Small cyst mid lower pole of left kidney unchanged. Small bowel loops are not dilated. Normal appendix. Mild increased colonic stool in the right colon. Less dilated left colon. Scattered diverticulosis. Degenerative changes at the L3-4. Sclerosis and subchondral lucencies are mildly increased since 2017. CT of the pelvis demonstrates [id number] atherosclerotic disease of iliac and common femoral arteries. Prostate not enlarged. Small prostatic stones. Urinary bladder contracted. Mild diffuse wall thickening unchanged since 2019. Distal colon without significant dilatation. Question thickening/mass in the right wall of the rectum. Series 601 image 64. No free fluid or adenopathy.. IMPRESSION: 1. Question subtle changes of thickening/tumor in the right side of the distal rectum. Finding could be artifact. Can be correlated clinically. 2. Mild increased colonic stool mainly right colon. No significant dilatation. Scattered colonic diverticulosis. 3. Previous studies demonstrated pancreatitis. No overt acute pancreatitis on the current study. Mild thickening of the duodenum is unchanged. 4. Mild aggressive degenerative changes at L3-4. 5. Mild to moderate diffuse atherosclerotic disease in the abdomen and pelvis. 6. Obviously chronic thickening of the left ventricle wall. Suggest clinical correlation.
[2020-04-07] MEDS ORDERED: MAGNESIUM CITRATE 296 ML BOTTLE PO ONE (22:21)
--- NOTE | 2020-04-07 22:26 | ER Document Report ---
ED General - General Chief Complaint: Chest Pain Stated Complaint: STOMACH PAIN Time Seen by Provider: 04/07/20 14:54 Primary Care Provider: YASHIRA MARIE MD [ACTIVE STAFF] - Follow up as needed FAVIO CARABALLO MD [Primary Care Provider] - Follow up as needed Mode of Arrival: Ambulatory Information source: Patient TRAVEL OUTSIDE OF THE [place] IN LAST 30 DAYS: No - HPI Onset: Other - over the last several weeks Onset/Duration: Gradual Quality of pain: Achy Severity: Mild Pain Level: 1 Associated symptoms: Nausea Exacerbated by: Denies Relieved by: Denies Similar symptoms previously: No Recently seen / treated by doctor: No Notes: 70 year old male with a history of CAD, CVA, DM, HTN here in the ER of 3 weeks of lower abdominal pains and several days of off and on chest pains. The patient denies recent fevers, chills, sweats, nausea, vomiting, diarrhea, urinary symptoms, radiation of chest pain. The patient says he feels somewhat bloated. When asked what brought him to the ER more his chest pain or his abdominal pain he told me his abdominal pain since his chest pain is fairly chronic. - Related Data Allergies/Adverse Reactions: Raspberries Allergy (Mild, Uncoded 04/07/20 14:52) Hives Past Medical History - General Information source: Patient - Social History Smoking Status: Current Every Day Smoker Chew tobacco use (# tins/day): No Frequency of alcohol use: None Drug Abuse: None Family History: CAD, DM, Hypertension, Malignancy Patient has homicidal ideation: No - Past Medical History Cardiac Medical History: Reports: Hx Atrial Fibrillation - Paroxysmal atrial fibrillation and flutter, Hx Coronary Artery Disease, Hx Hypercholesterolemia, Hx Hypertension, Hx Peripheral Vascular Disease Denies: Hx DVT, Hx Heart Attack, Hx Pulmonary Embolism Pulmonary Medical History: Reports: Hx COPD Denies: Hx Asthma Neurological Medical History: Denies: Hx Seizures Endocrine Medical History: Reports: Hx Diabetes Mellitus Type 2. Denies: Hx Diabetes Mellitus Type 1, Hx Hyperthyroidism, Hx Hypothyroidism Renal/ Medical History: Denies: Hx Peritoneal Dialysis GI Medical History: Reports: Hx Gastroesophageal Reflux Disease, Hx Pancreatitis. Denies: Hx Cirrhosis, Hx Crohn's Disease, Hx Hepatitis, Hx Ulcerative Colitis Musculoskeletal Medical History: Reports Hx Arthritis, Reports Hx Gout Skin Medical History: Denies Hx Eczema, Denies Hx Psoriasis Psychiatric Medical History: Reports: Hx Depression Infectious Medical History: Denies: Hx Hepatitis Past Surgical History: Reports: Hx Cardiac Catheterization, Hx Carotid Endarterectomy - left, Hx Coronary Stent, Hx Vascular Surgery - clot removal in neck March 2018 - Immunizations Immunizations up to date: Yes Hx Diphtheria, Pertussis, Tetanus Vaccination: No - unk Hx Pneumococcal Vaccination: 11/11/11 Physical Exam - Vital signs Vitals: Temp Pulse Resp BP Pulse Ox 99.2 F 55 L 18 168/75 H 99 04/07/20 14:43 04/07/20 14:43 04/07/20 14:43 04/07/20 14:43 04/07/20 14:43 - Notes Notes: GENERAL: Well-appearing, well-nourished and in no acute distress. HEAD: Atraumatic, normocephalic. EYES: Pupils equal round and reactive to light, extraocular movements intact, sclera anicteric, conjunctiva are normal. ENT: External ears normal, nares patent, oropharynx clear without exudates. Moist mucous membranes. NECK: Normal range of motion, supple without lymphadenopathy or JVD. LUNGS: Breath sounds clear to auscultation bilaterally and equal. No wheezes rales or rhonchi. HEART: Regular rate and rhythm without murmurs, rubs or gallops. ABDOMEN: Soft, nontender, normoactive bowel sounds. No guarding, no rebound. No masses appreciated. EXTREMITIES: Normal range of motion, no pitting or edema. No clubbing or cyanosis. NEUROLOGICAL: Cranial nerves II through XII grossly intact. Normal speech, normal gait. PSYCH: Normal mood, normal affect. SKIN: Warm, Dry, normal turgor, no rashes or lesions noted. Course - Re-evaluation Re-evalutation: 04/08/20 05:38 The patient is here in the ER 3 weeks of abdominal pains along with off and on chest pain. Labs unremarkable but CT shows possible mass in right distal rectum along with constipation. Patient told he needs to follow up with his PCP and possibly [employer] for his off and on chest pains and he needs to follow up with his PCP and a GI Doctor for his possible rectal mass. Patient understood a nd was in agreement with the outpatient plans. Patients Trop was at his baseline for him and his EKG is unchanged from priors. - Vital Signs Vital signs: Temp Pulse Resp BP Pulse Ox 98.7 F 64 20 155/73 H 98 04/07/20 22:36 04/07/20 22:36 04/07/20 22:36 04/07/20 22:36 04/07/20 22:36 - Laboratory Result Diagrams: 04/07/20 16:18 04/07/20 16:18 Laboratory results interpreted by me: 04/07/20 04/07/20 04/07/20 15:29 16:18 16:18 Lymph % (Auto) 49.0 H Seg Neutrophils % 38.1 L Glucose 119 H Alkaline Phosphatase 132 H Urine Protein 30 H - Diagnostic Test Radiology reviewed: Image reviewed, Reports reviewed - EKG Interpretation by Me EKG shows normal: Sinus rhythm, Intervals, QRS Complexes Rate: Normal Rhythm: NSR [place]/QRS: Left axis deviation Additional EKG results interpreted by me: 04/08/20 05:37 T wave inversions in aVL and V4-V6, [facility]H Discharge - Discharge Clinical Impression: Abdominal pain Qualifiers: Abdominal location: generalized Qualified Code(s): R10.84 - Generalized abdominal pain Constipation Qualifiers: Constipation type: unspecified constipation type Qualified Code(s): K59.00 - Constipation, unspecified Condition: Stable Disposition: HOME, SELF-CARE Instructions: Abdominal Pain ([facility]), Constipation ([facility]) Additional Instructions: Use Magnesium Citrate Solution for constipation. Follow up with your primary care doctor and with a GI Doctor (such as Dr. Marie). You have an area seen on CT in your rectum which could be concerning for a mass/tumor. You will likely need a colonoscopy as soon as possible. Prescriptions: Magnesium Citrate 295 ml PO ONCE PRN #1 solution PRN Reason: Referrals: FAVIO CARABALLO MD [Primary Care Provider] - Follow up as needed YASHIRA MARIE MD [ACTIVE STAFF] - Follow up as needed
[2020-04-07 22:39] VITALS: BP 155/73
== END 2020-04-07 22:36 | disposition home or self-care (01) ==
LOC: ER 14:12
DX: R10.84 Generalized abdominal pain (principal); K59.00 Constipation, unspecified; R07.9 Chest pain, unspecified; R10.9 Unspecified abdominal pain; R10.30 Lower abdominal pain, unspecified; I25.10 Atherosclerotic heart disease of native coronary artery without angina pectoris; Z86.73 Personal history of transient ischemic attack (TIA), and cerebral infarction without residual deficits; E11.9 Type 2 diabetes mellitus without complications; I10 Essential (primary) hypertension; I48.91 Unspecified atrial fibrillation; J44.9 Chronic obstructive pulmonary disease, unspecified
CPT/HCPCS: 93005; 99284; 36415; 83735; 84100; 85025; 80053; 81001; 84484; 71045; 74177; 93010; A9270; J3490